=== PATIENT | female | born 1935 | race Caucasian/White ===

== ENCOUNTER 2017-02-11 14:27 | Inpatient (IN) | payer MEDICARE ==
[2017-02-11] MEDS ORDERED: ceFAZolin 1 GM ADVAN(*) 1 GM in NS 0.9% 50 ML* 50 ML IVPB ONE (16:37)
[2017-02-11] MEDS ORDERED: NS 0.9% 1000 ML* 1,000 ML IV ONE (16:37)
[2017-02-11 18:35] LABS: ABS Basophils 0 10^3/ul (0-0.2); ABS Eosinophils 0 10^3/ul (0-0.6); ABS Lymphocytes 0.9 10^3/ul (1.0-4.8); ABS Monocytes 1.1 10^3/ul (0-0.8); ABS Neutrophils 11.5 10^3/ul (1.5-7.7); ABS Nucleated RBC 0 10^3/ul; Eosinophil % 0.3 % (0-6); Hematocrit 38 % (35-47); Hemoglobin 13.1 g/dl (12.0-16.0); Lymphocyte % 6.7 % (25-47); Mean Corpuscular HGB Conc 35 g/dl (31-36); Mean Corpuscular Hemoglobin 31 pg (27-31); Mean Corpuscular Volume 90 fL (80-97); Mean Platelet Volume 9 um3 (7.4-10.4); Nucleated Red Blood Cells % 0; Platelet Count 188 10^3/ul (150-450); Red Blood Count 4.19 10^6/ul (4.0-5.4); Red Cell Distribution Width 14 % (10.5-15); White Blood Count 13.6 10^3/ul (3.5-10.8)
[2017-02-11 18:47] LABS: EGFR Non-African American 63.3 (>60)
--- NOTE | 2017-02-11 20:21 | RAD ---
INDICATION: RIGHT upper extremity pain and edema. History of Lyme disease. Elevated d-dimer. COMPARISON: No relevant prior exams available on the [facility] PACS for comparison. TECHNIQUE: Duplex ultrasound of the RIGHT internal jugular and subclavian veins. With the exception of the non accessible subclavian vein compressibility of venous segments assessed. Augmentation and phasicity assessed. The axillary and distal RIGHT upper extremity veins could not be assessed due to limitation in range of motion of the arm/shoulder. REPORT: The deep RIGHT internal jugular and subclavian veins are patent. Patency of the LEFT subclavian vein documented. IMPRESSION: No evidence for RIGHT internal jugular or subclavian deep venous thrombosis. The axillary and distal RIGHT upper extremity veins could not be assessed due to limitation in range of motion of the arm/shoulder.
--- NOTE | 2017-02-11 21:11 | ED ---
Nathan Valente Gabriel, scribed for Johnnie Arteaga MD on 02/11/17 at 1707 . Upper Extremity Pain - HPI Summary HPI Summary: This patient is a 81 year old F presenting to [facility] accompanied by granddaughter with a chief complaint of right shoulder pain since 4 nights ago. The patient rates the pain 6/10 in severity. Patient reports right arm pain and erythema on the posterior aspect of her arm. Patient denies fever. She was seen at yesterday and diagnosed with Lymes - History of Current Complaint Chief Complaint: EDExtremityUpper Stated Complaint: RT ARM PAIN & SWELLING Time Seen by Provider: 02/11/17 15:59 Hx Obtained From: Patient, Family/[employer] - granddaughter Timing: Constant, Lasting Days - 4 Severity Initially: Moderate Severity Currently: Moderate Pain Location: Shoulder, Arm Aggravating Factor(s): Movement Associated Signs & Symptoms: Positive: Redness - Allergies/Home Medications Allergies/Adverse Reactions: Allergies Allergy/AdvReac Type Severity Reaction Status Date / Time SEASONAL ALLERGIES Allergy Unknown Uncoded 02/11/17 14:37 Reaction Details PMH/Surg Hx/FS Hx/Imm Hx Previously Healthy: No Cardiovascular History: Reports: Hx Coronary Artery Disease - ON MED, Other Cardiovascular Problems/Disorders - IRREGULAR HR GI History: Reports: Hx Gastroesophageal Reflux Disease - ON MED Musculoskeletal History: Reports: Hx Arthritis - NECK SHOULDERS Sensory History: Reports: Hx Cataracts - RIGHT EYE, Hx Contacts or Glasses - GLASSES, Hx Hearing Aid - BILAT. Opthamlomology History: Reports: Hx Cataracts - RIGHT EYE, Hx Contacts or Glasses - GLASSES Psychiatric History: Reports: Hx Anxiety - ON MED - Surgical History Surgery Procedure, Year, and Place: 2006 LEFT KNEE REPLACEMENT [facility]. 2008 APPY [facility]. 2013 LEFT EYE CATARACT REMOVAL- [place] Hx Anesthesia Reactions: No Infectious Disease History: No Infectious Disease History: Denies: Traveled Outside the [place] in Last 30 Days - Social History Alcohol Use: Rare Alcohol Amount: 1 DRINK A WEEK Substance Use Type: Reports: None Smoking Status (MU): Never Smoked Tobacco Review of Systems Positive: Other - erythema on the posterior aspect of her arm Positive: Other - right shoulder and arm pain All Other Systems Reviewed And Are Negative: Yes Physical Exam - Summary Physical Exam Summary: Appearance: The patient is well-nourished in no acute distress and in no acute pain. Skin: The skin is warm and dry and skin color reflects adequate perfusion. HEENT: The head is normocephalic and atraumatic. The pupils are equal and reactive. The conjunctivae are clear and without drainage. Nares are patent and without drainage. Mouth reveals moist mucous membranes and the throat is without erythema and exudate. The external ears are intact. The ear canals are patent and without drainage. The tympanic membranes are intact. Neck: the neck is supple with full range of motion and non-tender. There are no carotid bruits. There is no neck vein distension. Respiratory: Chest is non-tender. Lungs are clear to auscultation and breath sounds are symmetrical and equal. Cardiovascular: Heart is regular rate and rhythm. There is no murmur or rub auscultated. There is no peripheral edema and pulses are symmetrical and equal. Abdomen: The abdomen is soft and non-tender. There are normal bowel sounds heard in all four quadrants and there is no organomegaly palpated. Musculoskeletal: Extremities are non-tender with full range of motion. There is good capillary refill. There is no peripheral edema or calf tenderness elicited. Spot on medial back that has induration and erythema. Right upper arm has induration, erythema, and is tender on the dorsal side. Neurological: Patient is alert and oriented to person, place and time. The patient has symmetrical motor strength in all four extremities. Cranial nerves are grossly intact. Deep tendon reflexes are symmetrical and equal in all four extremities. Psychiatric: The patient has an appropriate affect and does not exhibit any anxiety or depression Triage Information Reviewed: Yes Vital Signs On Initial Exam: Initial Vitals Temp Pulse Resp BP Pulse Ox 99.1 F 74 16 135/78 99 02/11/17 14:33 02/11/17 14:33 02/11/17 14:33 02/11/17 14:33 02/11/17 14:33 Vital Signs Reviewed: Yes - [place] Coma Scale Coma Scale Total: 15 Diagnostics - Vital Signs Vital Signs Temp Pulse Resp BP Pulse Ox 02/11/17 14:33 99.1 F 74 16 135/78 99 - Laboratory Lab Results: Lab Results 02/11/17 02/11/17 02/11/17 Range/Units 18:16 18:16 18:16 WBC 13.6 H (3.5-10.8) 10^3/ul RBC 4.19 (4.0-5.4) 10^6/ul Hgb 13.1 (12.0-16.0) g/dl Hct 38 (35-47) % MCV 90 (80-97) fL MCH 31 (27-31) pg MCHC 35 (31-36) g/dl RDW 14 (10.5-15) % Plt Count 188 (150-450) 10^3/ul MPV 9 (7.4-10.4) um3 Neut % (Auto) 84.8 H (38-83) % Lymph % (Auto) 6.7 L (25-47) % [place] % (Auto) 7.9 (1-9) % Eos % (Auto) 0.3 (0-6) % Baso % (Auto) 0.3 (0-2) % Absolute Neuts (auto) 11.5 H (1.5-7.7) 10^3/ul Absolute Lymphs (auto) 0.9 L (1.0-4.8) 10^3/ul Absolute Monos (auto) 1.1 H (0-0.8) 10^3/ul Absolute Eos (auto) 0 (0-0.6) 10^3/ul Absolute Basos (auto) 0 (0-0.2) 10^3/ul Absolute Nucleated RBC 0 10^3/ul Nucleated RBC % 0 D-Dimer, Quantitative 871 H (Less Than 230) ng/mL Sodium 126 L (133-145) mmol/L Potassium 4.4 (3.5-5.0) mmol/L Chloride 93 L (101-111) mmol/L Carbon Dioxide 25 (22-32) mmol/L Anion Gap 8 (2-11) mmol/L BUN 17 (6-24) mg/dL Creatinine 0.86 (0.51-0.95) mg/dL Est GFR ( Amer) 81.4 (>60) Est GFR (Non-Af Amer) 63.3 (>60) BUN/Creatinine Ratio 19.8 (8-20) Glucose 106 H (70-100) mg/dL Lactic Acid (0.5-2.0) mmol/L Calcium 9.5 (8.6-10.3) mg/dL Total Bilirubin 1.40 H (0.2-1.0) mg/dL AST 27 (13-39) U/L ALT 21 (7-52) U/L Alkaline Phosphatase 78 (34-104) U/L Total Protein 7.8 (6.4-8.9) g/dL Albumin 3.6 (3.2-5.2) g/dL Globulin 4.2 H (2-4) g/dL Albumin/Globulin Ratio 0.9 L (1-3) 02/11/17 Range/Units 18:16 WBC (3.5-10.8) 10^3/ul RBC (4.0-5.4) 10^6/ul Hgb (12.0-16.0) g/dl Hct (35-47) % MCV (80-97) fL MCH (27-31) pg MCHC (31-36) g/dl RDW (10.5-15) % Plt Count (150-450) 10^3/ul MPV (7.4-10.4) um3 Neut % (Auto) (38-83) % Lymph % (Auto) (25-47) % [place] % (Auto) (1-9) % Eos % (Auto) (0-6) % Baso % (Auto) (0-2) % Absolute Neuts (auto) (1.5-7.7) 10^3/ul Absolute Lymphs (auto) (1.0-4.8) 10^3/ul Absolute Monos (auto) (0-0.8) 10^3/ul Absolute Eos (auto) (0-0.6) 10^3/ul Absolute Basos (auto) (0-0.2) 10^3/ul Absolute Nucleated RBC 10^3/ul Nucleated RBC % D-Dimer, Quantitative (Less Than 230) ng/mL Sodium (133-145) mmol/L Potassium (3.5-5.0) mmol/L Chloride (101-111) mmol/L Carbon Dioxide (22-32) mmol/L Anion Gap (2-11) mmol/L BUN (6-24) mg/dL Creatinine (0.51-0.95) mg/dL Est GFR ( Amer) (>60) Est GFR (Non-Af Amer) (>60) BUN/Creatinine Ratio (8-20) Glucose (70-100) mg/dL Lactic Acid 1.9 (0.5-2.0) mmol/L Calcium (8.6-10.3) mg/dL Total Bilirubin (0.2-1.0) mg/dL AST (13-39) U/L ALT (7-52) U/L Alkaline Phosphatase (34-104) U/L Total Protein (6.4-8.9) g/dL Albumin (3.2-5.2) g/dL Globulin (2-4) g/dL Albumin/Globulin Ratio (1-3) Result Diagrams: 02/11/17 18:16 02/11/17 18:16 Lab Statement: Any lab studies that have been ordered have been reviewed, and results considered in the medical decision making process. - Additional Comments Diagnostic Additional Comments: Venous Doppler of upper extremities reveals, per radiologist, No evidence for RIGHT internal jugular or subclavian deep venous thrombosis. The axillary and distal RIGHT upper extremity veins could not be assessed due to limitation in range of motion of the arm/shoulder. ED physician has reviewed this radiology report. Course/Dx - Course Course Of Treatment: Ms. Moreno presented with a cellulitis of her right arm that was quite extensive. The arm was also fairly swollen and her d-dimer was nearly 900. A doppler was equivocal. She is being admitted to the hospitalists service with a diagnosis of cellulitis. - Diagnoses Provider Diagnoses: Cellulitis of right arm Discharge - Discharge Plan Condition: Stable Disposition: ADMITTED TO [facility] Referrals: Ramón Hastings MD [Primary Care Provider] - The documentation as recorded by the Nathan polanco Gabriel accurately reflects the service I personally performed and the decisions made by me, Johnnie Arteaga MD.
[2017-02-11] MEDS ORDERED: fentaNYL* 50 MCG/ML 2 ML VIAL (100 MCG VIAL) IV SLOW PU PRN (23:40)
[2017-02-11] MEDS ORDERED: Ondansetron INJ* 2 MG/ML VIAL IV PRN (23:40)
[2017-02-11] MEDS ORDERED: CMCS: Melatonin (NF) 3 MG TAB PO PRN (23:40)
[2017-02-11] MEDS: NS 0.9% 1000 ML* 1,000 ML IV SCH (23:50)
[2017-02-12] MEDS ORDERED: Vancomycin per Pharmacy* NOTE FOLLOW UP PRN (00:43)
[2017-02-12] MEDS: oxyCODONE TAB* 5 MG TAB PO PRN (00:58)
[2017-02-12] MEDS ORDERED: Vancomycin(*) 1,000 MG in NS 0.9% 250 ML* 250 ML IVPB ONE (01:00)
[2017-02-12] MEDS: ceFAZolin 1 GM in Dextrose (*) 1 GM/50 ML BAG IVPB SCH ×3 (03:17→18:51)
--- NOTE | 2017-02-12 04:40 | HP ---
H&P (Free Text) History and Physical: PCP: Chaz Hastings MD Orthopedic Surgery: Dr Nur (sp?), [facility] Date/Time: 02/11/2017 [id number] CC: R shoulder pain, RUE swelling HPI: Mrs Moreno is an 81YO female 3 years s/p R shoulder arthoplasty on low dose prednisone chronically for arthritis who was in her usual health last Sunday when she had annual Xrays of the R shoulder done. That evening she began having aching in the R shoulder she felt may have been due to the ROM done during the Xray. However by AM she was unable to perform ADLs such as dressing herself 2nd pain. A call to her orthopedist for appointment yielded a next available 2 weeks out. Sunday she began developing swelling in the RUE & shoulder with light erythema. Pain has continued to progress with worsening ROM decreased to nearly frozen. She had a single episode of N/V followed by a diarrheal stool Sunday, but denies F/C, sweats, chest pain, or other issues. D-dimer was 871, minimally elevated given age adjustment. US DVT RUE was negative, but incomplete 2nd severely limited ROM. CT was essentially normal for s/p shoulder replacement. WBCs 13.6 84.8% neutrophils. Case was reviewed with Nory Angulo MD orthopedic surgery out of concern for potential seeding of her RUE shoulder prosthesis from the cellulitis resulting in painful active/passive ROM, recommended CT WO and will evaluate in AM. PMedHx AFIB HTN HLD GERD OA depression Ambulatory Orders Atorvastatin* [Lipitor 20 MG*] 1 tab PO DAILY 07/21/13 Digoxin TAB* [Lanoxin TAB*] 1 tab PO DAILY 07/21/13 Escitalopram (NF) [Lexapro 5 mg (NF)] 1 tab PO DAILY 07/21/13 Omeprazole CAP* [Prilosec CAP* 20 MG] 1 b PO DAILY 07/21/13 Rivaroxaban TAB(*) [Xarelto(*)] 1 tab PO DAILY 07/21/13 Atenolol TAB* [Tenormin TAB* 25 MG] 25 mg PO DAILY 02/11/17 predniSONE TAB* 4 tab PO DAILY 02/11/17 Allergies SEASONAL ALLERGIES Allergy (Uncoded 02/11/17 14:37) Unknown Reaction Details PSurgHx OU cateract extraction tonsillectomy appendectomy R shoulder replacement L carpal tunnel release B TKA SocHx: no tobacco, light alcohol, no recreational drugs; , lives alone; 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[employer], 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 [employer]; DNR /I code status FamHx: unobtainable, patient is adopted ROS: as above, otherwise reviewed and all were negative vitals: Vital Signs Temp 37.0 C 02/12/17 03:35 Pulse 101 02/12/17 03:35 Resp 16 02/12/17 03:35 BP 131/65 02/12/17 03:35 Pulse Ox 97 02/12/17 03:35 Intake & Output 02/11/17 02/11/17 02/12/17 11:59 23:59 11:59 Intake Total 1050 285 Balance 1050 285 Weight 56.699 kg 56.699 kg Intake: IV Fluids 1050 IVPB 285 ABX - VANCOMYCIN 285 Constitutional: NAD, normally developed, well-nourished elderly white female HEENM: atraumatic; sclera/conjunctiva: anicteric/clear; hearing: clinically intact; oropharynx: clear, mucosa moist Neck: soft tissue: non-tender; thyroid: normal Pulmonary: clear to auscultation bilaterally, good aeration, no accessory muscle use CV: RR/RR, normal S1S2, no carotid bruit, no femoral bruit, no abdominal bruit, no jugular venous distention, 2+ B radial pulses, no LE edema, capillary refill <2s BUE Abdominal: soft, non-distended, non-tender, no rebound/guarding/rigidity, normoactive bowel sounds, no hepatosplenomegaly or masses, no costovertebral angle tenderness Musculoskeletal: general: RUE w/ edema and induration associated with light erythema and warmth extending from the deltoid postero-laterally to the elbow; There is there is painful dysesthesia to very light touch but no vessiculation. No flocclent or draining areas. Integumental: as above Psychiatric orientation: AA&O to PPS affect: calm mood: cooperative eye contact: good content: reliable responses: timely insight: good Testing: Lab Results 02/11/17 02/11/17 02/11/17 Range/Units 18:16 18:16 18:16 WBC 13.6 H (3.5-10.8) 10^3/ul RBC 4.19 (4.0-5.4) 10^6/ul Hgb 13.1 (12.0-16.0) g/dl Hct 38 (35-47) % MCV 90 (80-97) fL MCH 31 (27-31) pg MCHC 35 (31-36) g/dl RDW 14 (10.5-15) % Plt Count 188 (150-450) 10^3/ul MPV 9 (7.4-10.4) um3 Neut % (Auto) 84.8 H (38-83) % Lymph % (Auto) 6.7 L (25-47) % [place] % (Auto) 7.9 (1-9) % Eos % (Auto) 0.3 (0-6) % Baso % (Auto) 0.3 (0-2) % Absolute Neuts (auto) 11.5 H (1.5-7.7) 10^3/ul Absolute Lymphs (auto) 0.9 L (1.0-4.8) 10^3/ul Absolute Monos (auto) 1.1 H (0-0.8) 10^3/ul Absolute Eos (auto) 0 (0-0.6) 10^3/ul Absolute Basos (auto) 0 (0-0.2) 10^3/ul Absolute Nucleated RBC 0 10^3/ul Nucleated RBC % 0 D-Dimer, Quantitative 871 H (Less Than 230) ng/mL Sodium 126 L (133-145) mmol/L Potassium 4.4 (3.5-5.0) mmol/L Chloride 93 L (101-111) mmol/L Carbon Dioxide 25 (22-32) mmol/L Anion Gap 8 (2-11) mmol/L BUN 17 (6-24) mg/dL Creatinine 0.86 (0.51-0.95) mg/dL Est GFR ( Amer) 81.4 (>60) Est GFR (Non-Af Amer) 63.3 (>60) BUN/Creatinine Ratio 19.8 (8-20) Glucose 106 H (70-100) mg/dL Lactic Acid (0.5-2.0) mmol/L Calcium 9.5 (8.6-10.3) mg/dL Total Bilirubin 1.40 H (0.2-1.0) mg/dL AST 27 (13-39) U/L ALT 21 (7-52) U/L Alkaline Phosphatase 78 (34-104) U/L Total Protein 7.8 (6.4-8.9) g/dL Albumin 3.6 (3.2-5.2) g/dL Globulin 4.2 H (2-4) g/dL Albumin/Globulin Ratio 0.9 L (1-3) Prolactin 6.5 (1.0-25.0) ng/mL 02/11/17 Range/Units 18:16 WBC (3.5-10.8) 10^3/ul RBC (4.0-5.4) 10^6/ul Hgb (12.0-16.0) g/dl Hct (35-47) % MCV (80-97) fL MCH (27-31) pg MCHC (31-36) g/dl RDW (10.5-15) % Plt Count (150-450) 10^3/ul MPV (7.4-10.4) um3 Neut % (Auto) (38-83) % Lymph % (Auto) (25-47) % [place] % (Auto) (1-9) % Eos % (Auto) (0-6) % Baso % (Auto) (0-2) % Absolute Neuts (auto) (1.5-7.7) 10^3/ul Absolute Lymphs (auto) (1.0-4.8) 10^3/ul Absolute Monos (auto) (0-0.8) 10^3/ul Absolute Eos (auto) (0-0.6) 10^3/ul Absolute Basos (auto) (0-0.2) 10^3/ul Absolute Nucleated RBC 10^3/ul Nucleated RBC % D-Dimer, Quantitative (Less Than 230) ng/mL Sodium (133-145) mmol/L Potassium (3.5-5.0) mmol/L Chloride (101-111) mmol/L Carbon Dioxide (22-32) mmol/L Anion Gap (2-11) mmol/L BUN (6-24) mg/dL Creatinine (0.51-0.95) mg/dL Est GFR ( Amer) (>60) Est GFR (Non-Af Amer) (>60) BUN/Creatinine Ratio (8-20) Glucose (70-100) mg/dL Lactic Acid 1.9 (0.5-2.0) mmol/L Calcium (8.6-10.3) mg/dL Total Bilirubin (0.2-1.0) mg/dL AST (13-39) U/L ALT (7-52) U/L Alkaline Phosphatase (34-104) U/L Total Protein (6.4-8.9) g/dL Albumin (3.2-5.2) g/dL Globulin (2-4) g/dL Albumin/Globulin Ratio (1-3) Prolactin (1.0-25.0) ng/mL US DVT RUE: IMPRESSION: No evidence for RIGHT internal jugular or subclavian deep venous thrombosis. The axillary and distal RIGHT upper extremity veins could not be assessed due to limitation in range of motion of the arm/shoulder. CT R shoulder WO, personally reviewed: IMPRESSION: Right shoulder prosthesis appears to be in normal articulation. Impression: 81F HX R shoulder arthroplasty 3 years ago with progressive R shoulder pain, swelling, & decreased ROM with RUE pain, swelling, erythema, and warmth consistent with cellulitis and raising the specter of an infected prosthesis DIAGNOSIS & PLAN Primary sepsis (HR >90, leukocytosis) 2nd RUE cellulitis w/ concern for R shoulder prosthesis infection : IV vancomycin and cefazolin : IVFs : blood CX : pain control : Nory Angulo MD orthopedic surgery consulted, will evaluate in AM; input greatly appreciated : NPO x/ meds w/ sips of clears : supportive care hypoNatremia : suspect dehydration : IVFs, trend Secondary AFIB : continue atenolol, digoxin, & rivaroxaban HTN : continue atenolol HLD : continue atorvastatin GERD : continue omeprazole OA : continue prednisone depression : continue escitalopram Admission Rational: inpatient for sepsis 2nd RUE cellulitis +/ R shoulder prosthesis infection; inappropriate for outpatient setting DVTp: continue rivaroxaban Code Status: DNR/I, MOLST filled out HCP: daughterMagalys
[2017-02-12 06:35] LABS: EGFR Non-African American 70.9 (>60)
[2017-02-12 07:37] LABS: ABS Basophils 0 10^3/ul (0-0.2); ABS Eosinophils 0 10^3/ul (0-0.6); ABS Monocytes 1.1 10^3/ul (0-0.8); ABS Neutrophils 9.1 10^3/ul (1.5-7.7); ABS Nucleated RBC 0.01 10^3/ul; Eosinophil % 0.3 % (0-6); Hematocrit 33 % (35-47); Hemoglobin 11.1 g/dl (12.0-16.0); Lymphocyte % 8.8 % (25-47); Mean Corpuscular HGB Conc 34 g/dl (31-36); Mean Corpuscular Hemoglobin 30 pg (27-31); Mean Corpuscular Volume 90 fL (80-97); Mean Platelet Volume 8 um3 (7.4-10.4); Nucleated Red Blood Cells % 0; Platelet Count 195 10^3/ul (150-450); Red Blood Count 3.69 10^6/ul (4.0-5.4); Red Cell Distribution Width 14 % (10.5-15); White Blood Count 11.2 10^3/ul (3.5-10.8)
--- NOTE | 2017-02-12 08:18 | RAD ---
Indication: RIGHT shoulder pain. Cellulitis. Question septic arthritis at the prosthetic RIGHT shoulder. No range of motion. Lump under arm. Comparison: Limited RIGHT upper extremity venous ultrasound of the same date. Technique: Noncontrast CT RIGHT shoulder. Multiplanar reformation. Report: Small calcified granuloma at the RIGHT lung base. Small calcified lymph nodes at the RIGHT hilum. No alveolar consolidation at the RIGHT lung. Negative for RIGHT pleural effusion or pneumothorax. Reversed glenohumeral prosthesis in place and located. Resulting artifact limiting image quality. No periprosthetic fracture or suggestion of prosthesis loosening. No definitive joint effusion evident. Advanced osteoarthritis at the acromioclavicular joint and large inferior acromial bone spur at the anterior margin. No CT abnormality at the skeletal musculature tissue plane. Mild subcutaneous edema posterolaterally. No loculated soft tissue plane fluid collection evident within limits of noncontrast CT. No lymphadenopathy evident. IMPRESSION: 1. No evidence for RIGHT glenohumeral prosthesis loosening or periprosthetic fracture. 2. No joint effusion evident. If clinically indicated ultrasound could be utilized to further assess for joint effusion. 3. Advanced AC joint osteoarthritis and large inferior acromial bone spur.
--- NOTE | 2017-02-12 08:38 | RAD ---
Indication: Sepsis; RIGHT upper extremity cellulitis versus septic prosthetic RIGHT shoulder. Limited range of motion. Comparison: Noncontrast CT of the same date. Technique: Internal and external rotation AP and scapular Y views RIGHT shoulder Report: Reversed glenohumeral prosthesis in place with normal alignment. No fracture or stigmata of prosthesis loosening. Advanced osteoarthritis at the acromial clavicular joint and large inferior acromial bone spur. Bone density appears decreased throughout. No gross osteolysis or periosteal reaction evident. Unremarkable soft tissue contours. Negative for subcutaneous emphysema. Mild atelectasis at the RIGHT lung base. IMPRESSION: 1. Reverse bony humeral joint prosthesis in place with normal alignment. 2. Advanced AC joint osteoarthritis and large inferior acromial bone spur. 3. No compelling radiographic evidence for osteomyelitis or septic arthritis.
--- NOTE | 2017-02-12 08:40 | RAD ---
INDICATION: Right arm pain. Cellulitis. COMPARISON: None TECHNIQUE: AP, lateral, and oblique views were obtained. FINDINGS: There is no acute bony change. There is moderate osteoarthritis. There is diffuse soft tissue edema with disruption of the fat muscle interface. IMPRESSION: DIFFUSE SOFT TISSUE EDEMA.
[2017-02-12] MEDS: Atenolol TAB* 25 MG PO SCH (09:13)
[2017-02-12] MEDS: Digoxin TAB* 0.125 MG PO SCH (09:13)
[2017-02-12] MEDS: Atorvastatin* 20 MG TAB PO SCH (09:15)
[2017-02-12] MEDS: Rivaroxaban TAB(*) 15 MG PO SCH (09:16)
[2017-02-12] MEDS: Citalopram TAB* 10 MG PO SCH (09:16)
[2017-02-12] MEDS: Omeprazole CAP* 20 MG PO SCH (09:16)
[2017-02-12] MEDS: Docusate CAP* 100 MG PO SCH ×2 (09:16→19:48)
[2017-02-12] MEDS: predniSONE TAB* 1 MG PO SCH (09:16)
[2017-02-12] MEDS ORDERED: Vancomycin(*) 500 MG in NS 0.9% 250 ML* 250 ML IVPB SCH (13:00)
--- NOTE | 2017-02-12 15:37 | CONS ---
CONSULTATION REPORT: DATE OF CONSULT: 02/12/17 HISTORY OF PRESENT ILLNESS: Kiara Moreno is an 81-year-old relatively active lady who a few years ago had a right reverse total shoulder down at [place] by Dr. Nur. This has been a successful arthroplasty for her overall. In the last week, she had a couple of passive range of motion exercises of the right shoulder for x- rays at followup with Dr. Nur and she says that night, she developed pain in the shoulder and the next morning was barely able to move the arm. She was seen at the [facility] 3 days ago and thought to maybe have Lyme disease, but at any rate she has been readmitted over the weekend now with redness; swelling of the right upper extremity, the brachium; pain at the shoulder and diagnosis of cellulitis. Ms. Moreno is relatively healthy with some AFib, hypertension, reflux and arthritis. She is not diabetic. Medicines are outlined in the chart. She has been on some IV antibiotics overnight as well. On admission, her white count was 13.6, hemoglobin is 13.1, glucose is 106. PHYSICAL EXAMINATION: Her vital signs are normal at 99.0. She is normotensive. She complains of some slight improvement in the pain in the right upper extremity. It appears that most of her tenderness and symptoms of pain are at the shoulder. The physical examination of the right upper extremity shows her to have a well- healed anterior scar. There is no drainage. The shoulder itself is minimally swollen. Her swelling the mid brachium and down to the elbow area. I am able to passively range her elbow and it appears most of the pain is because of some associated elevation of the shoulder joint when I examine the elbow. She has a warm sensate hand and good radial pulse. There is pain with passive forward flexion and rotation of the right shoulder joint. Her CT scan with significant metal artifact around the reverse total shoulder does not show obvious hardware failure. I do not see a fluid collection. Plain radiographs of the right shoulder show the reverse total shoulder with hardware intact. Again, I do not see obvious lysis or soft tissue swelling. The elbow itself is quite arthritic on radiographs, but I do not see any sign of fracture or loss of cortical integrity. The patient is a relatively healthy 81-year-old lady who has been here for a week, been experiencing 5 days now of increasing pain at the right shoulder and upper extremity without history of trauma. No recent febrile illness. No history of any infections. She is only slightly improved on IV antibiotics, so we will consider aspiration of the right shoulder. [id number]/[facility] #: [id number] SUZANNA
--- NOTE | 2017-02-12 16:46 | RAD ---
Indication: RIGHT upper extremity cellulitis. Concern for potential septic arthritis at prosthetic RIGHT shoulder. Comparison: Radiograph and CT exams of the same date. Written informed consent obtained. Timeout performed. PROCEDURE: Routine aseptic skin prep and sterile draping of procedural field. Following administration of 5 mL 1% lidocaine within the soft tissues overlying the prosthetic RIGHT glenohumeral joint a 21-gauge coaxial needle was advanced into the joint under fluoroscopic guidance. Initial attempt at aspiration yielded no fluid. Intra-articular location of the needle confirmed with 1 mL Omnipaque 180 contrast injection. 10 mL normal saline infused into the joint. Subsequent attempts at aspiration yielded no fluid. The needle was withdrawn. Band-Aid applied over the needle puncture site. Procedure tolerated with some complaints of posterior shoulder discomfort without immediate complication. 14 seconds fluoroscopy. IMPRESSION: Fluoroscopic guided needle access of the prosthetic RIGHT shoulder confirmed with Omnipaque contrast injection without successful joint fluid aspiration before and after infusion of 10 mL sterile saline. Results discussed with KIRSTIE Johnson 02/12/2017 4:41 PM EST CPT II Codes: 6045F
--- NOTE | 2017-02-12 17:01 | PN ---
Subjective Date of Service: 02/12/17 Interval History: Patient seen and examined at bedside. Patient reports continued R shoulder pain and restricted ROM. Low grade temperature this AM. Afebrile now. Denies SOB, CP. Family History: Unchanged from Admission Social History: Unchanged from Admission Past Medical History: Unchanged from Admission Objective Active Medications: Acetaminophen (Tylenol Tab*) 650 mg PO Q6H PRN Atenolol (Tenormin Tab*) 25 mg PO DAILY [facility] Atorvastatin Calcium (Lipitor*) 20 mg PO DAILY [facility] Citalopram Hydrobromide (Celexa Tab*) 10 mg PO DAILY [facility] Digoxin (Lanoxin Tab*) 0.125 mg PO DAILY [facility] Docusate Sodium (Colace Cap*) 200 mg PO BID AN[facility]IO Fentanyl Citrate (Fentanyl*) 25 mcg IV SLOW PU Q2H PRN Cefazolin Sodium/Dextrose (Kefzol 1 Gm In Dextrose Duplex (*)) 1 gm in 50 mls @ 200 mls/hr IVPB Q8H ANTONIO Sodium Chloride (Ns 0.9% 1000 Ml*) 1,000 mls @ 75 mls/hr IV PER RATE AN[facility]IO Vancomycin HCl 500 mg/ Sodium (Chloride) 250 mls @ 166.667 mls/hr IVPB Q12H AN[facility]IO Melatonin (Melatonin (Nf)) 3 mg PO BEDTIME PRN; Protocol Omeprazole (Prilosec Cap*) 20 mg PO DAILY [facility] Ondansetron HCl (Zofran Inj*) 4 mg IV Q6H PRN Oxycodone HCl (Roxycodone Tab*) 5 mg PO Q4H PRN Pharmacy Consult (Vancomycin Per Pharmacy*) 1 note FOLLOW UP . PRN Pharmacy Profile Note (Vancomycin Trough Check) 1 note FOLLOW UP 1300 ONE Prednisone (Deltasone Tab*) 4 mg PO DAILY AN[facility] Rivaroxaban (Xarelto(*)) 15 mg PO DAILY [facility] Vital Signs Temp Pulse Resp BP Pulse Ox 98.6 F 81 16 144/58 98 02/12/17 15:18 02/12/17 15:18 02/12/17 15:18 02/12/17 15:18 02/12/17 15:18 Oxygen Devices in Use Now: None Appearance: sitting up in bed, NAD Eyes: No Scleral Icterus, PERRLA Ears/Nose/Mouth/Throat: NL Teeth, Lips, Gums Neck: NL Appearance and Movements; NL JVP Respiratory: Symmetrical Chest Expansion and Respiratory Effort, Clear to Auscultation Cardiovascular: NL Sounds; No Murmurs; No JVD, RRR Extremities: - - erythema on upper and lower arm blanchable. No fluctuant areas noted. 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 Skin: - - erythema from deltoid extending posterior laterally Neurological: Alert and Oriented x 3, NL Muscle Strength and Tone Lines/Tubes/Other Access: Clean, Dry and Intact Peripheral IV Nutrition: Taking PO's Result Diagrams: 02/12/17 07:23 02/12/17 05:15 Additional Lab and Data: . Assess/Plan/Problems-Billing Patient is an 81 y/o F w/ PMH significant for afib on xarelto, GERD, HLD, and R shoulder total arthroplasty in 2013 who presented to the ER with progressive right shoulder pain and decrease ROM. - Patient Problems (1) Sepsis due to cellulitis Comment: Present on admission. 03/08 Blood Cx with gram + cocci (negative for MRSA ). D/c vancomycin and continue Ancef. Await other cultures. Appreciate Ortho input. Unable to aspirate any fluid from joint. Will ask for ID consult in the AM. Continue pain control. Rechewck CBC and CRP in AM. (2) Hyponatremia Comment: Improved with IVF. Suspect secondary to sepsis. Continue IVF. (3) HTN (hypertension) Comment: Controlled with atenolol. (4) Atrial fibrillation Comment: Continue atenolol, digoxin and xarelto. (5) GERD (gastroesophageal reflux disease) Comment: Continue Omeprazole. (6) Osteoarthritis Comment: Continue prednisone. (7) DVT prophylaxis Comment: Xarelto (8) DNR (do not resuscitate) Status and Disposition: Inpatient for R shoulder pain and possible septic arthritis. Discharge home when stable.
[2017-02-12] MEDS ORDERED: Cephalexin CAP* 500 MG PO SCH (21:00)
--- NOTE | 2017-02-12 23:35 | CONS ---
CONSULTATION REPORT: DATE OF CONSULT: 02/12/17 HISTORY OF PRESENT ILLNESS: Ms. Moreno is back from her right shoulder aspirate. The report is not in the chart yet, but the patient reports that this was a dry tap and that they were unable to get any liquid out of the shoulder. Pending final micro, we will keep the patient in the hospital and treat with continued IV antibiotics, I think she can have dinner and then NPO after midnight pending the results of the culture Gram stain in the morning. [id number]/[facility] #: [id number] MTDD
[2017-02-13] MEDS: NS 0.9% 1000 ML* 1,000 ML IV SCH (00:13)
[2017-02-13] MEDS: ceFAZolin 1 GM in Dextrose (*) 1 GM/50 ML BAG IVPB SCH ×3 (01:53→17:37)
[2017-02-13 05:38] LABS: ABS Basophils 0 10^3/ul (0-0.2); ABS Eosinophils 0 10^3/ul (0-0.6); ABS Lymphocytes 0.8 10^3/ul (1.0-4.8); ABS Monocytes 1.2 10^3/ul (0-0.8); ABS Neutrophils 8.7 10^3/ul (1.5-7.7); ABS Nucleated RBC 0.01 10^3/ul; Eosinophil % 0.3 % (0-6); Hematocrit 31 % (35-47); Hemoglobin 10.6 g/dl (12.0-16.0); Lymphocyte % 7.6 % (25-47); Mean Corpuscular HGB Conc 34 g/dl (31-36); Mean Corpuscular Hemoglobin 31 pg (27-31); Mean Corpuscular Volume 90 fL (80-97); Mean Platelet Volume 9 um3 (7.4-10.4); Nucleated Red Blood Cells % 0.1; Platelet Count 199 10^3/ul (150-450); Red Blood Count 3.42 10^6/ul (4.0-5.4); Red Cell Distribution Width 14 % (10.5-15); White Blood Count 10.7 10^3/ul (3.5-10.8)
[2017-02-13 05:48] LABS: EGFR Non-African American 70.9 (>60)
--- NOTE | 2017-02-13 08:21 | PN ---
Progress Note - Progress Note Date of Service: 02/13/17 SOAP: Subjective: [] Patient seen OOB in chair. Her right upper extremity remains painful but less so than yesterday. She denies chills, chest pain, shortness of breath, dizziness or nausea. Objective: [] Vital Signs Temp 99.2 F 02/13/17 07:28 Pulse 87 02/13/17 07:28 Resp 16 02/13/17 07:28 BP 113/53 02/13/17 07:28 Pulse Ox 96 02/13/17 07:28 Intake & Output 02/12/17 02/13/17 02/13/17 18:59 06:59 18:59 Intake Total 335 1897 Output Total 725 700 Balance -390 1197 Intake: IV Fluids 335 977 ABX - CEFAZOLIN 55 ABX - VANCOMYCIN 280 NS (0.9%) 977 Oral 0 920 Output: Urine 725 700 Other: # Bowel Movements 1 Estimated Stool Amount Small Laboratory Last Values WBC 10.7 10^3/ul (3.5-10.8) 02/13/17 05:06 RBC 3.42 10^6/ul (4.0-5.4) L 02/13/17 05:06 Hgb 10.6 g/dl (12.0-16.0) L 02/13/17 05:06 Hct 31 % (35-47) L 02/13/17 05:06 MCV 90 fL (80-97) 02/13/17 05:06 MCH 31 pg (27-31) 02/13/17 05:06 MCHC 34 g/dl (31-36) 02/13/17 05:06 RDW 14 % (10.5-15) 02/13/17 05:06 Plt Count 199 10^3/ul (150-450) 02/13/17 05:06 MPV 9 um3 (7.4-10.4) 02/13/17 05:06 Neut % (Auto) 81.0 % (38-83) 02/13/17 05:06 Lymph % (Auto) 7.6 % (25-47) L 02/13/17 05:06 [place] % (Auto) 10.7 % (1-9) H 02/13/17 05:06 Eos % (Auto) 0.3 % (0-6) 02/13/17 05:06 Baso % (Auto) 0.4 % (0-2) 02/13/17 05:06 Absolute Neuts (auto) 8.7 10^3/ul (1.5-7.7) H 02/13/17 05:06 Absolute Lymphs (auto) 0.8 10^3/ul (1.0-4.8) L 02/13/17 05:06 Absolute Monos (auto) 1.2 10^3/ul (0-0.8) H 02/13/17 05:06 Absolute Eos (auto) 0 10^3/ul (0-0.6) 02/13/17 05:06 Absolute Basos (auto) 0 10^3/ul (0-0.2) 02/13/17 05:06 Absolute Nucleated RBC 0.01 10^3/ul 02/13/17 05:06 Nucleated RBC % 0.1 02/13/17 05:06 ESR 113 mm/Hr (0-40) H 02/12/17 07:23 D-Dimer, Quantitative 871 ng/mL (Less Than 230) H 02/11/17 18:16 Sodium 129 mmol/L (133-145) L 02/13/17 05:05 Potassium 3.7 mmol/L (3.5-5.0) 02/13/17 05:05 Chloride 100 mmol/L (101-111) L 02/13/17 05:05 Carbon Dioxide 21 mmol/L (22-32) L 02/13/17 05:05 Anion Gap 8 mmol/L (2-11) 02/13/17 05:05 BUN 17 mg/dL (6-24) 02/13/17 05:05 Creatinine 0.78 mg/dL (0.51-0.95) 02/13/17 05:05 Est GFR ( Amer) 91.2 (>60) 02/13/17 05:05 Est GFR (Non-Af Amer) 70.9 (>60) 02/13/17 05:05 BUN/Creatinine Ratio 21.8 (8-20) H 02/13/17 05:05 Glucose 124 mg/dL (70-100) H 02/13/17 05:05 Lactic Acid 1.9 mmol/L (0.5-2.0) 02/11/17 18:16 Calcium 8.1 mg/dL (8.6-10.3) L 02/13/17 05:05 Total Bilirubin 1.40 mg/dL (0.2-1.0) H 02/11/17 18:16 AST 27 U/L (13-39) 02/11/17 18:16 ALT 21 U/L (7-52) 02/11/17 18:16 Alkaline Phosphatase 78 U/L (34-104) 02/11/17 18:16 C-Reactive Protein 291.24 mg/L (< 5.00) H 02/13/17 05:05 Total Protein 7.8 g/dL (6.4-8.9) 02/11/17 18:16 Albumin 3.6 g/dL (3.2-5.2) 02/11/17 18:16 Globulin 4.2 g/dL (2-4) H 02/11/17 18:16 Albumin/Globulin Ratio 0.9 (1-3) L 02/11/17 18:16 Prolactin 6.5 ng/mL (1.0-25.0) 02/11/17 18:16 General: Sitting in chair. Well appearing, No acute distress RUE: Mild erythema and moderate tenderness over triceps region, decreased tenderness from yesterday. Pain with any passive or active ROM of shoulder. Able to passively flex and extend elbow without pain. Edema from mid-upper arm down through hand. Sensation intact throughout. 2+ radial pulse. Brisk capillary refill of digits. Skin: right upper back with 3x4 cm nontender, nonfluctuant erythematous patch. Assessment: []Cellulitis RUE Plan: []Regular diet IV Antibiotics per per hospitalist, ID ( consult today) Unable to aspirate any fluid from joint. CRP and white count trending towards normal. Low grade temp. Continue pain control Dr. Jackson to see 02/14
[2017-02-13] MEDS: Omeprazole CAP* 20 MG PO SCH (08:27)
[2017-02-13] MEDS: oxyCODONE TAB* 5 MG TAB PO PRN ×3 (08:28→22:11)
[2017-02-13] MEDS: Citalopram TAB* 10 MG PO SCH (09:56)
[2017-02-13] MEDS: Digoxin TAB* 0.125 MG PO SCH (09:56)
[2017-02-13] MEDS: predniSONE TAB* 1 MG PO SCH (09:57)
[2017-02-13] MEDS: Atenolol TAB* 25 MG PO SCH (09:58)
[2017-02-13] MEDS: Atorvastatin* 20 MG TAB PO SCH (09:58)
[2017-02-13] MEDS: Docusate CAP* 100 MG PO SCH ×4 (09:59→21:12)
[2017-02-13] MEDS: Rivaroxaban TAB(*) 15 MG PO SCH (09:59)
[2017-02-13] MEDS ORDERED: Vancomycin Trough Check NOTE FOLLOW UP ONE (13:00)
--- NOTE | 2017-02-13 13:56 | PN ---
Subjective Date of Service: 02/13/17 Interval History: Patient seen and examined at bedside. Patient reports improved pain. ROM remains compromised. Afebrile. Able to get IV access last night. 2/4 Blood cx growing MSSA. Family History: Unchanged from Admission Social History: Unchanged from Admission Past Medical History: Unchanged from Admission Objective Active Medications: Acetaminophen (Tylenol Tab*) 650 mg PO Q6H PRN Atenolol (Tenormin Tab*) 25 mg PO DAILY [facility] Atorvastatin Calcium (Lipitor*) 20 mg PO DAILY ANTONIO Citalopram Hydrobromide (Celexa Tab*) 10 mg PO DAILY ANTONIO Digoxin (Lanoxin Tab*) 0.125 mg PO DAILY [facility] Docusate Sodium (Colace Cap*) 200 mg PO BID ANTONIO Fentanyl Citrate (Fentanyl*) 25 mcg IV SLOW PU Q2H PRN Cefazolin Sodium/Dextrose (Kefzol 1 Gm In Dextrose Duplex (*)) 1 gm in 50 mls @ 200 mls/hr IVPB Q8H ANTONIO Potassium Chloride/Sodium Chloride (Ns 0.9% W/ 20 Meq Kcl 1000 Ml*) 1,000 mls @ 150 mls/hr IV PER RATE SC Melatonin (Melatonin (Nf)) 3 mg PO BEDTIME PRN; Protocol Omeprazole (Prilosec Cap*) 20 mg PO DAILY [facility] Ondansetron HCl (Zofran Inj*) 4 mg IV Q6H PRN Oxycodone HCl (Roxycodone Tab*) 5 mg PO Q4H PRN Prednisone (Deltasone Tab*) 4 mg PO DAILY [facility] Vital Signs Temp Pulse Resp BP Pulse Ox 99.2 F 100 16 113/53 96 02/13/17 07:28 02/13/17 09:56 02/13/17 08:28 02/13/17 07:28 02/13/17 07:28 Oxygen Devices in Use Now: None Appearance: sitting up in chair, NAD Eyes: No Scleral Icterus, PERRLA Ears/Nose/Mouth/Throat: NL Teeth, Lips, Gums Neck: NL Appearance and Movements; NL JVP Respiratory: Symmetrical Chest Expansion and Respiratory Effort, Clear to Auscultation Cardiovascular: RRR, - - irregularly irregular; RUE edema Abdominal: NL Sounds; No Tenderness; No Distention Extremities: - - RUE edema; induration; erythema Skin: - - RUE erythema deltoid to forearm Neurological: Alert and Oriented x 3, NL Muscle Strength and Tone Lines/Tubes/Other Access: Clean, Dry and Intact Peripheral IV Nutrition: Taking PO's Result Diagrams: 02/13/17 05:06 02/13/17 05:05 Additional Lab and Data: . Assess/Plan/Problems-Billing Patient is an 81 y/o F w/ PMH significant for afib on xarelto, GERD, HLD, and R shoulder total arthroplasty in 2013 who presented to the ER with progressive right shoulder pain and decrease ROM. - Patient Problems (1) MSSA (methicillin susceptible Staphylococcus aureus) septicemia Comment: Sepsis resolved. 04/08 Blood Cx growing MSSA sensitive to Ancef. ID consult this PM. GARFIELD ordered for tomorrow. Patient will need shoulder washed out. Last dose of Xarelto this AM. Will d/w with Ortho. (2) Septic joint of right shoulder region Comment: Although aspiration was unsuccessful given clnical presentation and bacteremis likely patient has septic arthritis or her R shoulder. Ortho following and will d/w them plans for urgent washout. Continue Ancef for now. ID to see this PM (3) Hyponatremia Comment: Improved with IVF. Suspect secondary to sepsis. Continue IVF. (4) HTN (hypertension) Comment: Controlled with atenolol. (5) Atrial fibrillation Comment: Continue atenolol and digoxin. Xarelto d/c for washout. D/c telemetry. (6) GERD (gastroesophageal reflux disease) Comment: Continue Omeprazole. (7) Osteoarthritis Comment: Continue prednisone. (8) DVT prophylaxis Comment: Will start SQ Heparin this evening as Xarelto d/c (9) DNR (do not resuscitate) Status and Disposition: Inpatient for R shoulder pain and possible septic arthritis. Likely will need LT abx. PICC ordered d/t difficult access, but will need to wait until bacteremia clears.
[2017-02-13] MEDS ORDERED: NS 0.9% w/ 20 Meq KCL 1000 ML* 1,000 ML IV SCH (14:00)
[2017-02-13] MEDS ORDERED: Heparin VIAL(*) 5000 UNITS/ML VIAL (FIVE THOUSAND) SUBCUT SCH (22:00)
--- NOTE | 2017-02-13 22:22 | CONS ---
CONSULTATION REPORT: DATE OF CONSULT: 02/13/17 REQUESTING PROVIDER: Victoria Johnson NP CONSULTING SERVICE: Infectious Disease. REASON FOR CONSULT: Right shoulder infection. IMPRESSION: 1. Methicillin-sensitive Staphylococcus aureus bacteremia in 2/4 blood culture bottles with diffuse edema, erythema, and warmth from the shoulder down to the mid forearm and immobility of her right shoulder with severe pain in the setting of a shoulder prosthesis in the distant past. 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 She has no peripheral stigmata of infective endocarditis and only 2/4 blood culture bottles are positive, so I think infective endocarditis is a low probability. 2. Atrial fibrillation, on anticoagulation. RECOMMENDATION: 1. I agree with cefazolin 1 g IV every 8 hours and repeat blood cultures for tomorrow. 2. Orthopedic evaluation is pending. X-ray and CT did not show an effusion but given the overall clinical picture of this, she does have a prosthetic joint infection. Once Orthopedics has seen her, we will discuss surgical therapy. 3. Transthoracic echocardiogram. HISTORY OF PRESENT ILLNESS: An 81-year-old woman with a history of right shoulder arthroplasty admitted with severe pain in the right shoulder that was building over the last week or so. It got to the point that she could not move her arms, so she came to the hospital with a white count of 13,000 on 02/11/17. She was not having fevers or chills at home as far as she knew. Her appetite was little bit decreased, however. CT of the shoulder on 02/11/17 showed the prosthesis to be in place and no loosening. She was started on vancomycin and cefepime. She is on Ancef now. Blood cultures are growing 2/4 bottles of Staph aureus. She has been afebrile here. She has a C-reactive protein of 320. After a couple of days with antibiotics, she still cannot really move her right shoulder. She has swelling from her shoulder down to her forearm. She can bend her elbow pretty well and move her wrist without too much difficulty. Even at rest, her shoulder is painful and does not want to touch it. Does not have prosthetic material elsewhere. PAST MEDICAL HISTORY: 1. Osteoarthritis. 2. Status post right shoulder arthroplasty. 3. Atrial fibrillation. 4. Hypertension. 5. Hyperlipidemia. 6. Gastroesophageal reflux disease. 7. Status post bilateral knee arthroplasties, asymptomatic. MEDICATIONS: 1. Tylenol. 2. Atenolol. 3. Atorvastatin. 4. Celexa. 5. Fentanyl as needed. 6. Heparin subcutaneous injections. 7. Cefazolin 1 g every 8 hours. 8. Melatonin. 9. Omeprazole. 10. Oxycodone. 11. Prednisone 4 mg a day. ALLERGIES: No known drug allergies. FAMILY HISTORY: No recurrent infections. She was adopted, however, does not know too much about it. SOCIAL HISTORY: She lives in [place]. 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 No sick contacts. REVIEW OF SYSTEMS: A 14-point review of systems was negative and as noted above. PHYSICAL EXAM: Vital Signs: Temperature 37, heart rate 70, respiratory rate 16 , blood pressure 111/45, O2 sat 99% on room air. In general, she is awake, not in distress. Neurologic: She is oriented x3, follows all commands. HEENT: There is no conjunctival hemorrhage. Oropharynx: Without lesions. Neck: Supple without nuchal rigidity. Lymph Nodes: There is no inguinal, axillary, or epitrochlear lymphadenopathy. Heart: Regular rate and rhythm without murmurs, rubs, or gallops. Lungs: Clear to auscultation bilaterally. Abdomen : Soft, nontender, nondistended. There are bowel sounds present. Skin: There is no rash or splinter hemorrhages. Musculoskeletal: There is no spine tenderness to palpation. There is diffuse edema from right shoulder down through the forearm with some induration and warmth. There is no fluctuance. There is tenderness to palpation throughout in this particular area around the glenohumeral joint. She has almost no range of motion of that shoulder without pain and she has guarding. DIAGNOSTIC STUDIES/LAB DATA: White blood cell count 10, hemoglobin 10, platelets 199. Creatinine 0.7. CRP 290. Please see impressions and recommendations as outlined above. Thanks for asking me to see Ms. Moreno in consultation. [id number]/[facility] #: [id number] SUZANNA
[2017-02-14] MEDS: Acetaminophen TAB* 325 MG PO PRN (00:14)
[2017-02-14] MEDS ORDERED: NS 0.9% 1000 ML* 1,000 ML IV SCH (00:45)
[2017-02-14] MEDS: ceFAZolin 1 GM in Dextrose (*) 1 GM/50 ML BAG IVPB SCH ×3 (01:54→17:48)
[2017-02-14 05:04] LABS: ABS Basophils 0 10^3/ul (0-0.2); ABS Eosinophils 0.1 10^3/ul (0-0.6); ABS Lymphocytes 1.2 10^3/ul (1.0-4.8); ABS Monocytes 1.1 10^3/ul (0-0.8); ABS Neutrophils 8.4 10^3/ul (1.5-7.7); ABS Nucleated RBC 0 10^3/ul; Eosinophil % 0.8 % (0-6); Hematocrit 28 % (35-47); Hemoglobin 9.5 g/dl (12.0-16.0); Mean Corpuscular HGB Conc 34 g/dl (31-36); Mean Corpuscular Hemoglobin 31 pg (27-31); Mean Corpuscular Volume 90 fL (80-97); Mean Platelet Volume 8 um3 (7.4-10.4); Nucleated Red Blood Cells % 0; Platelet Count 217 10^3/ul (150-450); Red Blood Count 3.12 10^6/ul (4.0-5.4); Red Cell Distribution Width 14 % (10.5-15); White Blood Count 10.8 10^3/ul (3.5-10.8)
[2017-02-14 06:06] LABS: EGFR Non-African American 69.8 (>60)
--- NOTE | 2017-02-14 08:17 | PN ---
Progress Note - Progress Note Date of Service: 02/14/17 SOAP: Subjective: []Patient seen at bedside by Dr. Jackson. She feels somewhat better than yesterday though still has right shoulder pain. Objective: [] Vital Signs Temp 98.0 F 02/14/17 07:22 Pulse 90 02/14/17 07:22 Resp 16 02/14/17 07:22 BP 116/56 02/14/17 07:22 Pulse Ox 96 02/14/17 07:22 Intake & Output 02/13/17 02/14/17 02/14/17 18:59 06:59 18:59 Intake Total 1194 510 432 Output Total 1050 1050 Balance 144 -540 432 Weight 125 lb Intake: IV Fluids 974 377 NS (0.9%) 974 377 IVPB 100 55 ABX - CEFAZOLIN 100 55 Oral 120 510 Output: Urine 1050 1050 Other: # Bowel Movements 0 Laboratory Last Values WBC 10.8 10^3/ul (3.5-10.8) 02/14/17 04:33 RBC 3.12 10^6/ul (4.0-5.4) L 02/14/17 04:33 Hgb 9.5 g/dl (12.0-16.0) L 02/14/17 04:33 Hct 28 % (35-47) L 02/14/17 04:33 MCV 90 fL (80-97) 02/14/17 04:33 MCH 31 pg (27-31) 02/14/17 04:33 MCHC 34 g/dl (31-36) 02/14/17 04:33 RDW 14 % (10.5-15) 02/14/17 04:33 Plt Count 217 10^3/ul (150-450) 02/14/17 04:33 MPV 8 um3 (7.4-10.4) 02/14/17 04:33 Neut % (Auto) 77.8 % (38-83) 02/14/17 04:33 Lymph % (Auto) 11.0 % (25-47) L 02/14/17 04:33 [place] % (Auto) 10.1 % (1-9) H 02/14/17 04:33 Eos % (Auto) 0.8 % (0-6) 02/14/17 04:33 Baso % (Auto) 0.3 % (0-2) 02/14/17 04:33 Absolute Neuts (auto) 8.4 10^3/ul (1.5-7.7) H 02/14/17 04:33 Absolute Lymphs (auto) 1.2 10^3/ul (1.0-4.8) 02/14/17 04:33 Absolute Monos (auto) 1.1 10^3/ul (0-0.8) H 02/14/17 04:33 Absolute Eos (auto) 0.1 10^3/ul (0-0.6) 02/14/17 04:33 Absolute Basos (auto) 0 10^3/ul (0-0.2) 02/14/17 04:33 Absolute Nucleated RBC 0 10^3/ul 02/14/17 04:33 Nucleated RBC % 0 02/14/17 04:33 ESR 113 mm/Hr (0-40) H 02/12/17 07:23 D-Dimer, Quantitative 871 ng/mL (Less Than 230) H 02/11/17 18:16 Sodium 129 mmol/L (133-145) L 02/14/17 04:43 Potassium 4.2 mmol/L (3.5-5.0) 02/14/17 04:43 Chloride 103 mmol/L (101-111) 02/14/17 04:43 Carbon Dioxide 19 mmol/L (22-32) L 02/14/17 04:43 Anion Gap 7 mmol/L (2-11) 02/14/17 04:43 BUN 17 mg/dL (6-24) 02/14/17 04:43 Creatinine 0.79 mg/dL (0.51-0.95) 02/14/17 04:43 Est GFR ( Amer) 89.8 (>60) 02/14/17 04:43 Est GFR (Non-Af Amer) 69.8 (>60) 02/14/17 04:43 BUN/Creatinine Ratio 21.5 (8-20) H 02/14/17 04:43 Glucose 124 mg/dL (70-100) H 02/14/17 04:43 Lactic Acid 1.9 mmol/L (0.5-2.0) 02/11/17 18:16 Calcium 7.6 mg/dL (8.6-10.3) L 02/14/17 04:43 Total Bilirubin 1.40 mg/dL (0.2-1.0) H 02/11/17 18:16 AST 27 U/L (13-39) 02/11/17 18:16 ALT 21 U/L (7-52) 02/11/17 18:16 Alkaline Phosphatase 78 U/L (34-104) 02/11/17 18:16 C-Reactive Protein 291.24 mg/L (< 5.00) H 02/13/17 05:05 Total Protein 7.8 g/dL (6.4-8.9) 02/11/17 18:16 Albumin 3.6 g/dL (3.2-5.2) 02/11/17 18:16 Globulin 4.2 g/dL (2-4) H 02/11/17 18:16 Albumin/Globulin Ratio 0.9 (1-3) L 02/11/17 18:16 Prolactin 6.5 ng/mL (1.0-25.0) 02/11/17 18:16 General: Well appearing, no acute distress RUE: Mild erythema and moderate tenderness over triceps region. Pain with even slight passive or active ROM of shoulder. Edema from mid-upper arm down through hand. Sensation intact throughout. Skin: right upper back with 3x4 cm nontender erythematous patch decreasing in redness from yesterday Assessment: []Cellulitis vs Septic joint of right shoulder - hx total shoulder 3 years ago Plan: []+ blood cultures for MSSA. Per ID cefazolin 1 g IV Q 8 hours 3 phase bone scan ordered. If any uptake will tentatively go forward with CT guided biopsy. Dr. Her's op note obtained and reviewed by Dr Jackson
--- NOTE | 2017-02-14 09:10 | PN ---
Subjective Date of Service: 02/14/17 Interval History: Patient seen and examined at bedside. Patient NPO for possible washout. Patient states pain improved and mobility improved. Swelling seems improved as well. Family History: Unchanged from Admission Social History: Unchanged from Admission Past Medical History: Unchanged from Admission Objective Active Medications: Acetaminophen (Tylenol Tab*) 650 mg PO Q6H PRN Atenolol (Tenormin Tab*) 25 mg PO DAILY [facility] Atorvastatin Calcium (Lipitor*) 20 mg PO DAILY [facility] Citalopram Hydrobromide (Celexa Tab*) 10 mg PO DAILY [facility] Digoxin (Lanoxin Tab*) 0.125 mg PO DAILY [facility] Docusate Sodium (Colace Cap*) 200 mg PO BID [facility] Cefazolin Sodium/Dextrose (Kefzol 1 Gm In Dextrose Duplex (*)) 1 gm in 50 mls @ 200 mls/hr IVPB Q8H [facility] Lactated Ringer's (Lactated Ringers 1000 Ml Bag*) 1,000 mls @ 100 mls/hr IV PER RATE [facility] Melatonin (Melatonin (Nf)) 3 mg PO BEDTIME PRN; Protocol Omeprazole (Prilosec Cap*) 20 mg PO DAILY [facility] Ondansetron HCl (Zofran Inj*) 4 mg IV Q6H PRN Oxycodone HCl (Roxycodone Tab*) 5 mg PO Q4H PRN Prednisone (Deltasone Tab*) 4 mg PO DAILY [facility] Vital Signs Temp Pulse Resp BP Pulse Ox 98.0 F 90 18 116/56 96 02/14/17 07:22 02/14/17 07:22 02/14/17 08:00 02/14/17 07:22 02/14/17 07:22 Oxygen Devices in Use Now: None Appearance: sitting up in bed, NAD Eyes: No Scleral Icterus, PERRLA Ears/Nose/Mouth/Throat: NL Teeth, Lips, Gums Neck: NL Appearance and Movements; NL JVP Respiratory: Symmetrical Chest Expansion and Respiratory Effort Cardiovascular: NL Sounds; No Murmurs; No JVD, RRR Abdominal: NL Sounds; No Tenderness; No Distention Extremities: - - RUE edema improved; erythema persists deltoid and posteriorly down her extrem. Neurological: Alert and Oriented x 3, NL Muscle Strength and Tone Lines/Tubes/Other Access: Clean, Dry and Intact Peripheral IV Result Diagrams: 02/14/17 04:33 12/13/17 04:43 Additional Lab and Data: . Assess/Plan/Problems-Billing Patient is an 81 y/o F w/ PMH significant for afib on xarelto, GERD, HLD, and R shoulder total arthroplasty in 2013 who presented to the ER with progressive right shoulder pain and decrease ROM. - Patient Problems (1) MSSA (methicillin susceptible Staphylococcus aureus) septicemia Comment: Appreciate ID input. TTE ordered today. Pino evaluated this AM and plan for possible bone biopsy. May still need washout and xarelto on hold for that. Continue Ancef. Repeat Blood CX today. (2) Septic joint of right shoulder region Comment: Although aspiration was unsuccessful given clnical presentation and bacteremia likely patient has septic arthritis or her R shoulder. Ortho eval this AM and is planning on possible bone biopsy prior to surgival intervention. Xarelto on hold. (3) Hyponatremia Comment: Stable. Continue gentle hydration. (4) HTN (hypertension) Comment: Controlled with atenolol. (5) Atrial fibrillation Comment: Continue atenolol and digoxin. Xarelto on hold. D/c telemetry. (6) GERD (gastroesophageal reflux disease) Comment: Continue Omeprazole. (7) Osteoarthritis Comment: Continue prednisone. (8) DVT prophylaxis Comment: SQ Heparin (9) DNR (do not resuscitate) Status and Disposition: Inpatient for R shoulder pain and possible septic arthritis. Likely will need LT abx. PICC ordered for once bacteremia clears.
[2017-02-14] MEDS: Omeprazole CAP* 20 MG PO SCH (09:13)
[2017-02-14] MEDS: Atorvastatin* 20 MG TAB PO SCH (09:13)
[2017-02-14] MEDS: predniSONE TAB* 1 MG PO SCH (09:13)
[2017-02-14] MEDS: Docusate CAP* 100 MG PO SCH ×2 (09:13→19:32)
[2017-02-14] MEDS: Citalopram TAB* 10 MG PO SCH (09:13)
[2017-02-14] MEDS: Digoxin TAB* 0.125 MG PO SCH (11:16)
[2017-02-14] MEDS: Atenolol TAB* 25 MG PO SCH (11:18)
[2017-02-14] MEDS: oxyCODONE TAB* 5 MG TAB PO PRN ×2 (13:39→19:32)
--- NOTE | 2017-02-14 13:39 | PN ---
Progress Note - Progress Note Date of Service: 02/14/17 SOAP: Subjective: 80 yo female with history of right reverse shoulder done by Dr Nur whom she saw last week for a follow up xray. She was ok at the time with no recent illnesses and noted swelling and pain posteriorly. She called the office and was directed to ER. She notes that the pain is slightly better after being on abx. She was noted to have bacteremia in blood cultures previously obtained. ID consulted. IR aspiration yielded dry tap. CT with no effusion. Objective: Temp Pulse Resp BP Pulse Ox 98.0 F 87 16 122/57 95 02/14/17 12:40 02/14/17 12:40 02/14/17 12:40 02/14/17 12:40 02/14/17 12:40 NAD. sitting in chair. RUE: incision intact with no erythema or warmth. previous aspiration site evident. posterior aspect of arm near axilla with warmth, tenderness, and erythema. able to flex extend digits, wrist, and elbow without pain. FF of shoulder causes pain posteriorly. nontender about anterior joint line. small 4x4 area about scapula with mild erythema. SILT grossly distally. 2+ radial pulse. Laboratory Results - last 24 hr 02/14/17 02/14/17 02/14/17 04:33 04:43 12:31 WBC 10.8 RBC 3.12 L Hgb 9.5 L Hct 28 L MCV 90 MCH 31 MCHC 34 RDW 14 Plt Count 217 MPV 8 Neut % (Auto) 77.8 Lymph % (Auto) 11.0 L Conway % (Auto) 10.1 H Eos % (Auto) 0.8 Baso % (Auto) 0.3 Absolute Neuts (auto) 8.4 H Absolute Lymphs (auto) 1.2 Absolute Monos (auto) 1.1 H Absolute Eos (auto) 0.1 Absolute Basos (auto) 0 Absolute Nucleated RBC 0 Nucleated RBC % 0 Sodium 129 L Potassium 4.2 Chloride 103 Carbon Dioxide 19 L Anion Gap 7 BUN 17 Creatinine 0.79 Est GFR ( Amer) 89.8 Est GFR (Non-Af Amer) 69.8 BUN/Creatinine Ratio 21.5 H Glucose 124 H Lactic Acid 1.9 Calcium 7.6 L Microbiology 02/11/17 18:16 Blood Venous Aerobic Blood Culture - Preliminary No Growth Day 2 02/11/17 18:16 Blood Venous Anaerobic Blood Culture - Preliminary No Growth Day 2 02/11/17 18:16 Blood Venous Aerobic Blood Culture - Final Staphylococcus Aureus 02/11/17 18:16 Blood Venous Anaerobic Blood Culture - Final Staphylococcus Aureus 02/11/17 18:16 Blood Venous Blood MRSA/MSSA (PCR) - Final Mrsa Negative S.aureus Positive Assessment: 81 yo F with right arm cellulitis with history of right shoulder reverse placed 3 yrs ago. Plan: Discussed with ID and radiology. Source needs to be identified as pt would likely need explant with washout with possible abx spacer versus primary exchange. Discussed with patient who feels better and denies and pain deep in her shoulder but more superficial posteriorly. WBC and symptoms improving on abx. Will plan for 3phase bonescan which will be done today. Possible CT guided aspiration. If shoulder is source, would recommend open I and D with explant and possible abx spacer versus revision. Discussed with patient and family. Op note obtained from Dr Nur's office. Will continue to follow. If symptoms change, and patient becomes acutely septic will take her for washout and stage procedure.
--- NOTE | 2017-02-14 14:25 | ECHO ---
Patient: CARLO OLIVEROS [facility] Rec#: [id number] : 1935 Date: 02/14/2017 Age: 81y Height: 147 cm / 57.9 in Weight: 56.8 kg / 125.2 lbs Sex: F BSA: 1.49 Room#: 338 Admit Date#: 02/11/2017 Type: Inpatient Referring: Hi Cunha MD Reading: Ana Ngo MD Signal Helper: Sun Roldan RN RDCS CC: Ramón Hastings MD Transthoracic Echocardiogram Indication: Bacteremia BP: 116/56 HR: 91 Rhythm: A-Fib Findings History: A. 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 Left Ventricle: The left ventricular chamber size is normal. There is a prominent septal knuckle. Global left ventricular wall motion and contractility are within normal limits. Left ventricular systolic function is at the lower limits of normal. The estimated ejection fraction is 50-55%. The assessment of diastolic function is non-diagnostic. Left Atrium: The left atrium is slightly dilated. Right Ventricle: The right ventricular chamber size and systolic function are within normal limits. Right Atrium: The right atrial cavity size is normal. Aortic Valve: The aortic valve is trileaflet. The aortic valve leaflets are mildly thickened. There is aortic annular calcification. There is mild aortic regurgitation. There is no evidence of aortic stenosis. There is no aortic vegetation present. Mitral Valve: Mild mitral annular calcification present. The mitral valve leaflets are mildly thickened. There is moderate mitral regurgitation. There is no evidence of mitral stenosis. No vegetation is observed on the mitral valve. Tricuspid Valve: The tricuspid valve leaflets are normal. There is moderate tricuspid regurgitation. There is evidence of moderate pulmonary hypertension. There is no tricuspid stenosis. No vegetation is observed on the tricuspid valve. Pulmonic Valve: The pulmonic valve appears normal. There is mild pulmonic regurgitation. There is no pulmonic stenosis. No vegetation is observed on the pulmonic valve. Pericardium: There is no significant pericardial effusion. Aorta: There is no dilatation of the ascending aorta. The aortic arch is not well visualized. The aortic root is normal in size. Pulmonary Artery: The main pulmonary artery appears normal. Venous: The inferior vena cava appears normal in size. There is less than 50% respiratory change in the inferior vena cava dimension. Conclusions The left ventricular chamber size is normal. Global left ventricular wall motion and contractility are within normal limits. The estimated ejection fraction is 50-55%. The right ventricular chamber size and systolic function are within normal limits. No vegetations seen on any valve. The aortic valve leaflets are mildly thickened with mild aortic regurgitation. Mild MAC and the mitral valve leaflets are mildly thickened. There is moderate mitral regurgitation. There is moderate tricuspid regurgitation. There is evidence of moderate pulmonary hypertension: 42 mmHg. There is mild pulmonic regurgitation. The patient was in atrial fibrillation throughout the study. No prior echos to compare. Measurements Name Value Normal Range RVIDd (AP) 2D 2.6 cm (0.9 - 2.6) RVDdMajor (2D) 3.2 cm (2.2 - 4.4) RAd ISD 4CH 4.8 cm (3.4 - 4.9) RA (A4C)W 3.6 cm (2.9 - 4.6) IVSd (2D) 0.9 cm (0.6 - 1) LVPWd (2D) 0.9 cm (0.6 - 1) LVIDd (2D) 4.1 cm (3.6 - 5.4) LVIDs (2D) 3 cm - LV FS (2D) 27 % (25 - 45) Aortic Annulus 1.9 cm (1.4 - 2.6) Ao root diameter (2D) 2.6 cm (2.1 - 3.5) Ascending Ao 2.5 cm (2.1 - 3.4) LA dimension (AP) 2D 4 cm (2.3 - 3.8) LAd ISD 4CH 5.1 cm (2.9 - 5.3) LA ISD 4CH W 3.8 cm (2.5 - 4.5) Name Value Normal Range LA ESV SP 4CH (A/L) 45 ml - LA ESV SP 2CH (A/L) 48 ml - LA ESV BP (A/L) 48 ml - LA ESV BP (A/L) index 32 ml/m2 - LA ESV SP 4CH (MOD) 41 ml - LA ESV SP 2CH (MOD) 46 ml - Name Value Normal Range MV E-wave Vmax 1.3 m/sec - MV deceleration time 143 msec - LV septal e' Vmax 0.09 m/sec - LV lateral e' Vmax 0.1 m/sec - LV E:e' septal ratio 14.4 ratio - LV E:e' lateral ratio 13 ratio - Name Value Normal Range AV Vmax 1 m/sec - AV VTI 17.7 cm - AV peak gradient 4 mmHg - AV mean gradient 2.4 mmHg - LVOT Vmax 0.91 m/sec - LVOT VTI 17.7 cm - LVOT peak gradient 3.3 mmHg - LVOT mean gradient 2.1 mmHg - DOI (VTI) 1 ratio - DOI (Vmax) 0.91 ratio - Name Value Normal Range MV Vmax 1.5 m/sec - MV VTI 28.2 cm - MV peak gradient 9 mmHg - MV mean gradient 2.6 mmHg - MV PHT 63 msec - MVA (PHT) 3.5 cm2 - Name Value Normal Range TR Vmax 2.9 m/sec - TR peak gradient 34 mmHg - RAP 8 mmHg - RVSP 42 mmHg - IVC diameter 1.9 cm - Name Value Normal Range PV Vmax 0.79 m/sec -
--- NOTE | 2017-02-14 15:05 | RAD ---
Indication: Right shoulder pain, evaluate for septic arthritis. Three-phase bone scan over the shoulders were obtained. The study was performed during intravenous injection of 20.4 mCi of technetium 99 M HDP. There is no evidence of increased flow in the right shoulder. Immediate blood pool images demonstrate mild increase in radioactivity surrounding the right shoulder prosthesis. Additionally on the delayed images there is some increased radioactivity uptake in the bones surrounding the prosthesis. X-rays in this area shows some lucency. A low-grade infection cannot be excluded. IMPRESSION: There is increased uptake in the delayed images of the bone surrounding the right humeral component of the right shoulder prosthesis. There is some mild increase in uptake in the blood pool images surrounding the right shoulder prosthesis. No evidence of increased flow is noted. There is some lucency surrounding the prosthesis on the radiographs. A low-grade infection is not totally excluded. Dr. Cunha was notified of the results and discussed with Dr. Avilez.
--- NOTE | 2017-02-14 20:22 | PN ---
Progress Note - Progress Note Date of Service: 02/14/17 Note: Bone scan suspicious for increased uptake. Will get CT guided biopsy as last check and plan for open I and D with possible implant exchange. Will discuss with patient in AM. NPO for CT guided biopsy/culture of right shoulder.
[2017-02-14 22:18] LABS: INR 1.13 (0.77-1.02)
[2017-02-15] MEDS: oxyCODONE TAB* 5 MG TAB PO PRN ×3 (00:59→14:01)
[2017-02-15] MEDS: ceFAZolin 1 GM in Dextrose (*) 1 GM/50 ML BAG IVPB SCH ×3 (01:47→17:37)
--- NOTE | 2017-02-15 08:06 | PN ---
Progress Note - Progress Note Date of Service: 02/15/17 Note: Seen at 6:10 AM. Pt sleepy but arousable. Feeling ok. No complaints other than some shoulder pain and swelling. Denies numbness and tingling. Temp Pulse Resp BP Pulse Ox 98.6 F 104 18 114/60 94 02/15/17 03:23 02/15/17 03:23 02/15/17 07:31 02/15/17 03:23 02/15/17 03:23 NAD. RUE. sling in place, edema still present distally. able to flex/ext wrist, flex/ext digits. mild flexion of elbow. SILT grossly distally. tender anteriorly and posteriorly. 2+ radial pulse. Laboratory Results - last 24 hr 02/14/17 02/14/17 12:31 22:00 INR (Anticoag Therapy) 1.13 H APTT 25.0 L Lactic Acid 1.9 Labs being drawn now A/P 81 yo F with possible septic right shoulder plan for CT guided biopsy but Dr Nur called and discussed case. He will assume care and arrange for a transfer to his facility. Will let team know.
[2017-02-15] MEDS: Digoxin TAB* 0.125 MG PO SCH (09:45)
[2017-02-15] MEDS: Atorvastatin* 20 MG TAB PO SCH (09:45)
[2017-02-15] MEDS: predniSONE TAB* 1 MG PO SCH (09:45)
[2017-02-15] MEDS: Citalopram TAB* 10 MG PO SCH (09:45)
[2017-02-15] MEDS: Docusate CAP* 100 MG PO SCH ×2 (09:45→21:36)
[2017-02-15] MEDS: Omeprazole CAP* 20 MG PO SCH (09:45)
[2017-02-15] MEDS: Atenolol TAB* 25 MG PO SCH (09:45)
--- NOTE | 2017-02-15 11:37 | PN ---
Progress Note - Progress Note Date of Service: 02/15/17 SOAP: Subjective: CC:right shoulder pain HPI: 81 year old woman with right shoulder arthroplasty and sudden onset right shoulder and upper arm pain which owrsened and became swollen and warm. Pain a little better and can raise are slightly. No back, neck, elbow or wrist pain but whole arm still swollen. No fever, rash, or diarrhea. Objective: [] Vital Signs Temp 36.9 C 02/15/17 07:30 Pulse 84 02/15/17 09:45 Resp 18 02/15/17 10:04 BP 111/63 02/15/17 07:30 Pulse Ox 96 02/15/17 07:30 Intake & Output 02/14/17 02/15/17 02/15/17 18:59 06:59 18:59 Intake Total 607 2728 Output Total 1150 1100 300 Balance -543 1628 -300 Weight 125 lb Intake: IV Fluids 377 868 NS (0.9%) 377 868 IVPB 110 60 ABX - CEFAZOLIN 110 60 Oral 120 1800 Output: Urine 1150 1100 300 Gen:awake no distress HEENT: MMM Heart:RRR no murmur Abd:+BS NTND soft Skin: No rash MSK: No knee effusion; R shoulder/arm diffuse edema and warmth, slight abduction otherwise no ROM. R elbow and wrist non tender Microbiology 02/14/17 12:30 Blood Culture - Preliminary Blood Venous No Growth Day 1 02/14/17 12:31 Blood Culture - Preliminary Blood Venous Blood MRSA/MSSA (PCR) - Final Mrsa Negative S.aureus Negative 02/11/17 18:16 Aerobic Blood Culture - Preliminary Blood Venous No Growth Day 3 Anaerobic Blood Culture - Preliminary No Growth Day 3 Laboratory Results - last 24 hr 02/14/17 02/14/17 12:31 22:00 INR (Anticoag Therapy) 1.13 H APTT 25.0 L Lactic Acid 1.9 Trans thoracic echo: no vegetation Assessment: 1. MSSA bacteremia due to Right shoulder prosthetic joint infection/ osteomyelitis. No stigmata of infective endocarditis, low grade bacteremia, and negative TTE, doubt endocarditis. 2. elevated CRP 3. atrial fibrillation Plan: 1. ancef 1 gm IV Q8hrs 2. She declines transfer due to being away from family and preference for Dr Jackson. I discussed with the patient and daughter that there is no test to prove the prosthesis is infected and that a bone biopsy won't give results for up to 2 weeks, that the biopsy may well miss an area of infection when done by radiologic guidance. She and her family will discuss if they prefer an open procedure and antibiotics vs antibiotics alone which will improve the soft tissue inflammation but likely will not control a prosthesis/bone infection and could lead to worsening of the infection which could include loss of limb. 35 minutes floor time >50% face to face with patient and grandaughter discussing options for treating her infection.
--- NOTE | 2017-02-15 18:59 | PN ---
Subjective Date of Service: 02/15/17 Interval History: Patient seen and examined. Family at bedside. Pain in should well controlled. Per patient and staff, patient will not be transferred to [facility] as was initially planned. She will go to OR in am. Denies any chest pain, no SOB, no complaints. Family History: Unchanged from Admission Social History: Unchanged from Admission Past Medical History: Unchanged from Admission Objective Active Medications: Acetaminophen (Tylenol Tab*) 650 mg PO Q6H PRN PRN Reason: FEVER/PAIN Last Admin: 02/14/17 00:14 Dose: 650 mg Atenolol (Tenormin Tab*) 25 mg PO DAILY [facility] Last Admin: 02/15/17 09:45 Dose: 25 mg Atorvastatin Calcium (Lipitor*) 20 mg PO DAILY [facility] Last Admin: 02/15/17 09:45 Dose: 20 mg Citalopram Hydrobromide (Celexa Tab*) 10 mg PO DAILY [facility] PRN Reason: Protocol Last Admin: 02/15/17 09:45 Dose: 10 mg Digoxin (Lanoxin Tab*) 0.125 mg PO DAILY [facility] Last Admin: 02/15/17 09:45 Dose: 0.125 mg Docusate Sodium (Colace Cap*) 200 mg PO BID [facility] Last Admin: 02/15/17 09:45 Dose: 200 mg Cefazolin Sodium/Dextrose (Kefzol 1 Gm In Dextrose Duplex (*)) 1 gm in 50 mls @ 200 mls/hr IVPB Q8H [facility] Last Admin: 02/15/17 17:37 Dose: 200 mls/hr Lactated Ringer's (Lactated Ringers 1000 Ml Bag*) 1,000 mls @ 100 mls/hr IV PER RATE [facility] Last Admin: 02/15/17 13:44 Dose: 100 mls/hr Melatonin (Melatonin (Nf)) 3 mg PO BEDTIME PRN; Protocol PRN Reason: Sleep Omeprazole (Prilosec Cap*) 20 mg PO DAILY [facility] Last Admin: 02/15/17 09:45 Dose: 20 mg Ondansetron HCl (Zofran Inj*) 4 mg IV Q6H PRN PRN Reason: NAUSEA Oxycodone HCl (Roxycodone Tab*) 5 mg PO Q4H PRN PRN Reason: PAIN Last Admin: 02/15/17 14:01 Dose: 5 mg Prednisone (Deltasone Tab*) 2 mg PO DAILY [facility] Last Admin: 02/15/17 09:45 Dose: 2 mg Vital Signs - 8 hr 02/15/17 02/15/17 02/15/17 11:46 14:01 15:22 Temperature 98.2 F 97.3 F Pulse Rate 101 89 Respiratory 16 18 17 Rate Blood Pressure 130/61 117/61 (mmHg) O2 Sat by Pulse 99 100 Oximetry 02/15/17 15:34 Temperature Pulse Rate Respiratory 16 Rate Blood Pressure (mmHg) O2 Sat by Pulse Oximetry Oxygen Devices in Use Now: None Appearance: Awake, well nourished, NAD Eyes: No Scleral Icterus, PERRLA Ears/Nose/Mouth/Throat: NL Teeth, Lips, Gums, Mucous Membranes Moist Neck: NL Appearance and Movements; NL JVP, Trachea Midline Respiratory: Symmetrical Chest Expansion and Respiratory Effort, Clear to Auscultation Cardiovascular: NL Sounds; No Murmurs; No JVD, - - Irregular Abdominal: NL Sounds; No Tenderness; No Distention Extremities: No Edema, No Clubbing, Cyanosis Skin: No Rash or Ulcers - mild erythema to right UE Neurological: Alert and Oriented x 3, NL Sensation Nutrition: Taking PO's Result Diagrams: 02/14/17 04:33 02/14/17 04:43 Additional Lab and Data: . Microbiology and Other Data: Microbiology 02/14/17 12:30 Blood Culture - Preliminary Blood Venous No Growth Day 1 02/14/17 12:31 Blood Culture - Preliminary Blood Venous Blood MRSA/MSSA (PCR) - Final Mrsa Negative S.aureus Negative Assess/Plan/Problems-Billing This is an 81 year old female with PMH of atrial fibrillation, GERD, HLD and OA , s/p right shoulder arthroplasty in 2013 that presented with what appears to be a septic prostheses. Plan is to go to the OR in the AM for washout. - Patient Problems (1) Atrial fibrillation Code(s): I48.91 - UNSPECIFIED ATRIAL FIBRILLATION SNOMED Code(s): 39993853 Comment: - Continue atenolol and digoxin - Per patient, she's usually in paroxysmal afib, however, she's been in afib on her ECHO and is currently - Hold Xarelto for OR - Continue digoxin - Place back on tele tomorrow in anticipation of surgery for for 24 hours post op - Baseline pre-op EKG now (2) DNR (do not resuscitate) (3) DVT prophylaxis Code(s): KBT2764 - SNOMED Code(s): 837107058 Comment: - Holding xarelto - Hold heparin (4) GERD (gastroesophageal reflux disease) Code(s): K21.9 - GASTRO-ESOPHAGEAL REFLUX DISEASE WITHOUT ESOPHAGITIS SNOMED Code(s): 046836477 Comment: - Continue Omeprazole (5) HTN (hypertension) Code(s): I10 - ESSENTIAL (PRIMARY) HYPERTENSION SNOMED Code(s): 27970998 Comment: - Controlled with atenolol, stable (6) Hyponatremia Code(s): E87.1 - HYPO-OSMOLALITY AND HYPONATREMIA SNOMED Code(s): 16506251 Comment: - Chronic, Stable. - Continue gentle hydration. - Follow lytes in AM (7) Osteoarthritis Code(s): M19.90 - UNSPECIFIED OSTEOARTHRITIS, UNSPECIFIED SITE SNOMED Code(s) : 178393782 Comment: - Continue prednisone (8) Septic joint of right shoulder region Code(s): M00.9 - PYOGENIC ARTHRITIS, UNSPECIFIED SNOMED Code(s): 73030482 Comment: - Low grade bacteremia, being followed by ID - Washout in AM - Continue ancef - GARFIELD negative for vegetation Status and Disposition: Remain inpatient for OR tomorrow: - Per patient, no family hx of heart disease, although she does not know her biological parents - No personal hx of heart disease - Negative cardiac workup prior to shoulder surgery 3 years ago - No report of chest pain or SOB, no orthopnea or PND - GARFIELD shows EF of 50-55% - Patient states mini stroke/TIA in the past which was likely 2/2 to her afib - Patient reports no adverse cardiac events after previous orthopedics surgeries - Will obtain pre-op EKG, chest xray and labs in AM - Hold AC - Continue IVF, monitor sodium, NPO after midnight - Afib is controlled with no RVR, will place on tele for surgery - RCRI Score = 1, 0.9% of CV risk of intraoperative complications, benefits of surgery outweigh CV risks, standard surgical risks apply which will be handled by surgical team MEDICALLY OPTIMIZED FOR SURGERY IN AM PENDING EVAL OF CXR AND EKG
--- NOTE | 2017-02-15 21:13 | RAD ---
HISTORY: Preop, cellulitis COMPARISONS: February 24, 2016 VIEWS: 1: frontal portable view of the chest at 8:43 PM FINDINGS: LINES AND TUBES: None. CARDIOMEDIASTINAL SILHOUETTE: The cardiomediastinal silhouette is normal for portable technique. PLEURA: The costophrenic angles are sharp. No pleural abnormalities are noted. LUNG PARENCHYMA: The lungs are clear. ABDOMEN: The upper abdomen is clear. There is no subphrenic gas. BONES AND SOFT TISSUES: The patient is status post right shoulder arthroplasty. Degenerative changes are noted of the spine. IMPRESSION: NO ACTIVE CARDIOPULMONARY DISEASE.
[2017-02-16] MEDS: ceFAZolin 1 GM in Dextrose (*) 1 GM/50 ML BAG IVPB SCH ×2 (02:08→10:04)
[2017-02-16 05:17] LABS: ABS Basophils 0.1 10^3/ul (0-0.2); ABS Eosinophils 0.1 10^3/ul (0-0.6); ABS Lymphocytes 1.2 10^3/ul (1.0-4.8); ABS Monocytes 0.8 10^3/ul (0-0.8); ABS Neutrophils 6.2 10^3/ul (1.5-7.7); ABS Nucleated RBC 0.01 10^3/ul; Eosinophil % 1.4 % (0-6); Hematocrit 26 % (35-47); Hemoglobin 9.2 g/dl (12.0-16.0); Lymphocyte % 14.2 % (25-47); Mean Corpuscular HGB Conc 35 g/dl (31-36); Mean Corpuscular Hemoglobin 31 pg (27-31); Mean Corpuscular Volume 89 fL (80-97); Mean Platelet Volume 8 um3 (7.4-10.4); Nucleated Red Blood Cells % 0.1; Platelet Count 329 10^3/ul (150-450); Red Blood Count 2.96 10^6/ul (4.0-5.4); Red Cell Distribution Width 14 % (10.5-15); White Blood Count 8.5 10^3/ul (3.5-10.8)
--- NOTE | 2017-02-16 07:03 | PN ---
Progress Note - Progress Note Date of Service: 02/15/17 SOAP: Subjective: [] Patient seen at bedside. SHe denies chest pain, shortness of breath, dizziness, chills or fever. Her RUE remains painful. I discussed transfer to [facility] for where she can resume care with her original surgeon who performed her total shoulder 3 years ago, [address] Nur. Due to distance away from her family she is denies transfer and wishes to be treated by Dr. Jackson. Dr Jackson, myself, patient and family had an extended discussion regarding treatment options and patient elects to [place] [facility] Objective: [] General: Well appearing, no acute distress RUE: Mild erythema and moderate tenderness over triceps region. Pain with even slight passive or active ROM of shoulder. Has some nonpainful active flexion and extension at the elbow. Edema from mid-upper arm down through hand. Sensation intact throughout. Right upper back with decreased redness of 3x4 cm erythematous patch previously seen. Assessment: []Cellulitis vs Septic joint of right shoulder - hx total shoulder 3 years ago MSSA bacteremia Plan: []OR with Dr. Jackson 02/16 for I&D + poly exchange Hold xeralto NPO
[2017-02-16] MEDS: Atenolol TAB* 25 MG PO SCH (08:42)
[2017-02-16] MEDS: Omeprazole CAP* 20 MG PO SCH (08:42)
[2017-02-16] MEDS: predniSONE TAB* 1 MG PO SCH (08:42)
[2017-02-16] MEDS: Atorvastatin* 20 MG TAB PO SCH (08:42)
[2017-02-16] MEDS: Docusate CAP* 100 MG PO SCH ×2 (08:42→23:18)
[2017-02-16] MEDS: Citalopram TAB* 10 MG PO SCH (08:42)
[2017-02-16] MEDS: Digoxin TAB* 0.125 MG PO SCH (08:42)
--- NOTE | 2017-02-16 12:32 | PN ---
Progress Note - Progress Note Date of Service: 02/16/17 SOAP: Subjective: 81 y/o female with h/o R shoulder arthroplasty presented with r shoulder pain, bacteremia. Patient refused transfer to larger institution for further care, plan for I&D/ washout, poly exchange with Dr. Jackson today. Patient does not have any questions, concerns. VSS, afebrile overnight. Objective: General- SItting comfortably in chair, NAD, AO MSK- R UE heel sander rubber strength 3/5 due to swelling, +1 pitting edema R distal UE with overlying erythema, rad/ ulnar pulses 2+, SITLT R UE throughout, + exquisite tenderness over posterior R shoulder, limited movement due to pain. Vital Signs Temp 97.8 F 02/16/17 11:49 Pulse 70 02/16/17 11:49 Resp 16 02/16/17 11:49 BP 131/69 02/16/17 11:49 Pulse Ox 97 02/16/17 11:49 Intake & Output 02/15/17 02/16/17 02/16/17 18:59 06:59 18:59 Intake Total 2073 1892 600 Output Total 1375 1350 400 Balance 698 542 200 Intake: IV Fluids 1189 60 ABX - CEFAZOLIN 60 LR 1189 IVPB 129 752 ABX - CEFAZOLIN 129 LR 752 Oral 755 1080 600 Output: Urine 1375 1350 400 Other: # Bowel Movements 0 Assessment: 81 y/o female with h/o R shoulder arthroplasty presented with r shoulder pain, bacteremia. Plan: - OR today for washout, poly exchange by DR. Jackson. - Cleared by hospitalists, tele monitoring post-op - H&P short form in chart. Active Medications Generic Name Dose Route Start Last Admin Trade Name Freq PRN Reason Stop Dose Admin Acetaminophen 650 mg 02/11/17 23:40 02/14/17 00:14 Tylenol Tab* PO 650 mg Q6H PRN Administration FEVER/PAIN Atenolol 25 mg 02/12/17 09:00 02/16/17 08:42 Tenormin Tab* PO 25 mg DAILY [facility] Administration Atorvastatin Calcium 20 mg 02/12/17 09:00 02/16/17 08:42 Lipitor* PO 20 mg DAILY [facility] Administration Citalopram Hydrobromide 10 mg 02/12/17 09:00 02/16/17 08:42 Celexa Tab* PO 10 mg DAILY [facility] Administration Protocol Digoxin 0.125 mg 02/12/17 09:00 02/16/17 08:42 Lanoxin Tab* PO 0.125 mg DAILY [facility] Administration Docusate Sodium 200 mg 02/12/17 09:00 02/16/17 08:42 Colace Cap* PO 200 mg BID [facility] Administration Cefazolin Sodium/Dextrose 1 gm in 50 mls @ 200 mls/hr 02/12/17 02:00 10:04 Kefzol 1 Gm In Dextrose Duplex (*) IVPB 200 mls/hr Q8H [facility] Administration Lactated Ringer's 1,000 mls @ 100 mls/hr 02/14/17 08:00 02/16/17 02:03 Lactated Ringers 1000 Ml Bag* IV 100 mls/hr PER RATE [facility] Administration Melatonin 3 mg 02/11/17 23:40 Melatonin (Nf) PO BEDTIME PRN Sleep Protocol Omeprazole 20 mg 02/12/17 09:00 02/16/17 08:42 Prilosec Cap* PO 20 mg DAILY [facility] Administration Ondansetron HCl 4 mg 02/11/17 23:40 Zofran Inj* IV Q6H PRN NAUSEA Oxycodone HCl 5 mg 02/11/17 23:40 02/15/17 14:01 Roxycodone Tab* PO 5 mg Q4H PRN Administration PAIN Prednisone 2 mg 02/15/17 09:00 02/16/17 08:42 Deltasone Tab* PO 2 mg DAILY [facility] Administration
[2017-02-16] MEDS ORDERED: fentaNYL* 50 MCG/ML 2 ML VIAL (100 MCG VIAL) ONE ×3 (13:23→21:13)
[2017-02-16] MEDS ORDERED: Midazolam* 1 MG/ML 2 ML VIAL (2 MG) ONE (13:23)
--- NOTE | 2017-02-16 17:48 | PN ---
Progress Note - Progress Note Date of Service: 02/16/17 Note: Pt seen and examined. Refused transfer. NPO for surgery. Feeling slightly better but still a fair amount of pain. Temp Pulse Resp BP Pulse Ox 98.8 F 112 16 124/59 95 02/16/17 14:24 02/16/17 14:24 02/16/17 14:24 02/16/17 14:24 02/16/17 14:24 NAD. R shoulder skin intact, erythema. pain with ROM. SILT grossly distally. 2+ radial pulse Laboratory Results - last 24 hr 02/16/17 02/16/17 02/16/17 05:06 05:06 05:07 WBC 8.5 RBC 2.96 L Hgb 9.2 L Hct 26 L MCV 89 MCH 31 MCHC 35 RDW 14 Plt Count 329 MPV 8 Neut % (Auto) 73.2 Lymph % (Auto) 14.2 L [place] % (Auto) 10.0 H Eos % (Auto) 1.4 Baso % (Auto) 1.2 Absolute Neuts (auto) 6.2 Absolute Lymphs (auto) 1.2 Absolute Monos (auto) 0.8 Absolute Eos (auto) 0.1 Absolute Basos (auto) 0.1 Absolute Nucleated RBC 0.01 Nucleated RBC % 0.1 Sodium 128 L Potassium 3.8 Chloride 100 L Carbon Dioxide 23 Anion Gap 5 BUN 13 Creatinine 0.71 Est GFR ( Amer) 101.6 Est GFR (Non-Af Amer) 79.0 BUN/Creatinine Ratio 18.3 Glucose 121 H Calcium 8.1 L Total Bilirubin 0.70 AST 43 H ALT 28 Alkaline Phosphatase 112 H Total Protein 6.1 L Albumin 2.5 L Globulin 3.6 Albumin/Globulin Ratio 0.7 L Blood Type O Positive Antibody Screen Negative A/P 81 yo F with suspected prosthetic infection and cellulitis NPO IV Abx Plan for I and D with possible poly exchange or implant exchange.
[2017-02-16] MEDS ORDERED: Lidocaine 2% PF * 5 ML VIAL ONE (18:07)
[2017-02-16] MEDS ORDERED: Ondansetron INJ* 2 MG/ML VIAL ONE (18:07)
[2017-02-16] MEDS ORDERED: Propofol* 10 MG/ML 20 ML BTL IV PUSH ONE (18:07)
[2017-02-16] MEDS ORDERED: Dexamethasone IV* 4 MG/ML 1 ML (4 MG) ONE (18:07)
[2017-02-16] MEDS ORDERED: Midazolam* 1 MG/ML 10 ML VIAL (10 MG) ONE (18:08)
[2017-02-16] MEDS ORDERED: Cisatracurium* 2 MG/ML MDV 5 ML ONE (18:08)
[2017-02-16] MEDS ORDERED: KETAMINE HCL* 50 MG/ML 10 ML VIAL ONE (18:08)
[2017-02-16] MEDS ORDERED: Rocuronium* 10 MG/ML VIAL ONE (18:09)
[2017-02-16] MEDS ORDERED: Bupivacaine 0.25% SDV* 30 ML ONE ×2 (18:10→20:24)
[2017-02-16] MEDS ORDERED: Ondansetron INJ* 2 MG/ML VIAL IV PRN (21:13)
[2017-02-16] MEDS ORDERED: HYDROmorphone INJ* 1 MG/ML CARPUJECT SYRINGE IV PRN (21:13)
[2017-02-16] MEDS: fentaNYL* 50 MCG/ML 2 ML VIAL (100 MCG VIAL) IV PRN ×4 (21:16→21:51)
[2017-02-16] MEDS ORDERED: oxyCODONE TAB* 5 MG TAB PO PRN (23:12)
[2017-02-17] MEDS: ceFAZolin 1 GM in Dextrose (*) 1 GM/50 ML BAG IVPB SCH ×4 (00:05→16:36)
[2017-02-17] MEDS: predniSONE TAB* 1 MG PO SCH (08:47)
[2017-02-17] MEDS: Citalopram TAB* 10 MG PO SCH (08:48)
[2017-02-17] MEDS: Atorvastatin* 20 MG TAB PO SCH (08:48)
[2017-02-17] MEDS: Atenolol TAB* 25 MG PO SCH (08:49)
[2017-02-17] MEDS: Omeprazole CAP* 20 MG PO SCH (08:49)
[2017-02-17] MEDS: Docusate CAP* 100 MG PO SCH ×2 (08:49→20:56)
[2017-02-17] MEDS: Digoxin TAB* 0.125 MG PO SCH (08:49)
--- NOTE | 2017-02-17 10:08 | PN ---
Progress Note - Progress Note Date of Service: 02/17/17 SOAP: Subjective: Pt seen and examined. Feeling much better. Drain d/c'd already. In chair. Objective: Temp Pulse Resp BP Pulse Ox 98.3 F 96 16 167/88 99 02/17/17 04:25 02/17/17 08:49 02/17/17 04:25 02/17/17 04:25 02/17/17 04:25 NAD. R shoulder with intact dressing with strikethrough. Less edematous. SILT grossly distally with 2+ radial pulse. less tender to palpation Assessment: POD#1 from I and D with spacer exchange. Plan: doing well cultures pending cont abx begin PT with passive ROM FF and Abd. NO PE and IR. needs to keep elbow in view at all times may use walker and gently active FF if comfortable. No pushing up from chair will order labs
--- NOTE | 2017-02-17 10:12 | PN ---
Subjective Date of Service: 02/17/17 Interval History: Patient seen and examined. s/p I&D with washout and spacer exchange late yesterday. Patient up and OOB, Dr. Jackson also at bedside for examination. Patient feeling much better. States she has much less pain and pressure in the shoulder today. Afebrile, no chest pain, no SOB, no acute overnight events. Family History: Unchanged from Admission Social History: Unchanged from Admission Past Medical History: Unchanged from Admission Objective Active Medications: Acetaminophen (Tylenol Tab*) 650 mg PO Q6H PRN PRN Reason: FEVER/PAIN Last Admin: 02/14/17 00:14 Dose: 650 mg Atenolol (Tenormin Tab*) 25 mg PO DAILY [facility] Last Admin: 02/17/17 08:49 Dose: 25 mg Atorvastatin Calcium (Lipitor*) 20 mg PO DAILY [facility] Last Admin: 02/17/17 08:48 Dose: 20 mg Calcium Carbonate (Calcium Carbonate Tab*) 1,250 mg PO DAILY [facility] Citalopram Hydrobromide (Celexa Tab*) 10 mg PO DAILY [facility] PRN Reason: Protocol Last Admin: 02/17/17 08:48 Dose: Not Given Digoxin (Lanoxin Tab*) 0.125 mg PO DAILY [facility] Last Admin: 02/17/17 08:49 Dose: 0.125 mg Docusate Sodium (Colace Cap*) 200 mg PO BID [facility] Last Admin: 02/17/17 08:49 Dose: 200 mg Cefazolin Sodium/Dextrose (Kefzol 1 Gm In Dextrose Duplex (*)) 1 gm in 50 mls @ 200 mls/hr IVPB 0000,0800,1600 [facility] Last Admin: 02/17/17 09:24 Dose: 200 mls/hr Melatonin (Melatonin (Nf)) 3 mg PO BEDTIME PRN; Protocol PRN Reason: Sleep Omeprazole (Prilosec Cap*) 20 mg PO DAILY [facility] Last Admin: 02/17/17 08:49 Dose: 20 mg Ondansetron HCl (Zofran Inj*) 4 mg IV Q6H PRN PRN Reason: NAUSEA Oxycodone HCl (Roxycodone Tab*) 5 mg PO Q4H PRN PRN Reason: PAIN Last Admin: 02/15/17 14:01 Dose: 5 mg Oxycodone HCl (Roxycodone Tab*) 10 mg PO Q4H PRN PRN Reason: PAIN Potassium Chloride (Klor Con Er Tab*) 20 meq PO DAILY [facility] Prednisone (Deltasone Tab*) 2 mg PO DAILY [facility] Last Admin: 02/17/17 08:47 Dose: 2 mg Vital Signs - 8 hr 02/17/17 02/17/17 02/17/17 02:51 04:25 08:49 Temperature 97.4 F 98.3 F Pulse Rate 100 90 96 Respiratory 16 16 Rate Blood Pressure 159/87 167/88 (mmHg) O2 Sat by Pulse 98 99 Oximetry Oxygen Devices in Use Now: None Appearance: Alert, NAD, well appearing Eyes: No Scleral Icterus, PERRLA Ears/Nose/Mouth/Throat: NL Teeth, Lips, Gums Neck: NL Appearance and Movements; NL JVP Respiratory: Symmetrical Chest Expansion and Respiratory Effort, Clear to Auscultation Cardiovascular: NL Sounds; No Murmurs; No JVD - afib on tele, irregular, No Edema Abdominal: NL Sounds; No Tenderness; No Distention Extremities: No Edema, No Clubbing, Cyanosis, - - distal pulses intact on operative side with brisk cap refill noted Skin: No Rash or Ulcers Neurological: Alert and Oriented x 3, NL Sensation, NL Muscle Strength and Tone Nutrition: Taking PO's Result Diagrams: 02/16/17 05:06 02/16/17 05:07 Additional Lab and Data: . Microbiology and Other Data: Microbiology 02/14/17 12:30 Blood Culture - Preliminary Blood Venous No Growth Day 1 02/14/17 12:31 Blood Culture - Preliminary Blood Venous Blood MRSA/MSSA (PCR) - Final Mrsa Negative S.aureus Negative Microbiology 02/14/17 12:30 Blood Culture - Preliminary Blood Venous No Growth Day 3 02/16/17 20:21 Wound Gram Stain - Final Tissue - Shoulder Right Acid Fast Bacilli Smear - Final 02/16/17 20:21 Gram Stain - Final Shoulder Right 02/11/17 18:16 Aerobic Blood Culture - Final Blood Venous No Growth Day 5 Anaerobic Blood Culture - Final No Growth Day 5 02/14/17 12:31 Blood Culture - Final Blood Venous Staph Hominis Ssp Hominis Blood MRSA/MSSA (PCR) - Final Mrsa Negative S.aureus Negative Assess/Plan/Problems-Billing This is an 81 year old female with PMH of atrial fibrillation, GERD, HLD and OA , s/p right shoulder arthroplasty in 2013 that presented with septic joint/ prosthesis. POD1 I&D and washout with spacer exchange. - Patient Problems (1) Atrial fibrillation Code(s): I48.91 - UNSPECIFIED ATRIAL FIBRILLATION SNOMED Code(s): 55436163 Comment: - Continue atenolol and digoxin - Hx of PAF, however, she's been in persistent afib since admission and on her ECHO and remains so on on tele with controlled ventricular response - Restart xarelto when clear by surgery (2) DNR (do not resuscitate) (3) DVT prophylaxis Code(s): CHO0152 - SNOMED Code(s): 531546371 Comment: - Holding xarelto, hold heparin - Restart AC when ok by surgery (4) GERD (gastroesophageal reflux disease) Code(s): K21.9 - GASTRO-ESOPHAGEAL REFLUX DISEASE WITHOUT ESOPHAGITIS SNOMED Code(s): 611584637 Comment: - Continue Omeprazole (5) HTN (hypertension) Code(s): I10 - ESSENTIAL (PRIMARY) HYPERTENSION SNOMED Code(s): 46902323 Comment: - Controlled with atenolol, stable (6) Hyponatremia Code(s): E87.1 - HYPO-OSMOLALITY AND HYPONATREMIA SNOMED Code(s): 32355140 Comment: - Chronic, stable. - Follow lytes daily - K also beginning to trend down, will keep K at 4, will replete with PO supplementation (7) Osteoarthritis Code(s): M19.90 - UNSPECIFIED OSTEOARTHRITIS, UNSPECIFIED SITE SNOMED Code(s) : 379941726 Comment: - Continue prednisone (8) Septic joint of right shoulder region Code(s): M00.9 - PYOGENIC ARTHRITIS, UNSPECIFIED SNOMED Code(s): 70674102 Comment: - POD1 I&D with washout and spacer exchange - Low grade bacteremia with cellulitis that is resolving, being followed by ID , Dr. Cunha - Follow cultures - Continue ancef as per ID for now - GARFIELD negative for vegetation - Will need PICC line Status and Disposition: Remain inpatient with IV atbx. Plan for PICC likely Sunday. Dispo planning rehab vs home with PT/OT. Counseling and/or Coordination of Care Minutes: Coordinated with patient, staff and orthopedics. Time spent >45mins
[2017-02-17] MEDS: Potassium Chlor TAB* 20 MEQ TAB.ER PO SCH (10:15)
[2017-02-17] MEDS: Calcium Carbonate TAB* 1250 MG (CALCIUM 500 MG) PO SCH (10:16)
--- NOTE | 2017-02-17 11:35 | PN ---
Progress Note - Progress Note Date of Service: 02/17/17 SOAP: Subjective: POD # 1 right shoulder I&D with poly exchange. Pt states that she is doing well , c/o soreness but no significant pain. Denies paresthesias or numbness. Denies f/c. Objective: Vitals: Temp Pulse Resp BP Pulse Ox 98.3 F 96 16 167/88 99 12// 04:25 02/17/17 08:49 02/17/17 04:25 02/17/17 04:25 02/17/17 04:25 Gen: A&O x3, NAD at rest RUE: Dressing C/D/I, 2+ pitting edema to elbow, forearm and hand. + f/e at wrist , MCP, PIP and DIP joints. + thumbs up, OK and abduction of fingers. Sensation to light touch intact, 2+ radial pulse Assessment: POD #1 right shoulder I&D with poly exchange Plan: Hemovac removed without difficulty, tip intact Encouraged frequent ROM at hand and elbow Awaiting microbiology results, ID consult Cont broad spectrum IV abx at this time
[2017-02-17 18:40] LABS: ABS Basophils 0.1 10^3/ul (0-0.2); ABS Eosinophils 0 10^3/ul (0-0.6); ABS Lymphocytes 1.8 10^3/ul (1.0-4.8); ABS Monocytes 0.7 10^3/ul (0-0.8); ABS Nucleated RBC 0 10^3/ul; Eosinophil % 0.4 % (0-6); Hematocrit 31 % (35-47); Hemoglobin 10.6 g/dl (12.0-16.0); Lymphocyte % 17.3 % (25-47); Mean Corpuscular HGB Conc 34 g/dl (31-36); Mean Corpuscular Hemoglobin 30 pg (27-31); Mean Corpuscular Volume 90 fL (80-97); Mean Platelet Volume 8 um3 (7.4-10.4); Nucleated Red Blood Cells % 0; Platelet Count 508 10^3/ul (150-450); Red Blood Count 3.48 10^6/ul (4.0-5.4); Red Cell Distribution Width 14 % (10.5-15); White Blood Count 10.7 10^3/ul (3.5-10.8)
[2017-02-17 18:52] LABS: EGFR Non-African American 64.2 (>60)
--- NOTE | 2017-02-17 23:56 | OP ---
OPERATIVE REPORT: DATE OF OPERATION: 02/16/17 DATE OF : 35 ATTENDING SURGEON: Martha Jackson MD MEDICAID BILLER: NARCISA Wayne ANESTHESIOLOGIST: Dr. Rincon. ANESTHESIA: General endotracheal intubation. COMPLICATIONS: None. ESTIMATED BLOOD LOSS: 100 PRE-OP DIAGNOSIS: Right shoulder infected, reversed. POST-OP DIAGNOSIS: Right shoulder infected, reversed. OPERATIVE PROCEDURE: Right shoulder open irrigation and debridement with culture, biopsy and exchang e of polyethylene liner. OUTPUT: Drain x1 to be removed postop day 1. IMPLANTS: Tesfaye +3 spacer for a reverse plate. INDICATIONS: Kiara Moreno is an 81-year-old female who has a history of a right shoulder reverse arthroplasty that was placed about [address] Nur. She was doing well and saw Dr. Nur l ast week, had x-rays and was doing well, and then a few days later, she started developing redness an d pain. She had a lot of swelling in her shoulder and her arm. She presented to the ER with a cellu litis posteriorly and along the arm itself. She had persistent pain. She admitted getting MSSA bact eremia. She was on several days of antibiotics. Orthopedics was consulted and she underwent a CT-armond ded aspiration, which was negative and which was a dry tap. X-ray did not reveal any loosening. She underwent 3-phase bone scan and was found to have increased uptake in the humerus where the prosthes is was. I discussed with the patient and she was offered to be transferred back to her previous [facility] to care of her after discussion with the surgeon, but the patient refused or declined. Risks an d benefits of surgery were discussed at length, including but not limited to bleeding, worsening infe ction, damage to nerves, vessels, surrounding structures, wound nonhealing, persistent pain, scarring , stiffness, fracture, need for further surgery, removal of hardware, placement of antibiotic spacer, limitation of activities, and nonfunctional arm. She has elected to proceed with surgery. DESCRIPTION OF PROCEDURE: The patient was greeted in the preoperative area by the attending surgeon. Correct extremity was marked, consent was confirmed. The patient was brought back to the operating suite. She was placed in a supine position. She underwent general anesthesia with endotracheal int ubation after which she was placed in a lazy beach-chair position. The right shoulder was then prepp ed and draped in the usual sterile fashion beginning with a chlorhexidine soap, scrub, and an alcohol wipe, and a final prep with ChloraPrep. After appropriate surgical pause indicating side, site, procedure, and the previous administration of antibiotics, the previous deltopectoral incision was incised again using 15 blade. Soft tissues wer e carefully dissected to expose the cephalic vein, which was identified, but scarred in and required ligation. The deltopectoral area was identified and the scar tissue was carefully released to expose the humeral surface. The soft tissues were dissected proximally. The tissue planes were very scarr ed together. The prosthesis was identified. At this point, tissue samples were taken and just small amount of fluid was identified and had a foul-smelling material. Tissue samples, culture swabs, as well as fluid were obtained. The tissues were sent for Gram stain; culture, anaerobic, aerobic, shahab al, AFB, as well as held for P. acnes. Once this was obtained, the remaining soft tissues and subsca pular repair was carefully released throughout mobilization of the joint. Dissection was taken proxsobia bullock. The scar tissue was moved across the prosthesis in its entirety. Again, there was a small fo ul-smelling material, but there was no evidence of loosening. The shoulder was eventually carefully dislocated. Poly was exposed and removed using osteotome. There was no evidence of failure of the i mplant, bone surface, and no evidence of loosening. A small amount of purulent tissue was present an d it was removed. The wound was copiously irrigated with 12 L of sterile saline. The poly was excha nged, the exact 10 poly was placed which is a +3 liner. Shoulder was then gently relocated. An intr aarticular drain was placed, to be pulled out on postop day #1. The soft tissues were then closed as well as reapproximated with 0-Vicryl and the skin was closed with 2-0 Vicryl and 3-0 Monocryl. Ster ile-dressings were applied. She was awoken from anesthesia and transferred to the PACU in stable con dition. POSTOPERATIVE PLAN: She is already admitted to the hospital. She was taking her antibiotics as per Infectious Diseases. She will be on minimal active range of motion. No posterior extension or inter nal rotation. She will begin passive range of motion with Physical Therapy. She will be discharged when medically stable and potentially will be on lifelong antibiotics. [id number]/CPS #: [id number]
[2017-02-18] MEDS: ceFAZolin 1 GM in Dextrose (*) 1 GM/50 ML BAG IVPB SCH ×4 (00:07→23:59)
[2017-02-18] MEDS: Digoxin TAB* 0.125 MG PO SCH (08:48)
[2017-02-18] MEDS: Calcium Carbonate TAB* 1250 MG (CALCIUM 500 MG) PO SCH (08:48)
[2017-02-18] MEDS: Atorvastatin* 20 MG TAB PO SCH (08:48)
[2017-02-18] MEDS: Docusate CAP* 100 MG PO SCH ×2 (08:48→20:27)
[2017-02-18] MEDS: predniSONE TAB* 1 MG PO SCH (08:49)
[2017-02-18] MEDS: Potassium Chlor TAB* 20 MEQ TAB.ER PO SCH (08:49)
[2017-02-18] MEDS: Atenolol TAB* 25 MG PO SCH (08:49)
[2017-02-18] MEDS: Omeprazole CAP* 20 MG PO SCH (08:49)
[2017-02-18] MEDS: Citalopram TAB* 10 MG PO SCH (08:49)
[2017-02-18] MEDS ORDERED: Digoxin TAB* 0.125 MG PO ONE (09:40)
[2017-02-18 09:47] LABS: ABS Basophils 0 10^3/ul (0-0.2); ABS Eosinophils 0.1 10^3/ul (0-0.6); ABS Lymphocytes 1.1 10^3/ul (1.0-4.8); ABS Monocytes 0.3 10^3/ul (0-0.8); ABS Neutrophils 8.9 10^3/ul (1.5-7.7); ABS Nucleated RBC 0 10^3/ul; Eosinophil % 0.9 % (0-6); Hematocrit 30 % (35-47); Hemoglobin 10.1 g/dl (12.0-16.0); Lymphocyte % 10.7 % (25-47); Mean Corpuscular HGB Conc 34 g/dl (31-36); Mean Corpuscular Hemoglobin 31 pg (27-31); Mean Corpuscular Volume 90 fL (80-97); Mean Platelet Volume 8 um3 (7.4-10.4); Nucleated Red Blood Cells % 0; Platelet Count 500 10^3/ul (150-450); Red Blood Count 3.29 10^6/ul (4.0-5.4); Red Cell Distribution Width 14 % (10.5-15); White Blood Count 10.4 10^3/ul (3.5-10.8)
--- NOTE | 2017-02-18 09:47 | PN ---
Progress Note - Progress Note Date of Service: 02/18/17 SOAP: Subjective: POD #2 Right shoulder I&D with poly exchange. Pt doing ok, c/o of not sleeping well. States that shoulder is sore but not taking pain medication. Denies CP/SOB , f/c Objective: Vitals: Temp Pulse Resp BP Pulse Ox 98.4 F 125 18 152/80 97 02/18/17 07:25 02/18/17 08:48 02/18/17 08:00 02/18/17 07:25 02/18/17 07:25 Gen: A&Ox3, NAD at rest RUE: Incision C/D/I, no erythema or warmth. + edema to elbow but improving at hand. +f/e at elbow, wrist and digits. Sensation intact, 2+ radial pulse Labs: Microbiology 02/16/17 20:21 Wound - Shoulder Right Anaerobic Culture - Preliminary No Growth Day 2 02/16/17 20:21 Tissue - Shoulder Right Wound Gram Stain - Final 02/16/17 20:21 Tissue - Shoulder Right Tissue Culture - Preliminary Staphylococcus Aureus 02/16/17 20:21 Tissue - Shoulder Right Skin and Soft Tissue MRSA/MSSA (PCR - Final Mrsa Negative S.aureus Positive 02/16/17 20:21 Tissue - Shoulder Right Acid Fast Bacilli Smear - Final 02/16/17 20:21 Shoulder Right Gram Stain - Final 02/16/17 20:21 Shoulder Right Wound Culture - Final No Growth Day 2 02/14/17 12:30 Blood Venous Blood Culture - Preliminary No Growth Day 4 Assessment: POD #2 Right shoulder I&D with poly exchange Plan: PICC to be placed tomorrow, appreciate ID recs for IV abx Pt to resume Xarelto for DVT ppx Cont PT/OT for ROM of arm
--- NOTE | 2017-02-18 10:06 | PN ---
Subjective Date of Service: 02/18/17 Interval History: Patient seen and examined. Tele overnight and this AM shows some intermittent tachycardia up to low 120's, remains in afib. Asymptomatic. Patient states no chest pain, no SOB, no palpitations, no dizziness and no orthostasis. Tolerating PO, pain well controlled. Family History: Unchanged from Admission Social History: Unchanged from Admission Past Medical History: Unchanged from Admission Objective Active Medications: Acetaminophen (Tylenol Tab*) 650 mg PO Q6H PRN PRN Reason: FEVER/PAIN Last Admin: 02/14/17 00:14 Dose: 650 mg Atenolol (Tenormin Tab*) 25 mg PO DAILY [facility] Last Admin: 02/18/17 08:49 Dose: 25 mg Atorvastatin Calcium (Lipitor*) 20 mg PO DAILY [facility] Last Admin: 02/18/17 08:48 Dose: 20 mg Calcium Carbonate (Calcium Carbonate Tab*) 1,250 mg PO DAILY [facility] Last Admin: 02/18/17 08:48 Dose: 1,250 mg Citalopram Hydrobromide (Celexa Tab*) 10 mg PO DAILY [facility] PRN Reason: Protocol Last Admin: 02/18/17 08:49 Dose: 10 mg Digoxin (Lanoxin Tab*) 0.125 mg PO DAILY [facility] Last Admin: 02/18/17 08:48 Dose: 0.125 mg Digoxin (Lanoxin Tab*) 0.125 mg PO ONCE ONE Stop: 02/18/17 09:41 Last Admin: 02/18/17 09:48 Dose: 0.125 mg Docusate Sodium (Colace Cap*) 200 mg PO BID [facility] Last Admin: 02/18/17 08:48 Dose: 200 mg Cefazolin Sodium/Dextrose (Kefzol 1 Gm In Dextrose Duplex (*)) 1 gm in 50 mls @ 200 mls/hr IVPB 0000,0800,1600 [facility] Last Admin: 02/18/17 07:57 Dose: 200 mls/hr Melatonin (Melatonin (Nf)) 3 mg PO BEDTIME PRN; Protocol PRN Reason: Sleep Omeprazole (Prilosec Cap*) 20 mg PO DAILY [facility] Last Admin: 02/18/17 08:49 Dose: 20 mg Ondansetron HCl (Zofran Inj*) 4 mg IV Q6H PRN PRN Reason: NAUSEA Oxycodone HCl (Roxycodone Tab*) 5 mg PO Q4H PRN PRN Reason: PAIN Last Admin: 02/15/17 14:01 Dose: 5 mg Oxycodone HCl (Roxycodone Tab*) 10 mg PO Q4H PRN PRN Reason: PAIN Potassium Chloride (Klor Con Er Tab*) 20 meq PO DAILY [facility] Last Admin: 02/18/17 08:49 Dose: 20 meq Prednisone (Deltasone Tab*) 2 mg PO DAILY [facility] Last Admin: 02/18/17 08:49 Dose: 2 mg Rivaroxaban (Xarelto(*)) 15 mg PO DAILY [facility] Vital Signs - 8 hr 02/18/17 02/18/17 02/18/17 03:44 07:25 08:00 Temperature 97.4 F 98.4 F Pulse Rate 113 108 Respiratory 16 16 16 Rate Blood Pressure 148/61 152/80 (mmHg) O2 Sat by Pulse 97 97 Oximetry 02/18/17 02/18/17 08:48 09:48 Temperature Pulse Rate 125 114 Respiratory Rate Blood Pressure (mmHg) O2 Sat by Pulse Oximetry Oxygen Devices in Use Now: None Appearance: Well appearing, NAD Eyes: No Scleral Icterus, PERRLA Ears/Nose/Mouth/Throat: NL Teeth, Lips, Gums, Mucous Membranes Moist Neck: NL Appearance and Movements; NL JVP Respiratory: Symmetrical Chest Expansion and Respiratory Effort, Clear to Auscultation Cardiovascular: NL Sounds; No Murmurs; No JVD, - - Irregular, high 90's to low 120's on tele, afib Abdominal: NL Sounds; No Tenderness; No Distention Extremities: - - less erythema, dressing CDI, brisk cap refill Neurological: Alert and Oriented x 3, NL Muscle Strength and Tone Nutrition: Taking PO's Result Diagrams: 02/18/17 09:30 02/17/17 18:32 Additional Lab and Data: . Microbiology and Other Data: Microbiology 02/14/17 12:30 Blood Culture - Preliminary Blood Venous No Growth Day 1 02/14/17 12:31 Blood Culture - Preliminary Blood Venous Blood MRSA/MSSA (PCR) - Final Mrsa Negative S.aureus Negative Microbiology 02/14/17 12:30 Blood Culture - Preliminary Blood Venous No Growth Day 3 02/16/17 20:21 Wound Gram Stain - Final Tissue - Shoulder Right Acid Fast Bacilli Smear - Final 02/16/17 20:21 Gram Stain - Final Shoulder Right 02/11/17 18:16 Aerobic Blood Culture - Final Blood Venous No Growth Day 5 Anaerobic Blood Culture - Final No Growth Day 5 02/14/17 12:31 Blood Culture - Final Blood Venous Staph Hominis Ssp Hominis Blood MRSA/MSSA (PCR) - Final Mrsa Negative S.aureus Negative Microbiology 02/16/17 20:21 Anaerobic Culture - Preliminary Wound - Shoulder Right No Growth Day 2 02/16/17 20:21 Wound Gram Stain - Final Tissue - Shoulder Right Tissue Culture - Preliminary Staphylococcus Aureus Skin and Soft Tissue MRSA/MSSA (PCR - Final Mrsa Negative S.aureus Positive Acid Fast Bacilli Smear - Final 02/16/17 20:21 Gram Stain - Final Shoulder Right Wound Culture - Final No Growth Day 2 02/14/17 12:30 Blood Culture - Preliminary Blood Venous No Growth Day 4 Assess/Plan/Problems-Billing This is an 81 year old female with PMH of atrial fibrillation, GERD, HLD and OA , s/p right shoulder arthroplasty in 2013 that presented with septic joint/ prosthesis. POD1 I&D and washout with spacer exchange. - Patient Problems (1) Atrial fibrillation Code(s): I48.91 - UNSPECIFIED ATRIAL FIBRILLATION SNOMED Code(s): 57952088 Comment: - Boderline RVR overnight, asymptomatic - Will give extra dose digoxin now and check dig level - Continue atenolol and digoxin daily - Restart xarelto today, OK with NARCISA Marx, ortho (2) DNR (do not resuscitate) (3) DVT prophylaxis Code(s): [id number] - SNOMED Code(s): 901745380 Comment: - Restart xarelto today - Keep SCDs for now (4) GERD (gastroesophageal reflux disease) Code(s): K21.9 - GASTRO-ESOPHAGEAL REFLUX DISEASE WITHOUT ESOPHAGITIS SNOMED Code(s): 451562506 Comment: - Continue Omeprazole, stable (5) HTN (hypertension) Code(s): I10 - ESSENTIAL (PRIMARY) HYPERTENSION SNOMED Code(s): 84482560 Comment: - Controlled with atenolol, stable (6) Hyponatremia Code(s): E87.1 - HYPO-OSMOLALITY AND HYPONATREMIA SNOMED Code(s): 57407673 Comment: - Chronic, stable. - Check BMP today (7) Osteoarthritis Code(s): M19.90 - UNSPECIFIED OSTEOARTHRITIS, UNSPECIFIED SITE SNOMED Code(s) : 283333112 Comment: - Continue prednisone (8) Septic joint of right shoulder region Code(s): M00.9 - PYOGENIC ARTHRITIS, UNSPECIFIED SNOMED Code(s): 53637548 Comment: - POD2 I&D with washout and spacer exchange - Cultures growing staph, (no MRSA) - Referred for PICC Sunday - Dr. Cunha to manage continued atbx therapy, currently on ancef Q8H Status and Disposition: Remain inpatient with IV atbx therapy until cleared by ortho and ID. PICC sunday , dispo planning to rehab vs home with infusion therapy. Lengthy discussion with patient's daughter/healthcare proxy regarding POC while inpatient and she is in agreement with plan. Counseling and/or Coordination of Care Minutes: Coordinated with patient, ortho team, RN and patient's daughter.
[2017-02-18] MEDS: Rivaroxaban TAB(*) 15 MG PO SCH (12:02)
[2017-02-18 12:06] LABS: EGFR Non-African American 69.8 (>60)
[2017-02-19] MEDS: ceFAZolin 1 GM in Dextrose (*) 1 GM/50 ML BAG IVPB SCH ×2 (08:05→16:30)
[2017-02-19] MEDS: Atorvastatin* 20 MG TAB PO SCH (08:58)
[2017-02-19] MEDS: Citalopram TAB* 10 MG PO SCH (08:58)
[2017-02-19] MEDS: Omeprazole CAP* 20 MG PO SCH (08:58)
[2017-02-19] MEDS: Digoxin TAB* 0.125 MG PO SCH (08:58)
[2017-02-19] MEDS: Calcium Carbonate TAB* 1250 MG (CALCIUM 500 MG) PO SCH (08:58)
[2017-02-19] MEDS: Docusate CAP* 100 MG PO SCH ×2 (08:58→22:59)
[2017-02-19] MEDS: Rivaroxaban TAB(*) 15 MG PO SCH (08:58)
[2017-02-19] MEDS: predniSONE TAB* 1 MG PO SCH (08:58)
[2017-02-19] MEDS: Atenolol TAB* 25 MG PO SCH (09:01)
[2017-02-19] MEDS: Potassium Chlor TAB* 20 MEQ TAB.ER PO SCH (09:01)
--- NOTE | 2017-02-19 12:32 | PN ---
Progress Note - Progress Note Date of Service: 02/19/17 SOAP: Subjective: C:right shoulder pain HPI: 81 year old woman with right shoulder arthroplasty and sudden onset right shoulder pain and swelling. Had I&D and liner exchange 02/16/17. No fever, rash, or diarrhea. Pain is a littler better. Objective: [] Vital Signs Temp 36.6 C 02/19/17 07:24 Pulse 126 02/19/17 08:58 Resp 16 02/19/17 07:24 BP 141/80 02/19/17 07:24 Pulse Ox 96 02/19/17 07:24 Intake & Output 02/18/17 02/19/17 02/19/17 18:59 06:59 18:59 Intake Total 170 420 120 Output Total 1300 1900 450 Balance -1130 -1480 -330 Intake: IV Fluids 50 ABX - CEFAZOLIN 50 Oral 120 420 120 Output: Urine 1300 1900 450 Other: Estimated Void Medium # Bowel Movements 1 Estimated Stool Amount Medium Gen:awake no distress HEENT: MMM Heart:RRR no murmur Abd:+BS NTND soft Skin: No rash MSK: R arm wrapped Microbiology 02/16/17 20:21 Anaerobic Culture - Preliminary Wound - Shoulder Right No Growth Day 3 02/16/17 20:21 Wound Gram Stain - Final Tissue - Shoulder Right Tissue Culture - Preliminary Staphylococcus Aureus Skin and Soft Tissue MRSA/MSSA (PCR - Final Mrsa Negative S.aureus Positive Acid Fast Bacilli Smear - Final 02/14/17 12:30 Blood Culture - Final Blood Venous No Growth Day 5 02/16/17 20:21 Gram Stain - Final Shoulder Right Wound Culture - Final No Growth Day 2 Assessment: 1. MSSA bacteremia due to Right shoulder prosthetic joint infection/ osteomyelitis s/p I&D and liner exchange. No stigmata of infective endocarditis , low grade bacteremia, and negative TTE, doubt endocarditis. 2. elevated CRP 3. atrial fibrillation Plan: 1. ancef 1 gm IV Q8hrs, PICC today; eventually will add rifampin. Will plan on lifelong antibiotic suppression. 25 minutes floor time >50% counseling regarding antibiotic plans
--- NOTE | 2017-02-19 13:22 | RAD ---
HISTORY: PICC line placement COMPARISONS: February 15, 2017 VIEWS: 1: frontal portable view of the chest at 12:55 PM FINDINGS: LINES AND TUBES: A left-sided PICC line is noted with the tip overlying the right atrium. CARDIOMEDIASTINAL SILHOUETTE: The cardiomediastinal silhouette is normal for portable technique. PLEURA: There is blunting of the costophrenic angles bilaterally. LUNG PARENCHYMA: There is patchy alveolar opacification of the lung bases bilaterally. ABDOMEN: The upper abdomen is clear. There is no subphrenic gas. BONES AND SOFT TISSUES: Degenerative changes are noted of the spine. The patient is status post right shoulder arthroplasty. IMPRESSION: 1. LINES AND TUBES ABOVE. 2. SMALL BILATERAL PLEURAL EFFUSIONS WITH BIBASILAR ATELECTASIS VERSUS CONSOLIDATION
--- NOTE | 2017-02-19 15:02 | PN ---
Progress Note - Progress Note Date of Service: 02/19/17 SOAP: Subjective: POD #4 Right shoulder I&D and poly exchange. Doing well. Denies f/c. Objective: Vitals: Temp Pulse Resp BP Pulse Ox 97.9 F 106 16 124/55 96 12/18/ 07:24 12 13:40 12 07:24 12 13:40 02/19/17 07:24 Gen: A&O x3, NAD at rest RUE: Dressing C/D/I. Moderate edema to elbow, no erythema or warmth. +f/e at elbow, wrist and hand, N/V intact Assessment: POD #4 Right shoulder I&D with poly exchange Plan: Cont IV abx per ID PT/OT for RUE ROM f/u with Dr. Jackson next week
--- NOTE | 2017-02-19 16:09 | PN ---
Subjective Date of Service: 02/19/17 Interval History: Received call from nurse and teletray operator that patient hade run of 12 beats of vtach. Upon further investigation, it was noted that patient had a run of 8 beats of vtach during PICC insertion previously, then had the second run 15 or 20 minutes later. Evaluated post PICC CXR, tip of catheter appears deep. This is the likely cause of ventricular irritability. Requested to transfer patient to [address] [place] [address] for closer monitoring and to pull back and reposition PICC line. Patient seen and examined, states no chest pain, no dizziness or diaphoresis during either episode. BP, respiratory rate remained stable. Patient remained awake and in no distress with no complaints. Family History: Unchanged from Admission Social History: Unchanged from Admission Past Medical History: Unchanged from Admission Objective Active Medications: Acetaminophen (Tylenol Tab*) 650 mg PO Q6H PRN PRN Reason: FEVER/PAIN Last Admin: 02/14/17 00:14 Dose: 650 mg Atenolol (Tenormin Tab*) 25 mg PO DAILY [facility] Last Admin: 02/19/17 09:01 Dose: 25 mg Atorvastatin Calcium (Lipitor*) 20 mg PO DAILY [facility] Last Admin: 02/19/17 08:58 Dose: 20 mg Calcium Carbonate (Calcium Carbonate Tab*) 1,250 mg PO DAILY [facility] Last Admin: 02/19/17 08:58 Dose: 1,250 mg Citalopram Hydrobromide (Celexa Tab*) 10 mg PO DAILY [facility] PRN Reason: Protocol Last Admin: 02/19/17 08:58 Dose: 10 mg Digoxin (Lanoxin Tab*) 0.125 mg PO DAILY [facility] Last Admin: 02/19/17 08:58 Dose: 0.125 mg Docusate Sodium (Colace Cap*) 200 mg PO BID [facility] Last Admin: 02/19/17 08:58 Dose: 200 mg Heparin Sodium (Porcine) (Heparin Flush Picc/Ml/Cvc(*)) 1 - 3 ml FLUSH 0600, 1800 [facility] PRN Reason: Protocol Cefazolin Sodium/Dextrose (Kefzol 1 Gm In Dextrose Duplex (*)) 1 gm in 50 mls @ 200 mls/hr IVPB 0000,0800,1600 [facility] Last Admin: 02/19/17 08:05 Dose: 200 mls/hr Melatonin (Melatonin (Nf)) 3 mg PO BEDTIME PRN; Protocol PRN Reason: Sleep Omeprazole (Prilosec Cap*) 20 mg PO DAILY [facility] Last Admin: 02/19/17 08:58 Dose: 20 mg Ondansetron HCl (Zofran Inj*) 4 mg IV Q6H PRN PRN Reason: NAUSEA Oxycodone HCl (Roxycodone Tab*) 5 mg PO Q4H PRN PRN Reason: PAIN Last Admin: 02/15/17 14:01 Dose: 5 mg Oxycodone HCl (Roxycodone Tab*) 10 mg PO Q4H PRN PRN Reason: PAIN Potassium Chloride (Klor Con Er Tab*) 20 meq PO DAILY [facility] Last Admin: 02/19/17 09:01 Dose: 20 meq Prednisone (Deltasone Tab*) 2 mg PO DAILY [facility] Last Admin: 02/19/17 08:58 Dose: 2 mg Rivaroxaban (Xarelto(*)) 15 mg PO DAILY [facility] Last Admin: 02/19/17 08:58 Dose: 15 mg Vital Signs - 8 hr 02/19/17 02/19/17 08:58 13:40 Pulse Rate 126 106 Blood Pressure 124/55 (mmHg) Oxygen Devices in Use Now: None Appearance: Alert, NAD Eyes: No Scleral Icterus, PERRLA Ears/Nose/Mouth/Throat: NL Teeth, Lips, Gums, Mucous Membranes Moist Neck: NL Appearance and Movements; NL JVP, Trachea Midline Respiratory: Symmetrical Chest Expansion and Respiratory Effort, Clear to Auscultation Cardiovascular: NL Sounds; No Murmurs; No JVD - controlled afib on telemetry Abdominal: NL Sounds; No Tenderness; No Distention Extremities: No Clubbing, Cyanosis - right hand and fingers with dorsal edema, brisk cap refill, warm to touch Neurological: Alert and Oriented x 3, NL Sensation, NL Gait Lines/Tubes/Other Access: Clean, Dry and Intact PICC Line - CDI Nutrition: Taking PO's Result Diagrams: 02/18/17 09:30 02/18/17 09:26 Additional Lab and Data: . Microbiology and Other Data: Microbiology 02/14/17 12:30 Blood Culture - Preliminary Blood Venous No Growth Day 1 02/14/17 12:31 Blood Culture - Preliminary Blood Venous Blood MRSA/MSSA (PCR) - Final Mrsa Negative S.aureus Negative Microbiology 02/14/17 12:30 Blood Culture - Preliminary Blood Venous No Growth Day 3 02/16/17 20:21 Wound Gram Stain - Final Tissue - Shoulder Right Acid Fast Bacilli Smear - Final 02/16/17 20:21 Gram Stain - Final Shoulder Right 02/11/17 18:16 Aerobic Blood Culture - Final Blood Venous No Growth Day 5 Anaerobic Blood Culture - Final No Growth Day 5 02/14/17 12:31 Blood Culture - Final Blood Venous Staph Hominis Ssp Hominis Blood MRSA/MSSA (PCR) - Final Mrsa Negative S.aureus Negative Microbiology 02/16/17 20:21 Anaerobic Culture - Preliminary Wound - Shoulder Right No Growth Day 2 02/16/17 20:21 Wound Gram Stain - Final Tissue - Shoulder Right Tissue Culture - Preliminary Staphylococcus Aureus Skin and Soft Tissue MRSA/MSSA (PCR - Final Mrsa Negative S.aureus Positive Acid Fast Bacilli Smear - Final 02/16/17 20:21 Gram Stain - Final Shoulder Right Wound Culture - Final No Growth Day 2 02/14/17 12:30 Blood Culture - Preliminary Blood Venous No Growth Day 4 Assess/Plan/Problems-Billing This is an 81 year old female with PMH of atrial fibrillation, GERD, HLD and OA , s/p right shoulder arthroplasty in 2013, currently POD3 for I&D of septic joint with cellulitis and low grade bacteremia. - Patient Problems (1) Atrial fibrillation Code(s): I48.91 - UNSPECIFIED ATRIAL FIBRILLATION SNOMED Code(s): 49926536 Comment: - Boderline RVR, asymptomatic - Dig level low, received 2 doses digoxin yesterday with some improvement today - Continue atenolol and digoxin daily - Xarelto restarted 02/18 - Remain on tele (2) DNR (do not resuscitate) (3) DVT prophylaxis Code(s): NSN7042 - SNOMED Code(s): 757160568 Comment: - Restart xarelto today - Keep SCDs for now (4) GERD (gastroesophageal reflux disease) Code(s): K21.9 - GASTRO-ESOPHAGEAL REFLUX DISEASE WITHOUT ESOPHAGITIS SNOMED Code(s): 896352789 Comment: - Continue Omeprazole, stable (5) HTN (hypertension) Code(s): I10 - ESSENTIAL (PRIMARY) HYPERTENSION SNOMED Code(s): 25346539 Comment: - Controlled with atenolol, stable (6) Hyponatremia Code(s): E87.1 - HYPO-OSMOLALITY AND HYPONATREMIA SNOMED Code(s): 01409833 Comment: - Chronic, stable. - Na improved today at 132 (7) Osteoarthritis Code(s): M19.90 - UNSPECIFIED OSTEOARTHRITIS, UNSPECIFIED SITE SNOMED Code(s) : 600362568 Comment: - Continue prednisone (8) Septic joint of right shoulder region Code(s): M00.9 - PYOGENIC ARTHRITIS, UNSPECIFIED SNOMED Code(s): 21845950 Comment: - POD3 I&D with washout and spacer exchange - Follow cx, staph, no MRSA - Continue ancef per Dr. Cunha - PICC inserted today for longer term atbx to be managed by ID - Will need lifelong atbx suppression therapy, patient and family aware (9) Ventricular arrhythmia Code(s): I49.9 - CARDIAC ARRHYTHMIA, UNSPECIFIED SNOMED Code(s): 64713365 Comment: - 2/2 irritation from PICC insertion and depth of catheter tip - PICC pulled back (see nurse's note) - New CXR shows cath tip with better placement, terminating in the superior vena cava - Remain on tele - Will hold off on mag infusion for now, will still check mag level (10) Reactive thrombocytosis Code(s): R79.89 - OTHER SPECIFIED ABNORMAL FINDINGS OF BLOOD CHEMISTRY SNOMED Code(s): 977333930 Comment: - Delayed rx 2/2 ancef? - Xarelto restarted yesterday - Continue to monitor platelets - Careful PICC maintenance; per hosp protocol to minimize thrombosis Status and Disposition: Patient transfer to [address] [place] [address] for closer cardiac monitoring. Remain inpatient until clear by ortho and ID for DC to rehab. Family pref Sanchez. Counseling and/or Coordination of Care Minutes: Coordinated with patient and her family, staff and Drs. Tsai and Alphonse
--- NOTE | 2017-02-19 16:22 | RAD ---
INDICATION: PICC line insertion. Confirm position COMPARISON: February 19, 2017 TECHNIQUE: An AP portable view obtained at 1545 hours is submitted. FINDINGS: Bones/Soft Tissues: There are no acute bony findings. There is a left-sided PICC catheter terminating in the superior vena cava Cardiomediastinal: The cardiomediastinal silhouette is normal. There is mild interstitial congestion Lungs: There are small bibasilar infiltrates or atelectasis. Pleura: Moderate-sized bilateral pleural effusions. Other: None IMPRESSION: MILD INTERSTITIAL CONGESTION WITH BIBASILAR INFILTRATES OR ATELECTASIS AND PLEURAL EFFUSIONS. MILD IMPROVEMENT IN THE DEGREE OF VASCULAR CONGESTION. PICC CATHETER IN EXPECTED POSITION.
[2017-02-20] MEDS: ceFAZolin 1 GM in Dextrose (*) 1 GM/50 ML BAG IVPB SCH ×3 (01:16→15:49)
--- NOTE | 2017-02-20 08:12 | PN ---
Progress Note - Progress Note Date of Service: 02/20/17 SOAP: Subjective: []Patient seen at bedside. She denies right shoulder pain, CP, SOB, nausea, fever or chills. Objective: Vital Signs Temp 98.8 F 02/20/17 03:32 Pulse 70 02/20/17 03:32 Resp 20 02/20/17 03:32 BP 152/60 02/20/17 03:52 Pulse Ox 96 02/20/17 03:32 Intake & Output 02/19/17 02/20/17 02/20/17 18:59 06:59 18:59 Intake Total 640 400 Output Total 450 800 Balance 190 -400 Intake: IVPB 50 ABX - CEFAZOLIN 50 Oral 590 400 Output: Urine 450 800 Other: Estimated Void Medium # Bowel Movements 1 Estimated Stool Amount Medium # Voids 2 Laboratory Last Values WBC 10.4 10^3/ul (3.5-10.8) 02/18/17 09:30 RBC 3.29 10^6/ul (4.0-5.4) L 02/18/17 09:30 Hgb 10.1 g/dl (12.0-16.0) L 02/18/17 09:30 Hct 30 % (35-47) L 02/18/17 09:30 MCV 90 fL (80-97) 02/18/17 09:30 MCH 31 pg (27-31) 02/18/17 09:30 MCHC 34 g/dl (31-36) 02/18/17 09:30 RDW 14 % (10.5-15) 02/18/17 09:30 Plt Count 500 10^3/ul (150-450) H 02/18/17 09:30 MPV 8 um3 (7.4-10.4) 02/18/17 09:30 Neut % (Auto) 85.2 % (38-83) H 02/18/17 09:30 Lymph % (Auto) 10.7 % (25-47) L 02/18/17 09:30 [place] % (Auto) 2.9 % (1-9) 02/18/17 09:30 Eos % (Auto) 0.9 % (0-6) 02/18/17 09:30 Baso % (Auto) 0.3 % (0-2) 02/18/17 09:30 Absolute Neuts (auto) 8.9 10^3/ul (1.5-7.7) H 02/18/17 09:30 Absolute Lymphs (auto) 1.1 10^3/ul (1.0-4.8) 02/18/17 09:30 Absolute Monos (auto) 0.3 10^3/ul (0-0.8) 02/18/17 09:30 Absolute Eos (auto) 0.1 10^3/ul (0-0.6) 02/18/17 09:30 Absolute Basos (auto) 0 10^3/ul (0-0.2) 02/18/17 09:30 Absolute Nucleated RBC 0 10^3/ul 02/18/17 09:30 Nucleated RBC % 0 02/18/17 09:30 ESR 113 mm/Hr (0-40) H 02/12/17 07:23 INR (Anticoag Therapy) 1.13 (0.77-1.02) H 02/14/17 22:00 APTT 25.0 seconds (26.0-36.3) L 02/14/17 22:00 D-Dimer, Quantitative 871 ng/mL (Less Than 230) H 02/11/17 18:16 Sodium 132 mmol/L (133-145) L 02/18/17 09:26 Potassium 4.4 mmol/L (3.5-5.0) 02/18/17 09:26 Chloride 98 mmol/L (101-111) L 02/18/17 09:26 Carbon Dioxide 25 mmol/L (22-32) 02/18/17 09:26 Anion Gap 9 mmol/L (2-11) 02/18/17 09:26 BUN 15 mg/dL (6-24) 02/18/17 09:26 Creatinine 0.79 mg/dL (0.51-0.95) 02/18/17 09:26 Est GFR ( Amer) 89.8 (>60) 02/18/17 09:26 Est GFR (Non-Af Amer) 69.8 (>60) 02/18/17 09:26 BUN/Creatinine Ratio 19.0 (8-20) 02/18/17 09:26 Glucose 131 mg/dL (70-100) H 12/17/17 09:26 Lactic Acid 1.9 mmol/L (0.5-2.0) 02/14/17 12:31 Calcium 8.1 mg/dL (8.6-10.3) L 02/18/17 09:26 Magnesium 1.8 mg/dL (1.9-2.7) L 02/19/17 19:00 Total Bilirubin 0.70 mg/dL (0.2-1.0) 02/16/17 05:07 AST 43 U/L (13-39) H 02/16/17 05:07 ALT 28 U/L (7-52) 02/16/17 05:07 Alkaline Phosphatase 112 U/L (34-104) H 02/16/17 05:07 C-Reactive Protein 291.24 mg/L (< 5.00) H 02/13/17 05:05 Total Protein 6.1 g/dL (6.4-8.9) L 02/16/17 05:07 Albumin 2.5 g/dL (3.2-5.2) L 02/16/17 05:07 Globulin 3.6 g/dL (2-4) 02/16/17 05:07 Albumin/Globulin Ratio 0.7 (1-3) L 02/16/17 05:07 Prolactin 6.5 ng/mL (1.0-25.0) 02/11/17 18:16 Digoxin 0.5 ng/ml (0.8-2.0) L 02/18/17 09:26 Blood Type O Positive 02/16/17 05:06 Antibody Screen Negative 02/16/17 05:06 Gen: Sitting in chair, appears well, NAD RUE: Dressing C/D/I. Wearing sling. Moderate edema throughout RUE, no erythema or warmth. +f/e at elbow and wrist. Digits with flexion, extension, adduction, abduction. Brisk capillary refill of digits. Radial pulse 2+. Assessment: POD #5 Right shoulder I&D with poly exchange Plan: Cont IV abx per ID PT/OT f/u with Dr. Jackson next week
[2017-02-20] MEDS ORDERED: Magnesium Sulfate 1 GM IV* 1 GM/100 ML BAG IV ONE (08:30)
[2017-02-20] MEDS: Docusate CAP* 100 MG PO SCH ×2 (09:21→20:33)
[2017-02-20] MEDS: Atenolol TAB* 25 MG PO SCH (09:33)
[2017-02-20] MEDS: Omeprazole CAP* 20 MG PO SCH (09:33)
[2017-02-20] MEDS: predniSONE TAB* 1 MG PO SCH (09:33)
[2017-02-20] MEDS: Calcium Carbonate TAB* 1250 MG (CALCIUM 500 MG) PO SCH (09:33)
[2017-02-20] MEDS: Rivaroxaban TAB(*) 15 MG PO SCH (09:33)
[2017-02-20] MEDS: Atorvastatin* 20 MG TAB PO SCH (09:33)
[2017-02-20] MEDS: Potassium Chlor TAB* 20 MEQ TAB.ER PO SCH (09:34)
[2017-02-20] MEDS: Citalopram TAB* 10 MG PO SCH (09:34)
[2017-02-20] MEDS: Digoxin TAB* 0.125 MG PO SCH (09:34)
--- NOTE | 2017-02-20 15:20 | PN ---
Progress Note - Progress Note Date of Service: 02/20/17 SOAP: Subjective: CC:right shoulder infection HPI: 81 year old woman with right shoulder arthroplasty and sudden onset right shoulder pain and swelling. Had I&D and liner exchange 02/16/17. No fever, rash, or diarrhea. Pain improves. Appetite is good. Objective: [] Vital Signs Temp 36.6 C 02/20/17 11:56 Pulse 86 02/20/17 11:56 Resp 16 02/20/17 11:56 BP 143/85 02/20/17 11:56 Pulse Ox 99 02/20/17 11:56 Intake & Output 02/19/17 02/20/17 02/20/17 18:59 06:59 18:59 Intake Total 640 400 690 Output Total 450 800 400 Balance 190 -400 290 Intake: IVPB 50 ABX - CEFAZOLIN 50 Oral 590 400 690 Output: Urine 450 800 400 Other: Estimated Void Medium Date of Last Bowel 02/20/2017 Movement # Bowel Movements 1 1 Estimated Stool Amount Medium Small # Voids 2 Gen:awake no distress HEENT: MMM Heart:RRR no murmur Abd:+BS NTND soft Skin: No rash MSK: R arm wrapped Laboratory Results - last 24 hr 02/19/17 19:00 Magnesium 1.8 L Microbiology 02/16/17 20:21 Anaerobic Culture - Final Wound - Shoulder Right No Growth Day 4 02/16/17 20:21 Wound Gram Stain - Final Tissue - Shoulder Right Tissue Culture - Final Staphylococcus Aureus Skin and Soft Tissue MRSA/MSSA (PCR - Final Mrsa Negative S.aureus Positive Acid Fast Bacilli Smear - Final Assessment: 1. MSSA bacteremia due to Right shoulder prosthetic joint infection/ osteomyelitis s/p I&D and liner exchange. 2. elevated CRP 3. atrial fibrillation on xarelto Plan: 1. ancef 1 gm IV Q8hrs day ; eventually will add rifampin. Rifampin interacts with xaerlto to decr xarelto levels but not in a predictable way. Alternative is warfarin which could be monitored (though also lowers warfarin levels). Will start rifampin tomorrow. Discussed With Lilly Valencia NP who will manage the transition to warfarin. Will plan on lifelong antibiotic suppression.
--- NOTE | 2017-02-20 16:12 | PN ---
Subjective Date of Service: 02/20/17 Interval History: Patient seen and examined. Feeling better than yesterday. No chest pain, no SOB , does have productive cough, yellow/white sputum. No fevers or chills. Using IS every hour. Shoulder pain described as sore, but tolerable. No further ventricular ectopy since PICC adjusted. No further complaints. Family History: Unchanged from Admission Social History: Unchanged from Admission Past Medical History: Unchanged from Admission Objective Active Medications: Acetaminophen (Tylenol Tab*) 650 mg PO Q6H PRN PRN Reason: FEVER/PAIN Last Admin: 02/14/17 00:14 Dose: 650 mg Atenolol (Tenormin Tab*) 25 mg PO DAILY [facility] Last Admin: 02/20/17 09:33 Dose: 25 mg Atorvastatin Calcium (Lipitor*) 20 mg PO DAILY [facility] Last Admin: 02/20/17 09:33 Dose: 20 mg Calcium Carbonate (Calcium Carbonate Tab*) 1,250 mg PO DAILY [facility] Last Admin: 02/20/17 09:33 Dose: 1,250 mg Citalopram Hydrobromide (Celexa Tab*) 10 mg PO DAILY [facility] PRN Reason: Protocol Last Admin: 02/20/17 09:34 Dose: 10 mg Digoxin (Lanoxin Tab*) 0.125 mg PO DAILY [facility] Last Admin: 02/20/17 09:34 Dose: 0.125 mg Docusate Sodium (Colace Cap*) 200 mg PO BID [facility] Last Admin: 02/20/17 09:21 Dose: Not Given Heparin Sodium (Porcine) (Heparin Flush Picc/Ml/Cvc(*)) 1 - 3 ml FLUSH 0600, 1800 [facility] PRN Reason: Protocol Last Admin: 02/20/17 06:16 Dose: 1 ml Cefazolin Sodium/Dextrose (Kefzol 1 Gm In Dextrose Duplex (*)) 1 gm in 50 mls @ 200 mls/hr IVPB 0000,0800,1600 [facility] Last Admin: 02/20/17 15:49 Dose: 200 mls/hr Melatonin (Melatonin (Nf)) 3 mg PO BEDTIME PRN; Protocol PRN Reason: Sleep Omeprazole (Prilosec Cap*) 20 mg PO DAILY [facility] Last Admin: 02/20/17 09:33 Dose: 20 mg Ondansetron HCl (Zofran Inj*) 4 mg IV Q6H PRN PRN Reason: NAUSEA Oxycodone HCl (Roxycodone Tab*) 5 mg PO Q4H PRN PRN Reason: PAIN Last Admin: 02/15/17 14:01 Dose: 5 mg Oxycodone HCl (Roxycodone Tab*) 10 mg PO Q4H PRN PRN Reason: PAIN Potassium Chloride (Klor Con Er Tab*) 20 meq PO DAILY [facility] Last Admin: 02/20/17 09:34 Dose: 20 meq Prednisone (Deltasone Tab*) 2 mg PO DAILY [facility] Last Admin: 02/20/17 09:33 Dose: 2 mg Rifampin (Rifampin Cap*) 300 mg PO BID [facility] Warfarin Sodium (Coumadin Tab(*)) 5 mg PO DAILY@1700 [facility] PRN Reason: Protocol Vital Signs - 8 hr 02/20/17 02/20/17 02/20/17 08:25 09:34 11:56 Temperature 98.4 F 97.9 F Pulse Rate 105 105 86 Respiratory 16 16 Rate Blood Pressure 139/79 143/85 (mmHg) O2 Sat by Pulse 99 99 Oximetry Oxygen Devices in Use Now: None Appearance: Alert,NAD Eyes: No Scleral Icterus, PERRLA Ears/Nose/Mouth/Throat: NL Teeth, Lips, Gums, Mucous Membranes Moist Neck: NL Appearance and Movements; NL JVP, Trachea Midline Respiratory: Symmetrical Chest Expansion and Respiratory Effort, Clear to Auscultation Cardiovascular: NL Sounds; No Murmurs; No JVD, RRR, No Edema, - Abdominal: NL Sounds; No Tenderness; No Distention Extremities: No Edema, No Clubbing, Cyanosis Skin: No Rash or Ulcers, - - surgical dressing CDI Neurological: Alert and Oriented x 3 Nutrition: Taking PO's Result Diagrams: 02/18/17 09:30 02/18/17 09:26 Additional Lab and Data: . Microbiology and Other Data: Microbiology 02/14/17 12:30 Blood Culture - Preliminary Blood Venous No Growth Day 1 02/14/17 12:31 Blood Culture - Preliminary Blood Venous Blood MRSA/MSSA (PCR) - Final Mrsa Negative S.aureus Negative Microbiology 02/14/17 12:30 Blood Culture - Preliminary Blood Venous No Growth Day 3 02/16/17 20:21 Wound Gram Stain - Final Tissue - Shoulder Right Acid Fast Bacilli Smear - Final 02/16/17 20:21 Gram Stain - Final Shoulder Right 02/11/17 18:16 Aerobic Blood Culture - Final Blood Venous No Growth Day 5 Anaerobic Blood Culture - Final No Growth Day 5 02/14/17 12:31 Blood Culture - Final Blood Venous Staph Hominis Ssp Hominis Blood MRSA/MSSA (PCR) - Final Mrsa Negative S.aureus Negative Microbiology 02/16/17 20:21 Anaerobic Culture - Preliminary Wound - Shoulder Right No Growth Day 2 02/16/17 20:21 Wound Gram Stain - Final Tissue - Shoulder Right Tissue Culture - Preliminary Staphylococcus Aureus Skin and Soft Tissue MRSA/MSSA (PCR - Final Mrsa Negative S.aureus Positive Acid Fast Bacilli Smear - Final 02/16/17 20:21 Gram Stain - Final Shoulder Right Wound Culture - Final No Growth Day 2 02/14/17 12:30 Blood Culture - Preliminary Blood Venous No Growth Day 4 Assess/Plan/Problems-Billing This is an 81 year old female with PMH of atrial fibrillation, GERD, HLD and OA , s/p right shoulder arthroplasty in 2013, currently POD3 for I&D of septic joint with cellulitis and low grade bacteremia. - Patient Problems (1) Atrial fibrillation Code(s): I48.91 - UNSPECIFIED ATRIAL FIBRILLATION SNOMED Code(s): 87860529 Comment: - HR stable, afib, infrquent PVCs - Continue atenolol and digoxin daily - Remain on tele - Bridge from xarelto to coumadin tonight 2/2 interaction with rifampin and monitor INR daily (2) DNR (do not resuscitate) (3) DVT prophylaxis Code(s): [id number] - SNOMED Code(s): 985075040 Comment: - Keep SCDs for now, coumadin bridge tonight (4) GERD (gastroesophageal reflux disease) Code(s): K21.9 - GASTRO-ESOPHAGEAL REFLUX DISEASE WITHOUT ESOPHAGITIS SNOMED Code(s): 531993723 Comment: - Continue Omeprazole, stable (5) HTN (hypertension) Code(s): I10 - ESSENTIAL (PRIMARY) HYPERTENSION SNOMED Code(s): 74732715 Comment: - Controlled with atenolol, stable (6) Hyponatremia Code(s): E87.1 - HYPO-OSMOLALITY AND HYPONATREMIA SNOMED Code(s): 87800303 Comment: - Chronic, stable. - Na improved - Follow lytes in AM (7) Osteoarthritis Code(s): M19.90 - UNSPECIFIED OSTEOARTHRITIS, UNSPECIFIED SITE SNOMED Code(s) : 717212556 Comment: - Continue prednisone (8) Septic joint of right shoulder region Code(s): M00.9 - PYOGENIC ARTHRITIS, UNSPECIFIED SNOMED Code(s): 02151890 Comment: - POD4 I&D with washout and spacer exchange - Follow cx, staph, no MRSA - Continue ancef per Dr. Cunha, rifampin tomorrow - PICC inserted 02/19 - Will need lifelong atbx suppression therapy, patient and family aware (9) Ventricular arrhythmia Code(s): I49.9 - CARDIAC ARRHYTHMIA, UNSPECIFIED SNOMED Code(s): 42292576 Comment: - 2/2 irritation from PICC insertion and depth of catheter tip - PICC pulled back (see nurse's note) - New CXR shows cath tip with better placement, terminating in the superior vena cava - Remain on tele - Mag = 1.8, 1 gm ordered (10) Reactive thrombocytosis Code(s): R79.89 - OTHER SPECIFIED ABNORMAL FINDINGS OF BLOOD CHEMISTRY SNOMED Code(s): 480533700 Comment: - Delayed rx 2/2 ancef? - Xarelto restarted yesterday but will go on coumadin today - Continue to monitor platelets - Careful PICC maintenance; per hosp protocol to minimize thrombosis (11) Cough Code(s): R05 - COUGH SNOMED Code(s): 66274719 Comment: - Mildy productive, lungs clear - Add mucinex and continue IS Status and Disposition: Remain inpatient for antibiotics. Difficulty finding placement at facility for atbx infusion. Will check with CM tomorrow, patient may have to move to [facility] if appropriate placement cannot be obtained.
[2017-02-20] MEDS: Warfarin TAB(*) 5 MG PO SCH (16:28)
[2017-02-20] MEDS: guaiFENesin ER TAB 600 MG PO SCH (20:33)
[2017-02-21] MEDS: ceFAZolin 1 GM in Dextrose (*) 1 GM/50 ML BAG IVPB SCH ×4 (02:29→23:48)
[2017-02-21 05:15] LABS: ABS Basophils 0.1 10^3/ul (0-0.2); ABS Eosinophils 0.2 10^3/ul (0-0.6); ABS Lymphocytes 1.5 10^3/ul (1.0-4.8); ABS Monocytes 0.5 10^3/ul (0-0.8); ABS Neutrophils 6.8 10^3/ul (1.5-7.7); ABS Nucleated RBC 0 10^3/ul; Eosinophil % 2.1 % (0-6); Hematocrit 27 % (35-47); Hemoglobin 8.8 g/dl (12.0-16.0); Lymphocyte % 16.9 % (25-47); Mean Corpuscular HGB Conc 33 g/dl (31-36); Mean Corpuscular Hemoglobin 30 pg (27-31); Mean Corpuscular Volume 90 fL (80-97); Mean Platelet Volume 7 um3 (7.4-10.4); Nucleated Red Blood Cells % 0; Platelet Count 486 10^3/ul (150-450); Red Blood Count 2.98 10^6/ul (4.0-5.4); Red Cell Distribution Width 14 % (10.5-15); White Blood Count 9.1 10^3/ul (3.5-10.8)
[2017-02-21 05:19] LABS: INR 1.52 (0.77-1.02)
[2017-02-21] MEDS: Omeprazole CAP* 20 MG PO SCH (08:54)
[2017-02-21] MEDS: RiFAMPin CAP* 300 MG CAP PO SCH ×2 (08:54→20:54)
[2017-02-21] MEDS: guaiFENesin ER TAB 600 MG PO SCH ×2 (08:54→20:54)
[2017-02-21] MEDS: predniSONE TAB* 1 MG PO SCH (08:54)
[2017-02-21] MEDS: Atorvastatin* 20 MG TAB PO SCH (08:54)
[2017-02-21] MEDS: Calcium Carbonate TAB* 1250 MG (CALCIUM 500 MG) PO SCH (08:54)
[2017-02-21] MEDS: Atenolol TAB* 25 MG PO SCH (08:54)
[2017-02-21] MEDS: Potassium Chlor TAB* 20 MEQ TAB.ER PO SCH (08:54)
[2017-02-21] MEDS: Citalopram TAB* 10 MG PO SCH (08:55)
[2017-02-21] MEDS: Digoxin TAB* 0.125 MG PO SCH (08:55)
[2017-02-21] MEDS: Docusate CAP* 100 MG PO SCH ×2 (08:55→20:54)
--- NOTE | 2017-02-21 09:56 | PN ---
Subjective Date of Service: 02/21/17 Interval History: Pt c/o R elbow edema ever since her surgery Family History: Unchanged from Admission Social History: Unchanged from Admission Past Medical History: Unchanged from Admission Objective Active Medications: Acetaminophen (Tylenol Tab*) 650 mg PO Q6H PRN PRN Reason: FEVER/PAIN Last Admin: 02/14/17 00:14 Dose: 650 mg Atenolol (Tenormin Tab*) 25 mg PO DAILY [facility] Last Admin: 02/21/17 08:54 Dose: 25 mg Atorvastatin Calcium (Lipitor*) 20 mg PO DAILY [facility] Last Admin: 02/21/17 08:54 Dose: 20 mg Calcium Carbonate (Calcium Carbonate Tab*) 1,250 mg PO DAILY [facility] Last Admin: 02/21/17 08:54 Dose: 1,250 mg Citalopram Hydrobromide (Celexa Tab*) 10 mg PO DAILY [facility] PRN Reason: Protocol Last Admin: 02/21/17 08:55 Dose: 10 mg Digoxin (Lanoxin Tab*) 0.125 mg PO DAILY [facility] Last Admin: 02/21/17 08:55 Dose: 0.125 mg Docusate Sodium (Colace Cap*) 200 mg PO BID [facility] Last Admin: 02/21/17 08:55 Dose: 200 mg Guaifenesin (Mucinex*) 600 mg PO BID [facility] Last Admin: 02/21/17 08:54 Dose: 600 mg Heparin Sodium (Porcine) (Heparin Flush Picc/Ml/Cvc(*)) 1 - 3 ml FLUSH 0600, 1800 [facility] PRN Reason: Protocol Last Admin: 02/21/17 05:00 Dose: 1 ml Cefazolin Sodium/Dextrose (Kefzol 1 Gm In Dextrose Duplex (*)) 1 gm in 50 mls @ 200 mls/hr IVPB 0000,0800,1600 [facility] Last Admin: 02/21/17 08:54 Dose: 200 mls/hr Melatonin (Melatonin (Nf)) 3 mg PO BEDTIME PRN; Protocol PRN Reason: Sleep Omeprazole (Prilosec Cap*) 20 mg PO DAILY [facility] Last Admin: 02/21/17 08:54 Dose: 20 mg Ondansetron HCl (Zofran Inj*) 4 mg IV Q6H PRN PRN Reason: NAUSEA Oxycodone HCl (Roxycodone Tab*) 5 mg PO Q4H PRN PRN Reason: PAIN Last Admin: 02/15/17 14:01 Dose: 5 mg Oxycodone HCl (Roxycodone Tab*) 10 mg PO Q4H PRN PRN Reason: PAIN Potassium Chloride (Klor Con Er Tab*) 20 meq PO DAILY [facility] Last Admin: 02/21/17 08:54 Dose: 20 meq Prednisone (Deltasone Tab*) 2 mg PO DAILY [facility] Last Admin: 02/21/17 08:54 Dose: 2 mg Rifampin (Rifampin Cap*) 300 mg PO BID [facility] Last Admin: 02/21/17 08:54 Dose: 300 mg Warfarin Sodium (Coumadin Tab(*)) 5 mg PO DAILY@1700 [facility] PRN Reason: Protocol Last Admin: 02/20/17 16:28 Dose: 5 mg Vital Signs - 8 hr 02/21/17 02/21/17 02/21/17 03:52 04:13 07:53 Temperature 98.0 F 97.4 F Pulse Rate 101 88 Respiratory 16 18 Rate Blood Pressure 153/77 143/70 (mmHg) O2 Sat by Pulse 96 96 98 Oximetry 02/21/17 02/21/17 08:00 08:55 Temperature Pulse Rate 80 Respiratory 18 Rate Blood Pressure (mmHg) O2 Sat by Pulse Oximetry Oxygen Devices in Use Now: None Appearance: 81 yo f in nAD, aAOx3 Eyes: No Scleral Icterus, PERRLA Ears/Nose/Mouth/Throat: NL Teeth, Lips, Gums, Mucous Membranes Moist Neck: NL Appearance and Movements; NL JVP, Trachea Midline Respiratory: Symmetrical Chest Expansion and Respiratory Effort, Clear to Auscultation Cardiovascular: NL Sounds; No Murmurs; No JVD, - - irreg Abdominal: NL Sounds; No Tenderness; No Distention, No Hepatosplenomegaly Lymphatic: No Cervical Adenopathy Extremities: No Clubbing, Cyanosis, - - boggy r elbow edema noted Skin: No Nodules or Sclerosis, - - post op R shoulder inspected, sutures not uncovered, in cryo unit, edema worse in elbow than in shoulder, no erythema noted Neurological: Alert and Oriented x 3, NL Muscle Strength and Tone Result Diagrams: 02/21/17 05:00 02/21/17 05:00 Additional Lab and Data: . Microbiology and Other Data: Microbiology 02/14/17 12:30 Blood Culture - Preliminary Blood Venous No Growth Day 1 12/13/17 12:31 Blood Culture - Preliminary Blood Venous Blood MRSA/MSSA (PCR) - Final Mrsa Negative S.aureus Negative Microbiology 02/14/17 12:30 Blood Culture - Preliminary Blood Venous No Growth Day 3 02/16/17 20:21 Wound Gram Stain - Final Tissue - Shoulder Right Acid Fast Bacilli Smear - Final 02/16/17 20:21 Gram Stain - Final Shoulder Right 02/11/17 18:16 Aerobic Blood Culture - Final Blood Venous No Growth Day 5 Anaerobic Blood Culture - Final No Growth Day 5 02/14/17 12:31 Blood Culture - Final Blood Venous Staph Hominis Ssp Hominis Blood MRSA/MSSA (PCR) - Final Mrsa Negative S.aureus Negative Microbiology 02/16/17 20:21 Anaerobic Culture - Preliminary Wound - Shoulder Right No Growth Day 2 02/16/17 20:21 Wound Gram Stain - Final Tissue - Shoulder Right Tissue Culture - Preliminary Staphylococcus Aureus Skin and Soft Tissue MRSA/MSSA (PCR - Final Mrsa Negative S.aureus Positive Acid Fast Bacilli Smear - Final 02/16/17 20:21 Gram Stain - Final Shoulder Right Wound Culture - Final No Growth Day 2 02/14/17 12:30 Blood Culture - Preliminary Blood Venous No Growth Day 4 Assess/Plan/Problems-Billing This is an 81 year old female with PMH of atrial fibrillation, GERD, HLD and OA , s/p right shoulder arthroplasty in 2013, currently s/p I&D of septic joint with cellulitis and low grade bacteremia. - Patient Problems (1) Septic joint of right shoulder region Comment: Follow cx, staph, no MRSA Continue ancef per Dr. Cunha, rifampin tomorrow PICC inserted 02/19 Will need lifelong atbx suppression therapy, patient and family aware (2) MSSA (methicillin susceptible Staphylococcus aureus) septicemia Comment: Appreciate ID input. TTE on 02/20/17 showed EF 55%, mod MR and mod pulm HTN. s/p I&D and liner exchange on 02/16/17. Cont Ancef Q8H days , cont rimfampin. (3) Atrial fibrillation Comment: Continue atenolol and digoxin daily Remain on tele Bridge from xarelto to coumadin and monitor INR daily (4) HTN (hypertension) Comment: - Controlled with atenolol, stable (5) Hyponatremia Comment: resolved (6) Ventricular arrhythmia Comment: 2/2 irritation from PICC insertion and depth of catheter tip PICC pulled back (see nurse's note) no recurrence, cont telem (7) Normocytic anemia Comment: no signs or symptoms of bleeding. will check stool guaiac (8) DVT prophylaxis Comment: SCDs for now, coumadin started on 02/20/17, INR 1.5 today, due to tx with rimfampin and possibility of INR getting high quickly, will not bridge with lovenox, monitor with daily INR's Status and Disposition: Pt was accepted to [facility], but after d/c ID the decision was made to cont inpatient x 3-4 days till INR is normalized. The possibility of uncontrolled INR 's due to tx with rimfampin is high and it would be unsafe to d/c pt to rehab prior to having that under control
[2017-02-21] MEDS: Warfarin TAB(*) 5 MG PO SCH (16:09)
--- NOTE | 2017-02-21 20:25 | CONSULT ---
Consult Consult: Ms. Moreno is an 81 year old woman with a long standing history of polymyalgia rheumatica who has been on low dose prednisone. In light of her septic shoulder, I agree with the need to minimize immunosuppression, although her steroid use has been at a low dose. Therefore, please decrease Prednisone to 1mg daily for 5 days and stop steroids. Will follow; CRP can be followed for improvement
--- NOTE | 2017-02-22 02:19 | CONS ---
CONSULTATION REPORT: DATE OF CONSULT: 02/21/17 CONSULTING PHYSICIAN: Hailey Paredes MD REASON FOR CONSULTATION: Evaluate polymyalgia rheumatica. HISTORY OF PRESENT ILLNESS: Ms. Moreno is an 81-year-old woman who has been known to me since February of last year. She has a history of a very positive WILMER without evidence of lupus, but with symptoms of polymyalgia rheumatica. She has been on a very low dose of prednisone as an outpatient. I most recently saw her in November of this year. Specifically, her last C-reactive protein was checked on the of this month as an outpatient was 7.28 and she had a normal sed rate of 33. At that time, she was on 4 mg of prednisone. Prior to that, her C-reactive protein in November was 6.72. She was admitted with complications of a septic shoulder. It was confirmed on a bone scan. Her hospitalization has been complicated by an extensive infection requiring an Infectious Disease evaluation. She has been on prednisone 4 mg daily and this was lowered to 2 mg daily. I have been asked to evaluate for possible tapering this off. In terms of her symptoms, she had initially been planning on getting just x-rays of her right shoulder, which was done just prior to this admission. After the x-ray of the right shoulder, she had decreased range of motion, she had difficulty getting up and because of the pain, she began developing swelling in the right upper extremity with shoulder pain and mild redness around the shoulder site. She continued to progress with worsening range of motion, which decreased to the point, where her shoulder was nearly frozen. She had a single episode of nausea and vomiting followed by diarrhea stool on Sunday, but denied any fever, sweats, chest pain or other issues. These issues have also resolved during her hospitalization. During her workup, her D- dimer was elevated at 871 and ultrasound of the upper extremity was negative and her white count was 13.6. Dr. Angulo was consulted on the case and it was found that her C-reactive protein was very high. PAST MEDICAL HISTORY: Includes atrial fibrillation, hypertension, reflux, osteoarthritis as well as polymyalgia rheumatica. CURRENT MEDICATIONS: Include: 1. Acetaminophen as needed. 2. Atenolol. 3. Atorvastatin 20 mg daily. 4. Calcium carbonate. 5. Cefazolin. 6. She is on digoxin. 7. Docusate sodium. 8. Heparin flush. 9. Guaifenesin as needed. 10. Omeprazole. 11. Oxycodone as needed. 12. Prednisone 2 mg daily. 13. Rifampin. 14. Warfarin. 15. As an outpatient, she had been also on atenolol and prednisone at 4 mg daily. PAST MEDICAL HISTORY: Also includes hypercholesterolemia, gastroesophageal reflux disease and heart disease. PAST SURGICAL HISTORY: Includes a prior shoulder surgery as well as a carpal tunnel release surgery and knee surgery. FAMILY HISTORY: Notable for osteoarthritis. SOCIAL HISTORY: She has never smoked. She rarely consumes alcohol. She exercises on a regular basis until her recent hospitalization. PHYSICAL EXAM: On exam, her temperature is 98.2, pulse rate of 101, respiratory rate 16, blood pressure 130/61. In general, she is pleasant, in no acute distress, sitting up. HEENT: Pupils equal, round and reactive to light and accommodation. Extraocular movements are intact. Mucous membranes are moist. Lungs are clear to auscultation bilaterally. Cardiovascular exam reveals a regular rate and rhythm. Normal S1 and S2. No JVD elevation, but she did have a slightly irregular rate. Abdomen: Soft, nontender, nondistended. Positive bowel sounds with no organomegaly. Extremities: No cyanosis, clubbing or edema. Skin: No rash or ulcers. She had minimal erythema of the right lower extremity, which was bandaged. Neurologic: Alert and oriented x3. DIAGNOSTIC STUDIES/LAB DATA: She had a white count of 10.8, BUN 17, creatinine 0.79. Blood culture showed MRSA and MSSA. ASSESSMENT: She is an 81-year-old woman with past medical history of atrial fibrillation, gastroesophageal reflux disease, osteoarthritis, status post shoulder arthroplasty and now appears to be septic arthritis. In terms of her polymyalgia rheumatica, I agree that the main issue is her infection of her shoulder. To minimize risk of immuno-suppression, I agree with need to gradually brynn off prednisone although she has been at a very low dose. Consider tapering prednisone to 1 mg for 5 days and then stop. I will continue to follow daily. [id number]/[facility] #: [id number] MTDD
--- NOTE | 2017-02-22 05:25 | PN ---
Progress Note - Progress Note Date of Service: 02/22/17 SOAP: Subjective: pt seen and examined. feeling better. still admitted due to medical issues. feels well. compliant with sling Objective: Temp Pulse Resp BP Pulse Ox 97.9 F 95 16 156/78 97 02/22/17 04:15 02/22/17 04:15 02/22/17 04:15 02/22/17 04:15 02/22/17 04:[address] no strike through. able to flex/ext elbow, wrist, digits. SILT grossly distally. 2+ radial pulse Laboratory Results - last 24 hr 02/21/17 05:00 Sodium 135 Potassium 4.3 Chloride 101 Carbon Dioxide 29 Anion Gap 5 BUN 13 Creatinine 0.71 Est GFR ( Amer) 101.6 Est GFR (Non-Af Amer) 79.0 BUN/Creatinine Ratio 18.3 Glucose 105 H Calcium 8.5 L Assessment: POD#6 from R shoulder I and D with liner exchange Plan: feeling good passive ROM FF and abd as tolerated. NO PE with IR. No weight bearing cont abx. may follow up in clinic 10-14 days.
[2017-02-22 06:51] LABS: ABS Basophils 0.1 10^3/ul (0-0.2); ABS Eosinophils 0.2 10^3/ul (0-0.6); ABS Lymphocytes 1.6 10^3/ul (1.0-4.8); ABS Monocytes 0.5 10^3/ul (0-0.8); ABS Neutrophils 5.4 10^3/ul (1.5-7.7); ABS Nucleated RBC 0 10^3/ul; Eosinophil % 2.4 % (0-6); Hematocrit 26 % (35-47); Hemoglobin 8.9 g/dl (12.0-16.0); Lymphocyte % 21.1 % (25-47); Mean Corpuscular HGB Conc 35 g/dl (31-36); Mean Corpuscular Hemoglobin 31 pg (27-31); Mean Corpuscular Volume 90 fL (80-97); Mean Platelet Volume 7 um3 (7.4-10.4); Nucleated Red Blood Cells % 0; Platelet Count 486 10^3/ul (150-450); Red Blood Count 2.89 10^6/ul (4.0-5.4); Red Cell Distribution Width 14 % (10.5-15); White Blood Count 7.8 10^3/ul (3.5-10.8)
[2017-02-22 06:56] LABS: INR 3.39 (0.77-1.02)
[2017-02-22] MEDS: guaiFENesin ER TAB 600 MG PO SCH ×2 (08:31→19:59)
[2017-02-22] MEDS: Atenolol TAB* 25 MG PO SCH (08:31)
[2017-02-22] MEDS: Potassium Chlor TAB* 20 MEQ TAB.ER PO SCH (08:31)
[2017-02-22] MEDS: predniSONE TAB* 1 MG PO SCH (08:31)
[2017-02-22] MEDS: Calcium Carbonate TAB* 1250 MG (CALCIUM 500 MG) PO SCH (08:31)
[2017-02-22] MEDS: Citalopram TAB* 10 MG PO SCH (08:31)
[2017-02-22] MEDS: RiFAMPin CAP* 300 MG CAP PO SCH ×2 (08:31→19:59)
[2017-02-22] MEDS: Omeprazole CAP* 20 MG PO SCH (08:31)
[2017-02-22] MEDS: Atorvastatin* 20 MG TAB PO SCH (08:31)
[2017-02-22] MEDS: Digoxin TAB* 0.125 MG PO SCH (08:31)
[2017-02-22] MEDS: ceFAZolin 1 GM in Dextrose (*) 1 GM/50 ML BAG IVPB SCH ×2 (08:31→15:42)
[2017-02-22] MEDS: Docusate CAP* 100 MG PO SCH ×2 (08:31→19:59)
--- NOTE | 2017-02-22 14:32 | PN ---
Subjective Date of Service: 02/22/17 Interval History: Pt c/o "an achy spot on her chest". she indicated with her finger an area on her mid sternum that is tender to palpation and get worse with deep breaths and movement. Aslo one of the metal clamps that holds the arm sling was directly on top of the indicated spot and pt said that she slept with the sling on. Denies SOB, good appetite Family History: Unchanged from Admission Social History: Unchanged from Admission Past Medical History: Unchanged from Admission Objective Active Medications: Acetaminophen (Tylenol Tab*) 650 mg PO Q6H PRN PRN Reason: FEVER/PAIN Last Admin: 02/14/17 00:14 Dose: 650 mg Atenolol (Tenormin Tab*) 25 mg PO DAILY [facility] Last Admin: 02/22/17 08:31 Dose: 25 mg Atorvastatin Calcium (Lipitor*) 20 mg PO DAILY [facility] Last Admin: 02/22/17 08:31 Dose: 20 mg Calcium Carbonate (Calcium Carbonate Tab*) 1,250 mg PO DAILY [facility] Last Admin: 02/22/17 08:31 Dose: 1,250 mg Citalopram Hydrobromide (Celexa Tab*) 10 mg PO DAILY [facility] PRN Reason: Protocol Last Admin: 02/22/17 08:31 Dose: 10 mg Digoxin (Lanoxin Tab*) 0.125 mg PO DAILY [facility] Last Admin: 02/22/17 08:31 Dose: 0.125 mg Docusate Sodium (Colace Cap*) 200 mg PO BID [facility] Last Admin: 02/22/17 08:31 Dose: 200 mg Guaifenesin (Mucinex*) 600 mg PO BID [facility] Last Admin: 02/22/17 08:31 Dose: 600 mg Heparin Sodium (Porcine) (Heparin Flush Picc/Ml/Cvc(*)) 1 - 3 ml FLUSH 0600, 1800 [facility] PRN Reason: Protocol Last Admin: 02/22/17 06:05 Dose: 1 ml Cefazolin Sodium/Dextrose (Kefzol 1 Gm In Dextrose Duplex (*)) 1 gm in 50 mls @ 200 mls/hr IVPB 0000,0800,1600 [facility] Last Admin: 02/22/17 08:31 Dose: 200 mls/hr Melatonin (Melatonin (Nf)) 3 mg PO BEDTIME PRN; Protocol PRN Reason: Sleep Omeprazole (Prilosec Cap*) 20 mg PO DAILY [facility] Last Admin: 02/22/17 08:31 Dose: 20 mg Ondansetron HCl (Zofran Inj*) 4 mg IV Q6H PRN PRN Reason: NAUSEA Oxycodone HCl (Roxycodone Tab*) 5 mg PO Q4H PRN PRN Reason: PAIN Last Admin: 02/15/17 14:01 Dose: 5 mg Oxycodone HCl (Roxycodone Tab*) 10 mg PO Q4H PRN PRN Reason: PAIN Potassium Chloride (Klor Con Er Tab*) 20 meq PO DAILY [facility] Last Admin: 02/22/17 08:31 Dose: 20 meq Prednisone (Deltasone Tab*) 1 mg PO DAILY [facility] Rifampin (Rifampin Cap*) 300 mg PO BID [facility] Last Admin: 02/22/17 08:31 Dose: 300 mg Warfarin Sodium (Coumadin Tab(*)) 2 mg PO DAILY@1700 [facility] PRN Reason: Protocol Vital Signs - 8 hr 02/22/17 02/22/17 02/22/17 07:46 08:00 08:31 Temperature 98.3 F Pulse Rate 103 78 Respiratory 16 16 Rate Blood Pressure 138/84 (mmHg) O2 Sat by Pulse 97 Oximetry 02/22/17 11:52 Temperature 98.2 F Pulse Rate 75 Respiratory 16 Rate Blood Pressure 102/62 (mmHg) O2 Sat by Pulse 99 Oximetry Oxygen Devices in Use Now: None Appearance: 81 yo f in nAd, aAOx3 Eyes: No Scleral Icterus, PERRLA Ears/Nose/Mouth/Throat: NL Teeth, Lips, Gums, Mucous Membranes Moist Neck: NL Appearance and Movements; NL JVP, Trachea Midline Respiratory: Symmetrical Chest Expansion and Respiratory Effort, Clear to Auscultation Cardiovascular: NL Sounds; No Murmurs; No JVD, - - irregular, point ternderness on mid sternum palaption Abdominal: NL Sounds; No Tenderness; No Distention Lymphatic: No Cervical Adenopathy Extremities: No Clubbing, Cyanosis, - - R arm edema -unchanged. R shoulder in sling-wound not inspected today. trace b/l pedeal edema Skin: No Nodules or Sclerosis Neurological: Alert and Oriented x 3, NL Muscle Strength and Tone Result Diagrams: 02/22/17 06:05 02/22/17 06:05 Additional Lab and Data: . Microbiology and Other Data: Microbiology 02/14/17 12:30 Blood Culture - Preliminary Blood Venous No Growth Day 1 02/14/17 12:31 Blood Culture - Preliminary Blood Venous Blood MRSA/MSSA (PCR) - Final Mrsa Negative S.aureus Negative Microbiology 02/14/17 12:30 Blood Culture - Preliminary Blood Venous No Growth Day 3 02/16/17 20:21 Wound Gram Stain - Final Tissue - Shoulder Right Acid Fast Bacilli Smear - Final 02/16/17 20:21 Gram Stain - Final Shoulder Right 02/11/17 18:16 Aerobic Blood Culture - Final Blood Venous No Growth Day 5 Anaerobic Blood Culture - Final No Growth Day 5 02/14/17 12:31 Blood Culture - Final Blood Venous Staph Hominis Ssp Hominis Blood MRSA/MSSA (PCR) - Final Mrsa Negative S.aureus Negative Microbiology 02/16/17 20:21 Anaerobic Culture - Preliminary Wound - Shoulder Right No Growth Day 2 02/16/17 20:21 Wound Gram Stain - Final Tissue - Shoulder Right Tissue Culture - Preliminary Staphylococcus Aureus Skin and Soft Tissue MRSA/MSSA (PCR - Final Mrsa Negative S.aureus Positive Acid Fast Bacilli Smear - Final 02/16/17 20:21 Gram Stain - Final Shoulder Right Wound Culture - Final No Growth Day 2 02/14/17 12:30 Blood Culture - Preliminary Blood Venous No Growth Day 4 Assess/Plan/Problems-Billing This is an 81 year old female with PMH of atrial fibrillation, GERD, HLD and OA , s/p right shoulder arthroplasty in 2013, currently s/p I&D of septic joint with cellulitis and low grade bacteremia. - Patient Problems (1) Septic joint of right shoulder region Comment: Follow cx, staph, no MRSA Continue Ancef per Dr. Cunha, rifampin started on 02/20/17 PICC inserted 02/19 Will need lifelong atbx suppression therapy, patient and family aware (2) MSSA (methicillin susceptible Staphylococcus aureus) septicemia Comment: Appreciate ID input. TTE on 02/20/17 showed EF 55%, mod MR and mod pulm HTN. s/p I&D and liner exchange on 02/16/17. Cont Ancef Q8H days , cont rimfampin. (3) Atrial fibrillation Comment: Continue atenolol and digoxin daily Remain on tele Xarelto d/c'd on 02/20/17, and coumadin started . Today INR 3.3-will lower Coumadin dose and f/u INR's (4) HTN (hypertension) Comment: - Controlled with atenolol, stable (5) Hyponatremia Comment: resolved (6) Ventricular arrhythmia Comment: 2/2 irritation from PICC insertion and depth of catheter tip PICC pulled back (see nurse's note) no recurrence, cont telem (7) Normocytic anemia Comment: no signs or symptoms of bleeding. stool guaiac neg (8) DVT prophylaxis Comment: coumadin started on 02/20/17, INR 3.2 today, due to tx with rimfampin and possibility of INR being diffucult to control will cont hospital stay. (9) Chest pain Comment: pleuritic, with point tenderness on palaption of sternum Trop 0.05, EKG unchanged from priro with nonspecific ST in inferolateral leads. suspect the pain is noncardiac related to the r arm sling will f/u on indeterminate troponin. Status and Disposition: Pt was accepted to [facility], but after d/c ID the decision was made to cont inpatient x 3-4 days till INR is normalized. The possibility of uncontrolled INR 's due to tx with rimfampin is high and it would be unsafe to d/c pt to rehab prior to having that under control
[2017-02-22] MEDS ORDERED: Warfarin TAB(*) 2 MG PO SCH (17:00)
[2017-02-23] MEDS: ceFAZolin 1 GM in Dextrose (*) 1 GM/50 ML BAG IVPB SCH ×3 (00:27→15:35)
[2017-02-23 06:57] LABS: INR 4.11 (0.77-1.02)
--- NOTE | 2017-02-23 08:16 | PN ---
Subjective Date of Service: 02/23/17 Interval History: Pt c/l the R arm throbbing during the night Family History: Unchanged from Admission Social History: Unchanged from Admission Past Medical History: Unchanged from Admission Objective Active Medications: Acetaminophen (Tylenol Tab*) 650 mg PO Q6H PRN PRN Reason: FEVER/PAIN Last Admin: 02/14/17 00:14 Dose: 650 mg Atenolol (Tenormin Tab*) 25 mg PO DAILY [facility] Last Admin: 02/22/17 08:31 Dose: 25 mg Atorvastatin Calcium (Lipitor*) 20 mg PO DAILY [facility] Last Admin: 02/22/17 08:31 Dose: 20 mg Calcium Carbonate (Calcium Carbonate Tab*) 1,250 mg PO DAILY [facility] Last Admin: 02/22/17 08:31 Dose: 1,250 mg Citalopram Hydrobromide (Celexa Tab*) 10 mg PO DAILY [facility] PRN Reason: Protocol Last Admin: 02/22/17 08:31 Dose: 10 mg Digoxin (Lanoxin Tab*) 0.125 mg PO DAILY [facility] Last Admin: 02/22/17 08:31 Dose: 0.125 mg Docusate Sodium (Colace Cap*) 200 mg PO BID [facility] Last Admin: 02/22/17 19:59 Dose: 200 mg Guaifenesin (Mucinex*) 600 mg PO BID [facility] Last Admin: 02/22/17 19:59 Dose: 600 mg Heparin Sodium (Porcine) (Heparin Flush Picc/Ml/Cvc(*)) 1 - 3 ml FLUSH 0600, 1800 [facility] PRN Reason: Protocol Last Admin: 02/23/17 07:31 Dose: 1 ml Cefazolin Sodium/Dextrose (Kefzol 1 Gm In Dextrose Duplex (*)) 1 gm in 50 mls @ 200 mls/hr IVPB 0000,0800,1600 [facility] Last Admin: 02/23/17 00:27 Dose: 200 mls/hr Melatonin (Melatonin (Nf)) 3 mg PO BEDTIME PRN; Protocol PRN Reason: Sleep Omeprazole (Prilosec Cap*) 20 mg PO DAILY [facility] Last Admin: 02/22/17 08:31 Dose: 20 mg Ondansetron HCl (Zofran Inj*) 4 mg IV Q6H PRN PRN Reason: NAUSEA Oxycodone HCl (Roxycodone Tab*) 5 mg PO Q4H PRN PRN Reason: PAIN Last Admin: 02/15/17 14:01 Dose: 5 mg Oxycodone HCl (Roxycodone Tab*) 10 mg PO Q4H PRN PRN Reason: PAIN Potassium Chloride (Klor Con Er Tab*) 20 meq PO DAILY [facility] Last Admin: 02/22/17 08:31 Dose: 20 meq Prednisone (Deltasone Tab*) 1 mg PO DAILY [facility] Rifampin (Rifampin Cap*) 300 mg PO BID [facility] Last Admin: 02/22/17 19:59 Dose: 300 mg Vital Signs - 8 hr 02/23/17 02/23/17 03:18 04:01 Temperature 98.7 F Pulse Rate 103 Respiratory 16 Rate Blood Pressure 152/69 (mmHg) O2 Sat by Pulse 100 96 Oximetry Oxygen Devices in Use Now: None Appearance: 81 yo F in nAD, aAOx3 Eyes: No Scleral Icterus, PERRLA Ears/Nose/Mouth/Throat: NL Teeth, Lips, Gums, Mucous Membranes Moist Neck: NL Appearance and Movements; NL JVP, Trachea Midline Respiratory: Symmetrical Chest Expansion and Respiratory Effort, Clear to Auscultation Cardiovascular: NL Sounds; No Murmurs; No JVD, - - irregular Abdominal: NL Sounds; No Tenderness; No Distention, No Hepatosplenomegaly Lymphatic: No Cervical Adenopathy Extremities: No Clubbing, Cyanosis, - - R Arm edema resolving Skin: No Nodules or Sclerosis, - - R shoulder post op dressings not removed Neurological: Alert and Oriented x 3, NL Muscle Strength and Tone Result Diagrams: 02/22/17 06:05 02/22/17 06:05 Additional Lab and Data: . Microbiology and Other Data: Microbiology 02/14/17 12:30 Blood Culture - Preliminary Blood Venous No Growth Day 1 02/14/17 12:31 Blood Culture - Preliminary Blood Venous Blood MRSA/MSSA (PCR) - Final Mrsa Negative S.aureus Negative Microbiology 02/14/17 12:30 Blood Culture - Preliminary Blood Venous No Growth Day 3 02/16/17 20:21 Wound Gram Stain - Final Tissue - Shoulder Right Acid Fast Bacilli Smear - Final 02/16/17 20:21 Gram Stain - Final Shoulder Right 02/11/17 18:16 Aerobic Blood Culture - Final Blood Venous No Growth Day 5 Anaerobic Blood Culture - Final No Growth Day 5 02/14/17 12:31 Blood Culture - Final Blood Venous Staph Hominis Ssp Hominis Blood MRSA/MSSA (PCR) - Final Mrsa Negative S.aureus Negative Microbiology 02/16/17 20:21 Anaerobic Culture - Preliminary Wound - Shoulder Right No Growth Day 2 02/16/17 20:21 Wound Gram Stain - Final Tissue - Shoulder Right Tissue Culture - Preliminary Staphylococcus Aureus Skin and Soft Tissue MRSA/MSSA (PCR - Final Mrsa Negative S.aureus Positive Acid Fast Bacilli Smear - Final 02/16/17 20:21 Gram Stain - Final Shoulder Right Wound Culture - Final No Growth Day 2 02/14/17 12:30 Blood Culture - Preliminary Blood Venous No Growth Day 4 Assess/Plan/Problems-Billing This is an 81 year old female with PMH of atrial fibrillation, GERD, HLD and OA , s/p right shoulder arthroplasty in 2013, currently s/p I&D of septic joint with cellulitis and low grade bacteremia. - Patient Problems (1) Septic joint of right shoulder region Comment: Follow cx, staph, no MRSA Continue Ancef per Dr. Cunha, rifampin started on 02/20/17 PICC inserted 02/19 Will need lifelong atbx suppression therapy, patient and family aware (2) MSSA (methicillin susceptible Staphylococcus aureus) septicemia Comment: Appreciate ID input. TTE on 02/20/17 showed EF 55%, mod MR and mod pulm HTN. s/p I&D and liner exchange on 02/16/17. Cont Ancef Q8H days 7, cont rimfampin. (3) Atrial fibrillation Comment: Continue atenolol and digoxin daily Remain on tele Xarelto d/c'd on 02/20/17, and coumadin started . Today INR >4-will hold Coumadin (4) HTN (hypertension) Comment: - Controlled with atenolol, stable (5) Hyponatremia Comment: resolved (6) Ventricular arrhythmia Comment: 2/2 irritation from PICC insertion and depth of catheter tip PICC pulled back (see nurse's note) no recurrence, cont telem (7) Normocytic anemia Comment: no signs or symptoms of bleeding. stool guaiac neg (8) DVT prophylaxis Comment: coumadin started on 02/20/17, INR 4.1 today, due to tx with rimfampin and possibility of INR being diffucult to control will cont hospital stay. (9) Chest pain Comment: pleuritic, with point tenderness on palapation of sternum-resolved on 02/22/17 Trop 0.05, EKG unchanged from priro with nonspecific ST in inferolateral leads. suspect the pain is noncardiac related to the r arm sling (10) PMR (polymyalgia rheumatica) Comment: Appreciate Dr. Burroughs's consult. Pt will be on Prednisone 1 mg total of 5 days, then stop and f/u with Dr. Burroughs in office Status and Disposition: Pt was accepted to [facility], but after d/c ID the decision was made to cont inpatient x 3-4 days till INR is normalized. The possibility of uncontrolled INR 's due to tx with rimfampin is high and it would be unsafe to d/c pt to rehab prior to having that under control
[2017-02-23] MEDS: Docusate CAP* 100 MG PO SCH ×2 (08:20→21:23)
[2017-02-23] MEDS: RiFAMPin CAP* 300 MG CAP PO SCH ×2 (08:20→21:21)
[2017-02-23] MEDS: Potassium Chlor TAB* 20 MEQ TAB.ER PO SCH (08:21)
[2017-02-23] MEDS: Omeprazole CAP* 20 MG PO SCH (08:21)
[2017-02-23] MEDS: Digoxin TAB* 0.125 MG PO SCH (08:21)
[2017-02-23] MEDS: Calcium Carbonate TAB* 1250 MG (CALCIUM 500 MG) PO SCH (08:21)
[2017-02-23] MEDS: Atorvastatin* 20 MG TAB PO SCH (08:21)
[2017-02-23] MEDS: predniSONE TAB* 1 MG PO SCH (08:22)
[2017-02-23] MEDS: Citalopram TAB* 10 MG PO SCH (08:22)
[2017-02-23] MEDS: guaiFENesin ER TAB 600 MG PO SCH ×2 (08:22→21:23)
[2017-02-23] MEDS: Atenolol TAB* 25 MG PO SCH (08:22)
[2017-02-23] MEDS: oxyCODONE TAB* 5 MG TAB PO PRN (12:19)
[2017-02-23] MEDS: Acetaminophen TAB* 325 MG PO PRN (21:21)
[2017-02-24] MEDS ORDERED: oxyCODONE TAB* 5 MG TAB PO PRN (00:15)
[2017-02-24] MEDS: ceFAZolin 1 GM in Dextrose (*) 1 GM/50 ML BAG IVPB SCH ×3 (00:19→16:06)
[2017-02-24 05:34] LABS: INR 2.77 (0.77-1.02)
[2017-02-24] MEDS: Docusate CAP* 100 MG PO SCH ×2 (08:02→21:49)
[2017-02-24] MEDS: Citalopram TAB* 10 MG PO SCH (08:02)
[2017-02-24] MEDS: RiFAMPin CAP* 300 MG CAP PO SCH ×2 (08:02→21:48)
[2017-02-24] MEDS: Potassium Chlor TAB* 20 MEQ TAB.ER PO SCH (08:02)
[2017-02-24] MEDS: Atenolol TAB* 25 MG PO SCH (08:02)
[2017-02-24] MEDS: Atorvastatin* 20 MG TAB PO SCH (08:02)
[2017-02-24] MEDS: guaiFENesin ER TAB 600 MG PO SCH ×2 (08:02→21:50)
[2017-02-24] MEDS: Omeprazole CAP* 20 MG PO SCH (08:02)
[2017-02-24] MEDS: Digoxin TAB* 0.125 MG PO SCH (08:02)
[2017-02-24] MEDS: predniSONE TAB* 1 MG PO SCH (08:02)
[2017-02-24] MEDS: Calcium Carbonate TAB* 1250 MG (CALCIUM 500 MG) PO SCH (08:03)
--- NOTE | 2017-02-24 10:06 | PN ---
Subjective Date of Service: 02/24/17 Interval History: R arm feeling better today. ambulated down the bhatti Family History: Unchanged from Admission Social History: Unchanged from Admission Past Medical History: Unchanged from Admission Objective Active Medications: Acetaminophen (Tylenol Tab*) 650 mg PO Q6H PRN PRN Reason: FEVER/PAIN Last Admin: 02/23/17 21:21 Dose: 650 mg Atenolol (Tenormin Tab*) 25 mg PO DAILY [facility] Last Admin: 02/24/17 08:02 Dose: 25 mg Atorvastatin Calcium (Lipitor*) 20 mg PO DAILY [facility] Last Admin: 02/24/17 08:02 Dose: 20 mg Calcium Carbonate (Calcium Carbonate Tab*) 1,250 mg PO DAILY [facility] Last Admin: 02/24/17 08:03 Dose: 1,250 mg Citalopram Hydrobromide (Celexa Tab*) 10 mg PO DAILY [facility] PRN Reason: Protocol Last Admin: 02/24/17 08:02 Dose: 10 mg Digoxin (Lanoxin Tab*) 0.125 mg PO DAILY [facility] Last Admin: 02/24/17 08:02 Dose: 0.125 mg Docusate Sodium (Colace Cap*) 200 mg PO BID [facility] Last Admin: 02/24/17 08:02 Dose: 200 mg Guaifenesin (Mucinex*) 600 mg PO BID [facility] Last Admin: 02/24/17 08:02 Dose: 600 mg Heparin Sodium (Porcine) (Heparin Flush Picc/Ml/Cvc(*)) 1 - 3 ml FLUSH 0600, 1800 [facility] PRN Reason: Protocol Last Admin: 02/24/17 05:02 Dose: 1 ml Cefazolin Sodium/Dextrose (Kefzol 1 Gm In Dextrose Duplex (*)) 1 gm in 50 mls @ 200 mls/hr IVPB 0000,0800,1600 [facility] Last Admin: 02/24/17 08:02 Dose: 200 mls/hr Melatonin (Melatonin (Nf)) 3 mg PO BEDTIME PRN; Protocol PRN Reason: Sleep Last Admin: 02/23/17 21:22 Dose: 3 mg Omeprazole (Prilosec Cap*) 20 mg PO DAILY [facility] Last Admin: 02/24/17 08:02 Dose: 20 mg Ondansetron HCl (Zofran Inj*) 4 mg IV Q6H PRN PRN Reason: NAUSEA Oxycodone HCl (Roxycodone Tab*) 5 mg PO Q4H PRN PRN Reason: PAIN Potassium Chloride (Klor Con Er Tab*) 20 meq PO DAILY [facility] Last Admin: 02/24/17 08:02 Dose: 20 meq Prednisone (Deltasone Tab*) 1 mg PO DAILY [facility] Stop: 02/27/17 23:59 Last Admin: 02/24/17 08:02 Dose: 1 mg Rifampin (Rifampin Cap*) 300 mg PO BID [facility] Last Admin: 02/24/17 08:02 Dose: 300 mg Vital Signs - 8 hr 02/24/17 02/24/17 02/24/17 03:21 07:33 07:47 Temperature 97.4 F 96.7 F 97.3 F Pulse Rate 122 76 Respiratory 20 18 Rate Blood Pressure 107/60 131/59 (mmHg) O2 Sat by Pulse 96 100 Oximetry Oxygen Devices in Use Now: None Appearance: 81 yo f in nAD, aAOx3 Eyes: No Scleral Icterus, PERRLA Ears/Nose/Mouth/Throat: NL Teeth, Lips, Gums, Mucous Membranes Moist Neck: NL Appearance and Movements; NL JVP, Trachea Midline Respiratory: Symmetrical Chest Expansion and Respiratory Effort, Clear to Auscultation Cardiovascular: NL Sounds; No Murmurs; No JVD, - - irregular Abdominal: NL Sounds; No Tenderness; No Distention, No Hepatosplenomegaly Lymphatic: No Cervical Adenopathy Extremities: No Clubbing, Cyanosis, - - R arm edema improving Skin: No Nodules or Sclerosis, - - r arm wound not uncovered from post op dressings Neurological: Alert and Oriented x 3, NL Muscle Strength and Tone Result Diagrams: 02/22/17 06:05 02/22/17 06:05 Additional Lab and Data: . Microbiology and Other Data: Microbiology 02/14/17 12:30 Blood Culture - Preliminary Blood Venous No Growth Day 1 02/14/17 12:31 Blood Culture - Preliminary Blood Venous Blood MRSA/MSSA (PCR) - Final Mrsa Negative S.aureus Negative Microbiology 02/14/17 12:30 Blood Culture - Preliminary Blood Venous No Growth Day 3 02/16/17 20:21 Wound Gram Stain - Final Tissue - Shoulder Right Acid Fast Bacilli Smear - Final 02/16/17 20:21 Gram Stain - Final Shoulder Right 02/11/17 18:16 Aerobic Blood Culture - Final Blood Venous No Growth Day 5 Anaerobic Blood Culture - Final No Growth Day 5 02/14/17 12:31 Blood Culture - Final Blood Venous Staph Hominis Ssp Hominis Blood MRSA/MSSA (PCR) - Final Mrsa Negative S.aureus Negative Microbiology 02/16/17 20:21 Anaerobic Culture - Preliminary Wound - Shoulder Right No Growth Day 2 02/16/17 20:21 Wound Gram Stain - Final Tissue - Shoulder Right Tissue Culture - Preliminary Staphylococcus Aureus Skin and Soft Tissue MRSA/MSSA (PCR - Final Mrsa Negative S.aureus Positive Acid Fast Bacilli Smear - Final 02/16/17 20:21 Gram Stain - Final Shoulder Right Wound Culture - Final No Growth Day 2 02/14/17 12:30 Blood Culture - Preliminary Blood Venous No Growth Day 4 Assess/Plan/Problems-Billing This is an 81 year old female with PMH of atrial fibrillation, GERD, HLD and OA , s/p right shoulder arthroplasty in 2013, currently s/p I&D of septic joint with cellulitis and low grade bacteremia. - Patient Problems (1) Septic joint of right shoulder region Comment: Follow cx, staph, no MRSA Continue Ancef per Dr. Cunha, rifampin started on 02/20/17 PICC inserted 02/19 Will need lifelong atbx suppression therapy, patient and family aware (2) MSSA (methicillin susceptible Staphylococcus aureus) septicemia Comment: Appreciate ID input. TTE on 02/20/17 showed EF 55%, mod MR and mod pulm HTN. s/p I&D and liner exchange on 02/16/17. Cont Ancef Q8H days , cont rimfampin. (3) Atrial fibrillation Comment: Continue atenolol and digoxin daily Remain on tele Xarelto d/c'd on 02/20/17, and coumadin started . Today INR2.7-will restart Coumadin (4) HTN (hypertension) Comment: - Controlled with atenolol, stable (5) Hyponatremia Comment: resolved (6) Ventricular arrhythmia Comment: 2/2 irritation from PICC insertion and depth of catheter tip PICC pulled back (see nurse's note) no recurrence, cont telem (7) Normocytic anemia Comment: no signs or symptoms of bleeding. stool guaiac neg (8) DVT prophylaxis Comment: coumadin started on 02/20/17, due to tx with rimfampin and possibility of INR being diffucult to control will cont hospital stay. (9) Chest pain Comment: pleuritic, with point tenderness on palapation of sternum-resolved on 02/22/17 Trop 0.05, EKG unchanged from priro with nonspecific ST in inferolateral leads. suspect the pain is noncardiac related to the r arm sling (10) PMR (polymyalgia rheumatica) Comment: Appreciate Dr. Burroughs's consult. Pt will be on Prednisone 1 mg total of 5 days, then stop and f/u with Dr. Burroughs in office Status and Disposition: Pt was accepted to [facility], but after d/c ID the decision was made to cont inpatient x 3-4 days till INR is normalized. The possibility of uncontrolled INR 's due to tx with rimfampin is high and it would be unsafe to d/c pt to rehab prior to having that under control
[2017-02-24] MEDS: Warfarin TAB(*) 2 MG PO SCH (16:06)
[2017-02-24] MEDS: Acetaminophen TAB* 325 MG PO PRN (21:48)
[2017-02-25] MEDS: ceFAZolin 1 GM in Dextrose (*) 1 GM/50 ML BAG IVPB SCH ×3 (01:13→15:46)
[2017-02-25 06:59] LABS: ABS Basophils 0.1 10^3/ul (0-0.2); ABS Eosinophils 0.2 10^3/ul (0-0.6); ABS Lymphocytes 1.6 10^3/ul (1.0-4.8); ABS Monocytes 0.7 10^3/ul (0-0.8); ABS Neutrophils 3.9 10^3/ul (1.5-7.7); ABS Nucleated RBC 0.01 10^3/ul; Eosinophil % 2.4 % (0-6); Hematocrit 25 % (35-47); Hemoglobin 8.6 g/dl (12.0-16.0); Lymphocyte % 24.4 % (25-47); Mean Corpuscular HGB Conc 34 g/dl (31-36); Mean Corpuscular Hemoglobin 30 pg (27-31); Mean Corpuscular Volume 89 fL (80-97); Mean Platelet Volume 8 um3 (7.4-10.4); Nucleated Red Blood Cells % 0.1; Platelet Count 429 10^3/ul (150-450); Red Blood Count 2.82 10^6/ul (4.0-5.4); Red Cell Distribution Width 15 % (10.5-15); White Blood Count 6.5 10^3/ul (3.5-10.8)
[2017-02-25 07:20] LABS: EGFR Non-African American 77.7 (>60)
[2017-02-25 07:21] LABS: INR 2.31 (0.77-1.02)
[2017-02-25] MEDS: Omeprazole CAP* 20 MG PO SCH (08:49)
[2017-02-25] MEDS: guaiFENesin ER TAB 600 MG PO SCH ×2 (08:49→20:09)
[2017-02-25] MEDS: RiFAMPin CAP* 300 MG CAP PO SCH ×2 (08:49→20:09)
[2017-02-25] MEDS: Atenolol TAB* 25 MG PO SCH (08:49)
[2017-02-25] MEDS: Potassium Chlor TAB* 20 MEQ TAB.ER PO SCH (08:49)
[2017-02-25] MEDS: Digoxin TAB* 0.125 MG PO SCH (08:49)
[2017-02-25] MEDS: Atorvastatin* 20 MG TAB PO SCH (08:49)
[2017-02-25] MEDS: Calcium Carbonate TAB* 1250 MG (CALCIUM 500 MG) PO SCH (08:50)
[2017-02-25] MEDS: Docusate CAP* 100 MG PO SCH ×2 (08:50→20:09)
[2017-02-25] MEDS: Citalopram TAB* 10 MG PO SCH (08:50)
[2017-02-25] MEDS: predniSONE TAB* 1 MG PO SCH (08:50)
--- NOTE | 2017-02-25 15:46 | PN ---
Subjective Date of Service: 02/25/17 Interval History: pt has no new complaints. Family History: Unchanged from Admission Social History: Unchanged from Admission Past Medical History: Unchanged from Admission Objective Active Medications: Acetaminophen (Tylenol Tab*) 650 mg PO Q6H PRN PRN Reason: FEVER/PAIN Last Admin: 02/24/17 21:48 Dose: 650 mg Atenolol (Tenormin Tab*) 25 mg PO DAILY [facility] Last Admin: 02/25/17 08:49 Dose: 25 mg Atorvastatin Calcium (Lipitor*) 20 mg PO DAILY [facility] Last Admin: 02/25/17 08:49 Dose: 20 mg Calcium Carbonate (Calcium Carbonate Tab*) 1,250 mg PO DAILY [facility] Last Admin: 02/25/17 08:50 Dose: 1,250 mg Citalopram Hydrobromide (Celexa Tab*) 10 mg PO DAILY [facility] PRN Reason: Protocol Last Admin: 02/25/17 08:50 Dose: 10 mg Digoxin (Lanoxin Tab*) 0.125 mg PO DAILY [facility] Last Admin: 02/25/17 08:49 Dose: 0.125 mg Docusate Sodium (Colace Cap*) 200 mg PO BID [facility] Last Admin: 02/25/17 08:50 Dose: 200 mg Guaifenesin (Mucinex*) 600 mg PO BID [facility] Last Admin: 02/25/17 08:49 Dose: 600 mg Heparin Sodium (Porcine) (Heparin Flush Picc/Ml/Cvc(*)) 1 - 3 ml FLUSH 0600, 1800 [facility] PRN Reason: Protocol Last Admin: 02/25/17 06:11 Dose: 1 ml Cefazolin Sodium/Dextrose (Kefzol 1 Gm In Dextrose Duplex (*)) 1 gm in 50 mls @ 200 mls/hr IVPB 0000,0800,1600 [facility] Last Admin: 02/25/17 08:37 Dose: 200 mls/hr Melatonin (Melatonin (Nf)) 3 mg PO BEDTIME PRN; Protocol PRN Reason: Sleep Last Admin: 02/23/17 21:22 Dose: 3 mg Omeprazole (Prilosec Cap*) 20 mg PO DAILY [facility] Last Admin: 02/25/17 08:49 Dose: 20 mg Ondansetron HCl (Zofran Inj*) 4 mg IV Q6H PRN PRN Reason: NAUSEA Oxycodone HCl (Roxycodone Tab*) 5 mg PO Q4H PRN PRN Reason: PAIN Last Admin: 02/24/17 21:49 Dose: 5 mg Potassium Chloride (Klor Con Er Tab*) 20 meq PO DAILY [facility] Last Admin: 02/25/17 08:49 Dose: 20 meq Prednisone (Deltasone Tab*) 1 mg PO DAILY [facility] Stop: 02/27/17 23:59 Last Admin: 02/25/17 08:50 Dose: 1 mg Rifampin (Rifampin Cap*) 300 mg PO BID [facility] Last Admin: 02/25/17 08:49 Dose: 300 mg Warfarin Sodium (Coumadin Tab(*)) 2 mg PO DAILY@1700 [facility] PRN Reason: Protocol Last Admin: 02/24/17 16:06 Dose: 2 mg Vital Signs - 8 hr 02/25/17 02/25/17 02/25/17 07:45 08:13 08:49 Temperature 98.6 F Pulse Rate 83 81 Respiratory 16 20 Rate Blood Pressure 146/55 (mmHg) O2 Sat by Pulse 100 Oximetry 02/25/17 02/25/17 11:06 15:29 Temperature 98.3 F 97.8 F Pulse Rate 66 73 Respiratory 20 18 Rate Blood Pressure 105/79 102/56 (mmHg) O2 Sat by Pulse 100 99 Oximetry Oxygen Devices in Use Now: None Appearance: 81 yo f in NAD, AAOx3 Eyes: No Scleral Icterus, PERRLA Ears/Nose/Mouth/Throat: NL Teeth, Lips, Gums, Mucous Membranes Moist Neck: NL Appearance and Movements; NL JVP, Trachea Midline Respiratory: Symmetrical Chest Expansion and Respiratory Effort, Clear to Auscultation Cardiovascular: NL Sounds; No Murmurs; No JVD, - - irregular Abdominal: NL Sounds; No Tenderness; No Distention, No Hepatosplenomegaly Lymphatic: No Cervical Adenopathy Extremities: No Clubbing, Cyanosis, - - R elbow edema Skin: No Rash or Ulcers, No Nodules or Sclerosis, - - R shoulder covered with post op dressing Neurological: Alert and Oriented x 3, NL Muscle Strength and Tone Result Diagrams: 02/25/17 06:13 02/25/17 06:13 Additional Lab and Data: . Microbiology and Other Data: Microbiology 02/14/17 12:30 Blood Culture - Preliminary Blood Venous No Growth Day 1 02/14/17 12:31 Blood Culture - Preliminary Blood Venous Blood MRSA/MSSA (PCR) - Final Mrsa Negative S.aureus Negative Microbiology 02/14/17 12:30 Blood Culture - Preliminary Blood Venous No Growth Day 3 02/16/17 20:21 Wound Gram Stain - Final Tissue - Shoulder Right Acid Fast Bacilli Smear - Final 02/16/17 20:21 Gram Stain - Final Shoulder Right 02/11/17 18:16 Aerobic Blood Culture - Final Blood Venous No Growth Day 5 Anaerobic Blood Culture - Final No Growth Day 5 02/14/17 12:31 Blood Culture - Final Blood Venous Staph Hominis Ssp Hominis Blood MRSA/MSSA (PCR) - Final Mrsa Negative S.aureus Negative Microbiology 02/16/17 20:21 Anaerobic Culture - Preliminary Wound - Shoulder Right No Growth Day 2 02/16/17 20:21 Wound Gram Stain - Final Tissue - Shoulder Right Tissue Culture - Preliminary Staphylococcus Aureus Skin and Soft Tissue MRSA/MSSA (PCR - Final Mrsa Negative S.aureus Positive Acid Fast Bacilli Smear - Final 02/16/17 20:21 Gram Stain - Final Shoulder Right Wound Culture - Final No Growth Day 2 02/14/17 12:30 Blood Culture - Preliminary Blood Venous No Growth Day 4 Assess/Plan/Problems-Billing This is an 81 year old female with PMH of atrial fibrillation, GERD, HLD and OA , s/p right shoulder arthroplasty in 2013, currently s/p I&D of septic joint with cellulitis and low grade bacteremia. - Patient Problems (1) Septic joint of right shoulder region Comment: Follow cx, staph, no MRSA Continue Ancef per Dr. Cunha, rifampin started on 02/20/17 PICC inserted 02/19 Will need lifelong atbx suppression therapy, patient and family aware (2) MSSA (methicillin susceptible Staphylococcus aureus) septicemia Comment: Appreciate ID input. TTE on 02/20/17 showed EF 55%, mod MR and mod pulm HTN. s/p I&D and liner exchange on 02/16/17. Cont Ancef Q8H days , cont rimfampin. (3) Atrial fibrillation Comment: Continue atenolol and digoxin daily Remain on tele Xarelto d/c'd on 02/20/17, and coumadin started . Today INR 2.3-will cont current Coumadin dose (4) HTN (hypertension) Comment: - Controlled with atenolol, stable (5) Hyponatremia Comment: resolved (6) Ventricular arrhythmia Comment: 2/2 irritation from PICC insertion and depth of catheter tip PICC pulled back (see nurse's note) no recurrence, cont telem (7) Normocytic anemia Comment: no signs or symptoms of bleeding. stool guaiac neg (8) DVT prophylaxis Comment: coumadin started on 02/20/17, due to tx with rimfampin and possibility of INR being diffucult to control will cont hospital stay. (9) Chest pain Comment: pleuritic, with point tenderness on palpation of sternum-resolved on Trop 0.05, EKG unchanged from prior with nonspecific ST in inferolateral leads. suspect the pain is noncardiac related to the r arm sling (10) PMR (polymyalgia rheumatica) Comment: Appreciate Dr. Burroughs's consult. Pt will be on Prednisone 1 mg total of 5 days, then stop and f/u with Dr. Burroughs in office Status and Disposition: Pt was accepted to [facility], but after d/c ID the decision was made to cont inpatient x 3-4 days till INR is normalized. The possibility of uncontrolled INR 's due to tx with rimfampin is high and it would be unsafe to d/c pt to rehab prior to having that under control
[2017-02-25] MEDS: Warfarin TAB(*) 2 MG PO SCH (16:25)
[2017-02-26] MEDS ORDERED: Benzonatate CAP* 100 MG PO PRN (00:15)
[2017-02-26] MEDS: ceFAZolin 1 GM in Dextrose (*) 1 GM/50 ML BAG IVPB SCH ×3 (00:36→15:56)
[2017-02-26 05:39] LABS: INR 2.29 (0.77-1.02)
[2017-02-26] MEDS: guaiFENesin ER TAB 600 MG PO SCH ×2 (09:03→21:04)
[2017-02-26] MEDS: Docusate CAP* 100 MG PO SCH ×2 (09:03→21:05)
[2017-02-26] MEDS: Atenolol TAB* 25 MG PO SCH (09:03)
[2017-02-26] MEDS: Digoxin TAB* 0.125 MG PO SCH (09:03)
[2017-02-26] MEDS: Atorvastatin* 20 MG TAB PO SCH (09:03)
[2017-02-26] MEDS: Omeprazole CAP* 20 MG PO SCH (09:04)
[2017-02-26] MEDS: Citalopram TAB* 10 MG PO SCH (09:04)
[2017-02-26] MEDS: RiFAMPin CAP* 300 MG CAP PO SCH ×2 (09:04→21:04)
[2017-02-26] MEDS: Potassium Chlor TAB* 20 MEQ TAB.ER PO SCH (09:04)
[2017-02-26] MEDS: predniSONE TAB* 1 MG PO SCH (09:04)
[2017-02-26] MEDS: Calcium Carbonate TAB* 1250 MG (CALCIUM 500 MG) PO SCH (09:04)
--- NOTE | 2017-02-26 12:04 | PN ---
Subjective Date of Service: 02/26/17 Interval History: Started to have wet cough and hypoxemia at night, now 02 sat 98% on RA Family History: Unchanged from Admission Social History: Unchanged from Admission Past Medical History: Unchanged from Admission Objective Active Medications: Acetaminophen (Tylenol Tab*) 650 mg PO Q6H PRN PRN Reason: FEVER/PAIN Last Admin: 02/24/17 21:48 Dose: 650 mg Atenolol (Tenormin Tab*) 25 mg PO DAILY [facility] Last Admin: 02/26/17 09:03 Dose: 25 mg Atorvastatin Calcium (Lipitor*) 20 mg PO DAILY [facility] Last Admin: 02/26/17 09:03 Dose: 20 mg Benzonatate (Tessalon Cap*) 100 mg PO BID PRN PRN Reason: COUGH Last Admin: 02/26/17 00:33 Dose: 100 mg Calcium Carbonate (Calcium Carbonate Tab*) 1,250 mg PO DAILY [facility] Last Admin: 02/26/17 09:04 Dose: 1,250 mg Citalopram Hydrobromide (Celexa Tab*) 10 mg PO DAILY [facility] PRN Reason: Protocol Last Admin: 02/26/17 09:04 Dose: 10 mg Digoxin (Lanoxin Tab*) 0.125 mg PO DAILY [facility] Last Admin: 02/26/17 09:03 Dose: 0.125 mg Docusate Sodium (Colace Cap*) 200 mg PO BID [facility] Last Admin: 02/26/17 09:03 Dose: 200 mg Guaifenesin (Mucinex*) 600 mg PO BID [facility] Last Admin: 02/26/17 09:03 Dose: 600 mg Heparin Sodium (Porcine) (Heparin Flush Picc/Ml/Cvc(*)) 1 - 3 ml FLUSH 0600, 1800 [facility] PRN Reason: Protocol Last Admin: 02/26/17 05:01 Dose: 1 ml Cefazolin Sodium/Dextrose (Kefzol 1 Gm In Dextrose Duplex (*)) 1 gm in 50 mls @ 200 mls/hr IVPB 0000,0800,1600 [facility] Last Admin: 02/26/17 07:40 Dose: 200 mls/hr Melatonin (Melatonin (Nf)) 3 mg PO BEDTIME PRN; Protocol PRN Reason: Sleep Last Admin: 02/23/17 21:22 Dose: 3 mg Omeprazole (Prilosec Cap*) 20 mg PO DAILY [facility] Last Admin: 02/26/17 09:04 Dose: 20 mg Ondansetron HCl (Zofran Inj*) 4 mg IV Q6H PRN PRN Reason: NAUSEA Oxycodone HCl (Roxycodone Tab*) 5 mg PO Q4H PRN PRN Reason: PAIN Last Admin: 02/24/17 21:49 Dose: 5 mg Potassium Chloride (Klor Con Er Tab*) 20 meq PO DAILY [facility] Last Admin: 02/26/17 09:04 Dose: 20 meq Prednisone (Deltasone Tab*) 1 mg PO DAILY [facility] Stop: 02/27/17 23:59 Last Admin: 02/26/17 09:04 Dose: 1 mg Rifampin (Rifampin Cap*) 300 mg PO BID [facility] Last Admin: 02/26/17 09:04 Dose: 300 mg Warfarin Sodium (Coumadin Tab(*)) 2 mg PO DAILY@1700 ANTONIO PRN Reason: Protocol Last Admin: 02/25/17 16:25 Dose: 2 mg Vital Signs - 8 hr 02/26/17 02/26/17 02/26/17 04:07 07:40 08:12 Temperature 98.3 F 97.8 F Pulse Rate 90 74 Respiratory 16 14 14 Rate Blood Pressure 155/68 126/50 (mmHg) O2 Sat by Pulse 98 96 Oximetry Oxygen Devices in Use Now: None Appearance: 81 yo f in nAD, aAOx3 Eyes: No Scleral Icterus, PERRLA Ears/Nose/Mouth/Throat: NL Teeth, Lips, Gums, Mucous Membranes Moist Neck: NL Appearance and Movements; NL JVP, Trachea Midline Respiratory: Symmetrical Chest Expansion and Respiratory Effort, - - rhonchi in RML Cardiovascular: NL Sounds; No Murmurs; No JVD, - - irregular Abdominal: NL Sounds; No Tenderness; No Distention, No Hepatosplenomegaly Lymphatic: No Cervical Adenopathy Extremities: No Clubbing, Cyanosis, - - R elbow edema Skin: No Nodules or Sclerosis, - - R shoulder in post op dressings Neurological: Alert and Oriented x 3, NL Muscle Strength and Tone Result Diagrams: 02/25/17 06:13 02/25/17 06:13 Additional Lab and Data: . Microbiology and Other Data: Microbiology 02/14/17 12:30 Blood Culture - Preliminary Blood Venous No Growth Day 1 02/14/17 12:31 Blood Culture - Preliminary Blood Venous Blood MRSA/MSSA (PCR) - Final Mrsa Negative S.aureus Negative Microbiology 02/14/17 12:30 Blood Culture - Preliminary Blood Venous No Growth Day 3 02/16/17 20:21 Wound Gram Stain - Final Tissue - Shoulder Right Acid Fast Bacilli Smear - Final 02/16/17 20:21 Gram Stain - Final Shoulder Right 02/11/17 18:16 Aerobic Blood Culture - Final Blood Venous No Growth Day 5 Anaerobic Blood Culture - Final No Growth Day 5 02/14/17 12:31 Blood Culture - Final Blood Venous Staph Hominis Ssp Hominis Blood MRSA/MSSA (PCR) - Final Mrsa Negative S.aureus Negative Microbiology 02/16/17 20:21 Anaerobic Culture - Preliminary Wound - Shoulder Right No Growth Day 2 02/16/17 20:21 Wound Gram Stain - Final Tissue - Shoulder Right Tissue Culture - Preliminary Staphylococcus Aureus Skin and Soft Tissue MRSA/MSSA (PCR - Final Mrsa Negative S.aureus Positive Acid Fast Bacilli Smear - Final 02/16/17 20:21 Gram Stain - Final Shoulder Right Wound Culture - Final No Growth Day 2 02/14/17 12:30 Blood Culture - Preliminary Blood Venous No Growth Day 4 Assess/Plan/Problems-Billing This is an 81 year old female with PMH of atrial fibrillation, GERD, HLD and OA , s/p right shoulder arthroplasty in 2013, currently s/p I&D of septic joint with cellulitis and low grade bacteremia. - Patient Problems (1) Septic joint of right shoulder region Comment: Follow cx, staph, no MRSA Continue Ancef per Dr. Cunha, rifampin started on 02/20/17 PICC inserted 02/19 Will need lifelong atbx suppression therapy, patient and family aware (2) MSSA (methicillin susceptible Staphylococcus aureus) septicemia Comment: Appreciate ID input. TTE on 02/20/17 showed EF 55%, mod MR and mod pulm HTN. s/p I&D and liner exchange on 02/16/17. Cont Ancef Q8H days , cont rimfampin. (3) Atrial fibrillation Comment: Continue atenolol and digoxin daily Remain on tele Xarelto d/c'd on 02/20/17, and coumadin started . Today INR 2.2-will cont current Coumadin dose (4) HTN (hypertension) Comment: - Controlled with atenolol, stable (5) Hyponatremia Comment: resolved (6) Ventricular arrhythmia Comment: 2/2 irritation from PICC insertion and depth of catheter tip PICC pulled back (see nurse's note) no recurrence, cont telem (7) Normocytic anemia Comment: no signs or symptoms of bleeding. stool guaiac neg (8) DVT prophylaxis Comment: coumadin started on 02/20/17, due to tx with rimfampin and possibility of INR being diffucult to control will cont hospital stay. (9) Chest pain Comment: pleuritic, with point tenderness on palpation of sternum-resolved on Trop 0.05, EKG unchanged from prior with nonspecific ST in inferolateral leads. suspect the pain is noncardiac related to the r arm sling (10) PMR (polymyalgia rheumatica) Comment: Appreciate Dr. Burroughs's consult. Pt will be on Prednisone 1 mg total of 5 days, then stop and f/u with Dr. Burroughs in office Status and Disposition: Pt was accepted to [facility], but after d/c ID the decision was made to cont inpatient x 3-4 days till INR is normalized. The possibility of uncontrolled INR 's due to tx with rimfampin is high and it would be unsafe to d/c pt to rehab prior to having that under control
--- NOTE | 2017-02-26 12:23 | RAD ---
INDICATION: Cough. COMPARISON: Comparison is made with a prior chest x-ray study from February 19, 2017. TECHNIQUE: Dual-energy PA and lateral views of the chest were obtained. FINDINGS: There is a PICC catheter entering on the right side. The catheter tip projects over the superior vena cava. The heart is within normal limits in size. There is mild prominence of the interstitial markings and small bilateral pleural effusions which appears similar to the prior exam suggestive of pulmonary edema. There is minimal atelectasis at both lung bases. The patient is status post total right shoulder replacement surgery with a reversed polarity prosthesis. IMPRESSION: FINDINGS SUGGESTIVE OF PULMONARY EDEMA, UNCHANGED.
[2017-02-26] MEDS ORDERED: Furosemide TAB* 20 MG PO ONE (14:45)
[2017-02-26] MEDS: Warfarin TAB(*) 2 MG PO SCH (16:30)
[2017-02-27] MEDS: ceFAZolin 1 GM in Dextrose (*) 1 GM/50 ML BAG IVPB SCH ×2 (00:02→07:45)
[2017-02-27 05:31] LABS: INR 1.96 (0.77-1.02)
[2017-02-27 05:36] LABS: Hematocrit 24 % (35-47); Mean Corpuscular HGB Conc 34 g/dl (31-36); Mean Corpuscular Hemoglobin 30 pg (27-31); Mean Corpuscular Volume 89 fL (80-97); Mean Platelet Volume 8 um3 (7.4-10.4); Platelet Count 381 10^3/ul (150-450); Red Blood Count 2.66 10^6/ul (4.0-5.4); Red Cell Distribution Width 14 % (10.5-15); White Blood Count 8.3 10^3/ul (3.5-10.8)
[2017-02-27 05:42] LABS: EGFR Non-African American 75.3 (>60)
[2017-02-27] MEDS: Citalopram TAB* 10 MG PO SCH (07:45)
[2017-02-27] MEDS: Potassium Chlor TAB* 20 MEQ TAB.ER PO SCH (07:45)
[2017-02-27] MEDS: Docusate CAP* 100 MG PO SCH (07:45)
[2017-02-27] MEDS: Atorvastatin* 20 MG TAB PO SCH (07:45)
[2017-02-27] MEDS: Omeprazole CAP* 20 MG PO SCH (07:45)
[2017-02-27] MEDS: Digoxin TAB* 0.125 MG PO SCH (07:46)
[2017-02-27] MEDS: Atenolol TAB* 25 MG PO SCH (07:46)
[2017-02-27] MEDS: predniSONE TAB* 1 MG PO SCH (07:46)
[2017-02-27] MEDS: Calcium Carbonate TAB* 1250 MG (CALCIUM 500 MG) PO SCH (07:46)
[2017-02-27] MEDS: guaiFENesin ER TAB 600 MG PO SCH (07:46)
[2017-02-27] MEDS: RiFAMPin CAP* 300 MG CAP PO SCH (10:51)
[2017-02-27 11:28] VITALS: BP 134/57
--- NOTE | 2017-02-27 14:56 | DS ---
CC: Dr. Hastings; Dr. Cunha; Dr. Jackson; Dr. Burroughs; [facility] * DISCHARGE SUMMARY: DATE OF ADMISSION: 02/12/17 DATE OF DISCHARGE: 02/27/17. Discharged from the hospital and transferred to [facility]. PRIMARY CARE PROVIDER: Dr. Hastings from [facility] DISCHARGE DIAGNOSES: 1. Right septic shoulder. That shoulder was status post shoulder replacement surgery in 2013. Blood cultures turned out to be positive for methicillin- sensitive Staphylococcus aureus. The patient is status post orthopedic surgery with wound washout, joint washout, and liner exchange by Dr. Jackson on 02/16/17. 2. An episode of chest pain with troponin of 0.05, that were non-dynamic changes, and likely related to musculoskeletal pain and not cardiac. SECONDARY DIAGNOSES: 1. History of atrial fibrillation. 2. Hypertension. 3. Dyslipidemia. 4. Gastroesophageal reflux disease. 5. Osteoarthritis. 6. Depression. MEDICATIONS AT DISCHARGE: Include: 1. Cefazolin 1 g every 8 hours intravenously for a total of 42 days. The patient is day 11 out of 42 days today. Her last day of IV antibiotics would be on 03/30/16. 2. Rifampin 300 mg p.o. b.i.d. 3. Coumadin 3 mg daily. 4. Potassium chloride 20 mEq daily. 5. Oxycodone 5 mg every 4 hours p.r.n. 6. Prilosec 20 mg daily. 7. Heparin flushes to PICC line. 8. Lexapro 5 mg daily. 9. Colace 200 mg b.i.d. 10. Lanoxin 0.125 mg daily. 11. Calcium carbonate 1250 mg daily. 12. Tessalon Perles 100 mg b.i.d. p.r.n. 13. Lipitor 20 mg daily. 15. Atenolol 25 mg daily. RECOMMENDATIONS AT DISCHARGE: For followup are as follows: 1. The patient is to have weekly CBCs, CMPs, and CRPs to be done while on IV antibiotics, with results to be sent to Dr. Cunha. 2. The patient's INR should be twice a week for next couple of weeks and then as per [facility] protocol. The patient is anticoagulated for atrial fibrillation. Please note that she used to be on Xarelto for anticoagulation, but due to being on rifampin that was discontinued and the patient was transitioned to Coumadin during her hospital stay. 3. The patient is to follow up with Dr. Jackson in regards to right shoulder surgery in approximately 10 days. 4. The patient is to follow up with Dr. Cunha in approximately 2 weeks. 5. The patient's right shoulder mobility restriction as per Dr. Jackson is to be nonweightbearing on the right shoulder and for passive range of motion, forward flexing, and abduction as tolerated. 6. Wound dressings to the right shoulder. Please keep the wound dry, cover with gauze, and change as needed if soiled. LABORATORY DATA AND STUDIES PERFORMED DURING THE HOSPITAL STAY: On 02/27/17, sodium of 128, potassium 4.3, chloride 95, carbon dioxide 27, BUN 15, creatinine 0.74. CBC with white blood cell count of 8.3, hemoglobin of 8.0, hematocrit 24, and platelets of 381. Digoxin level was checked on 02/18/17, was 0.5. The patient's troponins were 0.05 and 0.04. The patient's INR at the time of discharge was 1.96. The patient had been on Coumadin at 2 mg for the past couple of days with INR 2.3 and 2.2 on two respective days. Now due to INR being 1.96, her Coumadin is going to be increased to 3 mg daily, to be started today and continued until next INR. HOSPITALIZATION COURSE: Mrs. Moreno is an 81-year-old female with history of atrial fibrillation, on anticoagulation with Xarelto, presented to the hospital with complaints of right shoulder pain. Her blood cultures were positive for MSSA septicemia. Her transthoracic echocardiogram showed EF of 55% with moderate mitral regurgitation and moderate pulmonary hypertension. The patient was seen by Dr. Jackson for orthopedic surgery and on 02/16/17, she had an incision and washout of the right shoulder with exchange of the liner. It was performed by Dr. Jackson. Postoperatively, she did very well. She was seen by Dr. Cunha from Infect[facility] Diseases and was placed on cefazolin and rifampin was added on in the second part of her hospital stay. Due to rifampin interacting with multiple anticoagulation, it was decided that it is safer for the patient to be switched from Xarelto to Coumadin since we can be aware of her INR levels. The patient stayed for the next 3 to 4 days to adjust her Coumadin dose and she is going to be discharged on Coumadin 3 mg daily. Please note that for the past couple of days, she had been on Coumadin 2 mg daily and her INR drifted to subtherapeutic range of 1.96. In regards to followup of the right shoulder, Dr. Jackson wishes for the patient to be seen in followup in approximately 10 days. Recommendations are for passive range of motion and nonweightbearing status of the right shoulder. In regards to the patient's atrial fibrillation, the patient had been on atenolol and digoxin daily and that had been well controlled. Once again, she was switched from Xarelto to Coumadin. For hypertension, she had been on atenolol and her blood pressure had been controlled. She developed ventricular tachyarrhythmia after PICC line insertion, but that was corrected after the depth of the catheter was adjusted. The patient was noted to have normocytic anemia, but no signs of bleeding and stool guaiac negative. It was presumed it was due to frequent venipunctures as well as septicemia. She developed pleuritic chest pain in the anterior sternal area on 02/22/17. The patient's troponins had been in the 0.05 and 0.06 range and it was thought that the pain was likely musculoskeletal, related to point tenderness from the patient's arm sling buckle pushing on the patient's sternum. The patient has history of polymyalgia rheumatica and she had been on prednisone. The prednisone was tapered down during her hospital stay. Dr. Burroughs saw the patient in consultation and noted that it is safest for the patient to be weaned off prednisone. The patient's last dose of prednisone at 1 mg daily was on the day of discharge and transfer to [facility]. The patient will follow up with Dr. Burroughs in his office in approximately a couple of weeks. Due to the fact the patient needs to be on cefazolin for a total of 42 days, today is day 11, the patient needed to be placed in short-term rehabilitation facility for further treatment. The patient's anticipated last day of IV antibiotics is 03/30/16 or later depending on followup appointments with Dr. Cunha. Please note that this is a short summary of the patient's hospital stay and please see daily reports for further details. PHYSICAL EXAMINATION: At the time of discharge, blood pressure 134/57, heart rate of 71 and regular, respiratory rate 18, oxygen saturation 98% on room air, temperature 98.2. General: The patient is a very pleasant 81-year-old female, who is in no acute distress. Alert, awake, and oriented x3. HEENT: Head atraumatic and normocephalic. Eyes: Pupils are equal, reactive to light and accommodation. Oropharynx clear. Mucosa moist. Neck: Supple. No JVD. No bruit bilaterally. Cardiovascular: Irregularly irregular rhythm. No murmur. Respiratory: Clear to auscultation bilaterally. Abdomen: Soft, nontender. Bowel sounds present in all 4 quadrants. Extremities: There is no edema apart from right elbow edema postoperative. Pulses are +2 bilaterally. There is no clubbing and no cyanosis. Evaluation of the skin, the patient has Steri-Strip' ed wound after the surgical intervention on the right shoulder. There is no wound dehiscence or drainage noted. There is no cellulitis noted. Neuro Evaluation: Speech is clear. Cranial nerves II through XII grossly intact. Motor strength is 5/5 bilaterally. For further details of the patient's hospital stay, please refer to daily progress notes. TIME SPENT: Approximately 55 minutes were spent on the patient's discharge. [id number]/CPS #: [id number] SUZANNA
[2017-02-27] MEDS ORDERED: Warfarin TAB(*) 3 MG PO SCH (17:00)
== END 2017-02-27 13:35 | DRG 495 ==
LOC: ED 14:27 → SSU 23:23 → MEDTELE 02-19 14:27
PROVIDERS: ADMIT Hospitalist; ATTEND Internal Medicine
PROC: 0RJJ3ZZ Inspection of Right Shoulder Joint, Percutaneous Approach (ICD-10-PCS; 2017-02-12)
PROC: 0RPJ0JZ Removal of Synthetic Substitute from Right Shoulder Joint, Open Approach (ICD-10-PCS; 2017-02-16)
PROC: 0R9 Upper Joints, Drainage (ICD-10-PCS; 2017-02-16)
PROC: 0RUJ0JZ Supplement Right Shoulder Joint with Synthetic Substitute, Open Approach (ICD-10-PCS; 2017-02-16)
PROC: 05LD0ZZ Occlusion of Right Cephalic Vein, Open Approach (ICD-10-PCS; 2017-02-16)
PROC: 3E1U38Z Irrigation of Joints using Irrigating Substance, Percutaneous Approach (ICD-10-PCS; 2017-02-16)
PROC: 02HV33Z Insertion of Infusion Device into Superior Vena Cava, Percutaneous Approach (ICD-10-PCS; principal; 2017-02-26)
DX: T84.59XA Infection and inflammatory reaction due to other internal joint prosthesis, initial encounter (principal); A41.01 Sepsis due to Methicillin susceptible Staphylococcus aureus; I47.2 Ventricular tachycardia; M00.011 Staphylococcal arthritis, right shoulder; E87.1 Hypo-osmolality and hyponatremia; L03.113 Cellulitis of right upper limb; I48.91 Unspecified atrial fibrillation; B95.61 Methicillin susceptible Staphylococcus aureus infection as the cause of diseases classified elsewhere; Y79.2 Prosthetic and other implants, materials and accessory orthopedic devices associated with adverse incidents; M19.90 Unspecified osteoarthritis, unspecified site; I10 Essential (primary) hypertension; E78.5 Hyperlipidemia, unspecified; K21.9 Gastro-esophageal reflux disease without esophagitis; F32.9 Major depressive disorder, single episode, unspecified; J30.2 Other seasonal allergic rhinitis; Z96.653 Presence of artificial knee joint, bilateral; Z66 Do not resuscitate; I25.10 Atherosclerotic heart disease of native coronary artery without angina pectoris; R40.2422 Glasgow coma scale score 9-12, at arrival to emergency department; I34.0 Nonrheumatic mitral (valve) insufficiency; I27.20 Pulmonary hypertension, unspecified; D47.3 Essential (hemorrhagic) thrombocythemia; R05 Cough; D64.9 Anemia, unspecified; R07.89 Other chest pain; M35.3 Polymyalgia rheumatica; R09.02 Hypoxemia; Y92.9 Unspecified place or not applicable; Z98.42 Cataract extraction status, left eye; Z98.41 Cataract extraction status, right eye; Z72.89 Other problems related to lifestyle; Z97.4 Presence of external hearing-aid; Z79.01 Long term (current) use of anticoagulants
CPT/HCPCS: 20610; 36415; 71010; 71020; 77002; 78315; 80048; 80053; 80162; 82272; 83605; 83735; 84146; 84484; 85025; 85027; 85379; 85610; 85652; 85730; 86140; 86850; 86900; 86901; 87040; 87070; 87073; 87077; 87116; 87150; 87186; 87205; 87206; 87640; 87641; 88300; 88304; 93005; 93306; A9270-GY; A9503; C1751; C1776; J0690; J1100; J1644; J2250; J2405; J2704; J3010; J3370; J3475; Q9965

== ENCOUNTER 2017-03-13 12:41 | Inpatient (IN) | payer MEDICARE ==
[2017-03-13 14:35] LABS: ABS Basophils 0 10^3/ul (0-0.2); ABS Eosinophils 0.3 10^3/ul (0-0.6); ABS Lymphocytes 0.5 10^3/ul (1.0-4.8); ABS Monocytes 0.6 10^3/ul (0-0.8); ABS Neutrophils 5.4 10^3/ul (1.5-7.7); ABS Nucleated RBC 0 10^3/ul; Hematocrit 26 % (35-47); Hemoglobin 8.7 g/dl (12.0-16.0); Lymphocyte % 6.9 % (25-47); Mean Corpuscular HGB Conc 34 g/dl (31-36); Mean Corpuscular Hemoglobin 29 pg (27-31); Mean Corpuscular Volume 86 fL (80-97); Mean Platelet Volume 7 um3 (7.4-10.4); Nucleated Red Blood Cells % 0; Platelet Count 286 10^3/ul (150-450); Red Blood Count 2.96 10^6/ul (4.0-5.4); Red Cell Distribution Width 15 % (10.5-15); White Blood Count 6.9 10^3/ul (3.5-10.8)
[2017-03-13 14:48] LABS: INR 2.88 (0.77-1.02)
--- NOTE | 2017-03-13 14:56 | RAD ---
INDICATION: Abdominal pain. COMPARISON: Comparison is made with a prior chest x-ray study from February 26, 2017. TECHNIQUE: A portable view of the chest was obtained. FINDINGS: The heart is within normal limits in size. The lungs are underinflated. There are small bibasilar infiltrates and trace bilateral pleural effusions which have improved from the prior study. IMPRESSION: SMALL BIBASILAR INFILTRATES AND TRACE PLEURAL EFFUSIONS IMPROVED FROM THE PRIOR STUDY.
[2017-03-13 15:03] LABS: EGFR Non-African American 84.5 (>60)
[2017-03-13] MEDS ORDERED: Iohexol 300* (CONTRAST) 10 ML SDV IV ONE (15:22)
[2017-03-13 16:05] LABS: Urine Appearance Clear; Urine Blood Negative (Negative); Urine Color Yellow; Urine Ketones Negative (Negative); Urine Protein 1+(30 mg/dL) (Negative); Urine Specific Gravity 1.009 (1.010-1.030); Urine Urobilinogen Negative (Negative)
--- NOTE | 2017-03-13 16:50 | RAD ---
INDICATION: Nonspecified abdominal pain COMPARISON: Chest x-ray March 13, 2017 TECHNIQUE: Axial source images were obtained from the hemidiaphragms to the symphysis pubis following administration of oral and intravenous contrast. 75 mL Omnipaque 300 was utilized. Coronal and sagittal reconstructed images were acquired. Lung bases: There is mild linear change in both lung bases most consistent with gravity dependent atelectasis. There are small bilateral pleural effusions. There are midsternal calcifications. There may be several tiny calcific granulomas in the lung bases. Liver: The liver is normal in size. There are tiny calcified granulomas. There is no ductal dilatation. Gallbladder: There are no calcified gallstones. There is no evidence of wall thickening or pericholecystic fluid. Spleen: The spleen is normal in size. There are calcified granulomas. Pancreas: There is no focal pancreatic mass or ductal dilatation. Adrenal glands: There is no evidence of adrenal mass. Kidneys: The kidneys are normal in size and position. There are prompt nephrograms and there is prompt excretion bilaterally. There are no renal parenchymal masses. There is no evidence of nephrolithiasis. Adenopathy: There is no evidence of adenopathy by size criteria. Fluid collections: There are no free or localized fluid collections. Vessels:There are no significant atherosclerotic changes involving the aorta. There is no focal aneurysm. The iliac vessels are normal in caliber. The IVC appears normal. GI tract: There are no acute CT bowel findings. There is no obstruction. The stomach and small bowel appear normal. The lower GI tract is normal. The cecum, ileocecal valve, and terminal ileum appear normal. The appendix is visualized and appear normal. Pelvic organs: There is a low-density pelvic lesion which is likely uterus in origin. This is in the lower uterine segment to the left of midline posteriorly and measures 2.8 cm. This is probably a fibroid. No separate adnexal mass is seen Bladder: There are no bladder masses. Abdominal and pelvic soft tissues: The extraperitoneal abdominal and pelvic soft tissues appear normal.. Osseous structures: There are no acute osseous findings. Other: None IMPRESSION: 1. Small bilateral pleural effusions. 2. Old granulomatous disease. 3. Probable uterine leiomyoma. 4. No other masses and no apparent inflammatory changes.
[2017-03-13] MEDS ORDERED: Acetaminophen TAB* 325 MG PO PRN (19:13)
[2017-03-13] MEDS ORDERED: Magnesium Sulfate 2 GM IV* 2 GM/50 ML BAG IVPB ONE (19:13)
[2017-03-13] MEDS ORDERED: oxyCODONE TAB* 5 MG TAB PO PRN (19:18)
[2017-03-13] MEDS ORDERED: CEFAZOLIN 1 GM IV SCH (19:30)
[2017-03-13 20:16] LABS: INR 2.54 (0.77-1.02)
[2017-03-13 20:59] LABS: Urine Appearance Clear; Urine Blood Negative (Negative); Urine Color Yellow; Urine Ketones Negative (Negative); Urine Protein 1+(30 mg/dL) (Negative); Urine Specific Gravity 1.009 (1.010-1.030); Urine Urobilinogen Negative (Negative)
--- NOTE | 2017-03-13 21:15 | RAD ---
INDICATION: Hyponatremia. Syncope. COMPARISON: None TECHNIQUE: Noncontrast axial source images were acquired from the skull base to the vertex. FINDINGS: Ventricles/sulci: There is cortical atrophy with compensatory dilatation of the CSF spaces. Brain parenchyma: There is periventricular and subcortical white matter change compatible with chronic ischemia. Intracranial hemorrhage:None. Extra-axial spaces: There are no abnormal extra axial fluid collections or evidence of extra-axial mass. Calvarium: There is no calvarial fracture or other calvarial abnormality. Scalp: There is no evidence of scalp or extracalvarial soft tissue abnormality. Paranasal sinuses/mastoid: There is mild bilateral maxillary antral sinusitis with focal mucosal thickening right greater than left. Other: None. IMPRESSION: CORTICAL ATROPHY WITH CHRONIC MICROVASCULAR ISCHEMIC CHANGES. NO ACUTE INTRACRANIAL FINDINGS. MILD CHRONIC SINUSITIS.
--- NOTE | 2017-03-13 21:49 | HP ---
CC: Dr. Hastings; Dr. Sawant * HISTORY AND PHYSICAL: DATE OF ADMISSION: 03/13/17 PRIMARY CARE PROVIDER: Dr. Hastings. CONSULTING NEUROLOGIST: Dr. Sawant. ATTENDING PROVIDER: Dr. Toledo * (DICTATED BY BETH CAMPOS NP) CHIEF COMPLAINT: Altered mental status. HISTORY OF PRESENT ILLNESS: Ms. Moreno is an 81-year-old female patient who recently was here for an infected hardware of her right shoulder from right total shoulder replacement. She comes in today stating that she was at Dr. Jackson's office for routine followup when they were just getting ready to finish taking out her sutures, the nurses had stepped out according to the daughter and the patient states she started feeling lightheaded and then the daughter noted that the patient was staring off. She kind of had a glassed- over look in her eyes and her hands were starting to shake, it lasted about 1 to 2 minutes. She states that the patient afterwards did take a little bit of time to come back to her baseline. The patient does remember nurses coming in to assess her. There was also report of a fever of 101 earlier today and she has been having a couple of days of vomiting. She has vomited about 2 to 3 times. She has not had any diarrhea. She says she has just been generally feeling weak. She denied having any chest pain. There has been a cough, but no shortness of breath, no rhinorrhea, no sore throat, no congestion. She has been taking the IV antibiotics as prescribed for this recent infected hardware, which was changed out back in previous February, just the last month. She has been here and was sent to [facility] for a 42-day course of IV Ancef. She had been doing well there and this was a routine followup with Dr. Jackson. There was no report of prodrome type symptoms such as chest pain or shortness of breath. There was no report of abdominal discomfort with the exception of just nausea and vomiting. There was concern because of the episode, she came in to the ER and we were asked to evaluate for admission as it was noted that she was a little hyponatremic at 123, concern for the syncope as well. PAST MEDICAL HISTORY: Significant for: 1. AFib. 2. Hypertension. 3. Hyperlipidemia. 4. GERD. 5. Osteoarthritis. 6. Depression. 7. Recent septic right shoulder, status post liner replacement and washout with Dr. Jackson, and she has a history of PMR. PAST SURGICAL HISTORY: She has had a right total shoulder replacement and now washout with a liner replacement. She has had cataract extraction. She has had tonsillectomy. She has had an appendectomy. She has had a left carpal tunnel repair. She has had bilateral knee replacements. MEDICATIONS: Home meds include: 1. Ancef 1 g IV every 8 hours. 2. Heparin flush 1 to 3 cc, flush at 0600 and 1800. 3. Oxycodone 5 mg every 4 hours as needed. 4. Tessalon Perles 100 mg p.o. b.i.d. 5. Lexapro 5 mg daily. 6. Atenolol 25 mg daily. 7. Lipitor 20 mg daily. 8. Potassium 20 mEq p.o. daily. 9. Prilosec 1 tablet p.o. daily. 10. Colace 200 mg p.o. b.i.d. 11. Warfarin 3 mg daily. 12. Digoxin 0.125 mg daily. 13. Calcium carbonate 1250 mg p.o. daily. 14. Rifampin 300 mg p.o. b.i.d. ALLERGIES TO MEDICATIONS: Include no known drug allergies. FAMILY HISTORY: She is adopted. SOCIAL HISTORY: She does not smoke. She drinks alcohol occasionally. She is currently residing at [facility] for rehab and long-term IV antibiotics. Surrogate decision maker is her daughter. REVIEW OF SYSTEMS: There was a documented fever of 101. There was no significant weight change. There was no double vision. She denied having any ear discharge. There was no rhinorrhea. No sore throat, no thyroid enlargement. Denied having any chest pain. There was no orthopnea, no nocturnal dyspnea. There was no abdominal pain. There has been reports of some nausea and vomiting. No dysuria. There has been no frequency. There was a question of seizure and a question of loss of consciousness. There was also loss of consciousness. Review of 14 systems completed, all others negative. PHYSICAL EXAMINATION GENERAL: At this time, Ms. Moreno is an 81-year-old female patient. She appears to be well nourished, well developed. She is sitting in the ED stretcher. She does not appear to be in any acute distress. VITAL SIGNS: Blood pressure 139/58, pulse 86, respirations 18, O2 sat 97%, temperature 98.2. HEENT: Head: Atraumatic, normocephalic. Eyes: EOMs are intact. Sclerae anicteric and not pale. Throat: Oral mucosa appears to be moist. No oropharyngeal erythema. NECK: Supple. LUNGS: Clear to auscultation bilaterally. No wheezes, rales, or rhonchi. HEART: Sounds S1, S2. Irregularly irregular rate. No murmurs, rubs, or gallops. ABDOMEN: Soft, flat, nontender. Bowel sounds present. EXTREMITIES: Pulses are 2+ throughout. She is moving all 4 extremities with 5/ 5 strength. NEUROLOGIC: She is awake. She is alert. She is oriented x3. Her tongue is midline. Legal Executive Assistant are equal. She had no gross focal deficits. SKIN: Intact. DIAGNOSTIC STUDIES/LAB DATA: WBC of 6.9, RBC of 2.96, hemoglobin of 8.7, hematocrit 26 that is near her baseline, platelet count was 286,000. The INR was 2.88. PTT of 49.5. Sodium 123 that is low for her, she normally runs around 128 to 130. Potassium 4.6, chloride of 92, bicarb of 24, BUN 9, creatinine of 0.67, glucose of 99, lactic 0.8, calcium 8.3, mag 1.6. Total bili 0.4, AST 17, ALT 5, alk phos 58. Troponin 0.01. Albumin of 2.7. Lipase is 33. TSH cortisol pending. Urine showed low specific gravity, 1+ protein, present squamous epithelial cells. Digoxin level pending. She did have a chest x-ray obtained today as well, which revealed small basilar infiltrates and trace pleural effusions, improved from prior study. 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 No other masses or apparent inflammatory change. There was an EKG obtained today, showed atrial fibrillation, rate of 83. No ST elevations or T-wave inversions were noted. Old medical records were reviewed. ASSESSMENT AND PLAN: Mrs. Moreno is an 81-year-old female patient coming into the ED today with complaints of a syncopal versus seizure episode. We were asked to evaluate for admission. She will be admitted under observation status for: 1. Syncope versus seizure. At this point, I did touch base with Dr. Sawant. I am concerned because of the shaking that was described and the glassed-over look. I am going to get a CT of the brain. If this is negative, we can consider if it is safe to do an MRI of the brain tomorrow, but we will need to touch base with her MRI team to make sure that we can do this given the recent surgery. I do not think that it will be an issue, but we will need to touch base with Radiology. I have ordered an EEG. We will get neuro checks every 4 hours. We will check orthostatic blood pressures, place her on telemetry and she has had 2 troponins which are both negative and we will repeat the echo, check orthostatic blood pressures. 2. Atrial fibrillation. We are checking a digoxin level. We will continue on her current meds. 3. Hyponatremia. We will go ahead and sent off urine osmolality, serum osmolality, urine sodium. I think it is probably dehydration. I am going to give her normal saline. We will check BMPs every 6 hours. 4. Hyperlipidemia. Continue her statin therapy. 5. Hypertension. Continue meds as prescribed. 6. Gastroesophageal reflux disease. Continue her PPI therapy. 7. Osteoarthritis. Continue to follow with her primary. 8. Depression. Continue supportive care. 9. Recent septic right shoulder with a hardware infection. Continue her antibiotics and rifampin. 10. History of polymyalgia rheumatica. We will continue to follow this closely. 11. Code status. Full code. 12. DVT prophylaxis. Her INR is therapeutic. 13. Fluids, electrolytes, and nutrition. She can have a clear liquid diet. TIME SPENT: On the admission was approximately 60 minutes, greater than half of the time was spent [id number] with the patient obtaining my history and physical, other half time spent going over the plan of care with the patient and implementing the plan of care. I did discuss the plan of care with my attending, Dr. Toledo, who is in agreement. BETH CAMPOS, KIRSTIE [id number]/[facility] #: [id number] [facility]IT[facility]andace
[2017-03-13] MEDS: ceFAZolin 1 GM VIAL(*) 1 GM in NS 0.9% 50 ML* 50 ML IVPB SCH (22:34)
[2017-03-13] MEDS: NS 0.9% 1000 ML* 1,000 ML IV SCH (22:34)
[2017-03-13] MEDS: RiFAMPin CAP* 300 MG CAP PO SCH (22:37)
[2017-03-13] MEDS: Docusate CAP* 100 MG PO SCH (22:37)
[2017-03-13 23:16] LABS: EGFR Non-African American 74.2 (>60)
[2017-03-14 03:08] LABS: ABS Basophils 0 10^3/ul (0-0.2); ABS Eosinophils 0.4 10^3/ul (0-0.6); ABS Lymphocytes 0.6 10^3/ul (1.0-4.8); ABS Monocytes 0.5 10^3/ul (0-0.8); ABS Neutrophils 3.7 10^3/ul (1.5-7.7); ABS Nucleated RBC 0 10^3/ul; Eosinophil % 7.6 % (0-6); Hematocrit 25 % (35-47); Hemoglobin 8.2 g/dl (12.0-16.0); Lymphocyte % 11.6 % (25-47); Mean Corpuscular HGB Conc 33 g/dl (31-36); Mean Corpuscular Hemoglobin 29 pg (27-31); Mean Corpuscular Volume 87 fL (80-97); Mean Platelet Volume 7 um3 (7.4-10.4); Nucleated Red Blood Cells % 0.1; Platelet Count 280 10^3/ul (150-450); Red Blood Count 2.87 10^6/ul (4.0-5.4); Red Cell Distribution Width 15 % (10.5-15); White Blood Count 5.2 10^3/ul (3.5-10.8)
[2017-03-14 03:12] LABS: EGFR Non-African American 87.5 (>60)
[2017-03-14] MEDS: ceFAZolin 1 GM VIAL(*) 1 GM in NS 0.9% 50 ML* 50 ML IVPB SCH ×3 (04:15→21:11)
[2017-03-14] MEDS: Omeprazole CAP* 20 MG PO SCH (07:50)
[2017-03-14] MEDS: RiFAMPin CAP* 300 MG CAP PO SCH ×2 (08:58→21:12)
[2017-03-14] MEDS: Docusate CAP* 100 MG PO SCH ×2 (08:59→21:11)
[2017-03-14] MEDS: Atorvastatin* 20 MG TAB PO SCH (08:59)
[2017-03-14] MEDS: Citalopram TAB* 10 MG PO SCH (08:59)
[2017-03-14] MEDS: Atenolol TAB* 25 MG PO SCH (08:59)
[2017-03-14] MEDS: Digoxin TAB* 0.125 MG PO SCH (08:59)
[2017-03-14] MEDS: NS 0.9% 1000 ML* 1,000 ML IV SCH ×2 (09:00→21:11)
[2017-03-14] MEDS: Potassium Chlor TAB* 20 MEQ TAB.ER PO SCH (09:00)
[2017-03-14] MEDS: Ondansetron INJ* 2 MG/ML VIAL IV PRN (15:47)
[2017-03-14] MEDS: Warfarin TAB(*) 3 MG PO SCH (16:32)
--- NOTE | 2017-03-14 18:18 | CONS ---
CC: Dr. Ramón Hastings * NEUROLOGY CONSULTATION: DATE OF CONSULT: 03/14/17 LOCATION: She is an inpatient, room 448. REFERRING PROVIDER: Juan Antonio Dang NP CHIEF COMPLAINT: Episode of shaking and loss of consciousness. HISTORY OF PRESENT ILLNESS: Kiara Moreno is an 81-year-old woman, who was at her orthopedist office yesterday seated with her daughter. The next thing she knew, there were nurses around her along with her daughter checking her blood pressure and evaluating her. She apparently became unresponsive and looked "glassy eyed" and there was some shaking of both of her hands. Apparently, this lasted 1 to 2 minutes and then resolved. The patient says she did not have any premonitory symptoms and when she came to, she knew where she was and it was explained to her what had happened. She heard her daughter said that she was "white as a sheet." She had some mild nausea, but no vomiting. There was no chest pain, shortness of breath, or diaphoresis. There is no prior history of faints or seizures. PAST MEDICAL HISTORY: Notable for infected right shoulder hardware for which she is receiving chronic IV antibiotics. She has chronic atrial fibrillation, on warfarin; hypertension; hyperlipidemia; gastroesophageal reflux; bilateral knee replacements; depression. MEDICATIONS: On admission consist of: 1. Ancef 1 g IV every 8 hours. 2. Oxycodone 5 mg q.4 hours as needed for pain. 3. Lexapro 5 mg p.o. q. day. 4. Atenolol 25 mg p.o. q. day. 5. Lipitor 20 mg p.o. q. day. 6. Prilosec 1 tablet p.o. q. day. 7. Warfarin 3 mg q. day. 8. Digoxin 0.125 mg p.o. q. day. 9. Rifampin 300 mg p.o. b.i.d. ALLERGIES: She does not have any drug allergies. FAMILY HISTORY: Noncontributory. She is adopted. REVIEW OF SYSTEMS: Negative for change in vision, headaches, prior stroke, head trauma, seizures, chest pain, breathing problems. She does get occasional nausea. She has not been eating and has had much of an appetite and has been losing weight at [facility]. She had not been drinking fluids very much either. Rest of the 14- point review of systems is otherwise negative other the history of present illness and past medical history. PHYSICAL EXAM: She is somewhat pale, but appears well hydrated. She is somewhat thin as well. She has been afebrile since admission yesterday. Blood pressure running 140/50 to 60, heart rate irregularly irregular in the 80s. Respiratory rate is 18 and oxygen saturation is 98% on room air. Skin is warm and dry. Head is atraumatic. Oral mucosa is moist and atraumatic. Heart is in an irregular rhythm and I do not hear any murmurs. There are no cervical bruits. Lungs are clear. She has restricted mobility about the right shoulder. Neurological Exam: Pupils are somewhat small at about 2.5 mm reacting to light to about 2 mm. Eye movements and visual hall are normal. Funduscopic exam reveals sharp discs bilaterally. Facial musculature is symmetric. Facial sensation to light touch is symmetric. Palate and tongue appear normal and tongue protrudes in the midline. There is no dysarthria. Palate raises symmetrically. Neck strength is normal. She is a little hard of hearing bilaterally. Motor exam is limited about the right shoulder. She has normal strength in the distal right upper extremity and in the left upper and bilateral lower extremities. There is no rest tremor. Finger taps are normal in the hands. Sensory exam is notable for mild vibratory loss in the feet. Proprioception, light touch are intact in all extremities. Reflexes are hypoactive in the biceps, trace at the knees, absent at the ankles. Plantar responses are flexor bilaterally. I did not attempt to ambulate her. She is alert and oriented and an excellent historian for her age. Memory seems intact and language is fluent. She has adequate attention, concentration, and fund of knowledge. DIAGNOSTIC STUDIES/LAB DATA: Includes a brain CT, which I reviewed, which reveals atrophy and probable subcortical chronic ischemic changes. There is no hemorrhage or evidence of acute infarction. EEG done earlier today was reviewed and looks normal. Other laboratory data includes a CBC with a hemoglobin of 8.2, hematocrit 25%, white blood cell normal at 5.2. INR yesterday at admission was 2.54. Chemistry is notable for a sodium of 123 when she was admitted yesterday, it is 124 today. Glucose 105, calcium 8.1, albumin low at 2.7. Liver enzymes are normal. TSH normal yesterday at 3.65. CRP elevated at 77.9. Urinalysis from yesterday is unremarkable. Digoxin level yesterday 0.8. IMPRESSION AND PLAN: Impression is that of an episode of convulsive syncope. She sounds like she came rapidly reoriented after recovery and she was seated the entire time, which would tend to aggravate cerebral hypoperfusion. She was described as "white as a sheet" further suggesting that she was hypotensive. She is also somewhat anemic. I do not think anticonvulsants are indicated. I do not think she needs an MRI of the brain as she really does not have any focal symptoms or signs. I discussed my impression with Dr. Echols who is the hospitalist on her case. [id number]/[facility] #: [id number] MTDKandace
--- NOTE | 2017-03-14 18:23 | ECHO ---
Patient: CARLO OLIVEROS [facility] Rec#: [id number] : 1935 Date: 03/14/2017 Age: 81y Height: 147.32 cm / 58.0 in Weight: 55.79 kg / 123.0 lbs Sex: F Admit Date#: 03/13/2017 Referring: Juan Antonio Dang NP Reading: Baltazar Monroe MD Professional Advisor: Denisse Tabor RDCS Transthoracic Echocardiogram Findings History: A-fib,HTN,HLD,GERD,prosthetic sholder joint infection with bacteremia. Technical Comments: The study quality is good. Completed at 1025. Left Ventricle: The left ventricular chamber size is normal. Septal wall hypertrophy is observed.c/w sigmoid septum. The estimated ejection fraction is 55-60%. closer to 55%. The assessment of diastolic function is non-diagnostic. Left Atrium: The left atrium is moderately dilated. Right Ventricle: The right ventricular cavity size is normal. The right ventricular global systolic function is normal. Right Atrium: The right atrial cavity size is normal. Aortic Valve: The aortic valve is trileaflet. Systolic excursion of the aortic valve cusps is reduced. There is evidence of aortic sclerosis without stenosis. There is a trace of aortic regurgitation. There is no evidence of aortic stenosis. Mitral Valve: The mitral valve leaflets are mildly thickened. There is mild to moderate mitral regurgitation. There is no evidence of mitral stenosis. Tricuspid Valve: The tricuspid valve leaflets are normal. There is moderate tricuspid regurgitation. There is evidence of borderline pulmonary hypertension. There is no tricuspid stenosis. Pulmonic Valve: The pulmonic valve appears normal. There is a trace pulmonic regurgitation. There is no pulmonic stenosis. Pericardium: The pericardium appears normal. Aorta: The ascending aorta is not well visualized. The aortic arch is not well visualized. There is no dilation of the aortic root. Pulmonary Artery: The main pulmonary artery appears normal. Venous: The inferior vena cava appears normal in size. There is a greater than 50% respiratory change in the inferior vena cava dimension. Conclusions Septal wall hypertrophy is observed.c/w sigmoid septum. The estimated ejection fraction is 55-60%; closer to 55%. The left atrium is moderately dilated. There is evidence of aortic sclerosis without stenosis. There is mild to moderate mitral regurgitation. There is evidence of borderline pulmonary hypertension. Similar to 02/2017 except that the PASP was moderately elevated last time. Measurements Name Value Normal Range RVIDd (AP) 2D 2.4 cm (0.9 - 2.6) RVDdMajor (2D) 3 cm (2.2 - 4.4) RAd ISD 4CH 4.3 cm (3.4 - 4.9) RA (A4C)W 3.1 cm (2.9 - 4.6) IVSd (2D) 1.1 cm (0.6 - 1) LVPWd (2D) 1 cm (0.6 - 1) LVIDd (2D) 3.6 cm (3.6 - 5.4) LVIDs (2D) 2.9 cm - LV FS (2D) 20 % (25 - 45) Aortic Annulus 1.8 cm (1.4 - 2.6) Ao root diameter (2D) 2.8 cm (2.1 - 3.5) LA dimension (AP) 2D 4 cm (2.3 - 3.8) LAd ISD 4CH 5.6 cm (2.9 - 5.3) LA ISD 4CH W 3.6 cm (2.5 - 4.5) Name Value Normal Range LA ESV SP 4CH (A/L) 54 ml - LA ESV SP 2CH (A/L) 64 ml - LA ESV BP (A/L) 62 ml - LA ESV BP (A/L) index 42.01 ml/m2 - LA ESV SP 4CH (MOD) 51 ml - LA ESV SP 2CH (MOD) 61 ml - Name Value Normal Range MV E-wave Vmax 1.3 m/sec - MV deceleration time 181 msec - LV septal e' Vmax 0.07 m/sec - LV lateral e' Vmax 0.09 m/sec - LV E:e' septal ratio 18.57 ratio - LV E:e' lateral ratio 14.44 ratio - Name Value Normal Range AV Vmax 1.6 m/sec - AV VTI 29.9 cm - AV peak gradient 10.27 mmHg - AV mean gradient 5.84 mmHg - LVOT Vmax 1 m/sec - LVOT VTI 17.6 cm - LVOT peak gradient 3.63 mmHg - LVOT mean gradient 1.95 mmHg - AR PHT 553 msec - AR peak gradient 21.48 mmHg - Name Value Normal Range MR Vmax 4.1 m/sec - MR VTI 110.6 cm - Name Value Normal Range TR Vmax 2.8 m/sec - TR peak gradient 31 mmHg - RAP 3 mmHg - RVSP 34 mmHg - IVC diameter 2 cm - Name Value Normal Range PV Vmax 1.1 m/sec - PV peak gradient 4.77 mmHg -
--- NOTE | 2017-03-14 18:46 | PN ---
Subjective Date of Service: 03/14/17 Interval History: Pt is feeling well. She denies any pain in her R shoulder. No lightheadedness or dizziness. She states she has not liked the food at [facility] and her appetite has been poor. Objective Active Medications: Acetaminophen (Tylenol Tab*) 650 mg PO Q4H PRN PRN Reason: FEVER/PAIN Atenolol (Tenormin Tab*) 25 mg PO DAILY [facility] Last Admin: 03/14/17 08:59 Dose: 25 mg Atorvastatin Calcium (Lipitor*) 20 mg PO DAILY [facility] Last Admin: 03/14/17 08:59 Dose: 20 mg Citalopram Hydrobromide (Celexa Tab*) 10 mg PO DAILY [facility] PRN Reason: Protocol Last Admin: 03/14/17 08:59 Dose: 10 mg Digoxin (Lanoxin Tab*) 0.125 mg PO DAILY [facility] Last Admin: 03/14/17 08:59 Dose: 0.125 mg Docusate Sodium (Colace Cap*) 200 mg PO BID [facility] Last Admin: 03/14/17 08:59 Dose: 200 mg Heparin Sodium (Porcine) (Heparin Flush Picc/Ml/Cvc(*)) 1 - 3 ml FLUSH 0600, 1800 ANTONIO PRN Reason: Protocol Last Admin: 03/14/17 09:07 Dose: 1 ml Sodium Chloride (Ns 0.9% 1000 Ml*) 1,000 mls @ 125 mls/hr IV PER RATE [facility] Stop: 03/15/17 03:14 Last Admin: 03/14/17 09:00 Dose: 125 mls/hr Cefazolin Sodium 1 gm/ Sodium (Chloride) 50 mls @ 200 mls/hr IVPB Q8H [facility] Last Admin: 03/14/17 12:27 Dose: 200 mls/hr Sodium Chloride (Ns 0.9% 1000 Ml*) 1,000 mls @ 100 mls/hr IV PER RATE [facility] Omeprazole (Prilosec Cap*) 20 mg PO DAILY@0730 [facility] Last Admin: 03/14/17 07:50 Dose: 20 mg Ondansetron HCl (Zofran Inj*) 4 mg IV Q6H PRN PRN Reason: NAUSEA Last Admin: 03/14/17 15:47 Dose: 4 mg Oxycodone HCl (Roxycodone Tab*) 5 mg PO Q4H PRN PRN Reason: PAIN Potassium Chloride (Klor Con Er Tab*) 20 meq PO DAILY [facility] Last Admin: 03/14/17 09:00 Dose: 20 meq Rifampin (Rifampin Cap*) 300 mg PO BID [facility] Last Admin: 03/14/17 08:58 Dose: 300 mg Warfarin Sodium (Coumadin Tab(*)) 3 mg PO DAILY@1700 ANTONIO PRN Reason: Protocol Last Admin: 03/14/17 16:32 Dose: 3 mg Vital Signs - 8 hr 03/14/17 03/14/17 12:09 15:25 Temperature 98.2 F 98.2 F Pulse Rate 84 63 Respiratory 18 16 Rate Blood Pressure 142/55 124/31 (mmHg) O2 Sat by Pulse 98 97 Oximetry Oxygen Devices in Use Now: None Appearance: Elderly female seen sitting up in bed, NAD Eyes: No Scleral Icterus Ears/Nose/Mouth/Throat: Mucous Membranes Moist Respiratory: Symmetrical Chest Expansion and Respiratory Effort, Clear to Auscultation Cardiovascular: NL Sounds; No Murmurs; No JVD, RRR, No Edema Abdominal: NL Sounds; No Tenderness; No Distention Extremities: No Clubbing, Cyanosis Skin: No Nodules or Sclerosis, - - R shoulder wound appear to be well healed, no erythema Neurological: Alert and Oriented x 3 Result Diagrams: 03/14/17 02:45 03/14/17 11:55 Microbiology and Other Data: Microbiology 03/13/17 19:50 Influenza Types A,B Antigen (ANY) - Final Nasopharyngeal Specimen received for Influenza A/B Molecular testing Assess/Plan/Problems-Billing Ms Moreno is an 81 yo F who has a h/o R prosthetic shoulder infection, afib, HTN and depression who presented to the ER with c/o LOC episode with shaking after having sutures removed. - Patient Problems (1) Syncope, convulsive Current Visit: Yes Status: Acute Code(s): R55 - SYNCOPE AND COLLAPSE SNOMED Code(s): 511817864 Comment: The patient sounds to have had syncope with convusion likely secondary to volume depletion and vagal response to having her stitches removed. Echo shows a normal EF. EEG negative by report. No further work up. (2) Hyponatremia Current Visit: Yes Status: Acute Code(s): E87.1 - HYPO-OSMOLALITY AND HYPONATREMIA SNOMED Code(s): 79688725 Comment: The patient has been hyponatremic in the past. I question if her poor appetite has been leading to volume depletion which in turn has led to the hyponatremia. Continue NS hydration and repeat labs tomorrow. (3) Septic joint of right shoulder region Current Visit: Yes Status: Acute Code(s): M00.9 - PYOGENIC ARTHRITIS, UNSPECIFIED SNOMED Code(s): 13878040 Comment: Continue ancef and rifampin. Dr. Cunha and Dr. Jackson to see the patient tomorrow. I question if the rifampin is leading to her appetite suppression. (4) Atrial fibrillation Current Visit: Yes Status: Acute Code(s): I48.91 - UNSPECIFIED ATRIAL FIBRILLATION SNOMED Code(s): 11310806 Comment: HR is controlled. Continue atenolol and digoxin. INR is therapeutic- continue current dose of synthroid. (5) HTN (hypertension) Current Visit: Yes Status: Acute Code(s): I10 - ESSENTIAL (PRIMARY) HYPERTENSION SNOMED Code(s): 70666627 Comment: BP is under control. Continue atenolol. (6) DVT prophylaxis Current Visit: Yes Status: Acute Code(s): GNG4354 - SNOMED Code(s): 624605247 Comment: therapeutic INR (7) DNR (do not resuscitate) Current Visit: Yes Status: Acute
[2017-03-15] MEDS: ceFAZolin 1 GM VIAL(*) 1 GM in NS 0.9% 50 ML* 50 ML IVPB SCH ×3 (04:01→21:56)
--- NOTE | 2017-03-15 04:06 | EEG ---
ELECTROENCEPHALOGRAM REPORT: DATE OF STUDY: 03/14/17 - ROOM #448 REFERRING PROVIDER: Juan Antonio Dang NP LOCATION: She is an inpatient. CLINICAL HISTORY: Episode of shaking and unresponsiveness the day before this recording. MEDICATIONS: Include: 1. Warfarin. 2. Oxycodone. 3. Digoxin. 4. Citalopram. 5. Cefazolin. 6. Atorvastatin. REPORT: This 16-channel EEG is remarkable for a background rhythms consisting of an alpha rhythm in the occipital derivations at about 8 test cycles per second. There is abundant beta rhythm seen centrally and bifrontally. There is intermittent theta slowing in the temporal regions and delta slowing in the vertex regions. There is an irregular cardiac rhythm on the EKG lead. Activation procedures are not attempted. The patient appears to drowse with a central slowing and some vertex sharp activity, but does not clearly enter stage II sleep. There are no focal, lateralized, or epileptiform abnormalities. CLINICAL IMPRESSION: Normal awake and drowsy EEG. [id number]/[facility] #: [id number] [facility]
[2017-03-15] MEDS: Ondansetron INJ* 2 MG/ML VIAL IV PRN ×2 (06:09→23:16)
[2017-03-15 07:34] LABS: Hematocrit 23 % (35-47); Mean Corpuscular HGB Conc 35 g/dl (31-36); Mean Corpuscular Hemoglobin 30 pg (27-31); Mean Corpuscular Volume 86 fL (80-97); Mean Platelet Volume 8 um3 (7.4-10.4); Platelet Count 239 10^3/ul (150-450); Red Blood Count 2.69 10^6/ul (4.0-5.4); Red Cell Distribution Width 15 % (10.5-15); White Blood Count 5.2 10^3/ul (3.5-10.8)
[2017-03-15] MEDS: Omeprazole CAP* 20 MG PO SCH (07:37)
[2017-03-15] MEDS: NS 0.9% 1000 ML* 1,000 ML IV SCH ×4 (07:39→23:10)
[2017-03-15 07:41] LABS: EGFR Non-African American 87.5 (>60)
[2017-03-15] MEDS: Atenolol TAB* 25 MG PO SCH (09:00)
[2017-03-15] MEDS: RiFAMPin CAP* 300 MG CAP PO SCH ×2 (09:00→21:57)
[2017-03-15] MEDS: Digoxin TAB* 0.125 MG PO SCH (09:00)
[2017-03-15] MEDS: Atorvastatin* 20 MG TAB PO SCH (09:00)
[2017-03-15] MEDS: Docusate CAP* 100 MG PO SCH ×2 (09:00→21:57)
[2017-03-15] MEDS: Potassium Chlor TAB* 20 MEQ TAB.ER PO SCH (09:01)
[2017-03-15] MEDS: Citalopram TAB* 10 MG PO SCH (09:01)
[2017-03-15] MEDS: Warfarin TAB(*) 3 MG PO SCH (16:23)
--- NOTE | 2017-03-15 18:42 | PN ---
Subjective Date of Service: 03/15/17 Interval History: Feels good. Sitting up in chair. No lightheadedness, dizziness, falls, or syncope. No cough, sob, chest pain. Eating well. Walking to the bathroom. Family History: Unchanged from Admission Social History: Unchanged from Admission Past Medical History: Unchanged from Admission Objective Active Medications: Acetaminophen (Tylenol Tab*) 650 mg PO Q4H PRN PRN Reason: FEVER/PAIN Atenolol (Tenormin Tab*) 25 mg PO DAILY [facility] Last Admin: 03/15/17 09:00 Dose: 25 mg Atorvastatin Calcium (Lipitor*) 20 mg PO DAILY [facility] Last Admin: 03/15/17 09:00 Dose: 20 mg Citalopram Hydrobromide (Celexa Tab*) 10 mg PO DAILY [facility] PRN Reason: Protocol Last Admin: 03/15/17 09:01 Dose: 10 mg Digoxin (Lanoxin Tab*) 0.125 mg PO DAILY [facility] Last Admin: 03/15/17 09:00 Dose: 0.125 mg Docusate Sodium (Colace Cap*) 200 mg PO BID [facility] Last Admin: 03/15/17 09:00 Dose: 200 mg Heparin Sodium (Porcine) (Heparin Flush Picc/Ml/Cvc(*)) 1 - 3 ml FLUSH 0600, 1800 [facility] PRN Reason: Protocol Last Admin: 03/15/17 06:12 Dose: Not Given Cefazolin Sodium 1 gm/ Sodium (Chloride) 50 mls @ 200 mls/hr IVPB Q8H [facility] Last Admin: 03/15/17 12:53 Dose: 200 mls/hr Sodium Chloride (Ns 0.9% 1000 Ml*) 1,000 mls @ 175 mls/hr IV PER RATE [facility] Last Admin: 03/15/17 16:44 Dose: 175 mls/hr Omeprazole (Prilosec Cap*) 20 mg PO DAILY@0730 [facility] Last Admin: 03/15/17 07:37 Dose: 20 mg Ondansetron HCl (Zofran Inj*) 4 mg IV Q6H PRN PRN Reason: NAUSEA Last Admin: 03/15/17 06:09 Dose: 4 mg Oxycodone HCl (Roxycodone Tab*) 5 mg PO Q4H PRN PRN Reason: PAIN Potassium Chloride (Klor Con Er Tab*) 20 meq PO DAILY [facility] Last Admin: 03/15/17 09:01 Dose: 20 meq Rifampin (Rifampin Cap*) 300 mg PO BID [facility] Last Admin: 03/15/17 09:00 Dose: 300 mg Warfarin Sodium (Coumadin Tab(*)) 3 mg PO DAILY@1700 [facility] PRN Reason: Protocol Last Admin: 03/15/17 16:23 Dose: 3 mg Vital Signs - 8 hr 03/15/17 11:17 Pulse Rate 84 Respiratory 18 Rate Blood Pressure 121/77 (mmHg) O2 Sat by Pulse 99 Oximetry Oxygen Devices in Use Now: None Appearance: thin, no distress, well appearing Eyes: No Scleral Icterus, PERRLA Ears/Nose/Mouth/Throat: NL Teeth, Lips, Gums Neck: NL Appearance and Movements; NL JVP Respiratory: Symmetrical Chest Expansion and Respiratory Effort, Clear to Auscultation Cardiovascular: NL Sounds; No Murmurs; No JVD, RRR Abdominal: NL Sounds; No Tenderness; No Distention Lymphatic: No Cervical Adenopathy Extremities: No Edema Skin: No Rash or Ulcers Result Diagrams: 03/15/17 07:02 03/15/17 04:02 Microbiology and Other Data: Microbiology 03/13/17 19:50 Influenza Types A,B Antigen (ANY) - Final Nasopharyngeal Specimen received for Influenza A/B Molecular testing Assess/Plan/Problems-Billing Ms Moreno is an 81 yo F who has a h/o R prosthetic shoulder infection, afib, HTN and depression who presented to the ER with c/o LOC episode with shaking after having sutures removed. 1. Syncope. thought to be 2/2 volume depletion vs. vasovagal. 2. Hyponatremia, chronic hypovolemic. Correcting slowly with NS. No neurologic effects 3. septic r shoulder diagnosed in february; continue abx per last discharge. 4. Afib controlled on atenolol and digoxin
[2017-03-16] MEDS: NS 0.9% 1000 ML* 1,000 ML IV SCH (04:51)
[2017-03-16] MEDS: ceFAZolin 1 GM VIAL(*) 1 GM in NS 0.9% 50 ML* 50 ML IVPB SCH ×2 (04:54→12:10)
[2017-03-16] MEDS: Ondansetron INJ* 2 MG/ML VIAL IV PRN (05:30)
[2017-03-16 06:36] LABS: ABS Basophils 0 10^3/ul (0-0.2); ABS Eosinophils 0.8 10^3/ul (0-0.6); ABS Lymphocytes 0.7 10^3/ul (1.0-4.8); ABS Monocytes 0.5 10^3/ul (0-0.8); ABS Neutrophils 4.2 10^3/ul (1.5-7.7); ABS Nucleated RBC 0 10^3/ul; Eosinophil % 12.6 % (0-6); Hematocrit 25 % (35-47); Hemoglobin 8.3 g/dl (12.0-16.0); Lymphocyte % 11.7 % (25-47); Mean Corpuscular HGB Conc 33 g/dl (31-36); Mean Corpuscular Hemoglobin 29 pg (27-31); Mean Corpuscular Volume 86 fL (80-97); Mean Platelet Volume 8 um3 (7.4-10.4); Nucleated Red Blood Cells % 0; Platelet Count 249 10^3/ul (150-450); Red Blood Count 2.87 10^6/ul (4.0-5.4); Red Cell Distribution Width 15 % (10.5-15); White Blood Count 6.2 10^3/ul (3.5-10.8)
[2017-03-16 06:52] LABS: EGFR Non-African American 87.5 (>60)
[2017-03-16] MEDS: Atenolol TAB* 25 MG PO SCH (08:50)
[2017-03-16] MEDS: Digoxin TAB* 0.125 MG PO SCH (08:51)
[2017-03-16] MEDS: RiFAMPin CAP* 300 MG CAP PO SCH (08:51)
[2017-03-16] MEDS: Potassium Chlor TAB* 20 MEQ TAB.ER PO SCH (08:51)
[2017-03-16] MEDS: Omeprazole CAP* 20 MG PO SCH (08:52)
[2017-03-16] MEDS: Atorvastatin* 20 MG TAB PO SCH (08:52)
[2017-03-16] MEDS: Citalopram TAB* 10 MG PO SCH (08:52)
[2017-03-16] MEDS: Docusate CAP* 100 MG PO SCH (08:58)
[2017-03-16 12:01] VITALS: BP 153/73
--- NOTE | 2017-03-17 14:29 | PN ---
Subjective Date of Service: 03/16/17 Interval History: Patient states that she is feeling better. Denies N/V/D. Denies Shortness of breath or chest pain. Denies dizziness Family History: Unchanged from Admission Social History: Unchanged from Admission Past Medical History: Unchanged from Admission Objective Oxygen Devices in Use Now: None Appearance: appears well, sitting chair , appears comfortable Ears/Nose/Mouth/Throat: Clear Oropharnyx, Mucous Membranes Moist Neck: NL Appearance and Movements; NL JVP, Trachea Midline Respiratory: Symmetrical Chest Expansion and Respiratory Effort, Clear to Auscultation Cardiovascular: NL Sounds; No Murmurs; No JVD, RRR, No Edema Abdominal: NL Sounds; No Tenderness; No Distention Extremities: No Edema, No Clubbing, Cyanosis, - - healing right shoulder surgical incision, no redness or drainage Skin: No Rash or Ulcers Neurological: Alert and Oriented x 3, NL Gait, NL Muscle Strength and Tone Nutrition: Taking PO's Result Diagrams: 03/16/17 06:00 03/16/17 06:04 Microbiology and Other Data: Microbiology 03/13/17 19:50 Influenza Types A,B Antigen (ANY) - Final Nasopharyngeal Specimen received for Influenza A/B Molecular testing Assess/Plan/Problems-Billing Ms Moreno is an 81 yo F who has a h/o R prosthetic shoulder infection, afib, HTN and depression who presented to the ER with c/o LOC episode with shaking after having sutures removed. 1. Syncope. thought to be 2/2 volume depletion vs. vasovagal. 2. Hyponatremia, chronic hypovolemic. Correcting slowly with NS. No neurologic effects 3. septic r shoulder diagnosed in february; continue abx per last discharge. 4. Afib controlled on atenolol and digoxin digoxin level 0.8 - Patient Problems (1) Atrial fibrillation Status: Acute Code(s): I48.91 - UNSPECIFIED ATRIAL FIBRILLATION SNOMED Code( s): 63738072 Comment: HR is controlled. Continue atenolol and digoxin. INR is therapeutic- continue current dose of synthroid. (2) HTN (hypertension) Status: Acute Code(s): I10 - ESSENTIAL (PRIMARY) HYPERTENSION SNOMED Code(s) : 74040770 Comment: BP is under control. Continue atenolol. (3) Hyponatremia Status: Acute Code(s): E87.1 - HYPO-OSMOLALITY AND HYPONATREMIA SNOMED Code( s): 48938049 Comment: The patient has been hyponatremic in the past. I question if her poor appetite has been leading to volume depletion which in turn has led to the hyponatremia. Continue NS hydration and repeat labs tomorrow. hyponatremia is improving- will repeat BMP on sunday (4) Syncope, convulsive Status: Acute Code(s): R55 - SYNCOPE AND COLLAPSE SNOMED Code(s): 654419034 Comment: The patient sounds to have had syncope with convusion likely secondary to volume depletion and vagal response to having her stitches removed. Echo shows a normal EF. EEG negative by report. No further work up. Status and Disposition: Will be discharged back to [facility]
--- NOTE | 2017-03-17 23:29 | DS ---
DISCHARGE SUMMARY: DATE OF ADMISSION: 03/13/17 DATE OF DISCHARGE: 03/16/17 PRIMARY CARE PROVIDER: Dr. Hastings. ATTENDING PHYSICIAN WHILE IN THE HOSPITAL: Dr. Hailey Paredes * (dictated by Glenda York NP). PRIMARY DIAGNOSES: 1. Syncope. 2. Hyponatremia. SECONDARY DIAGNOSES: 1. Atrial fibrillation. 2. Hypertension. 3. Hyperlipidemia. 4. Gastroesophageal reflux disease. 5. Osteoarthritis. 6. Depression. 7. Recent septic right shoulder, status post linear replacement and washout with Dr. Jackson. STUDIES WHILE IN THE HOSPITAL: She had a CT of her abdomen and pelvis on 03/13/17. Radiologist impression: 1. Small bilateral pleural effusions. 2. Old granulomatous disease. 3. Palpable uterine fibroid (leiomyoma). She had a chest x-ray on 03/13/17. Radiologist impression: Small bibasilar infiltrates and trace pleural effusion improved from prior study. On 03/13/17, she had a CT of the brain. Radiologist impression: Cortical atrophy with chronic microvascular ischemic changes. No acute intracranial findings. Mild chronic sinusitis. She had an electroencephalogram on 03/14/17. Clinical impression: Normal awake and drowsy EEG. DISCHARGE MEDICATIONS: There are no new medications. Continued medications: 1. Atenolol 25 mg p.o. daily. 2. Atorvastatin 20 mg p.o. daily. 3. Benzonatate 100 mg p.o. b.i.d. as needed for cough. 4. Calcium carbonate 1250 mg p.o. daily. 5. Cefazolin IV 1 g q.8 hours, next dose is due at 2100. 6. Digoxin 0.125 p.o. daily. 7. Docusate 200 mg p.o. b.i.d. 8. Lexapro 5 mg p.o. daily. 10. Heparin flush 1 to 3 mL flush b.i.d. 11. Omeprazole 20 mg p.o. daily. 12. Oxycodone 5 mg q.4 hours as needed for pain. 13. Potassium 20 mEq p.o. daily. 14. Rifampin 300 mg b.i.d. 15. Warfarin 3 mg p.o. daily. HISTORY OF PRESENT ILLNESS AND HOSPITAL COURSE: Ms. Moreno is an 81-year-old female who recently was here for an infected hardware of her right shoulder from the right shoulder replacement. She comes in today stating that she was at Dr. Jackson's office for routine followup. When she was there getting ready to finish taking out her sutures and nurse had stepped out and according to the daughter the patient stated that she started feeling lightheaded and then the daughter said that she was staring off. She had the glassed eye look and hand started shaking. It lasted approximately 1 to 2 minutes. She states that the patient afterwards did take a little bit of time before she came back to baseline. The patient does not remember the event at all. She only remembers the nurse coming back in the room and prior to that feeling slightly lightheaded. She has been taking IV antibiotics for recent infected hardware. She has been here and was sent to [facility] for a 42- day course of IV Ancef. She has been doing well there and this was just a routine followup with Dr. Jackson. While in the emergency room, she had no reports of abdominal pain. She just had some nausea and vomiting. She had some routine lab work done in the emergency room with CBC and BMP. She was found to be hyponatremic with a sodium level of 123. She continues to be anemic. Initial H and H was 8.7 and 26. On discharge of 03/15/17, H and H was 8.3 and 25. On 02/28/17, her hemoglobin was 8.3, hematocrit on 02/28/17 was 24, her hematocrit since to 03/16/17 has ranged from 23 to 33. The highest being on 02/12/17 when her hematocrit was 33. On initial lab work, her sodium was 123, her repeat sodium on 03/16/17 was 128. She has been hyponatremic since 02/27/17. Potassium on discharge today was 4.0, chloride was 103, carbon dioxide was 17, BUN was 6 and creatinine was 0.65. Urine on 03/23/17 was yellow and clear, pH was 7, specific gravity was 1.009. Urine protein was 1+. Urine ketones were negative. Blood was negative. Nitrites were negative. Bilirubin and urobilinogen were negative. Urine leukocyte esterase was negative. Urine wbc's were absent, rbc's were absent, squamous epithelial cells were present and bacteria was absent. Her digoxin level was 0.8. Her INR on 03/16/17 was 3.0, which is therapeutic. While in the hospital, she had a CT of her brain, chest x-ray, CT of the abdomen and pelvis and an EEG, which were all negative. She will be placed back on her previous medications and discharged back to [facility]. Ms. Moreno is stable for discharge back to [facility] today. Vital signs are as follows. Temp was 98.5 orally. Heart rate was 106, respirations are 18, O2 sat was 100% on room air, blood pressure 153/73. DISCHARGE PLAN: Ms. Moreno will be discharged back to [facility]. Activity as tolerated. She should keep the right shoulder healing incision clean and dry. Wash with mild soap and water. She does not need the dressing and watch for signs of infection, redness, swelling or drainage from the incision site. Ms. Moreno will need a repeat CBC and BMP on Sunday. She can continue all of her meds prior to admission. Continue PT and OT as prior to admission. Encouraged oral intake of fluid and foods. Keep her wound clean and dry to her right shoulder. Watch for signs of infection. Continue the cefazolin IV as ordered. Keep her followup appointment with Dr. Cunha as scheduled and keep a followup appointment with her primary care provider that is on 03/20/17. She should have the repeat blood work prior to this followup. This is a summarized report of her hospitalization. For further details, please see the entire medical records. TIME SPENT: Time spent on this discharge was approximately 60 minutes. Greater than half that time was spent with the patient and her daughter discussing discharge plans and instructions. CONDITION AT DISCHARGE: Stable. GLENDA SUE, KIRSTIE [id number]/CPS #: [id number] SUZANNA
== END 2017-03-16 14:22 | DRG 312 ==
LOC: ED 12:41 → MEDTELE 19:11 → OBSVTOIN 03-14 10:00
PROVIDERS: ADMIT Pediatrics; ATTEND Internal Medicine
PROC: 4A00X4Z Measurement of Central Nervous Electrical Activity, External Approach (ICD-10-PCS; principal; 2017-03-14)
DX: R55 Syncope and collapse (principal); J90 Pleural effusion, not elsewhere classified; T84.59XA Infection and inflammatory reaction due to other internal joint prosthesis, initial encounter; E87.1 Hypo-osmolality and hyponatremia; I48.2 Chronic atrial fibrillation; D71 Functional disorders of polymorphonuclear neutrophils; D64.9 Anemia, unspecified; E78.5 Hyperlipidemia, unspecified; D25.9 Leiomyoma of uterus, unspecified; F32.9 Major depressive disorder, single episode, unspecified; I10 Essential (primary) hypertension; K21.9 Gastro-esophageal reflux disease without esophagitis; M19.90 Unspecified osteoarthritis, unspecified site; Z96.653 Presence of artificial knee joint, bilateral; M35.3 Polymyalgia rheumatica; Z96.611 Presence of right artificial shoulder joint; Z66 Do not resuscitate; J32.9 Chronic sinusitis, unspecified; R11.2 Nausea with vomiting, unspecified; Z98.49 Cataract extraction status, unspecified eye; Z72.89 Other problems related to lifestyle; Z79.01 Long term (current) use of anticoagulants
CPT/HCPCS: 36415; 70450; 71045; 74177; 80048; 80053; 80162; 81003; 81015; 82533; 82570; 83605; 83690; 83735; 83930; 83935; 84300; 84443; 84484; 85025; 85027; 85610; 85730; 87040; 87502; 93005; 93306; 95819; 99285; A9270-GY; G0378; J0690; J2405; J3475; Q9967

== ENCOUNTER 2019-06-24 14:18 | Inpatient (IN) | payer MEDICARE ==
--- NOTE | 2019-06-24 14:23 | ED ---
HPI Chest Pain - HPI Summary HPI Summary: 83 y/o F with hx atrial fibrillation brought in by EMS c/o an episode of mid sternal chest pain and SOB after walking short distance on Wednesday 06/21. Patient had to sit down. This episode lasted for several hours. She has never experienced these symptoms before. She thought it was related to GI because she was having gas. She hasn't had another episode since. Had blood drawn yesterday which showed elevated troponin. She had EKG done today with Dr. Monroe which showed T wave inversions in leads 1, aVL, V2 with ST elevations in V1 and V2 which are new compared to prior from 05/06/19. EMS was called and patient was given aspirin. Hx A fib which is usually controlled. Per EMS, patient was on Xarelto up until a year ago when she had GI bleed and was never put back on anticoagulants. Medications reviewed. - History of Current Complaint Hx Obtained From: Patient, EMS Onset/Duration: Resolved Timing: Constant, Lasting Hours Chest Pain Location: Mid Sternal Aggravating Factor(s): Nothing Alleviating Factor(s): Rest Associated Signs and Symptoms: Positive: Shortness of Breath - Additional Pertinent History Primary Care Physician: [id number] - Allergy/Home Medications Allergies/Adverse Reactions: Allergies Allergy/AdvReac Type Severity Reaction Status Date / Time No Known Drug Allergies Allergy See Comment Verified 06/24/19 14:37 SEASONAL ALLERGIES Allergy Unknown Uncoded 06/24/19 14:37 Reaction Details Home Medications: Home Medications Atorvastatin* [Lipitor 20 MG*] 20 mg PO BEDTIME 07/21/13 [History Confirmed ] Ascorbic Acid TAB* [Vitamin C TAB*] 500 mg PO DAILY 06/24/19 [History Confirmed 06/24/19] Calcium Carbonate [Calcium] 500 mg PO DAILY 06/24/19 [History Confirmed 06/24/19 ] Lisinopril TAB* [Prinivil TAB 5 MG*] 5 mg PO DAILY 06/24/19 [History Confirmed 06/24/19] Metoprolol Succinate XL TAB* [Toprol XL TAB*] 25 mg PO BID 06/24/19 [History Confirmed 06/24/19] Multivitamins/Minerals TAB* [Theragran/minerals TAB*] 1 tab PO DAILY 06/24/19 [ History Confirmed 06/24/19] PMH/Surg Hx/FS Hx/Imm Hx Cardiovascular History: Reports: Hx Atrial Fibrillation, Hx Coronary Artery Disease, Hx Hypercholesterolemia, Hx Hypertension, Other Cardiovascular Problems /Disorders - IRREGULAR HR Denies: Hx Pacemaker/ICD Respiratory History: Denies: Hx Asthma, Hx Chronic Obstructive Pulmonary Disease (COPD) GI History: Reports: Hx Gastroesophageal Reflux Disease Musculoskeletal History: Reports: Hx Arthritis, Other Musculoskeletal History - OA Sensory History: Reports: Hx Contacts or Glasses - Reading glasses, Hx Hearing Aid, Hx Hearing Problem - Pt does not have hearing aids currently. Denies: Hx Cataracts, Hx Eye Injury, Hx Eye Prosthesis, Hx Glaucoma, Hx Legally Blind, Hx Macular Degeneration, Hx Vision Problem, Hx Deafness, Other Sensory Impairments Opthamlomology History: Reports: Hx Contacts or Glasses - Reading glasses Denies: Hx Cataracts, Hx Eye Injury, Hx Eye Prosthesis, Hx Glaucoma, Hx Legally Blind, Hx Macular Degeneration, Hx Vision Problem, Other Sensory Impairments Psychiatric History: Reports: Hx Anxiety - ON MED - Surgical History Surgical History: Yes Surgery Procedure, Year, and Place: 2006 LEFT KNEE REPLACEMENT [facility]. [address] [facility]. 2012 LEFT EYE CATARACT REMOVAL- [place] Hx Anesthesia Reactions: No - Family History Family History: breast cancer - Social History Alcohol Use: Rare Alcohol Amount: 1 DRINK A WEEK Hx Substance Use: No Substance Use Type: Reports: None Hx Tobacco Use: No Smoking Status (MU): Never Smoked Tobacco Have You Smoked in the Last Year: No Review of Systems Positive: Chest Pain Positive: Shortness Of Breath All Other Systems Reviewed And Are Negative: Yes Physical Exam - Summary Physical Exam Summary: Constitutional: Well-developed, Well-nourished, Alert. (-) Distressed Skin: Warm, Dry HENT: Normocephalic; Atraumatic Eyes: Conjunctiva normal Neck: Musculoskeletal ROM normal neck. (-) JVD, (-) Stridor, (-) Nuchal rigidity Cardio: Rhythm irregularly irregular, tachycardic, Heart sounds normal; Intact distal pulses; Radial pulses are 2+ and symmetric. (-) Murmur Pulmonary/Chest wall: Effort normal. (-) Respiratory distress, (-) Wheezes, (-) Rales Abd: Soft, (-) tenderness, (-) Distension, (-) Guarding, (-) Rebound Musculoskeletal: (-) Edema Lymph: (-) Cervical adenopathy Neuro: Alert, Oriented x3 Psych: Mood and affect Normal Triage Information Reviewed: Yes Vital Signs Reviewed: Yes Procedures - Sedation Patient Received Moderate/Deep Sedation with Procedure: No Diagnostics - Laboratory Result Diagrams: 06/24/19 14:45 06/24/19 14:45 Lab Statement: Any lab studies that have been ordered have been reviewed, and results considered in the medical decision making process. - Radiology CXR Radiology Interpretation Completed By: Radiologist - NO ACTIVE CARDIOPULMONARY DISEASE. ED physician has reviewed this imaging report. - EKG 1301 Cardiac Rate: Tachycardia - 105 BPM EKG Comparison: Other - 05/06/19 Summary of EKG Findings: An EKG at 1301 reveals irregularly irregular 105 BPM. T wave inversions in leads 1, aVL, V2 with ST elevations in V1 and V2 which are new compared to prior 05/06/19. ED physician has reviewed and interpreted this EKG. 1427 Cardiac Rate: NL - 93 BPM EKG Rhythm: Atrial Fibrillation EKG Comparison: Other - 1301 today 06/24/19 Summary of EKG Findings: An EKG at 1427 reveals atrial fibrillation 93 BPM. T wave inversions in lead 3 which are new from 1301 today 06/24/19. ED physician has reviewed and interpreted this EKG. Re-Evaluation - Re-Evaluation First Eval Re-Evaluation Time: 15:16 - aware of troponin 6.16 Chest Pain Course/Dx - Course Course Of Treatment: 83 y/o F w hx afib and HTN p/w episode of CP now resolved. - EKG w new TWI and mild ST dep anterior leads. Troponon 13-->6. Likely NSTEMI. Placed on heparin. Cardiology consulted. Will cath tmrw. - admit to medicine - Diagnoses Provider Diagnoses: Chest pain, NSTEMI (non-ST elevated myocardial infarction) - Provider Notifications Discussed Care Of Patient With: Jr Staples - Recommends heparin and admission, and states cardiology will cath her tomorrow. 1500 Dr. Paredes accepts the patient. Time Discussed With Above Provider: 14:40 - Critical Care Time Critical Care Time: 30-74 min - Upon my evaluation, this patient had a high probability of imminent or life-threatening deterioration due to NSTEMI which required my direct attention, intervention, and personal management. I have personally provided 35 minutes of critical care time exclusive of time spent on separately billable procedures. Time includes review of laboratory data, radiology results, discussion with consultants, and monitoring for potential decompensation. Interventions were performed as documented above. Critical Care Statement: Critical care time is provided exclusive of any time spent performing procedures. Discharge ED - Sign-Out/Discharge Documenting (check all that apply): Patient Departure - Discharge Plan Condition: Stable Disposition: ADMITTED TO [facility] Referrals: Ashish Land NP [Primary Care Provider] - - Billing Disposition and Condition Condition: STABLE Disposition: Admitted to [facility] - Attestation Statements Document Initiated by Scribe: Yes Documenting Scribe: Loraine Rose Provider For Whom Finn is Documenting (Include Credential): Nel Pickard MD Scribe Attestation: ILoraine, scribed for Nel Pickard MD on 06/24/19 at 1517. Scribe Documentation Reviewed: Yes Provider Attestation: The documentation as recorded by the scribeLoraine accurately reflects the service I personally performed and the decisions made by me, Nel Pickard MD Status of Scribe Document: Viewed
[2019-06-24] MEDS ORDERED: Heparin DRIP 25,000 UNITS(*) 25,000 UNITS/500 ML BAG IV SCH (14:45)
--- OUTSIDE RECORDS SUMMARY | 2019-06-24 14:54 | XMS REPORT | Continuity of Care Document ---
:1935 External Reference #:[id number] Author Name Christine Riojas M.D., FACP Address [address], [place] [address] Care Team Providers Name Role Phone Ney Parra III, MD - Internal Care Team Information Gallery Director Medicine Baltazar Monroe MD - Cardiovascular Care Team Information Gallery Director [phone] Disease Ashish Land NP - Internal Medicine Care Team Information Gallery Director Problems Active Problems Provider Date Staphylococcus aureus Martha Jackson MD Onset: 04/13/2017 Prosthetic arthroplasty of shoulder Martha Jackson MD Onset: 04/13/2017 Infection and inflammatory reaction due to Martha Jackson MD Onset: 04/13/2017 other internal joint prosthesis, subsequent encounter Chronic atrial fibrillation Ney Parra M.D. Onset: 05/01/2017 Personal history of other infectious and Martha Jackson MD Onset: 02/19/2018 parasitic diseases Neck pain Ethan Garcia MD Onset: 01/02/2019 Immunization Ethan Garcia MD Onset: 01/02/2019 Polymyalgia rheumatica Ethan Garcia MD Onset: 01/02/2019 Paroxysmal atrial fibrillation Ethan Garcia MD Onset: 01/02/2019 Iron deficiency anemia Ethan Garcia MD Onset: 01/02/2019 Cardiomyopathy, unspecified Ethan Garcia MD Onset: 01/02/2019 Social History Type Date Description Comments Sex Unknown ETOH Use Rarely consumes alcohol Tobacco Use Start: Unknown Patient has never smoked Recreational Drug Use 11/27/2018 Denies Drug Use Smoking Status Reviewed: 05/06/19 Patient has never smoked Exercise Type/Frequency Exercises regularly daily stretching walks on weekends Allergies, Adverse Reactions, Alerts Active Allergies Reaction Severity Comments Date Rifampin rash w/ rifampin and keflex 04/17/2017 Doxycycline rash 10/23/2017 Inactive Allergies NKDA 02/23/2016 Medications Active Medications SIG Qnty Indications Ordering Date Provider Mometasone Furoate 2 sprays each 51gm J06.9 Ashish Land NP 01/29/2019 nostril once daily 50mcg/Act Suspension Loratadine once a day for 30caps J30.89 Ashish Land NP 01/29/2019 10mg allergies Capsules Atorvastatin Calcium Take 1 Tablet By 90tabs Ashish Land NP Mouth AT Bedtime 20mg Tablets Multi 1 tablet by mouth Unknown Vitamin/Minerals Full daily Spectrum Tablets Calcium +Vit D3 1 by mouth every Unknown 500mg day Ondansetron dissolve 1 tablet 30tabs Shama Walker, 4mg Tablets on tongue every 6 M.D. Dispers hours if needed for nausea/vomiting Lisinopril 1 by mouth every 90tabs Ney Vazquez 5mg Tablets day at bedtime Leon Parra Metoprolol Succinate 1 tablet by mouth 90tabs Ashish Land NP ER twice daily. check 25mg Tablets ER 24HR heart rate if less than 60 call doctor to clarify if you should take dose. History Medications Amoxicillin/Clavulanate one tablet 20tabs J01.90 Fauzia Reyez, 2019 - Potassium by mouth N.P. 04/14/2019 875-125mg Tablets twice daily for 10 days Immunizations CPT Code Status Date Vaccine Reaction Lot # [id number] Given 01/02/2019 Fluad (65+) or older flu shot tolerated well, no [id number] vacc immediate reaction 85298 Given 01/28/2018 Tdap - [id number] Tetanus/Diptheria/Acellular Pertussis 45253 Given 01/28/2018 Pneumococcal Conjugate [id number] Vaccine 13 Valent For Intramuscular Use 14288 Given 12/25/2017 Influenza Virus Vaccine, [id number] Quadrivalent, Split, Preservative Free 22402 Given 03/05/2014 Tetanus And Diptheria (Td) For Adult Use Preservative Free Vital Signs Date Vital Result Comment 05/06/2019 11:11am Height 58.5 inches 4'10.50" Weight 127.06 lb Heart Rate 90 /min Radial,regular BP Systolic Sitting 122 mmHg LA, reg cuff BP Diastolic Sitting 68 mmHg LA, reg cuff BP Systolic Standing 126 mmHg LA,reg cuff BP Diastolic Standing 70 mmHg LA,reg cuff BMI (Body Mass Index) 26.1 kg/m2 Ejection Fraction 40%-45% Echo 12/13/18 04/04/2019 12:01pm Height 58.5 inches 4'10.50" Weight 126.25 lb Heart Rate 101 /min BP Systolic Sitting 124 mmHg BP Diastolic Sitting 84 mmHg Body Temperature 98.2 F O2 % BldC Oximetry 98 % BMI (Body Mass Index) 25.9 kg/m2 Results Test Acquired Date Facility Test Result H/L Range Note Laboratory test 01/02/2019 [facility] Erythrocyte Sed 58 mm/Hr High 0-[address] [place] [address] [phone] C Reactive Protein 5.80 mg/L Normal <8.01 Procedures Date Code Description Status 05/06/2019 17342 EKG Tracing & Interpretation Completed 03/13/2019 92075 Holter Monitor Review (24 hr) review & interp only Completed 03/10/2019 46471 ECG Monitor/Recording W/Visual Superimposition Completed Scanning 01/01/2019 42534 Holter Monitor Review (24 hr)dr buck & interp only Completed 12/31/2018 76925 ECG Monitor/Recording W/Visual Superimposition Completed Scanning 10/24/2018 [id number] Colonoscopy Completed 02/07/2018 [id number] Bone Mineral Density Test Completed 02/07/2018 [id number] Mammogram Completed 12/22/2014 386016716 Bone Mineral Density Test Completed Medical Devices Description No Information Available Encounters Type Date Location Provider Dx Diagnosis Office Visit 06/23/2019 [facility] Christine Riojas, R07.9 Chest pain, 11:30a Medicine - Sridhar Quintero, FACP unspecified Office Visit 05/06/2019 [facility] Baltazar Sidhu I42.9 Cardiomyopathy , 11:20a Leon Monroe unspecified I48.0 Paroxysmal atrial fibrillation I10 Essential (primary) hypertension I35.0 Nonrheumatic aortic (valve) stenosis E78.00 Pure hypercholesterolemia, unspecified Office Visit 04/04/2019 11:40a [facility] Fauzia Reyez, J01.90 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 I48.0 Paroxysmal atrial Of [facility] Foster, N.P. fibrillation I42.9 Cardiomyopathy, unspecified D50.9 Iron deficiency anemia, unspecified Office Visit 01/02/2019 1:00p [facility] Internal Medicine Ethan Garcia MD M54.2 Cervicalgia - [address] Encounter for immunization M35.3 Polymyalgia rheumatica I48.0 Paroxysmal atrial fibrillation I42.9 Cardiomyopathy, unspecified D50.9 Iron deficiency anemia, unspecified Assessments Date Code Description Provider 06/23/2019 R07.9 Chest pain, unspecified Christine Riojas M.D., FACP 05/06/2019 I42.9 Cardiomyopathy, unspecified Baltazar Monroe M.D. 05/06/2019 I48.0 Paroxysmal atrial fibrillation Baltazar Monroe M.D. 05/06/2019 I10 Essential (primary) hypertension Baltazar Monroe M.D. 05/06/2019 I35.0 Nonrheumatic aortic (valve) stenosis Baltazar Monroe M.D. 05/06/2019 E78.00 Pure hypercholesterolemia, unspecified Baltazar Monroe M.D. 04/04/2019 J01.90 Acute sinusitis, unspecified Fauzia Reyez, N.P. 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 03/13/2019 I47.1 Supraventricular tachycardia Baltazar Monroe M.D. 03/13/2019 I49.1 Atrial premature depolarization Baltazar Monroe M.D. 03/10/2019 I48.0 Paroxysmal atrial fibrillation Nurse Visit cc 03/10/2019 I47.1 Supraventricular tachycardia Nurse Visit cc 03/10/2019 I49.1 Atrial premature depolarization Nurse Visit cc 01/29/2019 I10 Essential (primary) hypertension Ashish aLnd NP 01/29/2019 J30.89 Other allergic rhinitis Ashish Land NP 01/27/2019 I48.0 Paroxysmal atrial fibrillation [facility] SHaydee Johnson, N.P. 01/27/2019 I42.9 Cardiomyopathy, unspecified [facility] SHaydee Foster, N.P. 01/27/2019 D50.9 Iron deficiency anemia, unspecified Victoria S. Foster, N.P. 01/02/2019 M54.2 Cervicalgia Ethan Garcia MD 01/02/2019 Z23 Encounter for immunization Ethan Garcia MD 01/02/2019 M35.3 Polymyalgia rheumatica Ethan Garcia MD 01/02/2019 I48.0 Paroxysmal atrial fibrillation Ethan Garcia MD 01/02/2019 I42.9 Cardiomyopathy, unspecified Ethan Garcia MD 01/02/2019 D50.9 Iron deficiency anemia, unspecified Ethan Garcia MD 01/01/2019 I48.0 Paroxysmal atrial fibrillation Baltazar Monroe M.D. 12/31/2018 I48.0 Paroxysmal atrial fibrillation Nurse Visit cc Plan of Treatment Future Appointment(s):07/30/2019 11:00 am - Ashish Land NP at [facility] Internal Medicine - [facility]06/23/2019 - Christine Riojas M.D., FACPR07.9 Chest pain, unspecifiedComments:ATYPICAL CHEST PAIN:It is not clear to me what the source of yesterday's symptoms is, but I have concerns that given your cardiac history , that the chest pain could be related to your heart. I recommend that you go to the Emergency Department if they recur.I will let Dr. Monroe know.Follow up: Please schedule a follow up office visit with Dr. Monroe. Functional Status Description No Information Available Mental Status Description No Information Available Referrals Refer to Reason for Referral Status Appt Date Jhonny Diaz MD Watchman procedure Closed [address] [place] [address] [phone] Caleb Burroughs MD Last seen Nov 2016 for PMR, [facility] [facility] [place] [address] [place] [address] [phone]
--- OUTSIDE RECORDS SUMMARY | 2019-06-24 14:54 | XMS REPORT | Continuity of Care Document ---
:1935 External Reference #:[id number] Author Name Baltazar oMnroe M.D. (transmitted by agent of provider Kiara Lynch) Address [address] [place] [address] Care Team Providers Name Role Phone Ney Parra III, MD - Internal Care Team Information Data Processing Specialist Medicine Baltazar Monroe MD - Cardiovascular Care Team Information Data Processing Specialist [phone] Disease Ashish Land NP - Internal Medicine Care Team Information Data Processing Specialist [phone] Problems Active Problems Provider Date Staphylococcus aureus [...] Lisinopril 1 by mouth every 90tabs Ney E. 5mg Tablets day at bedtime Leon Parra Metoprolol Succinate 1 tablet by mouth 90tabs Ney E. ER twice daily. check Leon Parra 25mg Tablets ER 24HR heart rate if less than 60 call doctor to clarify if you should take dose. History Medications Amoxicillin/Clavulanate one tablet 20tabs J01.90 Fauzia Reyez, 2019 - Potassium by mouth N.P. 04/14/2019 875-125mg Tablets twice daily for 10 days Immunizations CPT Code Status Date Vaccine Reaction Lot # [id number] Given 01/02/2019 Fluad (65+) or older flu shot tolerated well, no [id number] vacc immediate reaction 50369 Given 01/28/2018 Tdap - [id number] Tetanus/Diptheria/Acellular Pertussis 86773 Given 01/28/2018 Pneumococcal Conjugate [id number] Vaccine 13 Valent For Intramuscular Use 17370 Given 12/25/2017 Influenza Virus Vaccine, [id number] Quadrivalent, Split, Preservative Free 89681 Given 03/05/2014 Tetanus And Diptheria (Td) For [...] Result H/L Range Note Laboratory test 01/02/2019 [facility] Erythrocyte Sed 58 mm/Hr High 0-[address] [place] [address] [phone] C Reactive Protein 5.80 mg/L Normal <8.01 Procedures Date Code Description Status 05/06/2019 46393 EKG Tracing & Interpretation Completed 03/13/2019 66263 Holter Monitor Review (24 hr)dr review & interp only Completed 03/10/2019 12694 ECG Monitor/Recording W/Visual Superimposition Completed Scanning 01/01/2019 64171 Holter Monitor Review (24 hr)dr review & interp only Completed 12/31/2018 60257 ECG Monitor/Recording W/Visual Superimposition Completed Scanning 12/13/2018 08358 ECHO Transthoracic, Real-Time 2D With Doppler And Completed Color Flow 12/13/2018 46446 ECHO Transthoracic, Real-Time 2D With Doppler And Completed Color Flow 11/27/2018 51886 EKG Tracing & Interpretation Completed 10/24/2018 [id number] Colonoscopy Completed 02/07/2018 245266962 Bone Mineral Density Test Completed 02/07/2018 31538397 Mammogram Completed 12/22/2014 485565846 Bone Mineral Density Test Completed Medical Devices Description No Information Available Encounters Type Date Location Provider Dx Diagnosis Office Visit 05/06/2019 [facility] Baltazar Valente42.9 Cardiomyopathy , 11:20a Leon Monroe unspecified I48.0 Paroxysmal atrial fibrillation I10 Essential (primary) hypertension I35.0 Nonrheumatic aortic (valve) stenosis E78.00 Pure hypercholesterolemia, unspecified Office Visit 04/04/2019 11:40a [facility] Fauzia Reyez, J01.90 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 I48.0 Paroxysmal atrial Of [facility] AT [facility] Foster, N.P. fibrillation I42.9 Cardiomyopathy, unspecified D50.9 Iron deficiency anemia, unspecified Office Visit 01/02/2019 1:00p [facility] Internal Medicine Ethan Garcia MD M54.2 Cervicalgia - [address] Z23 Encounter for immunization M35.3 Polymyalgia rheumatica I48.0 Paroxysmal atrial fibrillation I42.9 Cardiomyopathy, unspecified D50.9 Iron deficiency anemia, unspecified Office Visit 11/27/2018 Ivelisse Sidhu K92.2 Gastrointestinal 11:40a Cardiology Leon Monroe hemorrhage, unspecified I48.0 Paroxysmal atrial fibrillation I42.9 Cardiomyopathy, unspecified Assessments Date Code Description Provider 05/06/2019 I42.9 Cardiomyopathy, unspecified Baltazar Monroe M.D. [...] cc 01/29/2019 I10 Essential (primary) hypertension Ashish Land NP 01/29/2019 J30.89 Other allergic rhinitis Ashish Land NP 01/27/2019 I48.0 Paroxysmal atrial fibrillation Victoria Johnson, N.P. 01/27/2019 I42.9 Cardiomyopathy, unspecified Victoria Johnson, N.P. 01/27/2019 D50.9 Iron deficiency anemia, unspecified Victoria Johnson, N.P. 01/02/2019 M54.2 Cervicalgia Ethan Garcia MD 01/02/2019 Z23 Encounter for immunization Ethan Garcia MD 01/02/2019 M35.3 Polymyalgia rheumatica Ethan Garcia MD 01/02/2019 I48.0 Paroxysmal atrial fibrillation Ethan Garcia MD 01/02/2019 I42.9 Cardiomyopathy, unspecified Ethan Garcia MD 01/02/2019 D50.9 Iron deficiency anemia, unspecified Ethan Garcia MD 01/01/2019 I48.0 Paroxysmal atrial fibrillation Baltazar Monroe M.D. 12/31/2018 I48.0 Paroxysmal atrial fibrillation Nurse Visit cc 12/13/2018 I42.9 Cardiomyopathy, unspecified Baltazar Monroe M.D. 12/13/2018 I42.9 Cardiomyopathy, unspecified [facility] 11/27/2018 K92.2 Gastrointestinal hemorrhage Baltazar Monroe M.D. 11/27/2018 I48.0 Paroxysmal atrial fibrillation Baltazar Monroe M.D. 11/27/2018 I42.9 Cardiomyopathy, unspecified Baltazar Monroe M.D. Plan of Treatment Future Appointment(s):06/02/2019 1:00 pm - [facility] Schedule at [facility]07/30/2019 11:00 am - Ashish Land NP at [facility] Internal Medicine - [facility]05/06/2019 - Baltazar Monroe M.D.I42.9 Cardiomyopathy, unspecifiedNew Orders:Echocardiogram, Ordered: 05/06/19Follow up:ov 8 mI48.0 Paroxysmal atrial [id number] Essential (primary) caglbufojxikA99.0 Nonrheumatic aortic (valve ) zmromxcyK70.00 Pure hypercholesterolemia, unspecified Functional Status Description No Information Available Mental Status Description No Information Available Referrals Refer to Dr Reason for Referral Status Appt Date Jhonny Diaz MD Watchman procedure Closed [address] [place] [address] [phone] Caleb Burroughs MD Last seen Nov 2016 for PMR, Sent [address] [place] [address] [place] [address] [phone]
--- OUTSIDE RECORDS SUMMARY | 2019-06-24 14:54 | XMS REPORT | Continuity of Care Document ---
:1935 External Reference #:[id number] Author Name Baltazar Monroe M.D. (transmitted by agent of provider Domenica Martines) Address [address] [place] [id number] Care Team Providers Name Role Phone Ney Parra III, MD - Internal Care Team Information Operations Recruiter [phone] Medicine Baltazar Monroe MD - Cardiovascular Care Team Information Operations Recruiter [phone] Disease Ashish Land NP - Internal Medicine Care Team Information Operations Recruiter Problems Active Problems Provider Date Staphylococcus aureus [...] Code Status Date Vaccine Reaction Lot # 16650 Given 01/02/2019 Fluad (65+) or older flu shot tolerated well, no [id number] vacc immediate reaction 47913 Given 01/28/2018 Tdap - [id number] Tetanus/Diptheria/Acellular Pertussis 59312 Given 01/28/2018 Pneumococcal Conjugate [id number] Vaccine 13 Valent For Intramuscular Use 63045 Given 12/25/2017 Influenza Virus Vaccine, [id number] Quadrivalent, Split, Preservative Free 10166 Given 03/05/2014 Tetanus And Diptheria (Td) For [...] Result H/L Range Note Laboratory test 01/02/2019 [facility] Erythrocyte Sed 58 mm/Hr High 0-[address] [place] [address] [phone] C Reactive Protein 5.80 mg/L Normal <8.01 CBC Auto 11/11/2018 [facility] White Blood 5.7 10^3/uL Normal 3.5-10.[address] [place] [address] [phone] Red Blood Count 3.73 10^6/uL Normal 3.70-4.87 Hemoglobin 10.9 g/dL Low 12.0-16.0 Hematocrit 33 % Low 35-47 Mean Corpuscular Volume 87 fL Normal 80-97 Mean Corpuscular Hemoglobin 29 pg Normal 27-31 Mean Corpuscular HGB Conc 34 g/dL Normal 31-36 Red Cell Distribution Width 17 % High 10-15 Platelet Count 261 10^3/uL Normal 150-450 Mean Platelet Volume 8.8 fL Normal 7.4-10.4 Abs Neutrophils 3.4 10^3/uL Normal 1.5-7.7 Abs Lymphocytes 1.5 10^3/uL Normal 1.0-4.8 Abs Monocytes 0.5 10^3/uL Normal 0-0.8 Abs Eosinophils 0.2 10^3/uL Normal 0-0.6 Abs Basophils 0.1 10^3/uL Normal 0-0.2 Abs Nucleated RBC 0.0 10^3/uL Granulocyte % 59.4 % Lymphocyte % 27.1 % Monocyte % 8.9 % Eosinophil % 3.6 % Basophil % 1.0 % Nucleated Red Blood Cells % 0.1 Iron & Iron Binding 11/11/2018 [facility] Iron 77 g/dL Normal 50-212 [address] [place] [address] [phone] Unsaturated Iron Binding < 384 g/dL Total Iron Binding Capacity 399 g/dL Normal 250-450 Transferrin 285 mg/dL Normal 203-362 % Iron Saturation 19 % Normal 15-55 Laboratory test 11/11/2018 [facility] Ferritin 55.2 ng/mL Normal 11-307 finding [address] [place] [address] [phone] Comp Metabolic 11/11/2018 [facility] Sodium 141 mmol/L Normal 135-145 Panel [address] [place] [address] [phone] Potassium 4.4 mmol/L Normal 3.5-5.0 Chloride 106 mmol/L Normal 101-111 Co2 Carbon Dioxide 26 mmol/L Normal 22-32 Anion Gap 9 mmol/L Normal 2-11 Glucose 113 mg/dL High 70-100 Blood Urea Nitrogen 23 mg/dL Normal 6-24 Creatinine 0.84 mg/dL Normal 0.51-0.95 BUN/Creatinine Ratio 27.4 High 8-20 Calcium 9.2 mg/dL Normal 8.6-10.3 Total Protein 7.0 g/dL Normal 6.4-8.9 Albumin 3.8 g/dL Normal 3.2-5.2 Globulin 3.2 g/dL Normal 2-4 Albumin/Globulin Ratio 1.2 Normal 1-3 Total Bilirubin 0.50 mg/dL Normal 0.2-1.0 Alkaline Phosphatase 78 U/L Normal 34-104 Alt 19 U/L Normal 7-52 Ast 23 U/L Normal 13-39 Egfr Non- 64.8 >60 Egfr 78.3 >60 1 Laboratory test 11/11/2018 [facility] Magnesium 2.0 mg/dL Normal 1.9-2.7 finding [address] [place] [address] [phone] 1 Because ethnic data is not always readily available, this report includes an eGFR for both -Americans and non- Americans. The National Kidney Disease Education Program (NKDEP) does not endorse the use of the MDRD equation for patients that are not between the ages of 18 and 70, are , have extremes of body size, muscle mass, or nutritional status, or are non- or non-. According to the National Kidney Foundation, irrespective of diagnosis, the stage of the disease is based on the level of kidney function: Stage Description GFR(mL/min/1.73 m(2)) 1 Kidney damage with normal or decreased GFR 90 2 Kidney damage with mild decrease in GFR 60-89 3 Moderate decrease in GFR 30-59 4 Severe decrease in GFR 15-29 5 Kidney failure <15 (or dialysis) Procedures Date Code Description Status 05/06/2019 05290 EKG Tracing & Interpretation Completed 03/13/2019 83794 Holter Monitor Review (24 hr) review & interp only Completed 03/10/2019 95070 ECG Monitor/Recording W/Visual Superimposition Completed Scanning 01/01/2019 86554 Holter Monitor Review (24 hr)dr review & interp only Completed 12/31/2018 72607 ECG Monitor/Recording W/Visual Superimposition Completed Scanning 12/13/2018 74940 ECHO Transthoracic, Real-Time 2D With Doppler And Completed Color Flow 12/13/2018 17318 ECHO Transthoracic, Real-Time 2D With Doppler And Completed Color Flow 11/27/2018 57235 EKG Tracing & Interpretation Completed 10/24/2018 [id number] Colonoscopy Completed 02/07/2018 180677489 Bone Mineral Density Test Completed 02/07/2018 67714519 Mammogram Completed 12/22/2014 157593838 Bone Mineral Density Test Completed Medical Devices Description No Information Available Encounters Type Date Location Provider Dx Diagnosis Office Visit 04/04/2019 [facility] Fauzia Reyez, J01.90 Acute sinusitis , 11:40a Medicine - [facility] N.P. 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 I48.0 Paroxysmal atrial [facility] [employer] [facility], N.P. fibrillation I42.9 Cardiomyopathy, unspecified D50.9 Iron deficiency anemia, unspecified Office Visit 01/02/2019 1:00p [facility] Ethan Garcia MD M54.2 Cervicalgia - [address] Z23 Encounter for immunization M35.3 Polymyalgia rheumatica I48.0 Paroxysmal atrial fibrillation I42.9 Cardiomyopathy, unspecified D50.9 Iron deficiency anemia, unspecified Office Visit 11/27/2018 [place] Baltazar Sidhu K92.2 Gastrointestinal 11:40a Cardiology Leon Monroe [...] 03/10/2019 I48.0 Paroxysmal atrial fibrillation Nurse Visit 03/10/2019 I47.1 Supraventricular tachycardia Nurse Visit cc 03/10/2019 I49.1 Atrial premature depolarization Nurse Visit 01/29/2019 I10 Essential (primary) hypertension Ashish Land, KIRSTIE 01/29/2019 J30.89 Other allergic rhinitis Ashish Land NP 01/27/2019 I48.0 Paroxysmal atrial fibrillation Victoria Johnson, N.P. 01/27/2019 I42.9 Cardiomyopathy, unspecified Victoria S. Alex, N.P. 01/27/2019 D50.9 Iron deficiency anemia, unspecified Victoria S. Alex, N.P. 01/02/2019 M54.2 Cervicalgia Ethan Garcia MD 01/02/2019 Z23 Encounter for immunization Ethan Garcia MD 01/02/2019 M35.3 Polymyalgia rheumatica Ethan Garcia MD 01/02/2019 I48.0 Paroxysmal atrial fibrillation Ethan Garcia MD 01/02/2019 I42.9 Cardiomyopathy, unspecified Ethan Garcia MD 01/02/2019 D50.9 Iron deficiency anemia, unspecified Ethan Garcia MD 01/01/2019 I48.0 Paroxysmal atrial fibrillation Baltazar Monroe M.D. 12/31/2018 I48.0 Paroxysmal atrial fibrillation Nurse Visit 12/13/2018 I42.9 Cardiomyopathy, unspecified Baltazar Monroe M.D. 12/13/2018 I42.9 Cardiomyopathy, unspecified [facility] 11/27/2018 K92.2 Gastrointestinal hemorrhage Baltazar Monroe M.D. 11/27/2018 I48.0 Paroxysmal atrial fibrillation Baltazar Monroe M.D. 11/27/2018 I42.9 Cardiomyopathy, unspecified Baltazar Monroe M.D. Plan of Treatment Future Appointment(s):06/02/2019 1:00 pm - [facility] Schedule at [facility]07/30/2019 11:00 am - Ashish Land NP at [facility] Internal Medicine - [facility]05/06/2019 - Baltazar Monroe M.D.I42.9 Cardiomyopathy, unspecifiedNew Orders:Echocardiogram, Ordered: 05/06/19Follow up:ov 8 mI48.0 Paroxysmal atrial [id number] Essential (primary) bbdvgwkzoavqP00.0 Nonrheumatic aortic (valve ) uhtrqeoqM59.00 Pure hypercholesterolemia, unspecified Functional Status Description No Information Available Mental Status Description No Information Available Referrals Refer to Dr Reason for Referral Status Appt Date Jhonny Diaz MD Watchman procedure Closed [address] [place] [address] [phone] Caleb Burroughs MD Last seen Nov 2016 for PMR, Sent [address] [place] [address] [place] [address] [phone]
[2019-06-24 14:55] LABS: ABS Eosinophils 0.1 10^3/ul (0-0.6); ABS Lymphocytes 1.5 10^3/ul (1.0-4.8); ABS Monocytes 0.6 10^3/ul (0-0.8); ABS Neutrophils 2.9 10^3/ul (1.5-7.7); Eosinophil % 2.6 %; Hematocrit 38 % (35-47); Hemoglobin 12.9 g/dL (12.0-16.0); Lymphocyte % 29.5 %; Mean Corpuscular HGB Conc 34 g/dL (31-36); Mean Corpuscular Hemoglobin 31 pg (27-31); Mean Corpuscular Volume 92 fL (80-97); Mean Platelet Volume 8.5 fL (7.4-10.4); Platelet Count 196 10^3/uL (150-450); Red Blood Count 4.12 10^6 /uL (3.70-4.87); Red Cell Distribution Width 14 % (10-15); White Blood Count 5.2 10^3/uL (3.5-10.8)
[2019-06-24] MEDS ORDERED: Heparin VIAL(*) 5000 UNITS/ML VIAL (FIVE THOUSAND) IV PRN (15:00)
[2019-06-24 15:13] LABS: ALT 26 U/L (7-52); AST 52 U/L (13-39); Albumin 3.9 g/dL (3.2-5.2); Alkaline Phosphatase 73 U/L (34-104); Anion Gap 8 mmol/L (2-11); BUN/Creatinine Ratio 26.7 (8-20); Blood Urea Nitrogen 32 mg/dL (6-24); CO2 Carbon Dioxide 27 mmol/L (22-32); Calcium 9.4 mg/dL (8.6-10.3); Chloride 103 mmol/L (101-111); EGFR African American 51.9 (>60); EGFR Non-African American 42.9 (>60); Globulin 3.9 g/dL (2-4); Glucose 122 mg/dL (70-100); Potassium 4.1 mmol/L (3.5-5.0); Sodium 138 mmol/L (135-145); Total Protein 7.8 g/dL (6.4-8.9)
[2019-06-24 15:16] LABS: Troponin I 6.16 ng/mL (<0.03)
[2019-06-24] MEDS ORDERED: Aspirin TAB* 325 MG PO ONE (15:29)
[2019-06-24] MEDS ORDERED: Metoprolol Tartrate IV* 1 MG/ML 5 ML VIAL IV PRN (15:32)
[2019-06-24] MEDS ORDERED: Al Hydrox/Mg Hydrox/Simet LIQ* 30 ML UDC PO PRN (16:28)
[2019-06-24] MEDS ORDERED: Morphine INJ* 2 MG/ML 1 ML SYRINGE (TWO MG - NEW SYRINGE VERSION) IV PRN (16:28)
[2019-06-24] MEDS ORDERED: Acetaminophen TAB* 325 MG PO PRN (16:28)
--- NOTE | 2019-06-24 17:34 | HP ---
CC: Ashish Land NP; Dr. Cunha; Dr. Monroe; Dr. Riojas; Dr. Staples* HISTORY AND PHYSICAL: DATE OF ADMISSION: 06/24/19 PRIMARY CARE PROVIDER: Ashish Land NP CHIEF COMPLAINT: Chest pain 2 days ago. HISTORY OF PRESENT ILLNESS: An 83-year-old Kiara Moreno is a patient with history of chronic atrial fibrillation, who is not anticoagulated due to GI bleed in October of 2018. It appeared that it was a lower GI bleed, but the endoscopies failed to determine exactly where the bleeding was coming from. At this point, her Xarelto was discontinued. She also had elevated troponins at that point up to 1.93 at its peak. An echocardiogram in October of 2018 showed an EF of 25%. At the end of her illness when she was supposed to be discharged , at that time in October of 2018, her EF was returning close to normal at around 45%. She had been following up with Dr. Monroe. She had been in her usual state of health until 06/22/19 on Sunday when she walked from her car to the house which was about 25 feet and she developed substernal chest pressure with shortness of breath. She stated that the pain was severe with pressure, nonradiating, localized over the entire sternum and "throat area." It lasted all the evening and until the morning of 06/23/19. At this point, the patient called her doctor and a troponin was ordered, which was noted to be 14. She was advised by her primary care provider to go to the emergency department for evaluation, but instead she went to see Dr. Monroe in his office stating that she feels "just fine." Dr. Monroe saw the patient and convinced her to come into the ED for further evaluation. She was noted to have changes in her lateral leads on EKG. Today, her troponin in the emergency department is noted to be 6.6. She is going to be admitted with a diagnosis of non- ST-elevation AL. Please note that the patient has not had any pain since Sunday evening, which was 06/23/19. She stated that from time to time when she walks she develops shortness of breath. PAST MEDICAL HISTORY: 1. Chronic atrial fibrillation. 2. GI bleed in October of 2018, presumed lower, source was not identified. 3. Gastroesophageal reflux disease. 4. Hypertension. 5. Cardiomyopathy that was transient in October of 2018 and then started resolving. PAST SURGICAL HISTORY: 1. History of right shoulder washout after a septic joint in the past. 2. Cataract surgery. 3. Tonsillectomy. 4. Appendectomy. 5. Carpal tunnel release. 6. Bilateral knee surgeries in the past. MEDICATIONS AT HOME: Include: 1. Mometasone 1 spray both nostrils daily. 2. Atorvastatin 20 mg daily. 3. Calcium with vitamin D 1 tablet daily. 4. Lisinopril 5 mg daily. 5. Toprol-XL 25 mg twice a day. 6. Pepcid on a p.r.n. basis. ALLERGIES: No known drug allergies. FAMILY HISTORY: Unknown. The patient is adopted. SOCIAL HISTORY: The patient denies any tobacco, alcohol, or drug use. She lives with her daughter, Adriana Yang, who is her surrogate. The patient is a full code. REVIEW OF SYSTEMS: Please see history of present illness. All the remaining 12 systems were reviewed with the patient and were otherwise negative. PHYSICAL EXAMINATION GENERAL: The patient is a very pleasant 83-year-old female, who is in no acute distress. The patient is alert and oriented x3. VITAL SIGNS: Blood pressure of 132/85, heart rate of 102 and irregular, respiratory rate 18, oxygen saturation 98% on room air, temperature 98.5. HEENT: Head: Atraumatic, normocephalic. Eyes: Pupils are equal, reactive to light and accommodation. Oropharynx is clear. Mucosa moist. NECK: Supple. No JVD. No bruits bilaterally. RESPIRATORY: Clear to auscultation bilaterally. CARDIOVASCULAR: Irregularly irregular rhythm. No murmur. ABDOMEN: Soft, nontender. Bowel sounds present in all 4 quadrants. EXTREMITIES: There is no edema. Pulses are +2 bilaterally. No clubbing or cyanosis. NEUROLOGIC: Speech is clear. Cranial nerves II through XII grossly intact. Motor strength is 5/5 bilaterally. SKIN: On evaluation of the skin, no ecchymotic areas or rashes noted. DIAGNOSTIC STUDIES/LAB DATA: White blood cell count of 5.2, hemoglobin of 12.9 , hematocrit of 38, and platelets of 196. Sodium was 138, potassium 4.1, chloride 103, carbon dioxide 27, BUN 32, creatinine 1.2. Liver function tests showed mild elevation of AST at 52, ALT was 26, alkaline phosphatase of 73, bilirubin of 0.5. Troponin was 6.16. LDL cholesterol fasting documented on 06/23/19 was 86, triglycerides of 86, HDL of 76. The patient's EKG showed atrial fibrillation with a heart rate of 93 beats per minute with mild ST depressions in leads V4 and V6; flat ST elevation in lead V2 of less than 1 mm and approximately 0.5 mm in V3; negative T-waves in V2, V3 , and aVL. Comparing to an EKG from October of 2018, the marked abnormalities of deep negative T-waves in leads V2 and V3 are now improved. It appears that the ST depressions in lateral leads are also improved from prior. Portable chest x-ray, impression: "No active cardiopulmonary disease." ASSESSMENT AND PLAN: 1. The patient developed chest pain 2 days ago, now she is presenting with non- ST- elevation myocardial infarction. Her troponin has already peaked. I discussed the case with Dr. Staples. An echocardiogram is going to be obtained. The patient is going to be placed n.p.o. for the morning for possibility of cardiac catheterization. The cardiac catheterization need is going to be determined by her echocardiogram and that is going to be obtained tomorrow. Cardiology is going to be following. The patient is to be on aspirin, beta- fern, and heparin drip. 2. In regards to the patient's hyperlipidemia, we will continue Lipitor and we will increase the dose to 40 mg daily. 3. For her atrial fibrillation which is chronic, her beta-fern is going to be continued. 4. The patient's code status is full. Her surrogate is her daughter. TIME SPENT: Approximately 72 minutes was spent on admission of this patient, more than half that time was spent buxi-[id number] with the patient during the interview and physical exam. [id number]/[facility] #: [id number] SUZANNA
[2019-06-24] MEDS ORDERED: Atorvastatin* 20 MG TAB PO SCH (21:00)
[2019-06-24 21:17] LABS: Troponin I 5.32 ng/mL (<0.03)
[2019-06-24] MEDS: Atorvastatin* 40 MG TAB PO SCH (22:40)
[2019-06-24] MEDS: Metoprolol Succinate XL TAB* 25 MG PO SCH (22:40)
[2019-06-25 06:47] LABS: BUN/Creatinine Ratio 31.3 (8-20); Calcium 9.1 mg/dL (8.6-10.3); EGFR African American 64.8 (>60); EGFR Non-African American 53.6 (>60); Potassium 4.2 mmol/L (3.5-5.0)
[2019-06-25 06:54] LABS: ABS Basophils 0.1 10^3/ul (0-0.2); ABS Eosinophils 0.3 10^3/ul (0-0.6); ABS Monocytes 0.8 10^3/ul (0-0.8); ABS Neutrophils 2.6 10^3/ul (1.5-7.7); Eosinophil % 5.9 %; Hematocrit 37 % (35-47); Hemoglobin 12.8 g/dL (12.0-16.0); Lymphocyte % 34.7 %; Mean Corpuscular HGB Conc 35 g/dL (31-36); Mean Corpuscular Hemoglobin 32 pg (27-31); Mean Corpuscular Volume 91 fL (80-97); Mean Platelet Volume 9.2 fL (7.4-10.4); Platelet Count 170 10^3/uL (150-450); Red Blood Count 4.03 10^6 /uL (3.70-4.87); Red Cell Distribution Width 14 % (10-15); White Blood Count 5.8 10^3/uL (3.5-10.8)
[2019-06-25] MEDS ORDERED: Calcium Carbonate TAB* 1250 MG (CALCIUM 500 MG) PO SCH (09:00)
--- NOTE | 2019-06-25 09:29 | PN ---
Progress Note - Progress Note Date of Service: 06/25/19 Note: BRIEF GASTROENTEROLOGY NOTE Full consult to be dictated later today. Brief note being added to chart now due to potential urgent cardiac procedure today. Chart reviewed. Ms Moreno is an 83 year-old woman with history of A fib and cardiomyopathy, who was hospitalized in 10/2018 with GI bleeding episode. This occurred in setting of anticoagulation (Xarelto) for A fib. Her Hgb was 6.5 at it's carol. She underwent a EGD, which was negative for bleeding source. She then underwent a colonoscopy, which demonstrated a trace amount of old blood in the splenic flexure area. No bleeding source was identified on careful inspection. Anticoagulation was discontinued. Her H/H have been in the normal range (12.8-13) on checks this year. Now presenting with chest pain and elevated troponin (peak 14.38). Cardiology is considering heart cath w/ possible stenting/intervention depending on findings. GI asked to comment on GI bleeding risk. It is very challenging to assess this patient's risk of recurrent bleeding without knowing the source of the GIB last year. A vascular lesion such as an AVM or Dieulafoy was suspected last year as these can be difficult to locate, particularly after bleeding has stopped. Reassuringly, she has not had recurrent anemia this year to suggest slow ongoing blood loss from GI tract. On my review of this case, I do not find a clear absolute contraindication to antiplatelet or anticoagulation use. Endoscopic evaluation can be discussed if patient were to develop recurrent anemia or GI bleeding in the future. Cassandra Silver MD Gastroenterology
--- NOTE | 2019-06-25 09:37 | PN ---
Subjective Date of Service: 06/25/19 Interval History: Pt is alert and oriented x 3. Pt reports that she is feeling well today. Denies chest pain, dizziness, or SOB. Reports that she is feeling much better than when she arrived. Family History: Unchanged from Admission Social History: Unchanged from Admission Past Medical History: Unchanged from Admission Objective Active Medications: Acetaminophen (Tylenol Tab*) 650 mg PO Q4H PRN PRN Reason: PAIN-MILD/TEMP >/= 100.4 Al Hydrox/Mg Hydrox/Simethicone (Maalox Plus*) 30 ml PO Q6H PRN PRN Reason: INDIGESTION Ascorbic Acid (Vitamin C Tab*) 500 mg PO DAILY [facility] Aspirin (Aspirin 81 Mg Chew Tab*) 81 mg PO DAILY [facility] Atorvastatin Calcium (Lipitor*) 40 mg PO BEDTIME [facility] Last Admin: 06/24/19 22:40 Dose: 40 mg Calcium Carbonate (Calcium Carbonate Tab*) 500 mg PO DAILY [facility] Heparin Sodium (Porcine) (Heparin Vial(*)) 0 units IV .BOLUS PRN PRN Reason: HEPARIN DRIP PROTOCOL Metoprolol Succinate (Toprol Xl Tab*) 25 mg PO BID [facility] Last Admin: 06/24/19 22:40 Dose: 25 mg Metoprolol Tartrate (Lopressor Iv*) 5 mg IV Q6H PRN PRN Reason: HEART RATE Morphine Sulfate (Morphine Inj (Syringe))*) 1 mg IV Q4H PRN PRN Reason: PAIN - SEVERE Vital Signs - 8 hr 06/25/19 06/25/19 06/25/19 03:15 04:00 07:40 Temperature 97.5 F 98.3 F Pulse Rate 68 88 69 Respiratory 18 16 Rate Blood Pressure 125/59 117/60 (mmHg) O2 Sat by Pulse 99 99 Oximetry Oxygen Devices in Use Now: None Appearance: Elderly woman appearing stated age, laying in bed with head elevated watching TV. Does not appear to be in any distress. Eyes: No Scleral Icterus, PERRLA Ears/Nose/Mouth/Throat: NL Teeth, Lips, Gums, Clear Oropharnyx, Mucous Membranes Moist Neck: NL Appearance and Movements; NL JVP, Trachea Midline Respiratory: Symmetrical Chest Expansion and Respiratory Effort, Clear to Auscultation Cardiovascular: No Edema, - - Irregular heart rate and rhythm Abdominal: NL Sounds; No Tenderness; No Distention, No Hepatosplenomegaly Lymphatic: No Cervical Adenopathy Extremities: No Edema, No Clubbing, Cyanosis Skin: No Rash or Ulcers, No Nodules or Sclerosis Neurological: Alert and Oriented x 3, NL Sensation, NL Muscle Strength and Tone Result Diagrams: 06/25/19 06:05 06/25/19 06:05 Assess/Plan/Problems-Billing Assessment: 83 yof with history significant for Chronic Afib, Cardiomyopathy, GERD, HTN pt arrives to ED on 06/24/19 at 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 Out patient trop 14. -Hx of Afib Restarted on DAPT today ASA and Plavix, will likely have cath 06/25. Pt has hx of GI bleed 10/2018. Unknown cause has been off DAPT since. Consult with Dr. Silver and Dr. Ngo today regarding anticoagulants. Although difficult to risk stratify bleeding risk in patient as no definite cause determined, the benefit of cardiac cath and resumption of anticoagulation outweighs the risk of GI bleed. DAPT restarted by cardiology. -Dr. Monroe had ESR drawn on 06/23 at office visit which came back elevated at 60 today ESR was 62. It does appear that patient is chronically elevated likely due to polymyalgia rheumatica. Dr. Adams is aware of this finding. (2) Atrial fibrillation Current Visit: No Comment: -Tachy 100-110 -Metoprolol Succinate 25mg BID -Metoprolol Tartrate 5mg IV q6H PRN HR >80. -DAPT resumed today by cardiology ASA and Plavix likely catheterization 06/26/19 (3) HTN (hypertension) Current Visit: No Comment: -Well controlled -Metoprolol 25mg PO BID (4) GERD (gastroesophageal reflux disease) Current Visit: No Comment: - Maalox PRN (5) Full code status Current Visit: Yes (6) DVT prophylaxis Current Visit: No Comment: -Aspirin, Plavix Status and Disposition: Guarded
[2019-06-25] MEDS ORDERED: Clopidogrel TAB* 300 MG PO ONE (09:50)
[2019-06-25] MEDS: Aspirin 81 mg CHEW TAB* 81 MG TAB.CHEW PO SCH (10:02)
[2019-06-25] MEDS: Calcium Carbonate TAB* 1250 MG (CALCIUM 500 MG) PO SCH (10:02)
[2019-06-25] MEDS: Ascorbic Acid TAB* 500 MG PO SCH (10:03)
[2019-06-25] MEDS: Metoprolol Succinate XL TAB* 25 MG PO SCH ×2 (10:03→20:44)
[2019-06-25 10:19] LABS: Activated Partial Thrombo Time 43.8 seconds (26.0-38.0); INR 1.06 (0.82-1.09)
[2019-06-25 10:33] LABS: Troponin I 3.66 ng/mL (<0.03)
[2019-06-25 11:24] LABS: Erythrocyte Sed Rate 62 mm/Hr (0-29)
--- NOTE | 2019-06-25 12:34 | CONS ---
CONSULTATION REPORT: DATE OF CONSULT: 06/25/19 ATTENDING PHYSICIAN: Dr. Ana Ngo* (dictated by Tammy Villalta NP). REASON FOR CONSULTATION: NSTEMI. PRIMARY PHYSICIAN: Dr. Riojas. PRIMARY REGISTRATION REPRESENTATIVE: Dr. Monroe. CHIEF COMPLAINT: Sudden onset exertional chest tightness with associated shortness of breath occurring on 06/22/19. HISTORY OF PRESENT ILLNESS: This is a pleasant 83-year-old female patient who follows with Dr. Baltazar Monroe of our practice due to a notable history of paroxysmal AFib, A-flutter, not on oral anticoagulation due to prior gastrointestinal bleed in October 2018 that required packed red blood cells, this occurred while on Xarelto therapy; systolic heart failure; left atrial enlargement; afag-nk-cxrncjko aortic stenosis; moderate pulmonary hypertension; kbeb-ik-yhjejmqs mitral insufficiency with prior abnormal stress test suggesting small area of reversible changes involving the apex in October 2018. The patient states she has been in her usual state of health up until 06/22/19. She adds after ambulating 100 feet into a complex, she started to develop substernal chest tightness radiating into her upper abdomen with associated dyspnea. The patient states symptoms were constant ongoing until 8 p.m. on Sunday evening. She states she did not take any medications to relieve symptoms and did not seek medical evaluation. She adds on Sunday although symptoms had improved, they were still ongoing, thus she called her primary physician who advised her to go to the emergency room. The patient states that she felt as though she was having indigestion and not an acute myocardial infarction, thus she did not present for evaluation. The patient contacted our practice, had blood work updated and was seen in our office yesterday, 06/24/[address] Baltazar Monroe. At that time, troponin was 14. She had anterolateral T -wave changes, thus was directed to present to [facility] for NSTEMI. The patient was admitted to [address] [place] [address]. We were asked to see the patient in consultation for NSTEMI. The patient denies any recurrent symptoms since on Sunday. She denies syncope, palpitations, sensation of heart racing, edema. States that dyspnea and chest tightness have resolved since Sunday. The patient denies fever, chills, nausea, vomiting, diarrhea, recent contact with COVID. Last echocardiogram was 12/13/18; per report, LVEF 40% to 45%, moderate pulmonary hypertension, hpmd-vs-dyqscvcz mitral insufficiency, probable moderate aortic stenosis. Last ischemic evaluation was October of 2018; per myocardial perfusion imaging report, there was a small area of reversible change involving the apex, LVEF was 60%. PAST MEDICAL HISTORY: 1. NSTEMI October of 2018 while suffering from acute GI bleed. 2. Symptomatic acute GI bleed October 2018 on Xarelto therapy. 3. Left atrial enlargement. 4. Paroxysmal AFib, A-flutter, not on anticoagulation. 5. Sosr-uj-saamchvs aortic stenosis. 6. Systolic heart failure. 7. Mitral insufficiency. 8. Iron deficiency anemia. PAST SURGICAL HISTORY: Includes carpal tunnel release, left and right knee surgery, right shoulder surgery. HOME MEDICATIONS: Include: 1. Atorvastatin 20 mg a day. 2. Lisinopril 5 mg a day. 3. Metoprolol 25 b.i.d. 4. Famotidine 25 mg a day. ALLERGIES: Listed include RIFAMPIN and DOXYCYCLINE. The patient denies allergy to contrast dye or shellfish. SOCIAL HISTORY: The patient is , lives at home with her daughter, ambulates independently, consumes alcohol rarely. Denies drug use. Denies tobacco abuse. Denies falling history. REVIEW OF SYSTEMS: All systems have been reviewed and are otherwise negative except as above mentioned in the HPI. PHYSICAL EXAM: Temperature is 98.3, pulse 69, respirations 16, oxygenation 99% on room air, blood pressure is 117/60. General: The patient is sitting upright in bed, appears in no apparent distress, cooperative with exam, A and O x3, appears well nourished. HEENT: Head is atraumatic, normocephalic. Oral mucosa is moist. Tongue is midline. Neck: Supple. Trachea midline. No JVD. No carotid bruits. Cardiac: Normal S1, S2. Irregular rate and rhythm. No murmur, gallop, or rub. Lungs: Auscultated posteriorly. No evidence of adventitious breath sounds. /GI: Abdomen is soft, nontender, nondistended. Normoactive bowel sounds x4. Extremities: No pedal edema, no clubbing, no cyanosis. Peripheral Vascular: 2+ brachial pulse palpated bilaterally and symmetrically, 3+ femoral pulse palpated bilaterally and symmetrically. DIAGNOSTIC STUDIES/LAB DATA: Blood work reviewed. Troponin peaked on 06/24/19 at 14.38. Sodium 138, potassium 4.2, chloride 106, carbon dioxide 23, BUN 31, creatinine 0.99. White count is 5.8, hemoglobin 12.8. ECG 06/25/19; reviewed, AFib, rate 84 with known anterolateral T-wave changes. In October of 2018, she had profound anterolateral T-wave inversion with NSTEMI. Chest x-ray 06/24/19; per Radiology report, no active cardiopulmonary disease. ASSESSMENT AND PLAN: 1. Non-ST elevated myocardial infarction likely occurred on 06/22/19. Troponin peaked 06/24/19, 48 hours after onset symptomatology at 14, has been trending down. The patient's last episode of substernal chest tightness with dyspnea was on 06/23/19. Currently asymptomatic. Given infarct occurred on Sunday with troponin trending down consistent with prior myocardial infarction, we will discontinue IV heparin, continue aspirin 81 mg a day. The patient has a known small area of reversible changes in the apex based on myocardial perfusion imaging report from October of 2018 when she suffered a non- ST elevated myocardial infarction in the setting of acute gastrointestinal bleed. We are currently pending GI consultation for risk stratification for dual-antiplatelet therapy in the setting of the patient needing coronary angiogram. I reviewed the indication of cardiac catheterization with the patient including risks and benefits, which include, but are not limited to bleeding, infection, vascular damage, risks of contrast use, nephropathy, possibility of requirement of dual-antiplatelet therapy, referral for bypass surgery, stroke, heart attack, . Consent to be obtained by nurse ldr, Dr. Familia Adams. Please keep the patient n.p.o. and await GI consult. Continue aspirin 81 mg a day, Lipitor 40 mg a day (LDL 86 and Lipitor 20), metoprolol 25 b.i.d. We will make further recommendations post cath if able to do so after GI evaluates. 2. History of paroxysmal atrial fibrillation/flutter, not on anticoagulation due to prior gastrointestinal bleed in October of 2019, at that time there was no identifiable source, on metoprolol therapy. 3. History of prior gastrointestinal bleed October of 2018, underwent EGD and colonoscopy; per report, no identifiable source seen. Hemoglobin is stable. Denies any episodes of bleeding since that time. This occurred while on Xarelto. She is not on Xarelto or antiplatelet therapy at home. Currently on aspirin therapy. GI consult pending. 4. History of hyperlipidemia. LDL 86 on outpatient labs, now on Lipitor 40 a day. Goal LDL is less than 70. 5. History of veoy-ch-qmumulcx aortic stenosis. Echocardiogram pending. 6. Disposition, pending course. 7. The patient is full code. Dr. Ana Ngo has personally seen and examined the patient and agrees with the above assessment and plan. We will await GI consultation and likely proceed with cardiac catheterization if able to do so. We will await echocardiogram and follow closely. TAMMY VILLALTA NP [id number]/[facility] #: [id number] SUZANNA
--- NOTE | 2019-06-25 13:01 | ECHO ---
*[facility]* [place] [address] Fax #: [phone] Transthoracic Echocardiogram Patient: Kiara Moreno : 1935 Study Date: 06/25/2019 Age: 83 Gender: F HR: 82 bpm Height: 59 in /149.9 cm BSA: 2.37 m^2 Weight: 275 lb /125 kg BMI: 55.7 kg/m^2 *Rn Acls: Nora Chaves *Referring Physician: * Hailey Paredes *Reading Physician: * Ana Ngo MD Indications: Myocardial Infarction (new). History: Atrial fibrillation. Risk factors: Hypertension. Dyslipidemia. Conclusions Summary: - Left ventricle: The cavity size is normal. Wall thickness is at the upper limits of normal. Systolic function is mildly reduced. The estimated ejection fraction is 50%. Hypokinesis of the apical lateral myocardium see on short axis view. - Right ventricle: Systolic function is normal. - Aortic valve: Thickening, consistent with sclerosis. There is trace regurgitation. - Mitral valve: There is mild to moderate regurgitation. - Tricuspid valve: There is mild-moderate regurgitation. - Pulmonary arteries: Systolic pressure is within the normal range, estimated to be 30 mm Hg. - Compared with prior echocardiogram of 10/27/18, ejection fraction previously 40-45%, wall motion abnormality new. Mitral regurgitation is stable, tricuspid regurgitation previously moderate and pulmonary artery pressure has normalized from 49 mmHg. Study data: Transthoracic echocardiogram. Procedure: Transthoracic echocardiography was performed. Image quality was good. Complete 2D, spectral Doppler, and color flow Doppler. Location: Bedside. Patient status: Inpatient. Patient room number: 434-01. Study status: Routine. Rhythm: Atrial fibrillation. Findings Left ventricle: The cavity size is normal. Wall thickness is at the upper limits of normal. Systolic function is mildly reduced. The estimated ejection fraction is 45-50%. Regional wall motion abnormalities: Hypokinesis of the apical lateral myocardium see on short axis view. Left ventricular diastolic function parameters are indeterminate. Right ventricle: The cavity size is normal. Systolic function is normal. Ventricular septum: The ventricular septum is normal. Left atrium: The atrium is moderately dilated. Right atrium: The atrium is normal in size. Atrial septum: No defect or patent foramen ovale is identified. Mitral valve: The valve is structurally normal. There is no evidence of stenosis. There is mild to moderate regurgitation. Aortic valve: The valve is trileaflet. The leaflets are mildly calcified. Thickening, consistent with sclerosis. Cusp separation is normal. Transvalvular velocity is within the normal range. There is no evidence of stenosis. There is trace regurgitation. Tricuspid valve: The valve is structurally normal. There is no evidence of stenosis. There is mild-moderate regurgitation. Pulmonic valve: The valve is structurally normal. There is no evidence of stenosis. There is no regurgitation. Aorta: Aortic arch: The aortic arch is not visualized. The aortic root appears normal. Pericardium: There is no significant pericardial effusion. Pulmonary arteries: Systolic pressure is within the normal range, estimated to be 30 mm Hg. Systemic veins: Inferior vena cava: The vessel is normal in size. There is (>= 50%) respiratory change in the IVC dimension. Pulmonary veins: The Pulmonary veins appear normal. Measurements Left ventricle Value Ref Aortic valve continued Value Ref PUMA, LAX base (L) 3.7 cm 3.8 - 5.2 VTI, S 31.2 cm -------- ESD, LAX base 2.8 cm 2.2 - 3.5 LVOT/AV, VTI 0.43 -------- PW, ED, LAX (H) 1.2 cm 0.6 - 0.9 ratio E', lat subhash, TDI (L) 0.1 cm/sec >=10.0 SONYA, VTI 1.36 cm^2 ---- ---- E/e', lat subhash, TDI 1178 --------- SONYA, Vmax 3.04 cm^2 ------- - E/e', avg, TDI 13 <=14 AR PHT 437 ms ---- ---- LVOT Value Ref Mitral valve Value Ref Diam, S 2.00 cm --------- Peak E 1.06 m/sec -------- Area 3.1 cm^2 --------- Peak A 0 m/sec -------- Peak amalia, S 1.52 m/sec --------- Decel time 3 ms -------- VTI, S 13.5 cm --------- Peak grad, D 4.5 mm Hg -------- Peak grad, S 9 mm Hg --------- Pulmonic valve Value Ref Right ventricle Value Ref Peak v, S 0.52 m/sec -------- PUMA minor ax, A4C 3.0 cm --------- Peak grad, S 1.1 mm Hg -------- Left atrium Value Ref Tricuspid valve Value Ref LA ID 3.9 cm --------- TR peak v 2.5 m/sec <=2.8 ML dim, A4C 5.8 cm --------- Peak RV-RA grad, 25 mm Hg -------- SI dim, A4C 4.2 cm --------- S Vol/bsa, ES, A/L (H) 44 ml/m^2 16 - 34 Aortic root Value Ref Right atrium Value Ref Root diam 2.7 cm <4.4 RA ID, major 3.9 cm --------- RA ID, minor 4.2 cm --------- Ascending aorta Value Ref AAo diam 3.0 cm 1.9 - Aortic valve Value Ref 3.5 Peak v, S 1.57 m/sec --------- Inferior vena cava Value Ref Diam 0.2 cm -------- Legend: (L) and (H) marti values outside specified reference range. Prepared and electronically signed by Ana Ngo MD 06/25/2019 13:01
[2019-06-25] MEDS ORDERED: diPHENhydraMINE PO* 25 MG PO PRN (13:48)
--- NOTE | 2019-06-25 15:12 | PN ---
INTERVENTIONAL PROGRESS NOTE: DATE: 06/25/19 HISTORY: I was asked by Dr. Ana Ngo to perform cardiac catheterization and possible interventio n on Ms. Moreno in light of her presentation with abnormal cardiac enzymes and abnormal EKG suggestin g anterior wall ischemia, but without definitive Q-wave development. The patient is a pleasant 83-year-old female who a year ago came in with a GI bleed, on Xarelto and w as found to have dramatic ST segment changes of ischemia with T-wave inversion to the anterior wall. Echocardiogram showed initial EF of 20% to 25% that over time did improve to 40 to 45%. She has a h istory of intermittent atrial fibrillation and had been on Xarelto for that. GI saw her at that time and could not find a source of the bleeding. As such they recommended staying away from full antico agulants. She had not been on any since and intermittently has been shown to have atrial fibrillatio n on Holter monitor when followed by Dr. Baltazar Monroe. She was given options for having a Watchma n procedure done which she did not want. Of note, this past Sunday she had a 3-hour episode of severe chest discomfort followed by several mor e hours of milder discomfort that eventually dissipated. She told her family doctor about it, who wan lora her to be seen emergently by Dr. Monroe. Dr. Monroe asked her to get a troponin level checked on Sunday and the troponin level was elevated at 14.38. She was subsequently called and urged to come to the emergency room, but she said she was feeling fine and would see Dr. Monroe the next day. She saw Dr. Monroe and he saw the abnormal EKG with her back in atrial fibrillation with T-wave inversion s noted in the lateral leads as well as the early precordial leads and as such he recommended she be admitted to the hospital for further assessment. Her troponins have been in a downward direction sin ce that time. Admitting BUN and creatinine have been 32 and 1.2, on repeat it was 31 and 0.99. PHYSICAL EXAMINATION: Physical examination when I see reveals a pleasant female in no acute distress . Blood pressure 137/80 with a pulse in the 80s, irregularly irregular. Respirations are 16, O2 sat uration 100% on room air, afebrile. Neck is supple. Lungs are clear with no active rales, rhonchi, or wheezes. Heart has an irregular irregular rhythm with variable S1, normal S2, no significant syst olic or diastolic murmur. Abdomen is soft, nontender without organomegaly. Peripheral pulses are in tact. Femoral pulses are noted without bruits. Neuro: The patient alert, oriented, with normal men tation. Musculoskeletal: The patient with normal gait. Psychiatric: The patient with normal affec t. DIAGNOSTIC STUDIES/LAB DATA: Transthoracic echocardiogram performed today on 06/25/19 reveals overal l systolic function mildly reduced with an EF of 50% with hypokinesis of the apical lateral wall seen on short view. There was mild-to- moderate mitral regurgitation, mpem-fs-zxpsmktf tricuspid regurgi tation. There was trace aortic regurgitation. Compared to prior study of October, the ejection fract ion actually has improved, but the wall motion abnormalities reported as new. Laboratory results reveal sodium 138, potassium 4.2, chloride 106, bicarb 23, BUN and creatinine as m entioned earlier 31 and 0.99. Troponin trending downward to 3.66, hemoglobin and hematocrit of 12.8 and 37 with a platelet count of 170,000. A sed rate of 62 (she chronically has elevated sed rates as sumed to be due to her autoimmune disease). The patient is currently on heparin therapy in addition to aspirin and received a loading dose of macho pidogrel 300 mg today. She is also on metoprolol succinate 25 mg b.i.d. and atorvastatin 40 mg. Electrocardiogram from 06/24/19 at 1427 showed atrial fibrillation with a rate in the 90s, T-wave inv ersion seen in I and aVL without definitive Q-waves in those leads, poor R-wave in V1 and V2 and smal l R in V3 with T-wave inversion in V2 and V3, minimal if any ST elevation in V2. Mild scooping of th e ST segments V5 and V6 seen. Repeat EKG done at 8 o'clock reveals biphasic T-wave in V3 and mild ST segment depression in V5 and V6. T-wave inversion in I and aVL are noted. Another EKG was performe d at 0943 and it revealed T-wave inversion in aVL. Of note, the R- wave in aVL is no longer present and V3 has T-wave inversion noted. OVERALL ASSESSMENT: Kiara presents now with what sounds like a myocardial infarction on Sunday n ight with prolonged episode of chest discomfort that seemed to have occurred while she was walking fr om her car into a building visiting people. She had it for at least close to 8 hours. She has not h ad reportedly return of symptoms since then. She is currently on dual antiplatelet therapy for a pre sumed non-ST elevation myocardial infarction. She has a small wall motion abnormality involving the apical lateral region, and at this point, given the degree of EKG change that she had back a year ago , I would be concerned whether or not there is a more proximal lesion present. I explained to her th e risks and benefits of cardiac catheterization as well as having to proceed with dual antiplatelet t herapy and the risk of bleeding in light of her prior gastrointestinal bleed which was significant ba ck in October of last year. She understands the risks and benefits and wishes to proceed with a cardi ac catheterization and with stenting if possible. I did explain to her that if there was multivessel disease, the better option may be bypass surgery, at which point we would have to transfer her to an other center for this. She understands that and wishes to go to [place], [place] if that is the [facility]. The risks and benefits were explained to her, she understands them and wishes to proceed and or ders have been written. Further management pending the results of the catheterization tomorrow. [id number]/[facility] #: [id number]
--- NOTE | 2019-06-25 16:19 | CONS ---
CC: Hailey Paredes MD* GASTROENTEROLOGY CONSULT REPORT: DATE OF CONSULT: 06/25/19 REQUESTING PHYSICIAN: Hailey Paredes MD. INDICATION: History of GI bleed, potential need for antiplatelet therapy. HISTORY OF PRESENT ILLNESS: Ms. Moreno is a krysten 83-year-old woman with a history of atrial fibrillation, GI bleed of unclear etiology, GERD, hypertension , cardiomyopathy, who is admitted with chest pain and elevated troponin. Ms. Moreno was reportedly in usual state of health until Sunday when she developed chest pain and shortness of breath after walking from her car to the house. The pain was severe and lasted for hours. She had lab work done, which demonstrated an elevated troponin to 14.38. She was directed to the ED. No ST elevation noted on EKG. Troponin has down trended. Tentative plan for cardiac catheterization tomorrow. GI consult requested given lower GI bleed history. On review of history, Ms. Moreno was hospitalized in October 2018. She has overt GI bleeding at the time with a hemoglobin that dropped to 6.5. She was on Xarelto for AFib. This anticoagulation was stopped. An EGD was negative for bleeding source. There was no fresh or old blood seen on the upper endoscopy. She then underwent a colonoscopy. There was a trace amount of old blood in the splenic flexure area. Close inspection did not reveal any bleeding source. Her H and H stabilized. Subsequent labs have demonstrated a normalization in her hemoglobin with a hemoglobin of 13 on admission. The patient denies any GI symptoms such as nausea, vomiting, heartburn, dysphagia, abdominal pain, diarrhea or constipation. She is not seeing any melena or hematochezia. She does not use any nonsteroidals. PAST MEDICAL HISTORY: 1. Atrial fibrillation. 2. Acute GI bleed in October 2018, on Xarelto. 3. Smlk-ff-jkuebuzp aortic stenosis. 4. Systolic heart failure. 5. Mitral insufficiency. 6. Hypertension. PAST SURGICAL HISTORY: 1. History of right shoulder washout of a septic joint. 2. Cataract surgery. 3. Tonsillectomy. 4. Appendectomy. 5. Carpal tunnel release. 6. Bilateral knee surgeries. HOME MEDICATIONS: 1. Atorvastatin 20 mg daily. 2. Lisinopril 5 mg daily. 3. Toprol-XL 25 mg twice daily. 4. Famotidine 25 mg p.r.n. 5. Mometasone spray daily. ALLERGIES: Listed allergies include RIFAMPIN and DOXYCYCLINE. SOCIAL HISTORY: The patient lives in [facility] with her daughter. She is . 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 No significant alcohol or drug use. Nonsmoker. REVIEW OF SYSTEMS: A 10-point review of systems was negative except as mentioned above. PHYSICAL EXAM: Vital Signs: Afebrile, heart rate 60s to 70s, blood pressure 137/80, respiratory rate 16, 100% on room air. General: Very pleasant, well- appearing elderly woman, in no acute distress. HEENT: Mucous membranes moist. Cardiovascular: Irregularly irregular rate and rhythm. Lungs: Breathing comfortably. Lungs are clear on anterior lung hall. Abdomen: Soft, nontender, nondistended. Extremities: No significant edema. DIAGNOSTIC STUDIES/LAB DATA: Labs: Labs reviewed. White count 5.8, hemoglobin 12.8, hematocrit 37, MCV 91, platelet count 170. INR 1.06. BUN 31, creatinine 0.99. Troponin has trended down from a peak of 14 to 3.6. Imaging: Chest x-ray on admission was negative for acute findings. Endoscopy, prior EGD, and colonoscopy summarized in the HPI. IMPRESSION AND RECOMMENDATION: Ms. Moreno is an 83-year-old woman with a history of atrial fibrillation and cardiomyopathy as well as significant gastrointestinal bleed of unclear etiology in October 2018, who is admitted with chest pain and elevated troponin consistent with a kyr-MN-nkcyuggmi myocardial infarction. It is very challenging to assess this patient's risk of recurrent bleeding without knowing the source of gastrointestinal bleed last year. Vascular lesions such as an AVM or Dieulafoy was inspected last year. These can be difficult to locate, particularly after bleeding has stopped. Reassuringly, she has not had any recurrent anemia to suggest slow ongoing blood loss from gastrointestinal tract. From my review of this case, I do not find a clear absolute contraindication to antiplatelet or anticoagulation use. Endoscopic evaluation can be discussed if the patient were to develop recurrent anemia or gastrointestinal bleeding in the future. I reviewed this with the patient as well as the primary team. Thank you very much for this consult. Please contact GI if any acute clinical change or any further questions. Thank you very much for the referral. [id number]/[facility] #: [id number] MTDD
--- NOTE | 2019-06-25 16:34 | PN ---
Cardiology Progress Note Date of Service: 06/25/19 - CC: chest pressure, elevated troponins. See full dictated note from LATHE SETUP OPERATOR Tammy Villalta. I personally saw and examined the patient 83 yo with persistent atrial fibrillation, not on anticoagulation since GI bleed last summer (BRBPR with BM). Acute onset of L chest tightness Sunday06/22/2019, declined [facility] until yesterday. Trops 14 @ 48 hr out, non specific ECG changes, focal wall motion abnormality seen in lateral wall on echo, EF 50%. VT could be from CAD, c/w prior stress test or embolic from afib w/o anticoagulation. Per GI, work up at time of bleed showed no clear source, OK for DAPT, moderate risk GI cabral. After extensive discussions with the patient the current plan is for Cath in AM with plavix loading today. The patient is CP free currently, afib rate controlled. MEDS: Acetaminophen (Tylenol Tab*) 650 mg PO Q4H PRN PRN Reason: PAIN-MILD/TEMP >/= 100.4 Al Hydrox/Mg Hydrox/Simethicone (Maalox Plus*) 30 ml PO Q6H PRN PRN Reason: INDIGESTION Ascorbic Acid (Vitamin C Tab*) 500 mg PO DAILY [facility] Last Admin: 06/25/19 10:03 Dose: 500 mg Aspirin (Aspirin 81 Mg Chew Tab*) 81 mg PO DAILY [facility] Last Admin: 06/25/19 10:02 Dose: 81 mg Atorvastatin Calcium (Lipitor*) 40 mg PO BEDTIME [facility] Last Admin: 06/24/19 22:40 Dose: 40 mg Calcium Carbonate (Calcium Carbonate Tab*) 1,250 mg PO DAILY [facility] Last Admin: 06/25/19 10:02 Dose: 1,250 mg Clopidogrel Bisulfate (Plavix Tab*) 75 mg PO DAILY [facility] Diphenhydramine HCl (Benadryl Po*) 25 mg PO ONCE PRN PRN 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 Stop: 06/26/19 23:59 Sodium Chloride (Ns 0.9% 1000 Ml) 1,000 mls @ 100 mls/hr IV .per rate [facility] Metoprolol Succinate (Toprol Xl Tab*) 25 mg PO BID [facility] Last Admin: 06/25/19 10:03 Dose: 25 mg Metoprolol Tartrate (Lopressor Iv*) 5 mg IV Q6H PRN PRN Reason: HEART RATE Morphine Sulfate (Morphine Inj (Syringe))*) 1 mg IV Q4H PRN PRN Reason: PAIN - SEVERE Vital Signs - 12 hr Temp Pulse Resp BP Pulse Ox 06/25/19 15:19 98.1 F 114 16 137/76 99 06/25/19 11:00 97.3 F 79 16 137/80 100 06/25/19 08:00 16 06/25/19 07:40 98.3 F 69 16 117/60 99 Rare crackles lungs. No murmurs, irregular rhythm. Strong radial pulses. No LE edema. Await cath results for further recommendations on CAD, afib.
[2019-06-25] MEDS ORDERED: Metoprolol Tartrate IV* 1 MG/ML 5 ML VIAL IV PRN (17:40)
[2019-06-25] MEDS: Atorvastatin* 40 MG TAB PO SCH (20:45)
[2019-06-26 07:33] LABS: ABS Basophils 0.1 10^3/ul (0-0.2); ABS Eosinophils 0.2 10^3/ul (0-0.6); ABS Lymphocytes 1.4 10^3/ul (1.0-4.8); ABS Monocytes 0.7 10^3/ul (0-0.8); ABS Neutrophils 2.5 10^3/ul (1.5-7.7); Eosinophil % 4.8 %; Hematocrit 34 % (35-47); Hemoglobin 11.7 g/dL (12.0-16.0); Lymphocyte % 28.1 %; Mean Corpuscular HGB Conc 34 g/dL (31-36); Mean Corpuscular Hemoglobin 31 pg (27-31); Mean Corpuscular Volume 91 fL (80-97); Mean Platelet Volume 8.8 fL (7.4-10.4); Nucleated Red Blood Cells % 0.1; Platelet Count 188 10^3/uL (150-450); Red Blood Count 3.74 10^6 /uL (3.70-4.87); Red Cell Distribution Width 14 % (10-15); White Blood Count 4.9 10^3/uL (3.5-10.8)
[2019-06-26 07:53] LABS: EGFR African American 70.5 (>60); EGFR Non-African American 58.3 (>60)
--- NOTE | 2019-06-26 08:33 | PN ---
Subjective Date of Service: 06/26/19 Interval History: Pt remains alert and oriented x 3. Pt is without complaints this AM. Pt denies chest pain, SOB, Dizziness, headaches. Family History: Unchanged from Admission Social History: Unchanged from Admission Past Medical History: Unchanged from Admission Objective Active Medications: Acetaminophen (Tylenol Tab*) 650 mg PO Q4H PRN PRN Reason: PAIN-MILD/TEMP >/= 100.4 Al Hydrox/Mg Hydrox/Simethicone (Maalox Plus*) 30 ml PO Q6H PRN PRN Reason: INDIGESTION Ascorbic Acid (Vitamin C Tab*) 500 mg PO DAILY [facility] Last Admin: 06/25/19 10:03 Dose: 500 mg Aspirin (Aspirin 81 Mg Chew Tab*) 81 mg PO DAILY [facility] Last Admin: 06/25/19 10:02 Dose: 81 mg Atorvastatin Calcium (Lipitor*) 40 mg PO BEDTIME [facility] Last Admin: 06/25/19 20:45 Dose: 40 mg Calcium Carbonate (Calcium Carbonate Tab*) 1,250 mg PO DAILY [facility] Last Admin: 06/25/19 10:02 Dose: 1,250 mg Clopidogrel Bisulfate (Plavix Tab*) 75 mg PO DAILY [facility] Diphenhydramine HCl (Benadryl Po*) 25 mg PO ONCE PRN PRN 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 [employer] Stop: 06/26/19 23:59 Sodium Chloride (Ns 0.9% 1000 Ml) 1,000 mls @ 100 mls/hr IV .per rate [facility] Metoprolol Succinate (Toprol Xl Tab*) 37.5 mg PO BID [facility] Last Admin: 06/25/19 20:44 Dose: 37.5 mg Metoprolol Tartrate (Lopressor Iv*) 5 mg IV Q6H PRN PRN Reason: HR >100 Morphine Sulfate (Morphine Inj (Syringe))*) 1 mg IV Q4H PRN PRN Reason: PAIN - SEVERE Vital Signs - 8 hr 06/26/19 06/26/19 03:00 07:15 Temperature 97.5 F 97.9 F Pulse Rate 90 71 Respiratory 18 18 Rate Blood Pressure 122/58 117/58 (mmHg) O2 Sat by Pulse 100 100 Oximetry Oxygen Devices in Use Now: None Appearance: Elderly female appears stated age sitting up in bed watching TV and eating breakfast. Does not appear in any distress. Eyes: No Scleral Icterus, PERRLA Ears/Nose/Mouth/Throat: NL Teeth, Lips, Gums, Clear Oropharnyx, Mucous Membranes Moist Neck: NL Appearance and Movements; NL JVP, Trachea Midline Respiratory: Symmetrical Chest Expansion and Respiratory Effort, Clear to Auscultation Cardiovascular: NL Sounds; No Murmurs; No JVD, RRR, No Edema Abdominal: NL Sounds; No Tenderness; No Distention, No Hepatosplenomegaly Lymphatic: No Cervical Adenopathy Extremities: No Edema, No Clubbing, Cyanosis Skin: No Rash or Ulcers, No Nodules or Sclerosis Neurological: NL Sensation, NL Muscle Strength and Tone Nutrition: Taking PO's Result Diagrams: 06/26/19 06:32 06/26/19 06:32 Assess/Plan/Problems-Billing Assessment: 83 yof with history significant for Chronic Afib, Cardiomyopathy, GERD, HTN pt arrives to ED on 06/24/19 at urging of her human resources representative for elevated troponin and chest pain/pressure - Patient Problems (1) NSTEMI (non-ST elevated myocardial infarction) Current Visit: Yes Comment: -06/26/19- Successful stenting of totally occulded LAD 2 stents Mid LAD and mid Diagonal. pt resting comfortably in ICU. -CP/Pressure started 06/21 persisted through 06/22. Out patient trop 14. -Hx of Afib Restarted on DAPT today ASA and Plavix, will likely have cath 06/25. Pt has hx of GI bleed 10/2018. Unknown cause has been off DAPT since. Consult with Dr. Silver and Dr. Ngo today regarding anticoagulants. Although difficult to risk stratify bleeding risk in patient as no definite cause determined, the benefit of cardiac cath and resumption of anticoagulation outweighs the risk of GI bleed. DAPT restarted by cardiology. -Dr. Monroe had ESR drawn on 06/23 at office visit which came back elevated at 60 today ESR was 62. It does appear that patient is chronically elevated likely due to polymyalgia rheumatica. Dr. Adams is aware of this finding. -06/25 AM- Is without chest pain or SOB is currently in NSR (2) Atrial fibrillation Current Visit: No Comment: -06/25 AM- Pt has converted into NSR, evening of 06/24 pt was in and out of NSR uncertain how long patient has maintained this rhythm. HR mid 80's. Consistant with patient's hx of PAF -Metoprolol Succinate was increased from 25mg BID to 37.5mg BID on 06/24 for sustained tachycardia 100-1teen's -Changed HR parameter of Metoprolol Tartrate 5mg IV q6H PRN HR >100. -DAPT resumed today by cardiology ASA and Plavix, catheterization 06/26/19 (3) HTN (hypertension) Current Visit: No Comment: -Well controlled -Metoprolol 37.5 mg PO BID (4) GERD (gastroesophageal reflux disease) Current Visit: No Comment: - Maalox PRN (5) Full code status Current Visit: Yes (6) DVT prophylaxis Current Visit: No Comment: -Aspirin, Plavix Status and Disposition: Guarded
[2019-06-26 08:41] LABS: Calcium 8.6 mg/dL (8.6-10.3); Potassium 4.3 mmol/L (3.5-5.0)
[2019-06-26] MEDS ORDERED: NS 0.9% 1000 ML** 1,000 ML IV SCH (09:00)
[2019-06-26] MEDS: Metoprolol Succinate XL TAB* 25 MG PO SCH ×2 (09:15→20:50)
[2019-06-26] MEDS: Ascorbic Acid TAB* 500 MG PO SCH (09:18)
[2019-06-26] MEDS: Clopidogrel TAB* 75 MG PO SCH (09:18)
[2019-06-26] MEDS: Calcium Carbonate TAB* 1250 MG (CALCIUM 500 MG) PO SCH (09:18)
[2019-06-26] MEDS: Aspirin 81 mg CHEW TAB* 81 MG TAB.CHEW PO SCH (09:29)
[2019-06-26 11:33] LABS: BUN/Creatinine Ratio 29.3 (8-20)
[2019-06-26] MEDS ORDERED: fentaNYL* 50 MCG/ML 2 ML VIAL (100 MCG VIAL) ONE (11:36)
[2019-06-26] MEDS ORDERED: Heparin 2 UNITS/ML IVPREMIX* 3,000 ML IV ONE (11:36)
[2019-06-26] MEDS ORDERED: Midazolam* 1 MG/ML 5 ML VIAL (5 MG) ONE (11:36)
[2019-06-26] MEDS ORDERED: Lidocaine 1% INJ* 10 MG/ML 30 ML SDV ONE (11:36)
[2019-06-26] MEDS ORDERED: Iodixanol 320 (CONTRAST) 100 ML SDV ONE ×4 (11:37→13:43)
[2019-06-26] MEDS ORDERED: nitroGLYCERIN DRIP* 25,000 MCG/250 ML BTL ONE (12:21)
[2019-06-26] MEDS ORDERED: Heparin(*) 1000 UNIT/ML 10 ML VIAL CATH LAB IV ONE (12:38)
[2019-06-26] MEDS ORDERED: Heparin 2 UNITS/ML IVPREMIX* 1,000 ML IV ONE (14:09)
[2019-06-26] MEDS ORDERED: Nitroglycerin TAB 0.4 MG* 0.4 MG TAB SL PRN (14:12)
[2019-06-26] MEDS: NS 0.9% 1000 ML** 1,000 ML IV SCH ×2 (14:48→19:14)
[2019-06-26] MEDS ORDERED: Cyclobenzaprine TAB* 10 MG PO PRN (15:18)
--- NOTE | 2019-06-26 18:56 | CATH ---
CC: Dr. Baltazar Monroe, [facility]; Dr. Riojas* CARDIAC CATHETERIZATION AND INTERVENTIONAL REPORT: DATE OF PROCEDURE: 06/26/19 PRIMARY CARE DOCTOR: Dr. Riojas. INDICATION FOR PROCEDURE: Asked by the hospital cardiology service to perform cardiac catheterization in light of the patient presenting with a non-ST- segment elevation anterior wall myocardial infarction with positive enzymes and fairly well preserved LV function except for apical region. PROCEDURE: Coronary arteriography, balloon angioplasty of the totally occluded LAD, and placement of a 2.0 x 26 mm long Resolute [place] drug-eluting stent in the mid LAD, followed by placement of a 2.0 x 18 mm long Resolute Abram drug- eluting stent in the distal LAD overlapped and balloon angioplasty of the mid diagonal branch. CONSENT: The patient was interviewed and examined on the floor of the hospital where the risks and benefits were explained. She understood them and wished to proceed. It should be noted that the hospital cardiology service had contacted the GI service with regard to proceeding with potential for dual antiplatelet and coronary intervention given her prior history of having bled on one of the NOAC agents last year and they felt at this point in time the cardiac status was more important than her GI status. The patient understood the risk being moderate for GI bleeding from the dual antiplatelet and being given acute anticoagulation. APPROACH UTILIZED: The right radial artery was assessed by ultrasound on the floor of the hospital and found to be extremely swollen and as such this was not the approach utilized, the right femoral artery approach was utilized. PRE-CARDIAC CATHETERIZATION LABORATORY RESULTS: Hemoglobin and hematocrit of 11.7 and 34 with a platelet count of 188,000. BUN and creatinine were 27 and 0.92, sodium 138, potassium 4.3, chloride 106, bicarb 23. Troponin was 3.36 when last checked, it had been higher on admission. EQUIPMENT UTILIZED: 1. The femoral artery sheath was an 11 cm 5-Brazilian Lorie sheath for the diagnostic procedure, changed to a 6.5-Brazilian Merit Prelude sheath for the intervention. 2. The diagnostic catheters were a 5-Brazilian 3.5 curve FL diagnostic catheter and a 5-Brazilian FR4 curve diagnostic catheter. 3. The diagnostic guidewire was a standard 150 cm length J-tipped guidewire. 4. The guiding catheter utilized was a 6-Brazilian LBU 3 curve catheter. 5. The guidewires utilized included an exchange length 300 cm All Star wire, a regular length All Star wire, a regular length BMW wire, and an exchange length Whisper wire. 6. The balloon catheters utilized included a 1.5 mm x 8 mm long Emerge balloon , a 1.5 x 8 mm long over the wire Emerge push balloon, a 2.0 x 12 mm long NC Emerge balloon, a 2.0 x 8 mm long NC Emerge balloon. 7. The stents were a 2.0 x 26 mm and a 2.0 x 18 mm long Resolute Abram drug- eluting stents. MEDICATIONS GIVEN DURING THE PROCEDURE: 1. The patient had already received aspirin and Plavix before coming to the lab in addition to Benadryl. 2. The patient received 4000 units of heparin with an additional 1200 units of heparin given to obtain an ACT in therapeutic range. 3. Intracoronary nitroglycerin was given in addition to local Xylocaine. 4. A total of 1 mg of Versed was given for sedation. DESCRIPTION OF PROCEDURE: The patient was brought to the cardiovascular laboratory where a formal time-out was performed. She was prepped and draped in sterile fashion and the right femoral artery area was anesthetized with 1% lidocaine. The right femoral artery was cannulated and sheath was placed. Diagnostic coronary arteriography was performed. A discussion was then had with [facility] with regard to the technical nature of the case and whether or not it should be attempted given the totally occluded mid LAD albeit somewhat short in nature. After discussion with them, the decision was made to attempt to reopen the totally occluded LAD and treat the diagonal branch as well. The initial sheath was exchanged for the larger 6.5-Brazilian sheath. Guiding views were obtained. Heparin therapy was given to obtain a therapeutic ACT. Initially, a 0.014 BMW wire was advanced in the LAD to the point of total obstruction and initial attempts were made to probe this. They were unsuccessful and as such this wire was placed into the diagonal branch. Following this, an exchange length wire was advanced down into the diagonal branch and a small caliber balloon catheter was brought down and then pulled back to just proximal to the takeoff of the LAD. The wire was removed and eventually the exchange length Whisper wire was then advanced through the balloon catheter to the point of the obstruction. Of note, an extensive bend was made on the catheter to attempt to get across the 90-degree takeoff. It was found to be successful, and once the wire was down there, the balloon was advanced and the wire was removed and injection was made to make sure the balloon was intraluminal, which it was. Following this, the exchange length All Star wire was readvanced into the distal LAD. Balloon angioplasty was then performed. Prior to placing the stent, balloon angioplasty was performed to the ostium of the diagonal branch. Following this, the stent was brought down into the mid LAD and deployed. Because of a distal narrowing that was still present, a second stent was placed in the distal LAD. Following this, the diagonal branch was re-wired through the stent and the wire in the diagonal branch was removed and then placed down the left anterior descending artery. High pressure balloon inflations were made to the LAD mid area because of residual narrowing. Balloon angioplasty was also performed to the ostium of the diagonal branch. At the end of the case, the wires were removed and injections were made to assess the result and the sheath was sutured in place to be pulled manually later. The total contrast used was 275 cc of Omnipaque dye. The radiation exposure included 26.3 minutes of fluoro time. The air kerma radiation was 2874 mGy. The DAP radiation was 15,883 microgray per meter squared. RESULTS: CORONARY ARTERIOGRAPHY: A. Left coronary artery: 1. Left main - widely patent with no significant disease. 2. Left anterior descending artery. The left anterior descending artery supplied a thin caliber first diagonal branch followed by a mid slightly larger but somewhat small caliber second diagonal branch. The LAD then appeared to retrograde fill up toward and almost to the lesion involving the ostium of the diagonal branch. The LAD was a somewhat large vessel extending to the apical region and appearing to extend onto the distal inferior wall. The collateral seemed to be from the circumflex system, which was a dominant system. The first diagonal branch which was small caliber had a 60% ostial narrowing. The second diagonal branch had what appeared to be an 85% to 90% ostial narrowing and the LAD as mentioned was 100% occluded in the mid segment. 3. Circumflex artery - a dominant vessel supplying a bifurcating mid obtuse marginal branch followed several low-lying posterior left ventricular branches ending in a left-sided posterior descending artery. There was no significant disease seen throughout the circumflex system. B. Right coronary artery - a nondominant vessel supplying several acute marginal branches to the RV surface. Of note, one of them seemed to extend down to the inferior wall to some degree with septal perforators that seemed to traverse up toward the left anterior descending artery, but not actually filling it. There was a 65% narrowing seen in its proximal portion. Again, this vessel was small in caliber barely being greater than 1.7 mm. INTERVENTION INTO MID LAD AND MID DIAGONAL: A. Successful reconstitution of totally occluded LAD with balloon angioplasty and stenting utilizing a 2.0 x 26 mm long Resolute Abram drug- eluting stent overlapped distally with a 2.0 x 18 mm long Resolute [place] drug- eluting stent with the mid portion dilated to as much as 2.3 mm with ILENE 3 flow , no dissection seen and 10% to 15% residual narrowing noted. B. Reduction of significant 85% to 90% blockage seen in the mid diagonal branch with balloon angioplasty with still a residual stenosis of 65% to 70% noted, but ILENE 3 flow noted within the vessel. I cannot rule out a small thrombus present at the origin. OVERALL ASSESSMENT: Successful intervention into mid LAD with balloon angioplasty and stenting as described above. Clearly, it is paramount that the patient remain on dual antiplatelet therapy given the length of stenting utilized and its size. Aggressive risk factor management and cholesterol lowering is paramount to her continued care. This will be addressed by the noninterventional cardiology service, who has been following her throughout the hospitalization. I would strongly urge if at all possible that dual antiplatelet therapy be continued for minimum of 6 months and ideally 1 year's time. [id number]/CPS #: [id number] SUZANNA
[2019-06-26] MEDS: Atorvastatin* 40 MG TAB PO SCH (20:50)
[2019-06-27 05:33] LABS: ABS Lymphocytes 1.1 10^3/ul (1.0-4.8); ABS Monocytes 0.6 10^3/ul (0-0.8); ABS Neutrophils 5.4 10^3/ul (1.5-7.7); Eosinophil % 0.6 %; Hematocrit 32 % (35-47); Hemoglobin 10.8 g/dL (12.0-16.0); Lymphocyte % 14.9 %; Mean Corpuscular HGB Conc 34 g/dL (31-36); Mean Corpuscular Hemoglobin 31 pg (27-31); Mean Corpuscular Volume 92 fL (80-97); Red Blood Count 3.46 10^6 /uL (3.70-4.87); Red Cell Distribution Width 13 % (10-15); White Blood Count 7.2 10^3/uL (3.5-10.8)
[2019-06-27 05:36] LABS: Albumin 3.4 g/dL (3.2-5.2); BUN/Creatinine Ratio 21.2 (8-20); Calcium 8.3 mg/dL (8.6-10.3); EGFR African American 77.3 (>60); EGFR Non-African American 63.9 (>60); Globulin 3.4 g/dL (2-4); HDL Cholesterol 60.1 mg/dL; Potassium 4.3 mmol/L (3.5-5.0); Total Bilirubin 0.8 mg/dL (0.2-1.0); Total Protein 6.8 g/dL (6.4-8.9)
[2019-06-27 05:50] LABS: Mean Platelet Volume 8.3 fL (7.4-10.4); Platelet Count 154 10^3/uL (150-450)
[2019-06-27] MEDS: Metoprolol Succinate XL TAB* 25 MG PO SCH ×2 (08:14→20:45)
[2019-06-27] MEDS: Calcium Carbonate TAB* 1250 MG (CALCIUM 500 MG) PO SCH (08:15)
[2019-06-27] MEDS: Aspirin 81 mg CHEW TAB* 81 MG TAB.CHEW PO SCH (08:15)
[2019-06-27] MEDS: Ascorbic Acid TAB* 500 MG PO SCH (08:15)
[2019-06-27] MEDS: Amiodarone TAB* 200 MG PO SCH (08:15)
[2019-06-27] MEDS: Clopidogrel TAB* 75 MG PO SCH (08:15)
--- NOTE | 2019-06-27 09:02 | PN ---
<LeticiajonahTammy - Last Filed: 06/27/19 08:57> Subjective Date of Service: 06/27/19 - s/p NSTEMI, PAF Interval History: No events last night, patient denies c/o chest pain, sob, norman , palpitations, abdominal pain, groin pain. Medications Active Medications: Acetaminophen (Tylenol Tab*) 650 mg PO Q4H PRN PRN Reason: PAIN-MILD/TEMP >/= 100.4 Al Hydrox/Mg Hydrox/Simethicone (Maalox Plus*) 30 ml PO Q6H PRN PRN Reason: INDIGESTION Amiodarone HCl (Cordarone Tab*) 200 mg PO DAILY [facility] Last Admin: 06/27/19 08:15 Dose: 200 mg Ascorbic Acid (Vitamin C Tab*) 500 mg PO DAILY [facility] Last Admin: 06/27/19 08:15 Dose: 500 mg Aspirin (Aspirin 81 Mg Chew Tab*) 81 mg PO DAILY [facility] Last Admin: 06/27/19 08:15 Dose: 81 mg Atorvastatin Calcium (Lipitor*) 40 mg PO BEDTIME [facility] Last Admin: 06/26/19 20:50 Dose: 40 mg Calcium Carbonate (Calcium Carbonate Tab*) 1,250 mg PO DAILY [facility] Last Admin: 06/27/19 08:15 Dose: 1,250 mg Clopidogrel Bisulfate (Plavix Tab*) 75 mg PO DAILY [facility] Last Admin: 06/27/19 08:15 Dose: 75 mg Cyclobenzaprine HCl (Flexeril Tab*) 10 mg PO TID PRN PRN Reason: muscle spasms Last Admin: 06/26/19 15:25 Dose: 10 mg Metoprolol Succinate (Toprol Xl Tab*) 37.5 mg PO BID [facility] Last Admin: 06/27/19 08:14 Dose: 37.5 mg Metoprolol Tartrate (Lopressor Iv*) 5 mg IV Q6H PRN PRN Reason: HR >100 Morphine Sulfate (Morphine Inj (Syringe))*) 1 mg IV Q4H PRN PRN Reason: PAIN - SEVERE Nitroglycerin (Nitroglycerin Tab 0.4 Mg*) 0.4 mg SL Q5M PRN PRN Reason: ANGINA Objective Vital Signs: Temp Pulse Resp BP Pulse Ox 98.2 F 79 22 124/74 100 06/27/19 07:54 06/27/19 08:00 04/24/20 08:00 06/27/19 08:00 06/27/19 08:00 Oxygen Devices in Use Now: None Appearance: Lying upright in bed A+O x3, NAD. Ears/Nose/Mouth/Throat: NL Teeth, Lips, Gums, Clear Oropharnyx, Mucous Membranes Moist Neck: NL Appearance and Movements; NL JVP, Trachea Midline Respiratory: Symmetrical Chest Expansion and Respiratory Effort, Clear to Auscultation Cardiovascular: NL Sounds; No Murmurs; No JVD, RRR, No Edema Abdominal: NL Sounds; No Tenderness; No Distention Extremities: No Edema, - - Right femoral access site non tender to palpation, no thrill, no hematoma. dressing removed and clear dressing was applied. Neurological: Alert and Oriented x 3 Lines/Tubes/Other Access: Clean, Dry and Intact Peripheral IV Laboratory Results: 06/27/19 05:18 06/27/19 05:10 INR (Anticoag Therapy) 1.06 (0.82-1.09) 06/25/19 10:01 APTT 43.8 seconds (26.0-38.0) H 06/25/19 10:01 Total Bilirubin 0.80 mg/dL (0.2-1.0) 06/27/19 05:10 AST 24 U/L (13-39) 06/27/19 05:10 ALT 17 U/L (7-52) 06/27/19 05:10 Alkaline Phosphatase 63 U/L (34-104) 06/27/19 05:10 Total Protein 6.8 g/dL (6.4-8.9) 06/27/19 05:10 Albumin 3.4 g/dL (3.2-5.2) 06/27/19 05:10 Globulin 3.4 g/dL (2-4) 06/27/19 05:10 Albumin/Globulin Ratio 1.0 (1-3) 06/27/19 05:10 Triglycerides 53 mg/dL 06/27/19 05:10 Cholesterol 144 mg/dL 06/27/19 05:10 LDL Cholesterol 73 mg/dL 06/27/19 05:10 HDL Cholesterol 60.1 mg/dL 06/27/19 05:10 TSH 2.24 mcIU/mL (0.34-5.60) 06/26/19 06:32 06/24/19 06/24/19 06/25/19 14:45 20:37 10:01 Troponin I 6.16 H* 5.32 H* 3.66 H* Laboratory Results - last 24 hr 06/26/19 06/26/19 06/26/19 06:32 06:32 12:48 WBC RBC Hgb Hct MCV MCH MCHC RDW Plt Count MPV Neut % (Auto) Lymph % (Auto) Barbour % (Auto) Eos % (Auto) Baso % (Auto) Absolute Neuts (auto) Absolute Lymphs (auto) Absolute Monos (auto) Absolute Eos (auto) Absolute Basos (auto) Absolute Nucleated RBC Nucleated RBC % POC Activ Clotting Time 227 Sodium Potassium Chloride Carbon Dioxide Anion Gap BUN 27 H Creatinine 0.92 Est GFR ( Amer) Est GFR (Non-Af Amer) BUN/Creatinine Ratio 29.3 H Glucose Calcium Total Bilirubin AST ALT Alkaline Phosphatase Total Protein Albumin Globulin Albumin/Globulin Ratio Triglycerides Cholesterol LDL Cholesterol HDL Cholesterol TSH 2.24 06/26/19 06/26/19 06/26/19 12:59 13:12 13:42 WBC RBC Hgb Hct MCV MCH MCHC RDW Plt Count MPV Neut % (Auto) Lymph % (Auto) Barbour % (Auto) Eos % (Auto) Baso % (Auto) Absolute Neuts (auto) Absolute Lymphs (auto) Absolute Monos (auto) Absolute Eos (auto) Absolute Basos (auto) Absolute Nucleated RBC Nucleated RBC % POC Activ Clotting Time 227 280 271 Sodium Potassium Chloride Carbon Dioxide Anion Gap BUN Creatinine Est GFR ( Amer) Est GFR (Non-Af Amer) BUN/Creatinine Ratio Glucose Calcium Total Bilirubin AST ALT Alkaline Phosphatase Total Protein Albumin Globulin Albumin/Globulin Ratio Triglycerides Cholesterol LDL Cholesterol HDL Cholesterol TSH 06/26/19 06/26/19 06/27/19 16:07 16:42 05:10 WBC RBC Hgb Hct MCV MCH MCHC RDW Plt Count MPV Neut % (Auto) Lymph % (Auto) Barbour % (Auto) Eos % (Auto) Baso % (Auto) Absolute Neuts (auto) Absolute Lymphs (auto) Absolute Monos (auto) Absolute Eos (auto) Absolute Basos (auto) Absolute Nucleated RBC Nucleated RBC % POC Activ Clotting Time 171 146 Sodium 137 Potassium 4.3 Chloride 107 Carbon Dioxide 23 Anion Gap 7 BUN 18 Creatinine 0.85 Est GFR ( Amer) 77.3 Est GFR (Non-Af Amer) 63.9 BUN/Creatinine Ratio 21.2 H Glucose 124 H Calcium 8.3 L Total Bilirubin 0.80 AST 24 ALT 17 Alkaline Phosphatase 63 Total Protein 6.8 Albumin 3.4 Globulin 3.4 Albumin/Globulin Ratio 1.0 Triglycerides 53 Cholesterol 144 LDL Cholesterol 73 HDL Cholesterol 60.1 TSH 06/27/19 05:18 WBC 7.2 RBC 3.46 L Hgb 10.8 L Hct 32 L MCV 92 MCH 31 MCHC 34 RDW 13 Plt Count 154 MPV 8.3 Neut % (Auto) 75.0 Lymph % (Auto) 14.9 Barbour % (Auto) 9.0 Eos % (Auto) 0.6 Baso % (Auto) 0.5 Absolute Neuts (auto) 5.4 Absolute Lymphs (auto) 1.1 Absolute Monos (auto) 0.6 Absolute Eos (auto) 0.0 Absolute Basos (auto) 0.0 Absolute Nucleated RBC 0.0 Nucleated RBC % 0.0 POC Activ Clotting Time Sodium Potassium Chloride Carbon Dioxide Anion Gap BUN Creatinine Est GFR ( Amer) Est GFR (Non-Af Amer) BUN/Creatinine Ratio Glucose Calcium Total Bilirubin AST ALT Alkaline Phosphatase Total Protein Albumin Globulin Albumin/Globulin Ratio Triglycerides Cholesterol LDL Cholesterol HDL Cholesterol TSH Diagnostic Imaging: Cardiac Catheterization Report Patient: KIARA MORENO /Age: 05 1935 83 Admission Date: 06/24/19 Location : INTENSIVE CARE UNIT Observation Date/Time: Provider: Familia Adams MD CC: Dr. Baltazar Monroe, [facility]; Dr. Riojas CARDIAC CATHETERIZATION AND INTERVENTIONAL REPORT: DATE OF PROCEDURE: 06/26/19 PRIMARY CARE DOCTOR: Dr. Riojas. INDICATION FOR PROCEDURE: Asked by the hospital cardiology service to perform cardiac catheterization in light of the patient presenting with a [id number] elevation anterior wall myocardial infarction with positive enzymes and fairly well preserved LV function except for apical region. PROCEDURE: Coronary arteriography, balloon angioplasty of the totally occluded LAD, and placement of a 2.0 x 26 mm long Resolute Abram drug-eluting stent in the mid LAD, followed by placement of a 2.0 x 18 mm long Resolute Abram drug-eluting stent in the distal LAD overlapped and balloon angioplasty of the mid diagonal branch. CONSENT: The patient was interviewed and examined on the floor of the hospital where the risks and benefits were explained. She understood them and wished to proceed. It should be noted that the hospital cardiology service had contacted the GI service with regard to proceeding with potential for dual antiplatelet and coronary intervention given her prior history of having bled on one of the NOAC agents last year and they felt at this point in time the cardiac status was more important than her GI status. The patient understood the risk being moderate for GI bleeding from the dual antiplatelet and being given acute anticoagulation. APPROACH UTILIZED: The right radial artery was assessed by ultrasound on the floor of the hospital and found to be extremely swollen and as such this was not the approach utilized, the right femoral artery approach was utilized. PRE-CARDIAC CATHETERIZATION LABORATORY RESULTS: Hemoglobin and hematocrit of 11.7 and 34 with a platelet count of 188,000. BUN and creatinine were 27 and 0.92, sodium 138, potassium 4.3, chloride 106, bicarb 23. Troponin was 3.36 when last checked, it had been higher on admission. EQUIPMENT UTILIZED: 1. The femoral artery sheath was an 11 cm 5-Macanese Lorie sheath for the diagnostic procedure, changed to a 6.5- Macanese Merit Prelude sheath for the intervention. 2. The diagnostic catheters were a 5-Macanese 3.5 curve FL diagnostic catheter and a 5-Macanese FR4 curve diagnostic catheter. 3. The diagnostic guidewire was a standard 150 cm length J-tipped guidewire. 4. The guiding catheter utilized was a 6-Macanese LBU 3 curve catheter. 5. The guidewires utilized included an exchange length 300 cm All Star wire, a regular length All Star wire, a regular length BMW wire, and an exchange length Whisper wire. This report is only to be considered final once signed by the Provider(s) as displayed in the "<Electronically Signed by >" field (s). Absence of a signature indicates the report is in a draft status and still needs to be finalized. In the event this document was created by someone other than the signing Provider, the individual initiating the document will be listed in the "Entered by:" or "Dictated by:" hall. 1 of 3 *[facility]* [place] [address] Fax #: [phone] Transthoracic Echocardiogram Patient: Kiara Moreno : 1935 Study Date: 06/25/2019 Age: 83 Gender: F HR: 82 bpm Height: 59 in /149.9 cm BSA: 2.37 m^2 Weight: 275 lb /125 kg BMI: 55.7 kg/m^2 *Service Station Console Operator: Nora Chaves *Referring Physician: * Hailey Paredes *Reading Physician: * Ana Ngo MD Indications: Myocardial Infarction (new). History: Atrial fibrillation. Risk factors: Hypertension. Dyslipidemia. Conclusions Summary: - Left ventricle: The cavity size is normal. Wall thickness is at the upper limits of normal. Systolic function is mildly reduced. The estimated ejection fraction is 50%. Hypokinesis of the apical lateral myocardium see on short axis view. - Right ventricle: Systolic function is normal. - Aortic valve: Thickening, consistent with sclerosis. There is trace regurgitation. - Mitral valve: There is mild to moderate regurgitation. - Tricuspid valve: There is mild-moderate regurgitation. - Pulmonary arteries: Systolic pressure is within the normal range, estimated to be 30 mm Hg. - Compared with prior echocardiogram of 10/27/18, ejection fraction previously 40-45%, wall motion abnormality new. Mitral regurgitation is stable, tricuspid regurgitation previously moderate and pulmonary artery pressure has normalized from 49 mmHg. This report is only to be considered final once signed by the Provider(s) as displayed in the "<Electronically Signed by >" field (s). Absence of a signature indicates the report is in a draft status and still needs to be finalized. In the event this document was created by someone other than the signing Provider, the individual initiating the document will be listed in the "Entered by:" or "Dictated by:" hall. EKG Data: ECG 06/27/19; Sinus rhythm rate 82, flattened TW noted laterally. QTc 466 Telemetry ; reviewed Sinus rhythm rate 70-80/s Assessment/Plan #1 NSTEMI 06/22/19; troponin peaked at 14. Patient is s/p PTCA mid diagonal branch, PTCA DESx2 in overlapping fashion to mid-distal LAD. Patient has known residual 65-70% stenosis of Diag after PTCA however had ILENE 3 flow. She also has known RCA disease treated medically( small vessel size). She is stable and asymptomatic. Right femoral access site examined. No thrill, no hematoma. She will need to be on DAPT for 12 months time ideally. Continue Lipitor 40/day, Toprol therapy. May transfer to if patient is able to ambulate with out problems/ectopy. #2 h/o PAF; she converted on her own yesterday morning. Post conversion I started her on Amiodarone 200mg/day. She has maintained NSR. Not on OAC due to prior GI bleed on Xarelto that resulted in PRBCs. #3 h/o Prior GI bleed? vascular source. She seems to be tolerating DAPT therapy. #4 h/o LAF; LDL 73 on statin therapy. #5 Disposition pending course. May transfer patient to if she can ambulate halls with no ectopy. Attending: Guille Joseph <Guille Joseph - Last Filed: 06/27/19 16:50> Medications Active Medications: Acetaminophen (Tylenol Tab*) 650 mg PO Q4H PRN PRN Reason: PAIN-MILD/TEMP >/= 100.4 Al Hydrox/Mg Hydrox/Simethicone (Maalox Plus*) 30 ml PO Q6H PRN PRN Reason: INDIGESTION Amiodarone HCl (Cordarone Tab*) 200 mg PO DAILY [facility] Last Admin: 06/27/19 08:15 Dose: 200 mg Ascorbic Acid (Vitamin C Tab*) 500 mg PO DAILY [facility] Last Admin: 06/27/19 08:15 Dose: 500 mg Aspirin (Aspirin 81 Mg Chew Tab*) 81 mg PO DAILY [facility] Last Admin: 06/27/19 08:15 Dose: 81 mg Atorvastatin Calcium (Lipitor*) 40 mg PO BEDTIME [facility] Last Admin: 06/26/19 20:50 Dose: 40 mg Calcium Carbonate (Calcium Carbonate Tab*) 1,250 mg PO DAILY [facility] Last Admin: 06/27/19 08:15 Dose: 1,250 mg Clopidogrel Bisulfate (Plavix Tab*) 75 mg PO DAILY [facility] Last Admin: 06/27/19 08:15 Dose: 75 mg Cyclobenzaprine HCl (Flexeril Tab*) 10 mg PO TID PRN PRN Reason: muscle spasms Last Admin: 06/26/19 15:25 Dose: 10 mg Metoprolol Succinate (Toprol Xl Tab*) 37.5 mg PO BID [facility] Last Admin: 06/27/19 08:14 Dose: 37.5 mg Metoprolol Tartrate (Lopressor Iv*) 5 mg IV Q6H PRN PRN Reason: HR >100 Morphine Sulfate (Morphine Inj (Syringe))*) 1 mg IV Q4H PRN PRN Reason: PAIN - SEVERE Nitroglycerin (Nitroglycerin Tab 0.4 Mg*) 0.4 mg SL Q5M PRN PRN Reason: ANGINA Objective Vital Signs: Temp Pulse Resp BP Pulse Ox 98.2 F 77 20 127/69 99 06/27/19 07:54 06/27/19 12:00 06/27/19 12:00 06/27/19 12:00 06/27/19 12:00 Laboratory Results: 06/27/19 05:18 06/27/19 05:10 INR (Anticoag Therapy) 1.06 (0.82-1.09) 06/25/19 10:01 APTT 43.8 seconds (26.0-38.0) H 06/25/19 10:01 Total Bilirubin 0.80 mg/dL (0.2-1.0) 06/27/19 05:10 AST 24 U/L (13-39) 06/27/19 05:10 ALT 17 U/L (7-52) 06/27/19 05:10 Alkaline Phosphatase 63 U/L (34-104) 06/27/19 05:10 Total Protein 6.8 g/dL (6.4-8.9) 06/27/19 05:10 Albumin 3.4 g/dL (3.2-5.2) 06/27/19 05:10 Globulin 3.4 g/dL (2-4) 06/27/19 05:10 Albumin/Globulin Ratio 1.0 (1-3) 06/27/19 05:10 Triglycerides 53 mg/dL 06/27/19 05:10 Cholesterol 144 mg/dL 06/27/19 05:10 LDL Cholesterol 73 mg/dL 06/27/19 05:10 HDL Cholesterol 60.1 mg/dL 06/27/19 05:10 TSH 2.24 mcIU/mL (0.34-5.60) 06/26/19 06:32 06/24/19 06/24/19 06/25/19 14:45 20:37 10:01 Troponin I 6.16 H* 5.32 H* 3.66 H* Assessment/Plan 06.27.2019 4:50 pm: pt seen and examined. D/w CSO aJcki Villalta . Feels well and able to walk today without limiting symptoms. Wants to go home. Agree with clinical medical desision care and plan.
--- NOTE | 2019-06-27 19:16 | PN ---
Subjective Date of Service: 06/27/19 Interval History: Pt is alert and oriented x 3 denies any chest pain, SOB, dizziness. Family History: Unchanged from Admission Social History: Unchanged from Admission Past Medical History: Unchanged from Admission Objective Active Medications: Acetaminophen (Tylenol Tab*) 650 mg PO Q4H PRN PRN Reason: PAIN-MILD/TEMP >/= 100.4 Al Hydrox/Mg Hydrox/Simethicone (Maalox Plus*) 30 ml PO Q6H PRN PRN Reason: INDIGESTION Amiodarone HCl (Cordarone Tab*) 200 mg PO DAILY [facility] Last Admin: 06/27/19 08:15 Dose: 200 mg Ascorbic Acid (Vitamin C Tab*) 500 mg PO DAILY [facility] Last Admin: 06/27/19 08:15 Dose: 500 mg Aspirin (Aspirin 81 Mg Chew Tab*) 81 mg PO DAILY [facility] Last Admin: 06/27/19 08:15 Dose: 81 mg Atorvastatin Calcium (Lipitor*) 40 mg PO BEDTIME [facility] Last Admin: 06/26/19 20:50 Dose: 40 mg Calcium Carbonate (Calcium Carbonate Tab*) 1,250 mg PO DAILY [facility] Last Admin: 06/27/19 08:15 Dose: 1,250 mg Clopidogrel Bisulfate (Plavix Tab*) 75 mg PO DAILY [facility] Last Admin: 06/27/19 08:15 Dose: 75 mg Cyclobenzaprine HCl (Flexeril Tab*) 10 mg PO TID PRN PRN Reason: muscle spasms Last Admin: 06/26/19 15:25 Dose: 10 mg Metoprolol Succinate (Toprol Xl Tab*) 37.5 mg PO BID [facility] Last Admin: 06/27/19 08:14 Dose: 37.5 mg Metoprolol Tartrate (Lopressor Iv*) 5 mg IV Q6H PRN PRN Reason: HR >100 Morphine Sulfate (Morphine Inj (Syringe))*) 1 mg IV Q4H PRN PRN Reason: PAIN - SEVERE Nitroglycerin (Nitroglycerin Tab 0.4 Mg*) 0.4 mg SL Q5M PRN PRN Reason: ANGINA Vital Signs - 8 hr 06/27/19 06/27/19 12:00 15:59 Temperature 97.9 F Pulse Rate 77 79 Respiratory 20 18 Rate Blood Pressure 127/69 120/50 (mmHg) O2 Sat by Pulse 99 99 Oximetry Oxygen Devices in Use Now: None Appearance: Elderly female appearing stated age sitting up in bed watching TV. No apparent distress. Eyes: No Scleral Icterus, PERRLA Ears/Nose/Mouth/Throat: NL Teeth, Lips, Gums, Clear Oropharnyx, Mucous Membranes Moist Neck: NL Appearance and Movements; NL JVP, Trachea Midline Respiratory: Symmetrical Chest Expansion and Respiratory Effort, Clear to Auscultation Cardiovascular: NL Sounds; No Murmurs; No JVD, RRR, No Edema Abdominal: NL Sounds; No Tenderness; No Distention, No Hepatosplenomegaly Lymphatic: No Cervical Adenopathy Extremities: No Edema, No Clubbing, Cyanosis Skin: No Rash or Ulcers, No Nodules or Sclerosis Neurological: Alert and Oriented x 3, NL Sensation, NL Muscle Strength and Tone Nutrition: Taking PO's Result Diagrams: 06/27/19 05:18 06/27/19 05:10 Assess/Plan/Problems-Billing Assessment: 83 yof with history significant for Chronic Afib, Cardiomyopathy, GERD, HTN pt arrives to ED on 06/24/19 at urging of her news producer for elevated troponin and chest pain/pressure - Patient Problems (1) NSTEMI (non-ST elevated myocardial infarction) Current Visit: Yes Comment: -06/27/19- pt is without chest pain. Femoral cath insertion site is without hematoma. -06/26/19- Successful stenting of totally occulded LAD 2 stents Mid LAD and mid Diagonal. pt resting comfortably in ICU. -CP/Pressure started 06/21 persisted through 06/22. Out patient trop 14. -Hx of Afib Restarted on DAPT today ASA and Plavix, will likely have cath 06/25. Pt has hx of GI bleed 10/2018. Unknown cause has been off DAPT since. Consult with Dr. Silver and Dr. Ngo today regarding anticoagulants. Although difficult to risk stratify bleeding risk in patient as no definite cause determined, the benefit of cardiac cath and resumption of anticoagulation outweighs the risk of GI bleed. DAPT restarted by cardiology. -Dr. Monroe had ESR drawn on 06/23 at office visit which came back elevated at 60 today ESR was 62. It does appear that patient is chronically elevated likely due to polymyalgia rheumatica. Dr. Adams is aware of this finding. -06/25 AM- Is without chest pain or SOB is currently in NSR (2) Atrial fibrillation Current Visit: No Comment: -06/26-Remains NSR, converted spontaneously . Heart rate in 70's. Tolerating Plavix and ASA without evidence of GI bleed. Cardiology started Amiodarone today 200mg PO daily, pt tolerating well. Possbile DC 06/28/19 pending cardiology input. pt did ambulate today without issue. Will be going home, lives with daughter. -06/25 AM- Pt has converted into NSR, evening of 06/24 pt was in and out of NSR uncertain how long patient has maintained this rhythm. HR mid 80's. Consistant with patient's hx of PAF -Metoprolol Succinate was increased from 25mg BID to 37.5mg BID on 06/24 for sustained tachycardia 100-1teen's -Changed HR parameter of Metoprolol Tartrate 5mg IV q6H PRN HR >100. -DAPT resumed today by cardiology ASA and Plavix, catheterization 06/26/19 (3) HTN (hypertension) Current Visit: No Comment: -Well controlled -Metoprolol 37.5 mg PO BID (4) GERD (gastroesophageal reflux disease) Current Visit: No Comment: - Maalox PRN (5) Full code status Current Visit: Yes (6) DVT prophylaxis Current Visit: No Comment: -Aspirin, Plavix Status and Disposition: Guarded
[2019-06-27] MEDS: Atorvastatin* 40 MG TAB PO SCH (20:45)
[2019-06-28 06:48] LABS: ABS Eosinophils 0.3 10^3/ul (0-0.6); ABS Lymphocytes 1.5 10^3/ul (1.0-4.8); ABS Monocytes 0.7 10^3/ul (0-0.8); ABS Neutrophils 3.1 10^3/ul (1.5-7.7); Eosinophil % 5.7 %; Hematocrit 31 % (35-47); Hemoglobin 10.9 g/dL (12.0-16.0); Lymphocyte % 26.2 %; Mean Corpuscular HGB Conc 35 g/dL (31-36); Mean Corpuscular Hemoglobin 32 pg (27-31); Mean Corpuscular Volume 91 fL (80-97); Nucleated Red Blood Cells % 0.1; Platelet Count 176 10^3/uL (150-450); Red Blood Count 3.44 10^6 /uL (3.70-4.87); Red Cell Distribution Width 13 % (10-15); White Blood Count 5.6 10^3/uL (3.5-10.8)
[2019-06-28 07:02] LABS: EGFR African American 62.6 (>60); EGFR Non-African American 51.8 (>60)
[2019-06-28] MEDS: Metoprolol Succinate XL TAB* 25 MG PO SCH ×2 (09:10→20:47)
[2019-06-28] MEDS: Calcium Carbonate TAB* 1250 MG (CALCIUM 500 MG) PO SCH (09:10)
[2019-06-28] MEDS: Ascorbic Acid TAB* 500 MG PO SCH (09:11)
[2019-06-28] MEDS: Clopidogrel TAB* 75 MG PO SCH (09:11)
[2019-06-28] MEDS: Amiodarone TAB* 200 MG PO SCH (09:11)
[2019-06-28] MEDS: Aspirin 81 mg CHEW TAB* 81 MG TAB.CHEW PO SCH (09:11)
--- NOTE | 2019-06-28 10:58 | PN ---
Subjective Date of Service: 06/28/19 - s/p stent, recent [place] Interval History: The patient denies any recurrence of the chest pain that occurred last Sunday. Has only walked to bathroom. Feels weak, low stamina. Lives with her daughter. Family History: Unchanged from Admission Social History: Unchanged from Admission Past Medical History: Unchanged from Admission Objective Active Medications: Acetaminophen (Tylenol Tab*) 650 mg PO Q4H PRN PRN Reason: PAIN-MILD/TEMP >/= 100.4 Al Hydrox/Mg Hydrox/Simethicone (Maalox Plus*) 30 ml PO Q6H PRN PRN Reason: INDIGESTION Amiodarone HCl (Cordarone Tab*) 200 mg PO DAILY [facility] Last Admin: 06/28/19 09:11 Dose: 200 mg Ascorbic Acid (Vitamin C Tab*) 500 mg PO DAILY [facility] Last Admin: 06/28/19 09:11 Dose: 500 mg Aspirin (Aspirin 81 Mg Chew Tab*) 81 mg PO DAILY [facility] Last Admin: 06/28/19 09:11 Dose: 81 mg Atorvastatin Calcium (Lipitor*) 40 mg PO BEDTIME [facility] Last Admin: 06/27/19 20:45 Dose: 40 mg Calcium Carbonate (Calcium Carbonate Tab*) 1,250 mg PO DAILY [facility] Last Admin: 06/28/19 09:10 Dose: 1,250 mg Clopidogrel Bisulfate (Plavix Tab*) 75 mg PO DAILY [facility] Last Admin: 06/28/19 09:11 Dose: 75 mg Cyclobenzaprine HCl (Flexeril Tab*) 10 mg PO TID PRN PRN Reason: muscle spasms Last Admin: 06/26/19 15:25 Dose: 10 mg Metoprolol Succinate (Toprol Xl Tab*) 37.5 mg PO BID [facility] Last Admin: 06/28/19 09:10 Dose: 37.5 mg Metoprolol Tartrate (Lopressor Iv*) 5 mg IV Q6H PRN PRN Reason: HR >100 Morphine Sulfate (Morphine Inj (Syringe))*) 1 mg IV Q4H PRN PRN Reason: PAIN - SEVERE Nitroglycerin (Nitroglycerin Tab 0.4 Mg*) 0.4 mg SL Q5M PRN PRN Reason: [facility] Atorvastatin* [Lipitor 20 MG*] 20 mg PO BEDTIME 05/19/14 [History Confirmed ] Ascorbic Acid TAB* [Vitamin C TAB*] 500 mg PO DAILY 06/24/19 [History Confirmed 06/24/19] Calcium Carbonate [Calcium] 500 mg PO DAILY 06/24/19 [History Confirmed 06/24/19 ] Lisinopril TAB* [Prinivil TAB 5 MG*] 5 mg PO DAILY 06/24/19 [History Confirmed 06/24/19] Metoprolol Succinate XL TAB* [Toprol XL TAB*] 25 mg PO BID 06/24/19 [History Confirmed 06/24/19] Multivitamins/Minerals TAB* [Theragran/minerals TAB*] 1 tab PO DAILY 06/24/19 [ History Confirmed 06/24/19] Vital Signs - 8 hr 06/28/19 06/28/19 04:00 07:32 Temperature 97.3 F 98.1 F Pulse Rate 68 72 Respiratory 19 17 Rate Blood Pressure 111/56 143/53 (mmHg) O2 Sat by Pulse 98 99 Oximetry Vital Signs - 12 hr Temp Pulse Resp BP Pulse Ox 06/28/19 07:32 98.1 F 72 17 143/53 99 06/28/19 04:00 97.3 F 68 19 111/56 98 06/28/19 00:00 97 F 82 20 111/52 99 Oxygen Devices in Use Now: None Appearance: Elderly female, lying in bed, NAD. Eyes: No Scleral Icterus, PERRLA Ears/Nose/Mouth/Throat: Clear Oropharnyx Neck: NL Appearance and Movements; NL JVP Respiratory: Symmetrical Chest Expansion and Respiratory Effort, Clear to Auscultation Cardiovascular: RRR - I did not appreciate murmurs. Abdominal: No Hepatosplenomegaly Extremities: No Edema - Right groin cath site looks good, nominal induration, pea sized, no hematoma, no eccymosos. Neurological: Alert and Oriented x 3, NL Muscle Strength and Tone Lines/Tubes/Other Access: Clean, Dry and Intact Peripheral IV Result Diagrams: 06/28/19 06:14 06/28/19 06:14 Additional Lab and Data: Laboratory Tests 06/24/19 06/24/19 06/24/19 14:45 14:45 14:47 WBC 5.2 RBC 4.12 Hgb 12.9 Hct 38 MCV 92 MCH 31 MCHC 34 RDW 14 Plt Count 196 MPV 8.5 Neut % (Auto) 54.7 Lymph % (Auto) 29.5 [place] % (Auto) 12.3 Eos % (Auto) 2.6 Baso % (Auto) 0.9 Absolute Neuts (auto) 2.9 Absolute Lymphs (auto) 1.5 Absolute Monos (auto) 0.6 Absolute Eos (auto) 0.1 Absolute Basos (auto) 0.0 Absolute Nucleated RBC 0.0 Nucleated RBC % 0.0 ESR INR (Anticoag Therapy) APTT 30.5 POC Activ Clotting Time Sodium 138 Potassium 4.1 Chloride 103 Carbon Dioxide 27 Anion Gap 8 BUN 32 H Creatinine 1.20 H Est GFR ( Amer) 51.9 Est GFR (Non-Af Amer) 42.9 BUN/Creatinine Ratio 26.7 H Glucose 122 H Calcium 9.4 Total Bilirubin 0.50 AST 52 H ALT 26 Alkaline Phosphatase 73 Troponin I 6.16 H* Total Protein 7.8 Albumin 3.9 Globulin 3.9 Albumin/Globulin Ratio 1.0 Triglycerides Cholesterol LDL Cholesterol HDL Cholesterol TSH 06/24/19 06/24/19 06/25/19 20:37 20:37 03:28 WBC RBC Hgb Hct MCV MCH MCHC RDW Plt Count MPV Neut % (Auto) Lymph % (Auto) [place] % (Auto) Eos % (Auto) Baso % (Auto) Absolute Neuts (auto) Absolute Lymphs (auto) Absolute Monos (auto) Absolute Eos (auto) Absolute Basos (auto) Absolute Nucleated RBC Nucleated RBC % ESR INR (Anticoag Therapy) APTT 73.1 H 67.8 H POC Activ Clotting Time Sodium Potassium Chloride Carbon Dioxide Anion Gap BUN Creatinine Est GFR ( Amer) Est GFR (Non-Af Amer) BUN/Creatinine Ratio Glucose Calcium Total Bilirubin AST ALT Alkaline Phosphatase Troponin I 5.32 H* Total Protein Albumin Globulin Albumin/Globulin Ratio Triglycerides Cholesterol LDL Cholesterol HDL Cholesterol TSH 06/25/19 06/25/19 06/25/19 06:05 06:05 10:01 WBC 5.8 RBC 4.03 Hgb 12.8 Hct 37 MCV 91 MCH 32 H MCHC 35 RDW 14 Plt Count 170 MPV 9.2 Neut % (Auto) 45.0 Lymph % (Auto) 34.7 [place] % (Auto) 13.3 Eos % (Auto) 5.9 Baso % (Auto) 1.1 Absolute Neuts (auto) 2.6 Absolute Lymphs (auto) 2.0 Absolute Monos (auto) 0.8 Absolute Eos (auto) 0.3 Absolute Basos (auto) 0.1 Absolute Nucleated RBC 0.0 Nucleated RBC % 0.0 ESR 62 H INR (Anticoag Therapy) 1.06 APTT 43.8 H POC Activ Clotting Time Sodium 138 Potassium 4.2 Chloride 106 Carbon Dioxide 23 Anion Gap 9 BUN 31 H Creatinine 0.99 H Est GFR ( Amer) 64.8 Est GFR (Non-Af Amer) 53.6 BUN/Creatinine Ratio 31.3 H Glucose 94 Calcium 9.1 Total Bilirubin AST ALT Alkaline Phosphatase Troponin I Total Protein Albumin Globulin Albumin/Globulin Ratio Triglycerides Cholesterol LDL Cholesterol HDL Cholesterol TSH 06/25/19 06/26/19 06/26/19 10:01 06:32 06:32 WBC 4.9 RBC 3.74 Hgb 11.7 L Hct 34 L MCV 91 MCH 31 MCHC 34 RDW 14 Plt Count 188 MPV 8.8 Neut % (Auto) 51.6 Lymph % (Auto) 28.1 [place] % (Auto) 14.4 Eos % (Auto) 4.8 Baso % (Auto) 1.1 Absolute Neuts (auto) 2.5 Absolute Lymphs (auto) 1.4 Absolute Monos (auto) 0.7 Absolute Eos (auto) 0.2 Absolute Basos (auto) 0.1 Absolute Nucleated RBC 0.0 Nucleated RBC % 0.1 ESR INR (Anticoag Therapy) APTT POC Activ Clotting Time Sodium 138 Potassium 4.3 Chloride 106 Carbon Dioxide 23 Anion Gap 9 BUN 27 H Creatinine 0.92 Est GFR ( Amer) 70.5 Est GFR (Non-Af Amer) 58.3 BUN/Creatinine Ratio 29.3 H Glucose 96 Calcium 8.6 Total Bilirubin AST ALT Alkaline Phosphatase Troponin I 3.66 H* Total Protein Albumin Globulin Albumin/Globulin Ratio Triglycerides Cholesterol LDL Cholesterol HDL Cholesterol TSH 06/26/19 06/26/19 06/26/19 06:32 12:48 12:59 WBC RBC Hgb Hct MCV MCH MCHC RDW Plt Count MPV Neut % (Auto) Lymph % (Auto) [place] % (Auto) Eos % (Auto) Baso % (Auto) Absolute Neuts (auto) Absolute Lymphs (auto) Absolute Monos (auto) Absolute Eos (auto) Absolute Basos (auto) Absolute Nucleated RBC Nucleated RBC % ESR INR (Anticoag Therapy) APTT POC Activ Clotting Time 227 227 Sodium Potassium Chloride Carbon Dioxide Anion Gap BUN Creatinine Est GFR ( Amer) Est GFR (Non-Af Amer) BUN/Creatinine Ratio Glucose Calcium Total Bilirubin AST ALT Alkaline Phosphatase Troponin I Total Protein Albumin Globulin Albumin/Globulin Ratio Triglycerides Cholesterol LDL Cholesterol HDL Cholesterol TSH 2.24 06/26/19 06/26/19 06/26/19 13:12 13:42 16:07 WBC RBC Hgb Hct MCV MCH MCHC RDW Plt Count MPV Neut % (Auto) Lymph % (Auto) [place] % (Auto) Eos % (Auto) Baso % (Auto) Absolute Neuts (auto) Absolute Lymphs (auto) Absolute Monos (auto) Absolute Eos (auto) Absolute Basos (auto) Absolute Nucleated RBC Nucleated RBC % ESR INR (Anticoag Therapy) APTT POC Activ Clotting Time 280 271 171 Sodium Potassium Chloride Carbon Dioxide Anion Gap BUN Creatinine Est GFR ( Amer) Est GFR (Non-Af Amer) BUN/Creatinine Ratio Glucose Calcium Total Bilirubin AST ALT Alkaline Phosphatase Troponin I Total Protein Albumin Globulin Albumin/Globulin Ratio Triglycerides Cholesterol LDL Cholesterol HDL Cholesterol TSH 06/26/19 06/27/19 06/27/19 16:42 05:10 05:18 WBC 7.2 RBC 3.46 L Hgb 10.8 L Hct 32 L MCV 92 MCH 31 MCHC 34 RDW 13 Plt Count 154 MPV 8.3 Neut % (Auto) 75.0 Lymph % (Auto) 14.9 [place] % (Auto) 9.0 Eos % (Auto) 0.6 Baso % (Auto) 0.5 Absolute Neuts (auto) 5.4 Absolute Lymphs (auto) 1.1 Absolute Monos (auto) 0.6 Absolute Eos (auto) 0.0 Absolute Basos (auto) 0.0 Absolute Nucleated RBC 0.0 Nucleated RBC % 0.0 ESR INR (Anticoag Therapy) APTT POC Activ Clotting Time 146 Sodium 137 Potassium 4.3 Chloride 107 Carbon Dioxide 23 Anion Gap 7 BUN 18 Creatinine 0.85 Est GFR ( Amer) 77.3 Est GFR (Non-Af Amer) 63.9 BUN/Creatinine Ratio 21.2 H Glucose 124 H Calcium 8.3 L Total Bilirubin 0.80 AST 24 ALT 17 Alkaline Phosphatase 63 Troponin I Total Protein 6.8 Albumin 3.4 Globulin 3.4 Albumin/Globulin Ratio 1.0 Triglycerides 53 Cholesterol 144 LDL Cholesterol 73 HDL Cholesterol 60.1 TSH 06/28/19 06/28/19 06:14 06:14 WBC 5.6 RBC 3.44 L Hgb 10.9 L Hct 31 L MCV 91 MCH 32 H MCHC 35 RDW 13 Plt Count 176 MPV 9.0 Neut % (Auto) 55.2 Lymph % (Auto) 26.2 [place] % (Auto) 12.1 Eos % (Auto) 5.7 Baso % (Auto) 0.8 Absolute Neuts (auto) 3.1 Absolute Lymphs (auto) 1.5 Absolute Monos (auto) 0.7 Absolute Eos (auto) 0.3 Absolute Basos (auto) 0.0 Absolute Nucleated RBC 0.0 Nucleated RBC % 0.1 ESR INR (Anticoag Therapy) APTT POC Activ Clotting Time Sodium Potassium Chloride Carbon Dioxide Anion Gap BUN 22 Creatinine 1.02 H Est GFR ( Amer) 62.6 Est GFR (Non-Af Amer) 51.8 BUN/Creatinine Ratio Glucose Calcium Total Bilirubin AST ALT Alkaline Phosphatase Troponin I Total Protein Albumin Globulin Albumin/Globulin Ratio Triglycerides Cholesterol LDL Cholesterol HDL Cholesterol TSH Diagnostic Imaging: Cardiac Catheterization Report KIARA MORENO [id number] 06/24/19 3. Circumflex artery - a dominant vessel supplying a bifurcating mid obtuse marginal branch followed several low-lying posterior left ventricular branches ending in a left- sided posterior descending artery. There was no significant disease seen throughout the circumflex system. B. Right coronary artery - a nondominant vessel supplying several acute marginal branches to the RV surface. Of note, one of them seemed to extend down to the inferior wall to some degree with septal perforators that seemed to traverse up toward the left anterior descending artery, but not actually filling it. There was a 65% narrowing seen in its proximal portion. Again, this vessel was small in caliber barely being greater than 1.7 mm. INTERVENTION INTO MID LAD AND MID DIAGONAL: A. Successful reconstitution of totally occluded LAD with balloon angioplasty and stenting utilizing a 2.0 x 26 mm long Resolute [place] drug-eluting stent overlapped distally with a 2.0 x 18 mm long Resolute [place] drug-eluting stent with the mid portion dilated to as much as 2.3 mm with ILENE 3 flow, no dissection seen and 10% to 15% residual narrowing noted. B. Reduction of significant 85% to 90% blockage seen in the mid diagonal branch with balloon angioplasty with still a residual stenosis of 65% to 70% noted, but ILENE 3 flow noted within the vessel. I cannot rule out a small thrombus present at the origin. OVERALL ASSESSMENT: Successful intervention into mid LAD with balloon angioplasty and stenting as described above. Clearly, it is paramount that the patient remain on dual antiplatelet therapy given the length of stenting utilized and its size. Aggressive risk factor management and cholesterol lowering is paramount to her continued care. This will be addressed by the noninterventional cardiology service, who has been following her throughout the hospitalization. I would strongly urge if at all possible that dual antiplatelet therapy be continued for minimum of 6 months and ideally 1 year's time. [id number]/[facility] #: [id number] Familia Adams MD Dictated Date/Time: 06/26/19 1608 Transcribed Date/Time 06/26/191818 Copy to: CC: Familia Adams MD *[facility]* [place] [address] Fax #: [phone] Transthoracic Echocardiogram Patient: Kiara Moreno : 1935 Study Date: 06/25/2019 Age: 83 Gender: F HR: 82 bpm Height: 59 in /149.9 cm BSA: 2.37 m^2 Weight: 275 lb /125 kg BMI: 55.7 kg/m^2 *Debarker Operator: * Nora Dash *Referring Physician: * Hailey Paredes *Reading Physician: * Ana Ngo MD Indications: Myocardial Infarction (new). History: Atrial fibrillation. Risk factors: Hypertension. Dyslipidemia. Conclusions Summary: - Left ventricle: The cavity size is normal. Wall thickness is at the upper limits of normal. Systolic function is mildly reduced. The estimated ejection fraction is 50%. Hypokinesis of the apical lateral myocardium see on short axis view. - Right ventricle: Systolic function is normal. - Aortic valve: Thickening, consistent with sclerosis. There is trace regurgitation. - Mitral valve: There is mild to moderate regurgitation. - Tricuspid valve: There is mild-moderate regurgitation. - Pulmonary arteries: Systolic pressure is within the normal range, estimated to be 30 mm Hg. - Compared with prior echocardiogram of 10/27/18, ejection fraction previously 40-45%, wall motion abnormality new. Mitral regurgitation is stable, tricuspid regurgitation previously moderate and pulmonary artery pressure has normalized from 49 mmHg. This report is only to be considered final once signed by the Provider(s) as displayed in the "<Electronically Signed by >" field (s). Absence of a signature indicates the report is in a draft status and still needs to be finalized. In the event this document was created by someone other than the signing Provider, the individual initiating the document will be listed in the "Entered by:" or "Dictated by:" hall. 3 of 3 EKG Data: NSR 64 bpm, QTc 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 Notes weakness, low stamina and mildly anemic, ESR elevated on admission, beta fern increased and newly on amiodarone. - Patient Problems (1) Hyperlipidemia Comment: On Statin (2) ESR raised Comment: ESR 69 on admission, hx PMR and on steroids in the past. Per pt septic shoulder when on steroids in the past. Pt denies myalgias, arthralgia, hematuria, dysuria, cough, fevers or chills. -No steroids Early notations state chronically elevated, chronic PMR. -Repeat in AM, if remains stable and no new symptoms then out patient f/u. (3) NSTEMI (non-ST elevated myocardial infarction) Comment: -06/26/19- Successful stenting of totally occulded LAD 2 stents Mid LAD and mid Diagonal. Anginal free now, no evidence of complications post, no GI bleeding on DAPT. On beta fern, statin, DAPT. (4) Atrial fibrillation Comment: Pt spontaneously cardioverted to NSR, amiodarone started. No coumadin or OAC due to hx GI bleeding. Staying in NSR since CV. (5) DVT prophylaxis Comment: Amulating and on -Aspirin, Plavix (6) Gastrointestinal bleeding, lower Comment: No recurrent GI bleeing since last October, unremarkable GI work up at that time. + BM this AM. (7) HTN (hypertension) Comment: -Well controlled -Metoprolol 37.5 mg PO BID- will lower today to admission dose as c/o fatigue, getting beta fern via amiodarone as well now. (8) Normocytic anemia Comment: Mild drop post admission, now flat with no signs or symptoms of bleeding. stool guaiac neg (9) Fatigue Comment: and low stamina. Differential of anemia, recent [place], elevated ESR/PMR, increased beta fern dose. Increase activity today, back off metoprolol as on amiodarone as well. Had TSH checked and OK. Check UA C+S Status and Disposition: Improved, stable. Counseling and/or Coordination of Care Minutes: 40
[2019-06-28] MEDS: Atorvastatin* 40 MG TAB PO SCH (20:47)
[2019-06-29 05:12] LABS: ABS Eosinophils 0.4 10^3/ul (0-0.6); ABS Lymphocytes 1.5 10^3/ul (1.0-4.8); ABS Monocytes 0.7 10^3/ul (0-0.8); ABS Neutrophils 2.7 10^3/ul (1.5-7.7); Eosinophil % 7.1 %; Hematocrit 31 % (35-47); Hemoglobin 10.6 g/dL (12.0-16.0); Lymphocyte % 27.6 %; Mean Corpuscular HGB Conc 35 g/dL (31-36); Mean Corpuscular Hemoglobin 31 pg (27-31); Mean Corpuscular Volume 91 fL (80-97); Mean Platelet Volume 8.8 fL (7.4-10.4); Platelet Count 171 10^3/uL (150-450); Red Blood Count 3.38 10^6 /uL (3.70-4.87); Red Cell Distribution Width 14 % (10-15); White Blood Count 5.3 10^3/uL (3.5-10.8)
[2019-06-29 06:35] LABS: Erythrocyte Sed Rate 76 mm/Hr (0-29)
[2019-06-29] MEDS: Ascorbic Acid TAB* 500 MG PO SCH (08:20)
[2019-06-29] MEDS: Metoprolol Succinate XL TAB* 25 MG PO SCH (08:20)
[2019-06-29] MEDS: Clopidogrel TAB* 75 MG PO SCH (08:20)
[2019-06-29] MEDS: Aspirin 81 mg CHEW TAB* 81 MG TAB.CHEW PO SCH (08:20)
[2019-06-29] MEDS: Amiodarone TAB* 200 MG PO SCH (08:20)
[2019-06-29] MEDS: Calcium Carbonate TAB* 1250 MG (CALCIUM 500 MG) PO SCH (08:20)
--- NOTE | 2019-06-29 09:15 | PN ---
Progress Note - Progress Note Date of Service: 06/29/19 - S/p MD Note: The patient is walking well energy better. No angina, no new c/o. Vital Signs - 12 hr Temp Pulse Resp BP Pulse Ox 06/29/19 07:22 16 06/29/19 06:56 16 06/29/19 03:37 98 F 75 22 121/59 99 06/29/19 00:00 97 F 76 20 136/66 99 Clear lungs Soft SM LLSB. Laboratory Results - last 24 hr 06/29/19 04:40 WBC 5.3 RBC 3.38 L Hgb 10.6 L Hct 31 L MCV 91 MCH 31 MCHC 35 RDW 14 Plt Count 171 MPV 8.8 Neut % (Auto) 51.1 Lymph % (Auto) 27.6 [place] % (Auto) 13.3 Eos % (Auto) 7.1 Baso % (Auto) 0.9 Absolute Neuts (auto) 2.7 Absolute Lymphs (auto) 1.5 Absolute Monos (auto) 0.7 Absolute Eos (auto) 0.4 Absolute Basos (auto) 0.0 Absolute Nucleated RBC 0.0 Nucleated RBC % 0.0 ESR 76 H Pt s/p MD, stent to LAD, angina free and doing well on current cardiac meds. PMHx: GI bleed, no bleeding on DAPT, H+H stable x 3 days. PMR: Elevated ESR, no symptoms, chronically elevated. No inpt meds, see prior notes. Plan: Discharge to home.
[2019-06-29 09:17] VITALS: BP 113/54
--- NOTE | 2019-06-29 11:21 | DS ---
CC: Ashish Land NP with [facility]; Dr. Baltazar Monroe DISCHARGE SUMMARY: DATE OF ADMISSION: 06/24/19 DATE OF DISCHARGE: 06/29/19 HISTORY OF PRESENT ILLNESS: Ms. Moreno is an 83-year-old woman who developed acute onset of substernal chest tightness 06/22/19 and lasted several hours and the next day, they were ongoing. She called her doctor, did not follow the advice to go to the emergency room thinking it was indigestion. She was then seen by her dictaphone typist, Dr. Monroe, 06/24/19, at that time, troponins were elevated at 14 with abnormal EKGs and she was admitted [facility] for NSTEMI. The patient had had a GI bleed in October of 2018 with GI workup and after discussion with Gastroenterology about the feasibility of dual antiplatelet agent, the decision was made to proceed with cardiac catheterization. She underwent cardiac catheterization 06/26/19 that revealed widely patent left main , LAD had a 60% occlusion of the ostial first diagonal, second diagonal had an 85% to 90% ostial occlusion and the LAD with completely occluded mid vessel. Circumflex was dominant with no significant disease. Right coronary artery was nondominant with a 65% occlusion proximally. The patient underwent successful balloon angioplasty and stenting (2.0 x 26 mm Resolute [place] drug-eluting stent overlapped with 2.0 x 18 mm Resolute [place] drug-eluting stent) with good outcome and she underwent angioplasty to the second diagonal occlusion. The patient had an echocardiogram 06/24/19 showing an ejection fraction of 50% with apical lateral hypokinesis, mild to moderate mitral insufficiency, mild to moderate tricuspid insufficiency and PA pressure of 30 mmHg. The patient arrived at the hospital in atrial fibrillation, but spontaneously cardioverted. Amiodarone was not initiated and she maintained sinus rhythm throughout the rest of her hospital stay. Labs significant on admission, the patient's hematocrit was 38. Postcardiac catheterization, her hematocrit dropped initially to 32 on 06/27/19, then 31 on 06/28/19, and stable today at 31 on 06/29/19. Her sedimentation rate on was elevated at 62 and repeat 06/29/19 was 76. Troponins on arrival 06/24/19 was 6.16 and gradually decreased on 04/22/20 was 3.66. Lipids showed total cholesterol 144, triglycerides 53, LDL cholesterol 73 and HDL cholesterol 60. On arrival, BUN was 31/0.99. On 06/28/19, off lisinopril, BUN was 22 and creatinine 1.02. On the day of discharge, the patient had ambulated on the floor for the last 24 hours without any recurrence of anginal symptoms and with good energy level. She had had a bowel movement with no blood. She denies orthopnea, PND or anginal symptoms or any other complaints. PHYSICAL EXAMINATION: Exam on the day discharge, blood pressure 121/59, pulse was 75 and regular, respiratory rate was 22, oxygen saturation on room air 99% and she was afebrile. General Appearance: Elderly woman, seated, finished breakfast in no acute distress and smiling. Psychologically pleasant and cooperative. Neurologically, awake, alert and oriented to person, place and time. Grossly normal sensory and motor functions and gait. Skin: Warm, dry. Right groin had a T-shaped induration. No ecchymosis or hematoma. HEENT: Mucous membranes were moist. No appreciable increase in JVP. Breath sounds were clear with good effort. No wheezes, rales or rhonchi. Coronary: S1, S2. Regular, soft systolic murmur heard in the left lower sternal border. Abdomen: Normal bowel sounds and soft. Lower Extremities are free of edema and warm. MEDICATIONS ON ADMISSION: Include: 1. Atorvastatin 20 mg a day. 2. Lisinopril 5 mg a day. 3. Metoprolol 25 mg b.i.d. 4. Famotidine 25 mg a day. ALLERGIES: Include RIFAMPIN, DOXYCYCLINE. MEDICATIONS AT DISCHARGE: Include: 1. Amiodarone 200 mg a day. 2. Lipitor 40 mg a day (increased dose). 3. Plavix 75 mg a day. 4. Aspirin 81 mg a day. 5. Sublingual nitroglycerin p.r.n. 6. Vitamin C 500 mg a day. 7. Calcium carbonate 500 mg a day. 8. Toprol-XL 25 mg b.i.d. She will not resume lisinopril on discharge. SUMMARY: In summary, Kiara Moreno is an 83-year-old woman who presented to the hospital approximately 48 hours status post anterior wall MN, who underwent successful angioplasty and stenting to an occluded LAD and angioplasty to tight diagonal lesion. She was started on dual antiplatelet agent without any recurrence of the GI bleeding she had in October. The patient has had paroxysmal AFib and was not on anticoagulation due to her prior GI bleed and a previously declined left atrial appendage occluder device. She was not started on Coumadin or OACs due to her history of GI bleed, but as she spontaneously cardioverted, amiodarone was initiated to maintain sinus rhythm. The patient's sedimentation rate was elevated and she has a history of polymyalgia rheumatica, as this was by history was chronically elevated and the patient stated she had a septic shoulder and she had no clear symptoms from her PMR. No treatment was initiated and she and her daughter were advised to follow up with her primary care physician on discharge. The patient was mildly anemic post cath, but has been stable and this too can be followed as an outpatient. For atherosclerotic risks, blood pressure is well controlled, her atorvastatin was doubled on discharge and referrals were made for cardiac rehab. Information was given, was also provided for a heart-healthy and Mediterranean diet. CONDITION at discharge was stable and improved. DISPOSITION: the patient is being discharged to home where she lives with her daughter. [id number]/[facility] #: [id number] [facility]ITALKandace
== END 2019-06-29 12:10 | disposition home or self-care (01) | DRG 247 ==
LOC: ED 14:18 → MEDTELE 16:28 → ICU 06-26 14:12 → MEDTELE 06-27 10:52
PROVIDERS: ADMIT Internal Medicine; ATTEND Specialist
PROC: 02704ZZ Dilation of Coronary Artery, One Artery, Percutaneous Endoscopic Approach (ICD-10-PCS; 2019-06-26)
PROC: 027045Z Dilation of Coronary Artery, One Artery with Two Drug-eluting Intraluminal Devices, Percutaneous Endoscopic Approach (ICD-10-PCS; principal; 2019-06-26 11:30)
DX: I21.4 Non-ST elevation (NSTEMI) myocardial infarction (principal); I50.20 Unspecified systolic (congestive) heart failure; I42.9 Cardiomyopathy, unspecified; I11.0 Hypertensive heart disease with heart failure; I48.0 Paroxysmal atrial fibrillation; K21.9 Gastro-esophageal reflux disease without esophagitis; E78.5 Hyperlipidemia, unspecified; M35.3 Polymyalgia rheumatica; I08.3 Combined rheumatic disorders of mitral, aortic and tricuspid valves; D64.9 Anemia, unspecified; I27.20 Pulmonary hypertension, unspecified; Z79.899 Other long term (current) drug therapy; Z87.19 Personal history of other diseases of the digestive system; Z88.8 Allergy status to other drugs, medicaments and biological substances
CPT/HCPCS: 36415; 71046; 76937; 80048; 80053; 80061; 82565; 84443; 84484; 84520; 85025; 85347; 85610; 85652; 85730; 87086; 93005; 93306; 93454; 99284; A9270-GY; C1725; C1769; C1874; C1887; C9600-LD; J1644; J2250; J3010; J3490

== ENCOUNTER 2020-02-13 23:02 | Inpatient (IN) ==
[2020-02-14 00:27] LABS: ABS Basophils 0.1 10^3/ul (0-0.2); ABS Eosinophils 0.2 10^3/ul (0-0.6); ABS Lymphocytes 0.9 10^3/ul (1.0-4.8); ABS Monocytes 0.8 10^3/ul (0-0.8); ABS Neutrophils 6.1 10^3/ul (1.5-7.7); Hematocrit 33 % (35-47); Hemoglobin 11.2 g/dL (12.0-16.0); Lymphocyte % 11.2 %; Mean Corpuscular HGB Conc 34 g/dL (31-36); Mean Corpuscular Hemoglobin 31 pg (27-31); Mean Corpuscular Volume 92 fL (80-97); Mean Platelet Volume 7.9 fL (7.4-10.4); Nucleated Red Blood Cells % 0.1; Platelet Count 277 10^3/uL (150-450); Red Blood Count 3.56 10^6 /uL (3.70-4.87); Red Cell Distribution Width 15 % (10-15)
[2020-02-14 00:45] LABS: Albumin 4.2 g/dL (3.2-5.2); BUN/Creatinine Ratio 22.2 (8-20); Calcium 9.6 mg/dL (8.6-10.3); EGFR African American 58.5 (>60); EGFR Non-African American 48.3 (>60); Globulin 4.1 g/dL (2-4); Potassium 4.6 mmol/L (3.5-5.0); Total Bilirubin 0.6 mg/dL (0.2-1.0); Total Protein 8.3 g/dL (6.4-8.9)
[2020-02-14 00:46] LABS: Troponin I 0.01 ng/mL (<0.03)
[2020-02-14 01:32] LABS: Urine Appearance Cloudy; Urine Bilirubin Negative (Negative); Urine Blood Negative (Negative); Urine Color Yellow; Urine Glucose Negative (Negative); Urine Ketones Negative (Negative); Urine Nitrite Negative (Negative); Urine Protein 1+(30 mg/dL) (Negative); Urine Specific Gravity 1.009 (1.010-1.030); Urine Urobilinogen Negative (Negative)
[2020-02-14 01:45] LABS: Urine Bacteria Absent (Absent); Urine Red Blood Cell Trace(0-2/hpf) (Absent); Urine White Blood Cell Absent (Absent)
[2020-02-14] MEDS ORDERED: Iodixanol (CONTRAST) 320 MG/ML 100 ML SDV IV ONE (02:12)
[2020-02-14] MEDS ORDERED: Furosemide 20 mg/2 ml IV VIAL IV ONE (05:52)
[2020-02-14] MEDS ORDERED: Ondansetron 4 mg VIAL 2 MG/ML 2 ml VIAL IV PRN (06:53)
[2020-02-14] MEDS: cefTRIAXone 1 gm/50 mL NS BAG 1 GM/50 ML BAG IVPB SCH (07:20)
[2020-02-14 09:19] LABS: C Reactive Protein 9.58 mg/L (<8.01)
[2020-02-14] MEDS: Azithromycin 500 mg/250 ml NS 500 MG/250 ML BAG IVPB SCH (11:24)
[2020-02-14] MEDS: Enoxaparin 30 MG/0.3 ML SYR SUBCUT SCH (22:40)
[2020-02-15 06:03] LABS: ABS Basophils 0.1 10^3/ul (0-0.2); ABS Eosinophils 0.5 10^3/ul (0-0.6); ABS Lymphocytes 0.7 10^3/ul (1.0-4.8); ABS Monocytes 0.7 10^3/ul (0-0.8); ABS Neutrophils 6.4 10^3/ul (1.5-7.7); Eosinophil % 5.7 %; Hematocrit 27 % (35-47); Hemoglobin 9.2 g/dL (12.0-16.0); Lymphocyte % 8.2 %; Mean Corpuscular HGB Conc 34 g/dL (31-36); Mean Corpuscular Hemoglobin 32 pg (27-31); Mean Corpuscular Volume 93 fL (80-97); Mean Platelet Volume 8.2 fL (7.4-10.4); Platelet Count 214 10^3/uL (150-450); Red Blood Count 2.91 10^6 /uL (3.70-4.87); Red Cell Distribution Width 15 % (10-15); White Blood Count 8.3 10^3/uL (3.5-10.8)
[2020-02-15 06:19] LABS: BUN/Creatinine Ratio 22.1 (8-20); Calcium 8.4 mg/dL (8.6-10.3); EGFR African American 50.8 (>60); Potassium 4.3 mmol/L (3.5-5.0)
[2020-02-15] MEDS: Azithromycin 500 mg/250 ml NS 500 MG/250 ML BAG IVPB SCH (08:09)
[2020-02-15] MEDS: cefTRIAXone 1 gm/50 mL NS BAG 1 GM/50 ML BAG IVPB SCH (09:52)
[2020-02-15] MEDS ORDERED: Perflutren Lipid Microsphere 3 ML VIAL ONE (12:07)
[2020-02-15] MEDS ORDERED: Influenza VAC *QUAD* 2020-21* 0.5 ML SYRINGE IM ONE (15:00)
[2020-02-15] MEDS: Enoxaparin 30 MG/0.3 ML SYR SUBCUT SCH (20:53)
[2020-02-16 06:16] LABS: ABS Eosinophils 0.5 10^3/ul (0-0.6); ABS Lymphocytes 0.8 10^3/ul (1.0-4.8); ABS Monocytes 0.6 10^3/ul (0-0.8); ABS Neutrophils 4.1 10^3/ul (1.5-7.7); Eosinophil % 8.3 %; Hematocrit 28 % (35-47); Hemoglobin 9.5 g/dL (12.0-16.0); Lymphocyte % 12.8 %; Mean Corpuscular HGB Conc 34 g/dL (31-36); Mean Corpuscular Hemoglobin 31 pg (27-31); Mean Corpuscular Volume 93 fL (80-97); Mean Platelet Volume 8.2 fL (7.4-10.4); Platelet Count 212 10^3/uL (150-450); Red Blood Count 3.01 10^6 /uL (3.70-4.87); Red Cell Distribution Width 14 % (10-15); White Blood Count 6.1 10^3/uL (3.5-10.8)
[2020-02-16 06:36] LABS: BUN/Creatinine Ratio 18.3 (8-20); Calcium 8.3 mg/dL (8.6-10.3); EGFR African American 69.5 (>60); EGFR Non-African American 57.4 (>60); Potassium 4.2 mmol/L (3.5-5.0)
[2020-02-16] MEDS: cefTRIAXone 1 gm/50 mL NS BAG 1 GM/50 ML BAG IVPB SCH (07:46)
[2020-02-16 11:43] LABS: C Reactive Protein 88.85 mg/L (<8.01)
[2020-02-16] MEDS: DOXYcycline 100 MG in NS 0.9% 250 ml 250 ML IVPB SCH (15:50)
[2020-02-16] MEDS: Enoxaparin 30 MG/0.3 ML SYR SUBCUT SCH (23:19)
[2020-02-17] MEDS: DOXYcycline 100 MG in NS 0.9% 250 ml 250 ML IVPB SCH ×2 (03:15→14:30)
[2020-02-17 05:54] LABS: Hematocrit 30 % (35-47); Hemoglobin 10.4 g/dL (12.0-16.0); Mean Corpuscular HGB Conc 35 g/dL (31-36); Mean Corpuscular Hemoglobin 32 pg (27-31); Mean Corpuscular Volume 91 fL (80-97); Mean Platelet Volume 8.1 fL (7.4-10.4); Platelet Count 245 10^3/uL (150-450); Red Blood Count 3.26 10^6 /uL (3.70-4.87); Red Cell Distribution Width 14 % (10-15); White Blood Count 5.5 10^3/uL (3.5-10.8)
[2020-02-17 06:08] LABS: BUN/Creatinine Ratio 19.3 (8-20); Calcium 8.7 mg/dL (8.6-10.3); EGFR African American 74.1 (>60); EGFR Non-African American 61.2 (>60); Potassium 4.3 mmol/L (3.5-5.0)
[2020-02-17] MEDS ORDERED: Magnesium Hydroxide LIQ 30 ML UDC PO ONE (08:53)
[2020-02-17] MEDS ORDERED: Furosemide 40 mg/4 ml IV VIAL IV ONE (09:10)
[2020-02-17 09:31] LABS: Magnesium 1.8 mg/dL (1.9-2.7)
[2020-02-17] MEDS ORDERED: Magnesium Sulfate IV 1GM/100ML 1 GM/100 ML BAG IV ONE (10:26)
[2020-02-17] MEDS ORDERED: Magnesium Sulfate IV 3 GM in NS 0.9% 100 ml BAG 100 ML IVPB ONE (14:30)
[2020-02-17] MEDS: Enoxaparin 30 MG/0.3 ML SYR SUBCUT SCH (21:58)
[2020-02-18] MEDS: DOXYcycline 100 MG in NS 0.9% 250 ml 250 ML IVPB SCH ×2 (03:26→15:30)
[2020-02-18] MEDS: Enoxaparin 30 MG/0.3 ML SYR SUBCUT SCH ×2 (08:50→20:37)
[2020-02-18 08:51] LABS: ABS Lymphocytes 0.8 10^3/ul (1.0-4.8); ABS Monocytes 0.6 10^3/ul (0-0.8); ABS Neutrophils 8.4 10^3/ul (1.5-7.7); Eosinophil % 0.1 %; Hematocrit 28 % (35-47); Hemoglobin 9.5 g/dL (12.0-16.0); Lymphocyte % 8.2 %; Mean Corpuscular HGB Conc 34 g/dL (31-36); Mean Corpuscular Hemoglobin 31 pg (27-31); Mean Corpuscular Volume 91 fL (80-97); Mean Platelet Volume 8.3 fL (7.4-10.4); Platelet Count 252 10^3/uL (150-450); Red Blood Count 3.08 10^6 /uL (3.70-4.87); Red Cell Distribution Width 15 % (10-15); White Blood Count 9.9 10^3/uL (3.5-10.8)
[2020-02-18 09:00] LABS: BUN/Creatinine Ratio 26.5 (8-20); Calcium 8.2 mg/dL (8.6-10.3); EGFR African American 79.2 (>60); EGFR Non-African American 65.5 (>60); Magnesium 2.2 mg/dL (1.9-2.7)
[2020-02-18] MEDS: Polyethylene Glycol 3350 17 GM PACKET PO PRN (15:30)
[2020-02-18] MEDS ORDERED: Furosemide 20 mg/2 ml IV VIAL IV ONE ×2 (17:07)
[2020-02-19 02:48] LABS: ABS Lymphocytes 0.8 10^3/ul (1.0-4.8); ABS Monocytes 0.5 10^3/ul (0-0.8); Hematocrit 29 % (35-47); Hemoglobin 9.8 g/dL (12.0-16.0); Lymphocyte % 9.4 %; Mean Corpuscular HGB Conc 34 g/dL (31-36); Mean Corpuscular Hemoglobin 31 pg (27-31); Mean Corpuscular Volume 91 fL (80-97); Platelet Count 265 10^3/uL (150-450); Red Blood Count 3.18 10^6 /uL (3.70-4.87); Red Cell Distribution Width 14 % (10-15); White Blood Count 8.3 10^3/uL (3.5-10.8)
[2020-02-19] MEDS: DOXYcycline 100 MG in NS 0.9% 250 ml 250 ML IVPB SCH (02:55)
[2020-02-19 02:59] LABS: Calcium 8.2 mg/dL (8.6-10.3)
[2020-02-19 03:04] LABS: BUN/Creatinine Ratio 23.8 (8-20); EGFR African American 63.2 (>60); EGFR Non-African American 52.2 (>60)
[2020-02-19 03:20] LABS: TSH Ultra Thyroid Stim Horm 0.86 mcIU/mL (0.34-5.60)
[2020-02-19] MEDS: Enoxaparin 30 MG/0.3 ML SYR SUBCUT SCH ×2 (08:47→22:01)
[2020-02-19 11:08] LABS: C Reactive Protein 14.97 mg/L (<8.01)
[2020-02-19] MEDS: Polyethylene Glycol 3350 17 GM PACKET PO PRN (15:52)
[2020-02-20 07:35] LABS: BUN/Creatinine Ratio 24.2 (8-20); Calcium 8.6 mg/dL (8.6-10.3); EGFR African American 64.7 (>60); EGFR Non-African American 53.4 (>60); Potassium 4.3 mmol/L (3.5-5.0)
[2020-02-20 08:19] LABS: ABS Lymphocytes 1.4 10^3/ul (1.0-4.8); ABS Monocytes 0.8 10^3/ul (0-0.8); ABS Neutrophils 7.4 10^3/ul (1.5-7.7); Hematocrit 32 % (35-47); Lymphocyte % 14.2 %; Mean Corpuscular HGB Conc 34 g/dL (31-36); Mean Corpuscular Hemoglobin 31 pg (27-31); Mean Corpuscular Volume 91 fL (80-97); Mean Platelet Volume 8.3 fL (7.4-10.4); Platelet Count 333 10^3/uL (150-450); Red Blood Count 3.59 10^6 /uL (3.70-4.87); Red Cell Distribution Width 14 % (10-15); White Blood Count 9.6 10^3/uL (3.5-10.8)
[2020-02-20] MEDS: Enoxaparin 30 MG/0.3 ML SYR SUBCUT SCH (08:53)
[2020-02-20 11:31] VITALS: BP 132/73
== END 2020-02-20 18:00 | disposition home or self-care (01) | DRG 193 ==
LOC: ED 23:02 → MED 02-14 05:14 → MEDTELE 02-15 16:46 → MED 02-16 17:58
PROVIDERS: ADMIT Hospitalist; ATTEND Internal Medicine

== ENCOUNTER 2020-10-23 10:35 | Observation (INO) ==
[2020-10-23 13:18] LABS: ABS Eosinophils 0.2 10^3/ul (0-0.6); ABS Lymphocytes 1.2 10^3/ul (1.0-4.8); ABS Monocytes 0.7 10^3/ul (0-0.8); ABS Neutrophils 3.7 10^3/ul (1.5-7.7); Eosinophil % 2.8 %; Hematocrit 40 % (35-47); Hemoglobin 13.5 g/dL (12.0-16.0); Lymphocyte % 21.2 %; Mean Corpuscular HGB Conc 34 g/dL (31-36); Mean Corpuscular Hemoglobin 32 pg (27-31); Mean Corpuscular Volume 95 fL (80-97); Mean Platelet Volume 8.9 fL (7.4-10.4); Platelet Count 199 10^3/uL (150-450); Red Blood Count 4.24 10^6 /uL (3.70-4.87); Red Cell Distribution Width 15 % (10-15); White Blood Count 5.8 10^3/uL (3.5-10.8)
[2020-10-23 13:23] LABS: INR 1.49 (0.86-1.15)
[2020-10-23 13:35] LABS: Albumin 4.3 g/dL (3.2-5.2); Albumin/Globulin Ratio 1.2 (1-3); Calcium 10.1 mg/dL (8.6-10.3); EGFR Non-African American 54.6 (>60); Globulin 3.7 g/dL (2-4); Total Bilirubin 0.9 mg/dL (0.2-1.0)
[2020-10-23 13:36] LABS: Troponin I 0.01 ng/mL (<0.03)
[2020-10-23 14:00] LABS: Urine Appearance Clear; Urine Bilirubin Negative (Negative); Urine Blood Negative (Negative); Urine Color Yellow; Urine Glucose Negative (Negative); Urine Ketones Negative (Negative); Urine Nitrite Negative (Negative); Urine Protein Negative (Negative); Urine Specific Gravity 1.003 (1.002-1.030); Urine Urobilinogen Negative (Negative)
[2020-10-23 14:08] LABS: TSH Ultra Thyroid Stim Horm 2.87 mcIU/mL (0.34-5.60)
[2020-10-23] MEDS ORDERED: Iodixanol (CONTRAST) 320 MG/ML 100 ML SDV IV ONE (14:15)
[2020-10-23] MEDS ORDERED: hydrALAZINE 20 mg/ml 1 ML Vial IV IV SLOW PU PRN (17:29)
[2020-10-24 07:24] LABS: ABS Eosinophils 0.3 10^3/ul (0-0.6); ABS Lymphocytes 0.8 10^3/ul (1.0-4.8); ABS Monocytes 0.8 10^3/ul (0-0.8); ABS Neutrophils 3.9 10^3/ul (1.5-7.7); Eosinophil % 4.5 %; Hematocrit 38 % (35-47); Hemoglobin 13.2 g/dL (12.0-16.0); Lymphocyte % 13.7 %; Mean Corpuscular HGB Conc 35 g/dL (31-36); Mean Corpuscular Hemoglobin 33 pg (27-31); Mean Corpuscular Volume 94 fL (80-97); Mean Platelet Volume 8.6 fL (7.4-10.4); Platelet Count 170 10^3/uL (150-450); Red Blood Count 4.06 10^6 /uL (3.70-4.87); Red Cell Distribution Width 15 % (10-15); White Blood Count 5.8 10^3/uL (3.5-10.8)
[2020-10-24 07:42] LABS: Albumin 3.8 g/dL (3.2-5.2); Albumin/Globulin Ratio 1.2 (1-3); Calcium 9.1 mg/dL (8.6-10.3); EGFR African American 67.6 (>60); EGFR Non-African American 55.9 (>60); Globulin 3.3 g/dL (2-4); HDL Cholesterol 71.1 mg/dL; Potassium 4.3 mmol/L (3.5-5.0); Total Bilirubin 1.1 mg/dL (0.2-1.0); Total Protein 7.1 g/dL (6.4-8.9)
[2020-10-25 08:50] LABS: ABS Eosinophils 0.5 10^3/ul (0-0.6); ABS Lymphocytes 0.8 10^3/ul (1.0-4.8); ABS Monocytes 0.7 10^3/ul (0-0.8); ABS Neutrophils 3.7 10^3/ul (1.5-7.7); Eosinophil % 8.9 %; Hematocrit 40 % (35-47); Hemoglobin 13.5 g/dL (12.0-16.0); Lymphocyte % 13.5 %; Mean Corpuscular HGB Conc 34 g/dL (31-36); Mean Corpuscular Hemoglobin 32 pg (27-31); Mean Corpuscular Volume 96 fL (80-97); Mean Platelet Volume 8.7 fL (7.4-10.4); Platelet Count 191 10^3/uL (150-450); Red Blood Count 4.19 10^6 /uL (3.70-4.87); Red Cell Distribution Width 15 % (10-15); White Blood Count 5.8 10^3/uL (3.5-10.8)
[2020-10-25 09:08] LABS: Albumin 4.1 g/dL (3.2-5.2); Albumin/Globulin Ratio 1.2 (1-3); Calcium 9.4 mg/dL (8.6-10.3); EGFR African American 69.3 (>60); EGFR Non-African American 57.3 (>60); Globulin 3.5 g/dL (2-4); Potassium 4.4 mmol/L (3.5-5.0); Total Protein 7.6 g/dL (6.4-8.9)
[2020-10-25 15:09] VITALS: BP 107/55
== END 2020-10-25 17:20 | disposition home or self-care (01) ==
LOC: ED 10:35 → MEDTELE 10:35 → SUATTDRO 21:09
PROVIDERS: ADMIT Internal Medicine; ATTEND Hospitalist

== ENCOUNTER 2023-07-02 14:20 | Inpatient (IN) ==
[2023-07-02 15:38] LABS: ABS Basophils 0.1 10^3/uL (0.0-0.1); ABS Eosinophils 0.1 10^3/uL (0.0-0.5); ABS Lymphocytes 1.1 10^3/uL (1.0-4.8); Eosinophil % 1.6 %; Hematocrit 32.5 % (35-45); Lymphocyte % 15.3 %; Mean Corpuscular Hemoglobin 30.7 pg (27-33); Mean Corpuscular Hgb Conc 33.9 g/dL (31-36); Mean Corpuscular Volume 90.5 fL (80-97); Mean Platelet Volume 8.9 fL (7.5-11.2); Nucleated Red Blood Cells % 0.1 %/100WBC (0.0-0.8); Platelet Count 178 10^3/uL (150-450); Red Blood Count 3.59 10^6/uL (3.63-4.92); Red Cell Distribution Width 18.7 % (12-17); White Blood Count 7.4 10^3/uL (3.8-11.8)
[2023-07-02 15:54] LABS: ALT 31 U/L (7-52); AST 37 U/L (13-39); Albumin 3.9 g/dL (3.2-5.2); Albumin/Globulin Ratio 1.1 (1-3); Alkaline Phosphatase 93 U/L (35-149); Anion Gap 9 mmol/L (2-16); Blood Urea Nitrogen 33 mg/dL (6-24); CO2 Carbon Dioxide 21 mmol/L (22-32); Calcium 9.2 mg/dL (8.6-10.3); Chloride 104 mmol/L (101-111); Creatinine, Serum 1.18 mg/dL (0.51-0.95); Globulin 3.6 g/dL (2-4); Glucose 107 mg/dL (70-100); Potassium 3.8 mmol/L (3.5-5.0); Sodium 134 mmol/L (135-145); Total Bilirubin 1.8 mg/dL (0.2-1.0); Total Protein 7.5 g/dL (6.4-8.9); eGFR CKD-EPI 44.7 (>60)
[2023-07-02] MEDS: Dexamethasone IV 4 MG/ML VIAL 1 ml VIAL IV SLOW PU ONE (16:01)
[2023-07-02] MEDS: Albuterol/Ipratropium NEB.SOL (2.5/0.5 MG) 3 ML NEB.SOLN INH ONE (16:07)
[2023-07-02] MEDS: cefTRIAXone 1 gm/50 mL D5W 1 GM/50 ML BAG IV ONE (16:51)
[2023-07-02] MEDS: Azithromycin 500 mg/250 ml NS 500 MG/250 ML BAG IVPB ONE (17:31)
[2023-07-02 17:36] LABS: C Reactive Protein 84.36 mg/L (<8.01)
[2023-07-02 18:52] LABS: Magnesium 1.9 mg/dL (1.9-2.7)
[2023-07-02] MEDS: Furosemide 20 mg/2 ml IV VIAL IV ONE (20:15)
[2023-07-02] MEDS: Potassium Chlor 20 meq TAB.ER PO ONE (20:16)
[2023-07-02 21:59] LABS: Ferritin 413.6 ng/mL (11-307)
[2023-07-02 22:02] LABS: Folate > 20.00 ng/mL (5.90-24.80)
[2023-07-02 22:03] LABS: Vitamin B12 876 pg/mL (180-914)
[2023-07-02 22:13] LABS: % Iron Saturation 13 % (15-55); .Transferrin 249 mg/dL (203-362); Iron 45 ug/dL (50-212); Total Iron Binding Capacity 349 mcg/dL (250-450); Unsaturated Iron Binding 304 ug/dL
[2023-07-02] MEDS: Potassium Chloride LIQUID 20 MEQ/15 ML LIQUID PO ONE (23:23)
[2023-07-03 05:51] LABS: ABS Lymphocytes 0.5 10^3/uL (1.0-4.8); ABS Monocytes 0.1 10^3/uL (0.0-0.9); ABS Neutrophils 4.4 10^3/uL (1.5-7.6); Hematocrit 30.5 % (35-45); Hemoglobin 10.3 g/dL (11.5-14.3); Lymphocyte % 10.4 %; Mean Corpuscular Hemoglobin 30.7 pg (27-33); Mean Corpuscular Hgb Conc 33.8 g/dL (31-36); Mean Corpuscular Volume 90.8 fL (80-97); Mean Platelet Volume 8.8 fL (7.5-11.2); Platelet Count 167 10^3/uL (150-450); Red Blood Count 3.36 10^6/uL (3.63-4.92); Red Cell Distribution Width 18.9 % (12-17)
[2023-07-03 06:21] LABS: Calcium 8.6 mg/dL (8.6-10.3); Creatinine, Serum 1.33 mg/dL (0.51-0.95); Potassium 4.1 mmol/L (3.5-5.0); eGFR CKD-EPI 38.7 (>60)
[2023-07-03] MEDS: Calcium/Vitamin D TAB 250/125 TAB PO SCH (10:13)
[2023-07-03] MEDS: cefTRIAXone 1 gm/50 mL D5W 1 GM/50 ML BAG IV SCH (16:48)
[2023-07-03] MEDS ORDERED: cefTRIAXone 1 gm/50 mL D5W 1 GM/50 ML BAG IV SCH (17:00)
[2023-07-03] MEDS ORDERED: Azithromycin 500 mg/250 ml NS 500 MG/250 ML BAG IVPB SCH (17:00)
[2023-07-03] MEDS: Azithromycin 500 mg/250 ml NS 500 MG/250 ML BAG IVPB SCH (17:28)
[2023-07-03] MEDS: Albuterol/Ipratropium NEB.SOL (2.5/0.5 MG) 3 ML NEB.SOLN INH PRN (21:24)
[2023-07-04 07:02] LABS: ABS Neutrophils 7.4 10^3/uL (1.5-7.6); ABS Nucleated RBC 0.01 10^3/ul; Eosinophil % 0.1 %; Hematocrit 30.3 % (35-45); Lymphocyte % 10.3 %; Mean Corpuscular Hemoglobin 30.5 pg (27-33); Mean Corpuscular Hgb Conc 33.1 g/dL (31-36); Mean Corpuscular Volume 92.1 fL (80-97); Nucleated Red Blood Cells % 0.1 %/100WBC (0.0-0.8); Platelet Count 187 10^3/uL (150-450); Red Blood Count 3.29 10^6/uL (3.63-4.92); Red Cell Distribution Width 19.4 % (12-17); White Blood Count 9.4 10^3/uL (3.8-11.8)
[2023-07-04 07:17] LABS: Calcium 8.6 mg/dL (8.6-10.3); Creatinine, Serum 1.07 mg/dL (0.51-0.95); Potassium 4.2 mmol/L (3.5-5.0); eGFR CKD-EPI 50.3 (>60)
[2023-07-04 14:12] VITALS: BP 156/65
== END 2023-07-04 17:20 | disposition home or self-care (01) | DRG 202 ==
LOC: ED 14:20 → EDHOLD 14:20 → SUATTDRO 17:48 → MEDTELE 07-03 10:56
PROVIDERS: ADMIT Internal Medicine; ATTEND Internal Medicine

== ENCOUNTER 2023-08-23 12:39 | Observation (INO) ==
[2023-08-23 16:23] LABS: INR 2.29 (0.83-1.13)
[2023-08-23 16:28] LABS: ABS Eosinophils 0.2 10^3/uL (0.0-0.5); ABS Monocytes 0.8 10^3/uL (0.0-0.9); ABS Neutrophils 4.8 10^3/uL (1.5-7.6); ABS Nucleated RBC 0.01 10^3/ul; Eosinophil % 3.2 %; Hemoglobin 11.8 g/dL (11.5-14.3); Lymphocyte % 14.7 %; Mean Corpuscular Hemoglobin 31.2 pg (27-33); Mean Corpuscular Hgb Conc 32.8 g/dL (31-36); Mean Corpuscular Volume 95.1 fL (80-97); Mean Platelet Volume 9.1 fL (7.5-11.2); Nucleated Red Blood Cells % 0.1 %/100WBC (0.0-0.8); Platelet Count 180 10^3/uL (150-450); Red Blood Count 3.78 10^6/uL (3.63-4.92); White Blood Count 6.8 10^3/uL (3.8-11.8)
[2023-08-23 17:51] LABS: High Sensitivity Troponin 1 Hr 29 pg/mL (<15)
[2023-08-23 19:20] LABS: Albumin 4.1 g/dL (3.2-5.2); Albumin/Globulin Ratio 1.1 (1-3); Calcium 9.8 mg/dL (8.6-10.3); Creatinine, Serum 1.16 mg/dL (0.51-0.95); Globulin 3.7 g/dL (2-4); Potassium 4.4 mmol/L (3.5-5.0); Total Bilirubin 1.9 mg/dL (0.2-1.0); Total Protein 7.8 g/dL (6.4-8.9); eGFR CKD-EPI 45.3 (>60)
[2023-08-23] MEDS: Furosemide 20 mg/2 ml IV VIAL IV ONE (20:34)
[2023-08-23] MEDS: cefTRIAXone 1 gm/50 mL D5W 1 GM/50 ML BAG IV ONE (20:42)
[2023-08-24 05:47] LABS: ABS Basophils 0.1 10^3/uL (0.0-0.1); ABS Eosinophils 0.2 10^3/uL (0.0-0.5); ABS Lymphocytes 0.8 10^3/uL (1.0-4.8); ABS Neutrophils 5.8 10^3/uL (1.5-7.6); ABS Nucleated RBC 0.01 10^3/ul; Eosinophil % 2.1 %; Hematocrit 33.3 % (35-45); Hemoglobin 10.9 g/dL (11.5-14.3); Lymphocyte % 10.7 %; Mean Corpuscular Hgb Conc 32.7 g/dL (31-36); Mean Corpuscular Volume 94.7 fL (80-97); Mean Platelet Volume 8.5 fL (7.5-11.2); Nucleated Red Blood Cells % 0.1 %/100WBC (0.0-0.8); Platelet Count 170 10^3/uL (150-450); Red Blood Count 3.51 10^6/uL (3.63-4.92); Red Cell Distribution Width 19.7 % (12-17); White Blood Count 7.9 10^3/uL (3.8-11.8)
[2023-08-24 06:38] LABS: Calcium 9.3 mg/dL (8.6-10.3); Creatinine, Serum 1.23 mg/dL (0.51-0.95); Magnesium 1.8 mg/dL (1.9-2.7); Potassium 4.1 mmol/L (3.5-5.0); eGFR CKD-EPI 42.3 (>60)
[2023-08-24] MEDS: Furosemide 40 mg/4 ml IV VIAL IV ONE (08:03)
[2023-08-24 14:13] VITALS: BP 100/52
== END 2023-08-24 14:26 | disposition home or self-care (01) ==
LOC: EDHOLD 12:39 → ED 12:39 → SUATTDRO 22:30 → EDHOLD 08-24 06:56
PROVIDERS: ADMIT Internal Medicine; ATTEND Student in an Organized Health Care Education/Training Program